=== PATIENT | female | born 1985 | race Caucasian/White ===

== ENCOUNTER 2024-07-12 18:46 | Emergency (ER) | payer SELFPAY ==
[2024-07-12 19:13] VITALS: BP 101/61; PULSE 72; TEMP 36.8; O2SAT 100
--- NOTE | 2024-07-12 19:36 | CT_ITS ---
The [address] [address] Patient Name: STUART LORENZ MRN: [id number] date: 1985 Sex: F Assigned Patient Location: ED.MAIN Current Patient Location: ED.MAIN Accession/Order Number: [id number] Exam Date: 07/12/2024 20:05 Report Date: 07/12/2024 21:52 At the request of: JUANI TORRES Procedure: CT abdomen pelvis wo con EXAMINATION: CT abdomen pelvis wo con, 07/12/2024 8:05 PM EST HISTORY: Abdominal pain. COMPARISON: None. TECHNIQUE: CT scan of the abdomen and pelvis was performed without IV contrast. CT dose reduction technique was used, including Automated Exposure Control. FINDINGS: LOWER CHEST: The visualized lung bases are clear. There is a pectus excavatum deformity. LIVER: 9 mm hypodensity in the right hepatic lobe which is indeterminate. GALLBLADDER AND BILIARY SYSTEM: Status post cholecystectomy. No intra or extrahepatic biliary ductal dilatation. SPLEEN: Unremarkable. PANCREAS: Unremarkable. ADRENAL GLANDS: Unremarkable. KIDNEYS AND URETERS: There is a 6 mm nonobstructing calculus in the upper pole the left kidney. There are 2 adjacent calcifications in the region of the proximal right ureter measuring 9 mm and 5 mm. It is unclear on the study of these calcifications are within the ureter or represent vascular calcifications. No perinephric stranding. No hydronephrosis. Prominence of the renal pelves bilaterally. BLADDER: Unremarkable. GASTROINTESTINAL TRACT: No evidence of bowel obstruction or colitis. Moderate amount of stool in the colon. Fluid-filled loops of small bowel are noted which may represent enteritis. A normal appendix is visualized. Clonic diverticulosis without evidence of diverticulitis. VASCULATURE: The abdominal aorta is normal in caliber. RETROPERITONEUM: No lymphadenopathy. PERITONEUM/MESENTERY: No abdominal ascites. No free air. PELVIS: No pelvic ascites or lymphadenopathy. The ovaries are not well evaluated on this study due to adjacent small bowel loops. BODY WALL: Unremarkable. BONES: Broad-based disc bulging noted at L5-S1. CT/CT abdomen pelvis wo con IMPRESSION: 1. Fluid-filled small bowel loops suggesting enteritis. No evidence of bowel obstruction. Constipation. Colonic diverticulosis without evidence of diverticulitis. 2. Calcifications noted in the region of the proximal right ureter. Ureteral calculus is not excluded on this study. No hydronephrosis. If there is clinical concern for ureteral calculus, further evaluation with CT urogram is suggested. 3. Nonobstructing 6 mm calculus in the upper pole the left kidney. 4. Pectus excavatum deformity. 5. Indeterminate hypodensity in the right hepatic lobe. 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 Electronically authenticated by: COLE WAGNER Date: 07/12/2024 21:52
--- NOTE | 2024-07-12 19:48 | ED.GENADUL1 ---
HPI HPI - General Adult General Chief complaint: Abdominal Pain Stated complaint: Abdominal Pain Time Seen by Provider: 07/12/24 19:35 Source: patient Mode of arrival: walk-in History of Present Illness HPI narrative: Patient is a 39-year-old female with a history of kidney stones who presents to the emergency department for 2-hour history of pain in the left upper quadrant radiating to the left flank. She states she was at work when the pain developed and she had 2 episodes of emesis which made her pain worse. Pain is less severe at this time. She has had no fevers, upper respiratory symptoms. She has had previous surgery on her ureter but has never required surgery to pass kidney stones in the past. She has no concern for . She has had a previous cholecystectomy and . No medications taken prior to arrival. Related Data Allergies Allergy/AdvReac Type Severity Reaction Status Date / Time codeine Allergy Severe Anaphylaxis Verified 07/12/24 19:26 Fish Containing Products Allergy Severe Anaphylaxis Verified 07/12/24 19:26 gluten Allergy Intermediate Abdominal Verified 07/12/24 19:26 Pain Opioid HPI Opioid Management Most Recent Opioid Data: Last Pain Scale 5 07/12/24 20:42 07/12/24 Last ED Pain Assessment 07/12/24 20:42 Review of Systems ROS Constitutional Denies: fever or chills Ears, nose, mouth, and throat Denies: throat pain or nasal congestion Cardiovascular Denies: chest pain Respiratory Denies: shortness of breath Gastrointestinal Reports: abdominal pain, nausea and vomiting; Denies: diarrhea Musculoskeletal Denies: back pain Integumentary/Breast Denies: rash Neurological Denies: numbness in extremities or weakness in extremities Hematologic/Lymphatic Denies: easy bruising or easy bleeding PFSH PFSH Medical History (Updated 07/12/24 @ 21:37 by KIMANI Howell) Kidney stone ?N20.0 - Calculus of kidney (ICD-10) Asthma ?J45.909 - Unspecified asthma, uncomplicated (ICD-10) FH: cholecystectomy ?Z83.79 - Family history of other diseases of the digestive system (ICD-10) Celiac disease ?K90.0 - Celiac disease (ICD-10) Social History Little interest or pleasure in doing things: not at all Feeling down, depressed, or hopeless: not at all Exam Narrative Exam Narrative: Gen.: Awake, alert, in no distress Head: Normocephalic, atraumatic ENT: Moist mucous membranes Respiratory: No respiratory distress, lungs clear bilaterally Cardio: Regular rate and rhythm Gastrointestinal: Abdomen is soft, nondistended and tender to palpation in the left upper quadrant, left flank with voluntary guarding and no rebound. No CVA tenderness Extremities: Moves extremities equally Psych: Normal mood and affect Neuro: No focal neuro deficit Skin: Warm, dry, intact Constitutional Vital Signs, click to edit/add: Last Vital Signs Temp 98.3 F 07/12/24 19:13 Pulse 59 L 07/12/24 21:33 Resp 16 07/12/24 21:33 BP 106/61 07/12/24 21:33 Pulse Ox 100 07/12/24 21:33 O2 Del Method Room Air 07/12/24 21:33 Course Vital Signs Vital signs: Vital Signs Temperature 98.3 F 07/12/24 19:13 Pulse Rate 72 07/12/24 19:13 Respiratory Rate 18 07/12/24 19:13 Blood Pressure 101/61 07/12/24 19:13 Pulse Oximetry 100 07/12/24 19:13 Oxygen Delivery Method Room Air 07/12/24 19:13 Temperature 98.3 F 07/12/24 19:13 Pulse Rate 59 L 07/12/24 21:33 Respiratory Rate 16 07/12/24 21:33 Blood Pressure 106/61 07/12/24 21:33 Pulse Oximetry 100 07/12/24 21:33 Oxygen Delivery Method Room Air 07/12/24 21:33 Medical Decision Making MDM Narrative Medical decision making narrative: 2136: Patient was medicated with IV fluids, Toradol and Zofran. She is hemodynamically stable. Labs are unremarkable and urine specimen is negative. We are awaiting a CT scan result at this time and case is turned over to attending physician for disposition. SHARED APC VISIT, PHYSICIAN ATTESTATION: [id number] I performed a substantive part of the MDM during the patient?s E/M visit. I personally evaluated and examined the patient. I personally made or approved the documented management plan and acknowledge its risk of complications. Medical Records Medical records reviewed: Yes I reviewed the patient's medical records Lab Data Lab results reviewed: Yes I reviewed the patient's lab results Labs: Lab Results 07/12/24 07/12/24 Range/Units 19:25 20:25 WBC 9.0 (4.0-11.0) 10^3/uL RBC 4.37 (4.20-5.40) 10^6/uL Hgb 13.5 (12.0-16.0) g/dL Hct 39.9 (36.0-48.0) % MCV 91.3 (81.0-99.0) fL MCH 30.9 (26.7-34.0) pg MCHC 33.8 (29.9-35.2) g/dL RDW 11.5 (11.0-15.0) % Plt Count 236 (150-450) 10^3/uL MPV 10.2 (9.5-13.5) fL Neut % (Auto) 72.6 (43.0-75.0) % Lymph % (Auto) 19.8 L (20.5-60.0) % [place] % (Auto) 5.9 (1.7-12.0) % Eos % (Auto) 1.1 (0.9-7.0) % Baso % (Auto) 0.4 (0.2-2.0) % Neut # (Auto) 6.5 (1.4-6.5) 10^3/uL Lymph # (Auto) 1.8 (1.2-3.8) 10^3/uL [place] # (Auto) 0.5 (0.3-0.8) 10^3/uL Eos # (Auto) 0.1 (0.0-0.7) 10^3/uL Baso # (Auto) 0.0 (0.0-0.1) 10^3/uL Abs Immat Gran (auto) 0.02 (0.00-0.03) 10^3/uL Imm/Tot Granulo (auto) 0.2 (0.0-0.5) % Sodium 138 (136-145) mmol/L Potassium 3.9 (3.5-5.1) mmol/L Chloride 105 (98-107) mmol/L Carbon Dioxide 28.1 (21.0-32.0) mmol/L Anion Gap 8.8 BUN 12.0 (7.0-18.0) mg/dL Creatinine 0.85 (0.55-1.02) mg/dL Est GFR ( Amer) >60 (>=60 mL/min/1.73m^2) Est GFR (Non-Af Amer) >60 (>=60 mL/min/1.73m^2) BUN/Creatinine Ratio 14.1 Glucose 83 (74-106) mg/dL Calcium 9.6 (8.5-10.1) mg/dL Total Bilirubin 0.4 (0.2-1.0) mg/dL AST 17 (15-37) U/L ALT 19 (14-59) U/L Alkaline Phosphatase 49 (46-116) U/L Total Protein 7.3 (6.4-8.2) g/dL Albumin 4.0 (3.4-5.0) g/dL Globulin 3.3 g/dL Albumin/Globulin Ratio 1.2 Lipase 36.0 (16.0-77.0) U/L Urine Color Lt. yellow (YELLOW) Urine Clarity Clear (CLEAR) Urine pH 5.5 (5.0-9.0) Ur Specific [place] <=1.005 A (1.005-1.025) Urine Protein Negative (NEG/TRACE) mg/dL Urine Glucose (UA) Negative (NEGATIVE) mg/dL Urine Ketones Negative (NEGATIVE) mg/dL Urine Occult Blood Negative (NEGATIVE) Urine Nitrite Negative (NEGATIVE) Urine Bilirubin Negative (NEGATIVE) Urine Urobilinogen 0.2 (0.2-1.0) EU/dL Ur Leukocyte Esterase Negative (NEGATIVE) Urine RBC None seen (0-2) #/HPF Urine WBC 0-2 A (NONE SEEN) #/HPF Ur Squamous Epith Cells Few A (NONE/RARE) #/LPF Urine Crystals None seen (None Seen) #/HPF Urine Bacteria None seen (NONE SEEN) #/HPF Urine Casts None seen (NONE SEEN) #/LPF Urine Mucus None seen (NONE SEEN) Urine HCG, Qual Negative (NEGATIVE) Discharge Plan Discharge Chief Complaint: Abdominal Pain Clinical Impression: Abdominal pain Patient Disposition: Still a Patient Print Language: Arabic Referrals: Physician,Non-Staff, MD [Primary Care Provider] - 1 week
[2024-07-12] MEDS: 0.9 % SODIUM CHLORIDE 1,000 ML 1000 ML IV (20:20)
[2024-07-12] MEDS: KETOROLAC TROMETHAMINE 30 MG/ML VIAL IVP (20:20)
[2024-07-12] MEDS: ONDANSETRON PF 4 MG/2 ML VIAL IV (20:21)
[2024-07-12 20:27] LABS: Bilirubin Urine NEGATIVE (NEGATIVE); Blood Urine NEGATIVE (NEGATIVE); Clarity Urine CLEAR (CLEAR); Color Urine LT. YELLOW (YELLOW); Glucose Urine UA NEGATIVE (NEGATIVE); Ketones Urine NEGATIVE (NEGATIVE); Leukocyte Esterase Urine NEGATIVE (NEGATIVE); Nitrite Urine NEGATIVE (NEGATIVE); Protein Urine NEGATIVE (NEG/TRACE); Specific Gravity Urine <=1.005 (1.005-1.025); Urobilinogen Urine 0.2 EU/dL (0.2-1.0); pH Urine 5.5 (5.0-9.0)
[2024-07-12 20:38] LABS: HCG Qualitative Urine* NEGATIVE (NEGATIVE); Internal Control Within Normal Limits
[2024-07-12 20:45] LABS: Basophils Percent Auto 0.4 % (0.2-2.0); Eosinophils Absolute Auto 0.1 10^3/uL (0.0-0.7); Eosinophils Percent Auto 1.1 % (0.9-7.0); Hematocrit 39.9 % (36.0-48.0); Hemoglobin 13.5 g/dL (12.0-16.0); Immature Granulocytes Abs Auto 0.02 10^3/uL (0.00-0.03); Immature Granulocytes Pct Auto 0.2 % (0.0-0.5); Lymphocytes Absolute Auto 1.8 10^3/uL (1.2-3.8); Lymphocytes Percent Auto 19.8 % (20.5-60.0); Mean Corpuscular HGB Conc 33.8 g/dL (29.9-35.2); Mean Corpuscular Hemoglobin 30.9 pg (26.7-34.0); Mean Corpuscular Volume 91.3 fL (81.0-99.0); Mean Platelet Volume 10.2 fL (9.5-13.5); Monocytes Absolute Auto 0.5 10^3/uL (0.3-0.8); Monocytes Percent Auto 5.9 % (1.7-12.0); Neutrophils Absolute Auto 6.5 10^3/uL (1.4-6.5); Neutrophils Percent Auto 72.6 % (43.0-75.0); Platelet Count 236 10^3/uL (150-450); Red Blood Count 4.37 10^6/uL (4.20-5.40); Red Cell Distribution Width 11.5 % (11.0-15.0)
[2024-07-12 20:47] LABS: Bacteria Urine NONE SEEN #/HPF (NONE SEEN); Mucus Urine NONE SEEN (NONE SEEN); RBC Urine NONE SEEN #/HPF (0-2); WBC Urine 0-2 #/HPF (NONE SEEN)
[2024-07-12 20:48] LABS: Cast Seen? NONE SEEN #/LPF (NONE SEEN); Crystals Seen? None Seen #/HPF (None Seen); Squamous Epithelial Cell Urine FEW #/LPF (NONE/RARE)
[2024-07-12 21:15] LABS: Alanine Aminotransferase 19 U/L (14-59); Albumin Globulin Ratio 1.2; Alkaline Phosphatase 49 U/L (46-116); Anion Gap 8.8; Aspartate Amino Transferase 17 U/L (15-37); BUN Creatinine Ratio 14.1; Bilirubin Total 0.4 mg/dL (0.2-1.0); Calcium 9.6 mg/dL (8.5-10.1); Carbon Dioxide 28.1 mmol/L (21.0-32.0); Chloride 105 mmol/L (98-107); Estimated GFR (African America >60 (>=60 mL/min/1.73m^2); Estimated GFR (Non-African Ame >60 (>=60 mL/min/1.73m^2); Globulin 3.3 g/dL; Glucose 83 mg/dL (74-106); Potassium 3.9 mmol/L (3.5-5.1); Sodium 138 mmol/L (136-145); Total Protein 7.3 g/dL (6.4-8.2)
[2024-07-12 21:33] VITALS: BP 106/61; PULSE 59; O2SAT 100
--- NOTE | 2024-07-12 23:08 | CT_ITS ---
The [address] [address] Patient Name: STUART LORENZ MRN: [id number] date: 1985 Sex: F Assigned Patient Location: ER Current Patient Location: ER Accession/Order Number: [id number] Exam Date: 07/12/2024 23:23 Report Date: 07/13/2024 01:51 At the request of: MINH DELGADO Procedure: CT abdomen pelvis wo/w con EXAM: CT abdomen pelvis wo/w con HISTORY: Possible right ureteral stone, rec by radiologist. Abdominal pain. COMPARISON: Prior unenhanced CT study 07/12/2024 at 8:10 PM TECHNIQUE: Unenhanced helical acquisition through the abdomen and the pelvis. Enhanced helical acquisition obtained through the abdomen and the pelvis. Dose reduction techniques were achieved by using automated exposure control and/or adjustment of mA and/or kV according to patient size and/or use of iterative reconstruction technique. FINDINGS: Pectus excavatum deformity of the anterior chest wall. The visualized lung bases and the pleural spaces are clear. Prior cholecystectomy. 6 mm low-attenuation focus within hepatic segment . The spleen, pancreas and the adrenal glands are unremarkable. Previously noted calcifications are calcifications associated with the right gonadal vein. No right renal or right ureteral calculi. 6 mm nonobstructing calculus within the superior left kidney. No enlarged lymph nodes within the abdomen or the pelvis. A 3.2 cm right adnexal cyst, with faint layering increased attenuation, likely hemorrhagic right ovarian cyst. The appendix is not identified. No secondary signs of appendicitis. CT/CT abdomen pelvis wo/w con IMPRESSION: 1. No ureteral calculi. 2. A 6 mm nonobstructing left renal calculus. 3. A 3.2 cm complex right adnexal cyst, likely a hemorrhagic right ovarian cyst. 4. Indeterminate 6 mm focus within the right hepatic lobe. This may be an underlying hepatic hemangioma. Electronically authenticated by: GIANFRANCO CHAKRABORTY Date: 07/13/2024 01:51
[2024-07-13] MEDS: KETOROLAC TROMETHAMINE 30 MG/ML VIAL IVP (00:24)
--- NOTE | 2024-07-13 02:04 | ED_ITS ---
HPI - Abdominal Pain General Chief Complaint: Abdominal Pain Stated Complaint: Abdominal Pain Time Seen by Provider: 07/12/24 19:35 Source: patient Mode of arrival: walk-in History of Present Illness HPI narrative: Please see previous note for full history and physical exam. Related Data Allergies Allergy/AdvReac Type Severity Reaction Status Date / Time codeine Allergy Severe Anaphylaxis Verified 07/12/24 19:26 Fish Containing Products Allergy Severe Anaphylaxis Verified 07/12/24 19:26 gluten Allergy Intermediate Abdominal Verified 07/12/24 19:26 Pain PFSH PFSH Medical History (Updated 07/13/24 @ 02:04 by Stevie Navarro MD) Kidney stone ?N20.0 - Calculus of kidney (ICD-10) Asthma ?J45.909 - Unspecified asthma, uncomplicated (ICD-10) FH: cholecystectomy ?Z83.79 - Family history of other diseases of the digestive system (ICD-10) Celiac disease ?K90.0 - Celiac disease (ICD-10) Social History Little interest or pleasure in doing things: not at all Feeling down, depressed, or hopeless: not at all Exam Constitutional Vital Signs, click to edit/add: Last Vital Signs Temp 98.3 F 07/12/24 19:13 Pulse 59 L 07/12/24 21:33 Resp 16 07/12/24 21:33 BP 106/61 07/12/24 21:33 Pulse Ox 100 07/12/24 21:33 O2 Del Method Room Air 07/12/24 21:33 Course Vital Signs Vital signs: Vital Signs Temperature 98.3 F 07/12/24 19:13 Pulse Rate 72 07/12/24 19:13 Respiratory Rate 18 07/12/24 19:13 Blood Pressure 101/61 07/12/24 19:13 Pulse Oximetry 100 07/12/24 19:13 Oxygen Delivery Method Room Air 07/12/24 19:13 Temperature 98.3 F 07/12/24 19:13 Pulse Rate 59 L 07/12/24 21:33 Respiratory Rate 16 07/12/24 21:33 Blood Pressure 106/61 07/12/24 21:33 Pulse Oximetry 100 07/12/24 21:33 Oxygen Delivery Method Room Air 07/12/24 21:33 MDM - Abdominal Pain MDM Narrative Medical decision making narrative: Initial noncontrasted CT of the abdomen showed questionable right ureteral stone and a CT urogram was recommended. This was performed and shows no ureteral stones. She appears to have constipation and enteritis and the rest of her workup is negative and she is able to be discharged home. Treatment diagnosis and follow-up were discussed with the patient. Differential Diagnosis Differential diagnosis: Likely abdominal pain, calculus of kidney, constipation, diverticulitis, gastroenteritis and pancreatitis Lab Data Attestation: I reviewed the patient's lab results. Labs: Lab Results 07/12/24 07/12/24 Range/Units 19:25 20:25 WBC 9.0 (4.0-11.0) 10^3/uL RBC 4.37 (4.20-5.40) 10^6/uL Hgb 13.5 (12.0-16.0) g/dL Hct 39.9 (36.0-48.0) % MCV 91.3 (81.0-99.0) fL MCH 30.9 (26.7-34.0) pg MCHC 33.8 (29.9-35.2) g/dL RDW 11.5 (11.0-15.0) % Plt Count 236 (150-450) 10^3/uL MPV 10.2 (9.5-13.5) fL Neut % (Auto) 72.6 (43.0-75.0) % Lymph % (Auto) 19.8 L (20.5-60.0) % [place] % (Auto) 5.9 (1.7-12.0) % Eos % (Auto) 1.1 (0.9-7.0) % Baso % (Auto) 0.4 (0.2-2.0) % Neut # (Auto) 6.5 (1.4-6.5) 10^3/uL Lymph # (Auto) 1.8 (1.2-3.8) 10^3/uL [place] # (Auto) 0.5 (0.3-0.8) 10^3/uL Eos # (Auto) 0.1 (0.0-0.7) 10^3/uL Baso # (Auto) 0.0 (0.0-0.1) 10^3/uL Abs Immat Gran (auto) 0.02 (0.00-0.03) 10^3/uL Imm/Tot Granulo (auto) 0.2 (0.0-0.5) % Sodium 138 (136-145) mmol/L Potassium 3.9 (3.5-5.1) mmol/L Chloride 105 (98-107) mmol/L Carbon Dioxide 28.1 (21.0-32.0) mmol/L Anion Gap 8.8 BUN 12.0 (7.0-18.0) mg/dL Creatinine 0.85 (0.55-1.02) mg/dL Est GFR ( Amer) >60 (>=60 mL/min/1.73m^2) Est GFR (Non-Af Amer) >60 (>=60 mL/min/1.73m^2) BUN/Creatinine Ratio 14.1 Glucose 83 (74-106) mg/dL Calcium 9.6 (8.5-10.1) mg/dL Total Bilirubin 0.4 (0.2-1.0) mg/dL AST 17 (15-37) U/L ALT 19 (14-59) U/L Alkaline Phosphatase 49 (46-116) U/L Total Protein 7.3 (6.4-8.2) g/dL Albumin 4.0 (3.4-5.0) g/dL Globulin 3.3 g/dL Albumin/Globulin Ratio 1.2 Lipase 36.0 (16.0-77.0) U/L Urine Color Lt. yellow (YELLOW) Urine Clarity Clear (CLEAR) Urine pH 5.5 (5.0-9.0) Ur Specific [place] <=1.005 A (1.005-1.025) Urine Protein Negative (NEG/TRACE) mg/dL Urine Glucose (UA) Negative (NEGATIVE) mg/dL Urine Ketones Negative (NEGATIVE) mg/dL Urine Occult Blood Negative (NEGATIVE) Urine Nitrite Negative (NEGATIVE) Urine Bilirubin Negative (NEGATIVE) Urine Urobilinogen 0.2 (0.2-1.0) EU/dL Ur Leukocyte Esterase Negative (NEGATIVE) Urine RBC None seen (0-2) #/HPF Urine WBC 0-2 A (NONE SEEN) #/HPF Ur Squamous Epith Cells Few A (NONE/RARE) #/LPF Urine Crystals None seen (None Seen) #/HPF Urine Bacteria None seen (NONE SEEN) #/HPF Urine Casts None seen (NONE SEEN) #/LPF Urine Mucus None seen (NONE SEEN) Urine HCG, Qual Negative (NEGATIVE) Imaging Data CT scan - abdomen: Radiologist's impression: ITS Impressions Abdomen/Pelvis CT 07/12/24 19:36 IMPRESSION: 1. Fluid-filled small bowel loops suggesting enteritis. No evidence of bowel obstruction. Constipation. Colonic diverticulosis without evidence of diverticulitis. 2. Calcifications noted in the region of the proximal right ureter. Ureteral calculus is not excluded on this study. No hydronephrosis. If there is clinical concern for ureteral calculus, further evaluation with CT urogram is suggested. 3. Nonobstructing 6 mm calculus in the upper pole the left kidney. 4. Pectus excavatum deformity. 5. Indeterminate hypodensity in the right hepatic lobe. 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 Electronically authenticated by: COLE WAGNER Date: 07/12/2024 21:52 Abdomen/Pelvis CT 07/12/24 23:08 IMPRESSION: 1. No ureteral calculi. 2. A 6 mm nonobstructing left renal calculus. 3. A 3.2 cm complex right adnexal cyst, likely a hemorrhagic right ovarian cyst. 4. Indeterminate 6 mm focus within the right hepatic lobe. This may be an underlying hepatic hemangioma. Electronically authenticated by: GIANFRANCO CHAKRABORTY Date: 07/13/2024 01:51 Discharge Plan Discharge Chief Complaint: Abdominal Pain Clinical Impression: Constipation, Enteritis Patient Disposition: Home, Self-Care Time of Disposition Decision: 02:03 Condition: Good Mode of Transportation: Private Vehicle Print Language: Turkmen Instructions: Constipation (ED), Enteritis (ED) Additional Instructions: [id number] MiraLAX for constipation. Referrals: Physician,Non-Staff, MD [Primary Care Provider] - 1 week
[2024-07-13 02:32] VITALS: BP 111/58; PULSE 58; O2SAT 98
== END 2024-07-13 02:33 | disposition home or self-care (01) ==
PROVIDERS: Physician Assistant; Emergency Provider Emergency Medicine
DX: K59.00 Constipation, unspecified (principal); K52.9 Noninfective gastroenteritis and colitis, unspecified; K57.30 Diverticulosis of large intestine without perforation or abscess without bleeding; Q67.6 Pectus excavatum; N83.291 Other ovarian cyst, right side; Z87.442 Personal history of urinary calculi; Z90.49 Acquired absence of other specified parts of digestive tract; R10.9 Unspecified abdominal pain
CPT/HCPCS: 36415; 74176; 74178; 80053; 81001; 83690; 84703; 85025; 96361; 96374; 96375; 96376; 99285; J1885; J2405; Q9967

== ENCOUNTER 2024-07-28 14:40 | Emergency (ER) | payer BC, SELFPAY ==
[2024-07-28 14:53] VITALS: BP 104/70; PULSE 93; TEMP 36.6; O2SAT 99; BMI 16.8
--- OUTSIDE RECORDS SUMMARY | 2024-07-28 14:57 | XMS_ITS | CCD ---
Author Organization [facility] Care Team Providers Care Top Precipitator Operator Helper Name Role Phone JEFF DUGAN Admitting Unavailable JEFF DUGAN Attending Unavailable JEFF DUGAN Consulting Unavailable JEFF DUGAN Primary Care Unavailable Neeraj Nixon Consulting Unavailable JEFF DUGAN Primary Care Unavailable JEFF DUGAN Admitting Unavailable JEFF DUGAN Attending Unavailable JEFF DUGAN Consulting Unavailable Allergies Allergy Classification Reported Allergen(s) Allergy Type Date of Onset Reaction(s) Facility (1 source) Amoxicillin / Clavulanate Drug Allergy [facility] Repository (1 source) Codeine Drug Allergy [facility] Repository (1 source) Gluten Drug allergy (disorder) [facility] Repository (1 source) Triazolam Drug Allergy [facility] Repository Problems Active Problems Problem Classification Problem Date Documented Da te Episodic/Chronic Other upper respiratory disease (1 source) Other specified disorders of nose and nasal sinuses; Translations: [OTH SPEC D/O NOSE NASAL SINUSES] Onset: 06-26-2021 Episodic Unclassified (4 sources) CONTACT W/AND (SUSP) EXPOS COVID-19; Translations: [CONTACT W/AND (SUSP) EXPOS COVID-19] Onset: 08-19-2020 Unclassified (1 source) COUGH, UNSPECIFIED; Translations: [COUGH, UNSPECIFIED] Onset: 06-26-2021 Past or Other Problems Problem Classification Problem Date Documented Da te Episodic/Chronic Fever of unknown origin (1 source) Fever, unspecified; Translations: [FEVER UNSPECIFIED] Onset: 08-19-2020 Episodic Other lower respiratory disease (1 source) Cough; Translations: [COUGH] Onset: 08-19-2020 Episodic Unclassified (1 source) CONTACT W/AND (SUSP) EXPOS COVID-19; Translations: [CONTACT W/AND (SUSP) EXPOS COVID-19] Onset: 06-23-2021 Results Test Name Value Interpretation Reference Range Facil ity Covid-19 PCR (CVDTB)on 06-14 SARS-CoV-2 (COVID-19) RNA INDIRA+probe Ql (Unsp spec) Not detected Normal NOT DETECTED [facility] Comment on above: Result Comment: This test is not yet approved or cleared by the [place] FDA. When there are no FDA-approved or cleared tests available, and other criteria are met, FDA can make tests available under an emergency access mechanism called an Emergency Use Authorization (EUA). The EUA for this test is supported by the [place] of Health and Human Service's (HHS's) declaration that circumstances exist to justify the emergency use of in vitro diagnostics for the detection and/or diagnosis of the virus that causes COVID-19. This EUA will remain in effect (meaning this test can be used) for the duration of the COVID-19 declaration justifying emergency of IVDs, unless it is terminated or revoked by FDA (after which the test may no longer be used). When diagnostic testing is negative, the possibility of a false negative should be considered in the context of a patient's recent exposures and the presence of clinical signs and symptoms consistent with SARS-CoV-2. Performed By: #### C COUNT INCLUDES [facility] #### [facility] [address] [place] [address] Dr. Jami Hernandez SARS-CoV2 ANTIBODIES (IgM, I gG, IgA)on 08-15-2020 SARS-CoV-2 (COVID-19) RNA INDIRA+probe Ql (Unsp spec) Negative Normal Negative [facility] Comment on above: Result Comment: This sample does not contain detectable SARS-CoV-2 antibodies. This negative result does not rule out SARS-CoV-2 infection. Correlation with epidemiologic risk factors and other clinical and laboratory findings is recommended. Serologic results should not be used as the sole basis to diagnose or exclude recent SARS-CoV-2 infection. This assay will not detect antibodies induced by the currently available SARS-CoV-2 vaccines. The current vaccines elicit antibodies specific to the viral spike protein. [employer] offers two test codes that detect viral spike-specific antibodies: 958724 SARS-CoV-2 Semi-Quantitative Total Antibody, Ralph and 987257 SARS-CoV-2 Antibody, IgG, Ralph (Qualitative). Positive results with this SARS-CoV-2 Antibodies, Nucleocapsid assay suggest recent or previous natural infection with SARS-CoV-2. Performed By: #### C VDABS #### [facility] [address], [place] [address] Shama Tenorio [facility]19 [facility]on SARS-CoV-2 (COVID-19) RNA INDIRA+probe Ql (Unsp spec) Not detected Normal NOT DETECTED [facility] Comment on above: Result Comment: This test is not yet approved or cleared by the [place] FDA. When there are no FDA-approved or cleared tests available, and other criteria are met, FDA can make tests available under an emergency access mechanism called an Emergency Use Authorization (EUA). The EUA for this test is supported by the [place] of Health and Human Service's (HHS's) declaration that circumstances exist to justify the emergency use of in vitro diagnostics for the detection and/or diagnosis of the virus that causes COVID-19. This EUA will remain in effect (meaning this test can be used) for the duration of the COVID-19 declaration justifying emergency of IVDs, unless it is terminated or revoked by FDA (after which the test may no longer be used). When diagnostic testing is negative, the possibility of a false negative should be considered in the context of a patient's recent exposures and the presence of clinical signs and symptoms consistent with SARS-CoV-2. Performed By: #### C VDTBH #### [facility] [address], [place] [address] Shama Tenorio XR CHEST 2 Von 08-13-2020 XR CHEST 2 V Two-view CHEST RADIOGRAPH, 08/13/2020, 4:40 PM EST COMPARISON: None. CLINICAL HISTORY: Dyspnea/shortness of breath with cough and COVID symptoms for the last 3 weeks getting worse. Patient was exposed 3 weeks ago. Findings and impression: 1. Allowing for overlying breast shadows on the frontal projection along with obscured right heart border from pectus excavatum, no acute cardiopulmonary disease identified. 2. Normal heart size. 3. No acute osseous abnormality. Electronically authenticated by: Neeraj NXION Date: 2020-08-13 17:40 Normal [facility] Encounters Encounter Date Encounter Type Care Provider Facility Start: 06-23-2021 End: 06-23-2021 ambulatory JEFF DUGAN Facility:[facility] Start: 08-19-2020 Encounter for antibo dy response examination JEFF DUGAN [facility] Start: 08-13-2020 End: 08-14-2020 ambulatory JEFF DUGAN Facility:[facility] Start: 08-13-2020 End: 08-14-2020 Encounter for antibody response examination JEFF DUGAN Facility:[facility] Payers Date Payer Category Payer Unknown [id number] 1985 Unknown [id number] 1960 Unknown [id number] Summary Purpose Family History No Family History Records Found Advance Directives No Advanced Directives Records Found Additional Source Comments INFORMATION SOURCE (unrecogn ized section and content) DATE CREATED AUTHOR 06/27/2021 [facility] FOR RECORDS PERTAINING TO PATIENTS WHO ARE OR HAVE BEEN ENROLLED IN A CHEMICAL DEPENDENCY/SUBSTANCEABUSE PROGRAM, SOME INFORMATION MAY BE OMITTED. This clinical summary was aggregated from multiple sources. Caution should be exercised in using it in the provision of clinical care. This summary normalizes information from multiple sources, and as a consequence, information in this document may materially change the coding, format and clinical context of patient data. In addition, data may be omitted in some cases. CLINICAL DECISIONS SHOULD BE BASED ON THE PRIMARY CLINICAL RECORDS. [facility] [employer] [facility]. provides no warranty or guarantee of the accuracy or completeness of information in this document.
[2024-07-28 16:06] LABS: Basophils Percent Auto 0.5 % (0.2-2.0); Eosinophils Absolute Auto 0.1 10^3/uL (0.0-0.7); Eosinophils Percent Auto 2.4 % (0.9-7.0); Hematocrit 41.2 % (36.0-48.0); Hemoglobin 13.6 g/dL (12.0-16.0); Immature Granulocytes Abs Auto 0.01 10^3/uL (0.00-0.03); Immature Granulocytes Pct Auto 0.2 % (0.0-0.5); Lymphocytes Absolute Auto 1.4 10^3/uL (1.2-3.8); Lymphocytes Percent Auto 24.1 % (20.5-60.0); Mean Corpuscular Hemoglobin 30.4 pg (26.7-34.0); Mean Platelet Volume 9.9 fL (9.5-13.5); Monocytes Absolute Auto 0.6 10^3/uL (0.3-0.8); Monocytes Percent Auto 9.9 % (1.7-12.0); Neutrophils Absolute Auto 3.7 10^3/uL (1.4-6.5); Neutrophils Percent Auto 62.9 % (43.0-75.0); Platelet Count 203 10^3/uL (150-450); Red Blood Count 4.48 10^6/uL (4.20-5.40); Red Cell Distribution Width 11.3 % (11.0-15.0); White Blood Count 5.9 10^3/uL (4.0-11.0)
[2024-07-28 16:08] LABS: Bilirubin Urine NEGATIVE (NEGATIVE); Blood Urine TRACE-L (NEGATIVE); Clarity Urine CLEAR (CLEAR); Color Urine LT. YELLOW (YELLOW); Glucose Urine UA NEGATIVE (NEGATIVE); Ketones Urine NEGATIVE (NEGATIVE); Leukocyte Esterase Urine NEGATIVE (NEGATIVE); Nitrite Urine NEGATIVE (NEGATIVE); Protein Urine NEGATIVE (NEG/TRACE); Specific Gravity Urine <=1.005 (1.005-1.025); Urobilinogen Urine 0.2 EU/dL (0.2-1.0)
[2024-07-28 16:24] LABS: Bacteria Urine TRACE #/HPF (NONE SEEN); RBC Urine 0-2 #/HPF (0-2); WBC Urine 0-2 #/HPF (NONE SEEN)
[2024-07-28 16:25] LABS: Cast Seen? NONE SEEN #/LPF (NONE SEEN); Crystals Seen? None Seen #/HPF (None Seen); Mucus Urine NONE SEEN (NONE SEEN); Squamous Epithelial Cell Urine NONE SEEN #/LPF (NONE/RARE); Urine Culture Indicated NO
--- NOTE | 2024-07-28 16:28 | CT_ITS ---
The [place] [id number] Patient Name: STUART LORENZ MRN: [id number] date: 1985 Sex: F Assigned Patient Location: ER Current Patient Location: ER Accession/Order Number: [id number] Exam Date: 07/28/2024 17:05 Report Date: 07/28/2024 18:31 At the request of: MAXIMILIANO VILLELA Procedure: CT abdomen pelvis wo con EXAM: CT abdomen pelvis wo con HISTORY: abdominal pain COMPARISON: 07/12/2024. TECHNIQUE: Unenhanced helical acquisition obtained through the abdomen and the pelvis. FINDINGS: Pectus excavatum deformity anterior chest wall. Minimal peripheral pulmonary scarring within the left lung base. The pleural spaces are clear. Prior cholecystectomy. A 1 cm low-attenuation focus noted within hepatic segment as well as additional 1 cm low-attenuation focus hepatic segment VII. Allowing for the lack of intravenous contrast, the spleen, pancreas, and the adrenal glands are unremarkable. 6 mm nonobstructing calculus within the superior left kidney. No ureteral calculi are identified. Right retroperitoneal calcified phleboliths, unchanged. Prominent bilateral extrarenal pelvises. No enlarged lymph nodes within the abdomen or the pelvis. A 2.8 cm right adnexal cyst. Normal appendix. Fairly extensive stool burden. No ascites or focal intraperitoneal fluid collections. CT/CT abdomen pelvis wo con IMPRESSION: 1. Subcentimeter nonobstructing left renal calculus. No ureteral calculi. 2. Fairly extensive stool burden. No evidence of bowel obstruction or significant ileus. 3. Normal appendix. No inflammatory changes within the abdomen or the pelvis. 4. A 2.8 cm right adnexal cyst, likely physiologic right ovarian cyst. Electronically authenticated by: GIANFRANCO CHAKRABORTY Date: 07/28/2024 18:31
[2024-07-28 16:39] LABS: HCG Qualitative Urine* NEGATIVE (NEGATIVE); Internal Control Within Normal Limits
[2024-07-28 16:40] LABS: Alanine Aminotransferase 12 U/L (14-59); Albumin Globulin Ratio 1.4; Albumin Level 4.1 g/dL (3.4-5.0); Alkaline Phosphatase 52 U/L (46-116); Anion Gap 12.6; Aspartate Amino Transferase 14 U/L (15-37); BUN Creatinine Ratio 12.9; Bilirubin Total 0.4 mg/dL (0.2-1.0); Carbon Dioxide 28.8 mmol/L (21.0-32.0); Chloride 103 mmol/L (98-107); Estimated GFR (African America >60 (>=60 mL/min/1.73m^2); Estimated GFR (Non-African Ame >60 (>=60 mL/min/1.73m^2); Glucose 83 mg/dL (74-106); Potassium 3.4 mmol/L (3.5-5.1); Sodium 141 mmol/L (136-145); Total Protein 7.1 g/dL (6.4-8.2)
[2024-07-28] MEDS: KETOROLAC TROMETHAMINE 30 MG/ML VIAL IVP (16:52)
[2024-07-28] MEDS: 0.9 % SODIUM CHLORIDE 1,000 ML 1000 ML IV (16:52)
[2024-07-28] MEDS: ONDANSETRON PF 4 MG/2 ML VIAL IV (18:27)
--- NOTE | 2024-07-28 18:34 | ED.BACK1 ---
Documented by User: Keira Bailon 07/28/24 18:53 HPI HPI - Back Pain/Injury General Chief Complaint: Back Pain/Injury Stated Complaint: KIDNEY PAIN Time Seen by Provider: 07/28/24 16:10 Mode of arrival: walk-in History of Present Illness HPI Narrative: 39-year-old female presents here with a chief complaint of continued abdominal and back pain. She states she was at work today and to have shakes and felt nauseated. Patient was seen here on July 12 and had an abdominal workup showing constipation and ovarian cyst. Patient is afebrile nontoxic denies any vomiting or fevers. Denies any difficulty with urination. Related Data Home Medications ?Medication ?Instructions ?Recorded ?Confirmed albuterol sulfate 90 mcg/actuation 1 puff inhalation Q8H PRN 07/28/24 07/28/24 aerosol inhaler shortness of breath or wheezing hyoscyamine sulfate 0.125 mg 0.125 mg PO Q4H PRN dyspepsia 07/28/24 07/28/24 sublingual tablet ibuprofen 800 mg tablet 800 mg PO Q8H PRN fever or pain 07/28/24 07/28/24 tamsulosin 0.4 mg capsule 0.4 mg PO Q24H 07/28/24 07/28/24 Previous Rx's ?Medication ?Instructions ?Recorded ondansetron 4 mg disintegrating 4 mg PO Q6H PRN nausea and 07/13/24 tablet vomiting #20 tabs Allergies Allergy/AdvReac Type Severity Reaction Status Date / Time codeine Allergy Severe Anaphylaxis Verified 07/12/24 19:26 Fish Containing Products Allergy Severe Anaphylaxis Verified 07/12/24 19:26 gluten Allergy Intermediate Abdominal Verified 07/12/24 19:26 Pain Opioid HPI Opioid Management Most Recent Opioid Data: Last Pain Scale 6 07/28/24 18:32 07/28/24 Last MAR Pain Assessment 07/28/24 18:32 Review of Systems ROS Narrative All Systems are negative except as noted/marked.All systems reviewed and otherwise negative [facility] Medical History (Updated 07/28/24 @ 18:33 by Keira Bailon) Kidney stone ?N20.0 - Calculus of kidney (ICD-10) Asthma ?J45.909 - Unspecified asthma, uncomplicated (ICD-10) FH: cholecystectomy ?Z83.79 - Family history of other diseases of the digestive system (ICD-10) Celiac disease ?K90.0 - Celiac disease (ICD-10) Social History Little interest or pleasure in doing things: not at all Feeling down, depressed, or hopeless: not at all Exam Narrative Exam Narrative: Nurses note and vital signs reviewed and patient is not hypoxic. General: The patient appears well and in no apparent distress. Patient is resting comfortably on cart. Skin: Warm, dry, no pallor noted. There is no rash noted. Head: Normocephalic, atraumatic Eye: Normal conjunctiva, no drainage, EOMI. PERRL Ears, Nose, Mouth, and Throat: oral mucosa is moist. Nares patent. Mouth without vesicles. Ear canals patent. Tm's without Erythema Cardiovascular: Regular Rate and Rhythm Respiratory: Patient is in no distress, no accessory muscle use, lungs are clear to auscultation, no wheezing, rales or rhonchi Back: non-tender, no CVA tenderness bilaterally to percussion. GI: Normal bowel sounds, no tenderness to palpation, no masses appreciated. No rebound, guarding, or rigidity noted. Musculoskeletal: The patient has no evidence of calf tenderness, no pitting edema, symmetrical pulses noted bilaterally Neurological: A&O x4, normal speech Psychiatric: Cooperative Constitutional Vital Signs, click to edit/add: Last Vital Signs Temp 97.9 F 07/28/24 14:53 Pulse 93 H 07/28/24 14:53 Resp 18 07/28/24 14:53 BP 104/70 07/28/24 14:53 Pulse Ox 99 07/28/24 14:53 O2 Del Method Room Air 07/28/24 14:53 Course Vital Signs Vital signs: Vital Signs Temperature 97.9 F 07/28/24 14:53 Pulse Rate 93 H 07/28/24 14:53 Respiratory Rate 18 07/28/24 14:53 Blood Pressure 104/70 07/28/24 14:53 Pulse Oximetry 99 07/28/24 14:53 Oxygen Delivery Method Room Air 07/28/24 14:53 Temperature 97.9 F 07/28/24 14:53 Pulse Rate 93 H 07/28/24 14:53 Respiratory Rate 18 07/28/24 14:53 Blood Pressure 104/70 07/28/24 14:53 Pulse Oximetry 99 07/28/24 14:53 Oxygen Delivery Method Room Air 07/28/24 14:53 MDM - Back Pain/Injury MDM Narrative Medical decision making narrative: 39-year-old female presents here with a chief complaint of continued abdominal and back pain. She states she was at work today and to have shakes and felt nauseated. Patient was seen here on July 12 and had an abdominal workup showing constipation and ovarian cyst. Patient is afebrile nontoxic denies any vomiting or fevers. Denies any difficulty with urination. Patient was seen here on July 12 and had an abdominal workup including CT scan which showed small ovarian cyst on the right with constipation. Patient is a known history of kidney stone as well. Patient states did not feel well today and had abdominal cramping. She states she has been using hycosamine sulfate as well as. She states she either has diarrhea or constipation with her chronic abdominal issues. She has not had any follow-up with urology or GI specialist. Denies a history of seeing MEDICAL RECORDS SPECIALIST. Examination benign today bowel sounds are active throughout CBC BMP within normal limits CT scan shows stool burden. Patient medicated here with Toradol she will be discharged home with tramadol. Prescription for outpatient ultrasound to be performed and follow-up with Dr. Beltre's office if she does not have an MEDICAL RECORDS SPECIALIST. Patient agrees with plan of care. Differential Diagnosis Differential diagnosis: Likely other (constipation, ovarian cyst) Medical Records Attestation: I reviewed the patient's medical records. Lab Data Attestation: I reviewed the patient's lab results. Labs: Lab Results 07/28/24 07/28/24 Range/Units 15:31 15:40 WBC 5.9 (4.0-11.0) 10^3/uL RBC 4.48 (4.20-5.40) 10^6/uL Hgb 13.6 (12.0-16.0) g/dL Hct 41.2 (36.0-48.0) % MCV 92.0 (81.0-99.0) fL MCH 30.4 (26.7-34.0) pg MCHC 33.0 (29.9-35.2) g/dL RDW 11.3 (11.0-15.0) % Plt Count 203 (150-450) 10^3/uL MPV 9.9 (9.5-13.5) fL Neut % (Auto) 62.9 (43.0-75.0) % Lymph % (Auto) 24.1 (20.5-60.0) % Clay % (Auto) 9.9 (1.7-12.0) % Eos % (Auto) 2.4 (0.9-7.0) % Baso % (Auto) 0.5 (0.2-2.0) % Neut # (Auto) 3.7 (1.4-6.5) 10^3/uL Lymph # (Auto) 1.4 (1.2-3.8) 10^3/uL Clay # (Auto) 0.6 (0.3-0.8) 10^3/uL Eos # (Auto) 0.1 (0.0-0.7) 10^3/uL Baso # (Auto) 0.0 (0.0-0.1) 10^3/uL Abs Immat Gran (auto) 0.01 (0.00-0.03) 10^3/uL Imm/Tot Granulo (auto) 0.2 (0.0-0.5) % Sodium 141 (136-145) mmol/L Potassium 3.4 L (3.5-5.1) mmol/L Chloride 103 (98-107) mmol/L Carbon Dioxide 28.8 (21.0-32.0) mmol/L Anion Gap 12.6 BUN 11.0 (7.0-18.0) mg/dL Creatinine 0.85 (0.55-1.02) mg/dL Est GFR ( Amer) >60 (>=60 mL/min/1.73m^2) Est GFR (Non-Af Amer) >60 (>=60 mL/min/1.73m^2) BUN/Creatinine Ratio 12.9 Glucose 83 (74-106) mg/dL Calcium 9.0 (8.5-10.1) mg/dL Total Bilirubin 0.4 (0.2-1.0) mg/dL AST 14 L (15-37) U/L ALT 12 L (14-59) U/L Alkaline Phosphatase 52 (46-116) U/L Total Protein 7.1 (6.4-8.2) g/dL Albumin 4.1 (3.4-5.0) g/dL Globulin 3.0 g/dL Albumin/Globulin Ratio 1.4 Urine Color Lt. yellow (YELLOW) Urine Clarity Clear (CLEAR) Urine pH 6.0 (5.0-9.0) Ur Specific [place] <=1.005 A (1.005-1.025) Urine Protein Negative (NEG/TRACE) mg/dL Urine Glucose (UA) Negative (NEGATIVE) mg/dL Urine Ketones Negative (NEGATIVE) mg/dL Urine Occult Blood Trace-l (NEGATIVE) Urine Nitrite Negative (NEGATIVE) Urine Bilirubin Negative (NEGATIVE) Urine Urobilinogen 0.2 (0.2-1.0) EU/dL Ur Leukocyte Esterase Negative (NEGATIVE) Urine RBC 0-2 (0-2) #/HPF Urine WBC 0-2 A (NONE SEEN) #/HPF Ur Squamous Epith Cells None seen (NONE/RARE) #/LPF Urine Crystals None seen (None Seen) #/HPF Urine Bacteria Trace A (NONE SEEN) #/HPF Urine Casts None seen (NONE SEEN) #/LPF Urine Mucus None seen (NONE SEEN) Ur Culture Indicated? No Urine HCG, Qual Negative (NEGATIVE) Imaging Data CT scan - abdomen: Radiologist's impression: ITS Impressions Abdomen/Pelvis CT 07/28/24 16:28 IMPRESSION: 1. Subcentimeter nonobstructing left renal calculus. No ureteral calculi. 2. Fairly extensive stool burden. No evidence of bowel obstruction or significant ileus. 3. Normal appendix. No inflammatory changes within the abdomen or the pelvis. 4. A 2.8 cm right adnexal cyst, likely physiologic right ovarian cyst. Electronically authenticated by: GIANFRANCO CHAKRABORTY Date: 07/28/2024 18:31 Discharge Plan Discharge Chief Complaint: Back Pain/Injury Clinical Impression: Constipation, Ovarian cyst Patient Disposition: Home, Self-Care Time of Disposition Decision: 18:32 Condition: Good Prescriptions / Home Meds: No Action albuterol sulfate 90 mcg/actuation HFA aerosol inhaler 1 puff INHALATION Q8H PRN (Reason: shortness of breath or wheezing) hyoscyamine sulfate 0.125 mg tablet, sublingual 0.125 mg PO Q4H PRN (Reason: dyspepsia) ibuprofen 800 mg tablet 800 mg PO Q8H PRN (Reason: fever or pain) tamsulosin 0.4 mg capsule 0.4 mg PO Q24H ondansetron 4 mg tablet,disintegrating 4 mg PO Q6H PRN (Reason: nausea and vomiting) Qty: 20 0RF Print Language: Bengali Instructions: Ovarian Cyst (ED), Constipation (ED) Referrals: Narinder Beltre DO [Physician] - As needed JEFF VIDES [Primary Care Provider] - 1 week Discharge Date/Time: 07/28/24 18:43 Documented by User: Michael Serrano MD 07/28/24 19:48 HPI HPI - Back Pain/Injury General Chief Complaint: Back Pain/Injury Stated Complaint: KIDNEY PAIN Time Seen by Provider: 07/28/24 16:10 Related Data Home Medications ?Medication ?Instructions ?Recorded ?Confirmed albuterol sulfate 90 mcg/actuation 1 puff inhalation Q8H PRN 07/28/24 07/28/24 aerosol inhaler shortness of breath or wheezing hyoscyamine sulfate 0.125 mg 0.125 mg PO Q4H PRN dyspepsia 07/28/24 07/28/24 sublingual tablet ibuprofen 800 mg tablet 800 mg PO Q8H PRN fever or pain 07/28/24 07/28/24 tamsulosin 0.4 mg capsule 0.4 mg PO Q24H 07/28/24 07/28/24 Previous Rx's ?Medication ?Instructions ?Recorded ondansetron 4 mg disintegrating 4 mg PO Q6H PRN nausea and 07/13/24 tablet vomiting #20 tabs Allergies Allergy/AdvReac Type Severity Reaction Status Date / Time codeine Allergy Severe Anaphylaxis Verified 07/12/24 19:26 Fish Containing Products Allergy Severe Anaphylaxis Verified 07/12/24 19:26 gluten Allergy Intermediate Abdominal Verified 07/12/24 19:26 Pain Opioid HPI Opioid Management Most Recent Opioid Data: Last Pain Scale 6 07/28/24 18:32 07/28/24 Last MAR Pain Assessment 07/28/24 18:32 PFSH [facility] Medical History (Updated 07/28/24 @ 18:33 by Keira Bailon) Kidney stone ?N20.0 - Calculus of kidney (ICD-10) Asthma ?J45.909 - Unspecified asthma, uncomplicated (ICD-10) FH: cholecystectomy ?Z83.79 - Family history of other diseases of the digestive system (ICD-10) Celiac disease ?K90.0 - Celiac disease (ICD-10) Social History Little interest or pleasure in doing things: not at all Feeling down, depressed, or hopeless: not at all Exam Constitutional Vital Signs, click to edit/add: Last Vital Signs Temp 97.9 F 07/28/24 14:53 Pulse 93 H 07/28/24 14:53 Resp 18 07/28/24 14:53 BP 104/70 07/28/24 14:53 Pulse Ox 99 07/28/24 14:53 O2 Del Method Room Air 07/28/24 14:53 Course Vital Signs Vital signs: Vital Signs Temperature 97.9 F 07/28/24 14:53 Pulse Rate 93 H 07/28/24 14:53 Respiratory Rate 18 07/28/24 14:53 Blood Pressure 104/70 07/28/24 14:53 Pulse Oximetry 99 07/28/24 14:53 Oxygen Delivery Method Room Air 07/28/24 14:53 Temperature 97.9 F 07/28/24 14:53 Pulse Rate 93 H 07/28/24 14:53 Respiratory Rate 18 07/28/24 14:53 Blood Pressure 104/70 07/28/24 14:53 Pulse Oximetry 99 07/28/24 14:53 Oxygen Delivery Method Room Air 07/28/24 14:53 MDM - Back Pain/Injury MDM Narrative Medical decision making narrative: 39-year-old female presents here with a chief complaint of continued abdominal and back pain. She states she was at work today and to have shakes and felt nauseated. Patient was seen here on July 12 and had an abdominal workup showing constipation and ovarian cyst. Patient is afebrile nontoxic denies any vomiting or fevers. Denies any difficulty with urination. Patient was seen here on July 12 and had an abdominal workup including CT scan which showed small ovarian cyst on the right with constipation. Patient is a known history of kidney stone as well. Patient states did not feel well today and had abdominal cramping. She states she has been using hycosamine sulfate as well as. She states she either has diarrhea or constipation with her chronic abdominal issues. She has not had any follow-up with urology or GI specialist. Denies a history of seeing MEDICAL RECORDS SPECIALIST. Examination benign today bowel sounds are active throughout CBC BMP within normal limits CT scan shows stool burden. Patient medicated here with Toradol she will be discharged home with tramadol. Prescription for outpatient ultrasound to be performed and follow-up with Dr. Beltre's office if she does not have an MEDICAL RECORDS SPECIALIST. Patient agrees with plan of care. I, Dr Serrano, have reviewed the above progress note and course of action in the ER; agree with the above. I have personally gone over history and physical, and discussed disposition and treatment plan with the PA. Lab Data Labs: Lab Results 07/28/24 07/28/24 Range/Units 15:31 15:40 WBC 5.9 (4.0-11.0) 10^3/uL RBC 4.48 (4.20-5.40) 10^6/uL Hgb 13.6 (12.0-16.0) g/dL Hct 41.2 (36.0-48.0) % MCV 92.0 (81.0-99.0) fL MCH 30.4 (26.7-34.0) pg MCHC 33.0 (29.9-35.2) g/dL RDW 11.3 (11.0-15.0) % Plt Count 203 (150-450) 10^3/uL MPV 9.9 (9.5-13.5) fL Neut % (Auto) 62.9 (43.0-75.0) % Lymph % (Auto) 24.1 (20.5-60.0) % Clay % (Auto) 9.9 (1.7-12.0) % Eos % (Auto) 2.4 (0.9-7.0) % Baso % (Auto) 0.5 (0.2-2.0) % Neut # (Auto) 3.7 (1.4-6.5) 10^3/uL Lymph # (Auto) 1.4 (1.2-3.8) 10^3/uL Clay # (Auto) 0.6 (0.3-0.8) 10^3/uL Eos # (Auto) 0.1 (0.0-0.7) 10^3/uL Baso # (Auto) 0.0 (0.0-0.1) 10^3/uL Abs Immat Gran (auto) 0.01 (0.00-0.03) 10^3/uL Imm/Tot Granulo (auto) 0.2 (0.0-0.5) % Sodium 141 (136-145) mmol/L Potassium 3.4 L (3.5-5.1) mmol/L Chloride 103 (98-107) mmol/L Carbon Dioxide 28.8 (21.0-32.0) mmol/L Anion Gap 12.6 BUN 11.0 (7.0-18.0) mg/dL Creatinine 0.85 (0.55-1.02) mg/dL Est GFR ( Amer) >60 (>=60 mL/min/1.73m^2) Est GFR (Non-Af Amer) >60 (>=60 mL/min/1.73m^2) BUN/Creatinine Ratio 12.9 Glucose 83 (74-106) mg/dL Calcium 9.0 (8.5-10.1) mg/dL Total Bilirubin 0.4 (0.2-1.0) mg/dL AST 14 L (15-37) U/L ALT 12 L (14-59) U/L Alkaline Phosphatase 52 (46-116) U/L Total Protein 7.1 (6.4-8.2) g/dL Albumin 4.1 (3.4-5.0) g/dL Globulin 3.0 g/dL Albumin/Globulin Ratio 1.4 Urine Color Lt. yellow (YELLOW) Urine Clarity Clear (CLEAR) Urine pH 6.0 (5.0-9.0) Ur Specific [place] <=1.005 A (1.005-1.025) Urine Protein Negative (NEG/TRACE) mg/dL Urine Glucose (UA) Negative (NEGATIVE) mg/dL Urine Ketones Negative (NEGATIVE) mg/dL Urine Occult Blood Trace-l (NEGATIVE) Urine Nitrite Negative (NEGATIVE) Urine Bilirubin Negative (NEGATIVE) Urine Urobilinogen 0.2 (0.2-1.0) EU/dL Ur Leukocyte Esterase Negative (NEGATIVE) Urine RBC 0-2 (0-2) #/HPF Urine WBC 0-2 A (NONE SEEN) #/HPF Ur Squamous Epith Cells None seen (NONE/RARE) #/LPF Urine Crystals None seen (None Seen) #/HPF Urine Bacteria Trace A (NONE SEEN) #/HPF Urine Casts None seen (NONE SEEN) #/LPF Urine Mucus None seen (NONE SEEN) Ur Culture Indicated? No Urine HCG, Qual Negative (NEGATIVE) Imaging Data CT scan - abdomen: Radiologist's impression: ITS Impressions Abdomen/Pelvis CT 07/28/24 16:28
== END 2024-07-28 18:43 | disposition home or self-care (01) ==
PROVIDERS: Physician Assistant; Emergency Provider Emergency Medicine; PCP Nurse Practitioner Family
DX: K59.00 Constipation, unspecified (principal); N83.201 Unspecified ovarian cyst, right side; Z87.442 Personal history of urinary calculi
CPT/HCPCS: 36415; 74176; 80053; 81001; 84703; 85025; 96374; 96375; 99285; J1885; J2405

== ENCOUNTER 2024-08-04 10:35 | Outpatient (OUT) | payer BC, SELFPAY ==
--- OUTSIDE RECORDS SUMMARY | 2024-08-04 10:39 | XMS_ITS | CCD ---
Author Organization [facility] Care Team Providers Care Anesthesiology Medical Doctor Name Role Phone MELVINA DUGAN Admitting Unavailable MELVINA DUGAN Attending Unavailable MELVINA DUGAN Consulting Unavailable MELVINA DUGAN Primary Care Unavailable Neeraj Nixon Consulting Unavailable MELVINA DUGAN Primary Care Unavailable MELVINA DUGAN Admitting Unavailable MELVINA DUGAN Attending Unavailable MELVINA DUGAN Consulting Unavailable Melvina Morfin Primary Care Unavailable Chris Diehl Attending Unavailable Chris Diehl Admitting Unavailable [employer], Melvina Gray Primary Care Provider Chris Diehl MD Emergency Provider [phone] Allergies Allergy Classification Reported Allergen(s) Allergy Type Date of Onset Reaction(s) Facility (2 sources) Amoxicillin / Clavulanate; Translations: [Augmentin] Drug Allergy [facility] Repository (3 sources) Codeine; Translations: [codeine] Drug Allergy 5 Unknown Reaction [facility] Repository (2 sources) Gluten Drug allergy (disorder) 5 Unknown Reaction [facility] Repository (1 source) Triazolam Drug Allergy [facility] Repository (1 source) Gluten; Translations: [Glutens] Propensity to adverse reactions (disorder) [facility] Repository (1 source) loracarbef; Translations: [Lorabid] Drug Allergy [facility] Repository (1 source) Shellfish; Translations: [shellfish] Propensity to adverse reactions (disorder) [facility] Repository (2 sources) Amoxicillin Drug Allergy 5 Unknown Reaction [facility] Repository (2 sources) Clavulanate Drug Allergy 5 Unknown Reaction [facility] Repository (1 source) Codeine Drug Allergy 5 [facility] Repository (1 source) Gluten Drug allergy (disorder) 5 [facility] Repository (2 sources) loracarbef Drug Allergy 5 Unknown Reaction [facility] Repository (2 sources) Fish Containing Products Drug allergy (disorder) 5 Unknown Reaction [facility] Repository Medications Current Medications Medication Drug Class(es) Dates Sig (Normalized) Sig (Original) [id number] 200 actuat albuterol 0.09 mg/actuat metered dose inhaler (1 source) beta2-Adrenergic Agonist Start: 04-01-2018 take 1 puff(s) by inhalation every four hours Albuterol Sulfate (Proair Hfa) 90 mcg/actuation HFA aerosol inhaler Active 2 PUFF INHALATION Every 4 hours March 31, 2018 11:00pm 60 actuat mometasone furoate 0.22 mg/actuat dry powder inhaler (1 source) Corticosteroid Start: 04-01-2018 take 1 puff(s) by inhalation twice daily Mometasone (Asmanex Twisthaler) 220 mcg (60 doses) aerosol powdr breath activated Active 1 PUFF INHALATION Twice daily March 31, 2018 11:00pm Completed/Discontinued Medications Medication Drug Class(es) Dates Sig (Normalized) Sig (Original) doxycycline hyclate 100 mg oral capsule (1 source) Tetracycline-clas s Drug Start: 04-01-2018 End: 04-11-2018 take 1 capsule by mouth twice daily Doxycycline Hyclate 100 mg capsule Discontinued 100 MG PO Twice daily 20 March 31, 2018 11:00pm April 09, 2018 11:00pm April 10, 2018 11:01pm lidocaine hydrochloride 0.02 mg/mg topical gel (1 source) Antiarrhythmic, Amide Local Anesthetic Start: 04-01-2018 End: 04-15-2018 Lidocaine Hcl 2 % jelly Discontinued 1 APPLIC TOPICAL Daily 30 March 31, 2018 11:00pm April 13, 2018 11:00pm April 14, 2018 11:01pm apply to burn on left foot as needed for pain with dressing changes Problems Active Problems Problem Classification Problem Date Documented Da te Episodic/Chronic Abdominal pain (1 source) Nonspecific abdominal pain; Translations: [Unspecified abdominal pain] 07-31-2024 Episodic August (1 source) Partial thickness burn; Translations: [Blisters, epidermal loss [second degree], unspecified site] 04-01-2018 Episodic Other gastrointestinal disorders (1 source) Celiac disease; Translations: [Celiac disease] 07-31-2024 Chronic Other upper respiratory disease (1 source) Other specified disorders of nose and nasal sinuses; Translations: [OTH SPEC D/O NOSE NASAL SINUSES] Onset: 06-26-2021 Episodic Residual codes; unclassified (1 source) History of clinical finding in subject; Translations: [Personal history of other specified conditions] 07-31-2024 Episodic Unclassified (4 sources) CONTACT W/AND (SUSP) [...] Results Test Name Value Interpretation Reference Range Facility Alanine aminotransferase [En zymatic activity/volume] in Serum or PlasmaOrdered By: Hilario Boykin on 07-31-2024 ALT [Catalytic activity/Vol] Alanine aminotransferase [Enzymatic activity/volume] in Serum or Plasma 7-52 [facility] Albumin [Mass/volume] in Ser um or Plasma by Bromocresol green (BCG) dye binding methoOrdered By: Hilario Boykin on 07-31-2024 Albumin BCG dye [Mass/Vol] Albumin [Mass/volume] in Serum or Plasma by Bromocresol green (BCG) dye binding metho 3.5-5.7 [facility] Alkaline phosphatase [Enzyma tic activity/volume] in Serum or PlasmaOrdered By: Hilario Boykin on 07-31-2024 ALP [Catalytic activity/Vol] Alkaline phosphatase [Enzymatic activity/volume] in Serum or Plasma 34-104 [facility] Appearance of UrineOrdered B y: PROVIDER TEMP on 07-31-2024 Appearance (U) Urine appearance Clear [facility] Aspartate aminotransferase [ Enzymatic activity/volume] in Serum or PlasmaOrdered By: Hilario Boykin on 07-31-2024 AST [Catalytic activity/Vol] Aspartate aminotransferase [Enzymatic activity/volume] in Serum or Plasma 13-39 [facility] Bacteria [Presence] in Urine by AutomatedOrdered By: PROVIDER TEMP on 07-31-2024 Bacteria Auto Ql (U) Bacteria [Presence] in Urine by Automated None Seen [facility] Basic Metabolic Panelon 07-15 Anion gap [Moles/Vol] 11.4 mmol/L Normal 6.0-15.0 e [facility] Comment on above: Performed By: #### L IPASE, CBC, HEPATIC, BMP #### [facility] [address] [place] [address] [place] Calcium [Mass/Vol] 9.5 mg/dL Normal 8.6-10.3 The [facility] Comment on above: Performed By: #### L IPASE, CBC, HEPATIC, BMP #### [facility] [address] [place] [address] [place] Chloride [Moles/Vol] 106 mmol/L Normal 98-107 [facility] Comment on above: Performed By: #### L IPASE, CBC, HEPATIC, BMP #### [facility] [address] [place] [address] [place] CO2 [Moles/Vol] 24.3 mmol/L Normal 21.0-31.0 The [facility] Comment on above: Performed By: #### L IPASE, CBC, HEPATIC, BMP #### [facility] [address] [place] [address] [place] Creatinine [Mass/Vol] 0.69 mg/dL Normal 0.60-1.20 [facility] Comment on above: Performed By: #### L IPASE, CBC, HEPATIC, BMP #### [facility] [address] [place] [address] [place] Creatinine Clr Calc Pharmacy 73.57 Normal [facility] Comment on above: Performed By: #### L IPASE, CBC, HEPATIC, BMP #### [facility] [address] [place] [address] [place] GFR/1.73 sq M.predicted MDRD (S/P/Bld) [Vol rate/Area] mL/min/{1.73_m2} Normal [facility] Comment on above: Performed By: #### L IPASE, CBC, HEPATIC, BMP #### [facility] [address] [place] [address] [place] Glucose [Mass/Vol] 87 mg/dL Normal 70-100 The [facility] Comment on above: Result Comment: [facility] Glucose Reference Range is dependent on time and content of last meal. Glucose of more than 200 mg/dL in a nonstressed, ambulatory subject supports the diagnosis of Diabetes Mellitus. ADA recommended reference range Performed By: #### L IPASE, CBC, HEPATIC, BMP #### [facility] [address] [place] [address] [place] Potassium [Moles/Vol] 3.7 mmol/L Normal 3.5-5.1 [facility] Comment on above: Performed By: #### L IPASE, CBC, HEPATIC, BMP #### [facility] [address] [place] [address] [place] Sodium [Moles/Vol] 138 mmol/L Normal 136-145 [facility] Comment on above: Performed By: #### L IPASE, CBC, HEPATIC, BMP #### [facility] [address] [place] [address] [place] Urea nitrogen [Mass/Vol] 9 mg/dL Normal 7-25 [facility] Comment on above: Performed By: #### L IPASE, CBC, HEPATIC, BMP #### [facility] [address] [place] [id number] [place] Basophils Auto (Bld) [#/Vol] Ordered By: Hilario Boykin on 07-31-2024 Basophils (Bld) [#/Vol] Automated basoph il count 0.0-0.2 [facility] Basophils/100 WBC Auto (Bld) Ordered By: Hilario Boykin on 07-31-2024 Basophils/100 WBC (Bld) Automated basophil % . [facility] Bilirubin Test strip Ql (U)O rdered By: ALEX MCDONNELL on 07-31-2024 Bilirubin Ql (U) Bilirubin.total [Presence] in Urine by Test strip Negative [facility] Bilirubin.direct [Mass/volum e] in Serum or PlasmaOrdered By: Hilario Boykin on 07-31-2024 Bilirubin.direct [Mass/Vol] Bilirubin.direct [Mass/volume] in Serum or Plasma 0.03-0.18 [facility] Bilirubin.total [Mass/volume ] in Serum or PlasmaOrdered By: Hilario Boykin on 07-31-2024 Bilirubin [Mass/Vol] Bilirubin.total [Mass/volume] in Serum or Plasma 0.3-1.0 [facility] COVID Cepheid NegativeOrdere d By: Hilario Boykin on 07-31-2024 SARS-CoV-2 (COVID-19) Ab IA Ql COVID Cepheid Negative [facility] Comment on above: This is a duplicate Cepheid Xpert Xpress CoV-2/Flu/RSV Plus RNA by RT-PCR result to be used for statistical tracking purpose only. COVID-19 / Flu A/B / RSV PCR on 07-31-2024 SARS-CoV-2 (COVID-19) RNA INDIRA+probe Ql (Unsp spec) COVID-19 Cepheid Result Negative for SARS-CoV-2 RNA by RT-PCR Flu A Cepheid Result Negative for Flu A RNA by RT-PCR Flu B Cepheid Result Negative for Flu B RNA by RT-PCR RSV Cepheid Result Negative for RSV RNA by RT-PCR COVID19 Blank Space Reference: Negative COVID19 Blank Space Cepheid Disclaimer The Cepheid Xpert Xpress CoV-2/Flu/RSV Plus has Cepheid Disclaimer not been FDA cleared or approved; this test has Cepheid Disclaimer been authorized by FDA under an EUA for use by Cepheid Disclaimer authorized laboratories; this test has been Cepheid Disclaimer authorized only for the simultaneous qualitative Cepheid Disclaimer detection and differentiation of nucleic acids from Cepheid Disclaimer SARS-CoV-2, influenza A, influenza B, and Cepheid Disclaimer respiratory syncytial virus (RSV), and not for any Cepheid Disclaimer other viruses or pathogens; and this test is only Cepheid Disclaimer authorized for the duration of the declaration that Cepheid Disclaimer circumstances exist justifying the authorization of Cepheid Disclaimer emergency use of in vitro diagnostic tests for Cepheid Disclaimer detection and/or diagnosis of COVID-19 under Cepheid Disclaimer Section 564(b)(1) of the Act, 21 U.S.C. 360bbb- Cepheid Disclaimer 3(b)(1), unless the authorization is terminated or Cepheid Disclaimer revoked sooner. PERFORMED BY: [place] [address] PATHOLOGIST SPORTS PSYCHOLOGIST PORFIRIO SILVA M.D. Normal The [facility] Comment on above: Performed By: #### C EPHEID NEG, COVID19 FLU RSV #### [address] urogramon 07-31-2024 CT urogram [facility] [place] [address] [place] [address] CT Scan Report Signed Patient: Angelita Sherman MR#: [id number] : 1985 Acct:[id number] Age/Sex: 39 / F ADM Date: 07/31/24 Loc: ER Room: Type: PRE ER Attending Dr: Copies to: Hilario Boykin DO [facility], PROVIDER Ordering Provider: Hilario Boykin DO Date of Service: 07/31/24 CT/CT urogram: evaluate for obstructing R sided stone CT urogram TECHNIQUE: Axial imaging with 2-D reconstruction.90 cc of Isovue-300. The CT exam was performed using one or more the following dose reduction techniques: Automated exposure control, adjustment of the MA and/or Kv according to patient size, or use of the iterative reconstruction technique. COMPARISON: None History: Evaluation of obstructing right sided stone. History of fever LIMITATIONS: None LOWER THORAX pectus excavatum deformity mild atelectasis/scarring LIVER: Unremarkable GALLBLADDER: Cholecystectomy clips identified. BILE DUCTS: No dilatation SPLEEN: Unremarkable PANCREAS: Unremarkable ADRENAL GLANDS: Unremarkable KIDNEYS:5 mm left renal calculus. Prompt symmetric nephrograms. Prompt excretion of contrast. Contrast present within the urinary bladder with delayed imaging. AORTA: No abdominal aortic aneurysm identified. RETROPERITONEUM: No significant retroperitoneal abnormalities identified. MESENTERY:Unremarkab le SMALL BOWEL: The small bowel loops are nondistended. APPENDIX: The appendix is normal. COLON: Unremarkable URINARY BLADDER: Urinary bladder is unremarkable. REPRODUCTIVE SYSTEM: Reproductive structures are unremarkable. PNEUMOPERITONEUM: None PERITONEAL FLUID:None BONY STRUCTURES: Unremarkable ABDOMINAL WALL: Unremarkable CT/CT urogram IMPRESSION: 5 mm left renal calculus. Prompt symmetric nephrograms and prompt contrast excretion without significant obstruction. No obstructing ureteral stone. Unremarkable urinary bladder. Pectus excavatum deformity. Impression dictated by: Michael Gonzalez M.D.07/31/2024 7:48 PM Dictation Location: [place] [address] Transcribed By: [facility] 07/31/241947 Dictated By: Michael Gonzalez DO 07/31/241942 Signed By: 07/31/241947 Normal [facility] Calcium [Mass/volume] in Ser um or PlasmaOrdered By: Hilario Boykin on 07-31-2024 Calcium [Mass/Vol] Calcium [Mass/volume] in Serum or Plasma 8.6-10.3 [facility] Carbon dioxide, total [Moles /volume] in Serum or PlasmaOrdered By: Hilario Boykin on 07-31-2024 CO2 [Moles/Vol] Carbon dioxide, total [Moles/volume] in Serum or Plasma 21.0-31.0 [facility] Cepheid COVID PCR Negativeon 07-31-2024 SARS-CoV-2 (COVID-19) RNA INDIRA+probe Ql (Unsp spec) Negative Normal Negative The [facility] Comment on above: Result Comment: This is a duplicate CepModeWalkid Xpert Xpress CoV-2/Flu/RSV Plus RNA by RT-PCR result to be used for statistical tracking purpose only. PERFORMED BY: [place] [address] PATHOLOGIST SPORTS PSYCHOLOGIST PORFIRIO SILVA M.D. Performed By: #### C EPHEID NEG, COVID19 FLU RSV #### [place] [address] [place] Chloride [Moles/volume] in S nicolette or PlasmaOrdered By: Hilario Boykin on 07-31-2024 Chloride [Moles/Vol] Chloride [Moles/volume] in Serum or Plasma 98-107 [facility] Color Auto (U)Ordered By: YAZ MCDONNELL on 07-31-2024 Color (U) Color of Urine by Auto Yellow [facility] Complete Blood Count Auto Di ffon 07-31-2024 Basophils (Bld) [#/Vol] 0.0 10*3/uL Normal 0.0-0.2 The [facility] Comment on above: Result Comment: PERF ORMED BY: [address] [address] PATHOLOGIST SPORTS PSYCHOLOGIST PORFIRIO SILVA M.D. Performed By: #### L IPASE, CBC, HEPATIC, BMP #### [place] [phone] [place] Basophils/100 WBC (Bld) 0.2 % Normal . T deny [facility] Comment on above: Performed By: #### L IPASE, CBC, HEPATIC, BMP #### [address] [address] [place] Eosinophils (Bld) [#/Vol] 0.1 10*3/uL Normal 0.0-0.45 The [facility] Comment on above: Performed By: #### L IPASE, CBC, HEPATIC, BMP #### [place] [id number] [place] Eosinophils/100 WBC (Bld) 1.3 % Normal . The [facility] Comment on above: Performed By: #### L IPASE, CBC, HEPATIC, BMP #### [address] Erythrocyte distribution width (RBC) [Ratio] 11.9 % Normal 11.9-15.3 The [facility] Comment on above: Performed By: #### L IPASE, CBC, HEPATIC, BMP #### [address] Hematocrit (Bld) [Volume fraction] 41.9 % Normal 34.0-46.4 [facility] Comment on above: Performed By: #### L IPASE, CBC, HEPATIC, BMP #### [address] Hemoglobin (Bld) [Mass/Vol] 14.3 g/dL Normal 11.8-15.4 The [facility] Comment on above: Performed By: #### L IPASE, CBC, HEPATIC, BMP #### [address] Lymphocytes (Bld) [#/Vol] 1.7 10*3/uL Normal 1.00-4.8 The [facility] Comment on above: Performed By: #### L IPASE, CBC, HEPATIC, BMP #### [address] Lymphocytes/100 WBC (Bld) 21.9 % Normal . [facility] Comment on above: Performed By: #### L IPASE, CBC, HEPATIC, BMP #### [address] MCH (RBC) [Entitic mass] 30.5 pg Normal 24.7-34.3 The [facility] Comment on above: Performed By: #### L IPASE, CBC, HEPATIC, BMP #### [address] MCV (RBC) [Entitic vol] 89.4 fL Normal 80-100 T he [facility] Comment on above: Performed By: #### L IPASE, CBC, HEPATIC, BMP #### [address] Mean Corpuscular HGB Conc 34.1 g/dL Normal 32.0-35.0 The [facility] Comment on above: Performed By: #### L IPASE, CBC, HEPATIC, BMP #### [facility] [address] [place] [address] [place] Monocytes (Bld) [#/Vol] 0.7 10*3/uL Normal 0.0-0.8 The [facility] Comment on above: Performed By: #### L IPASE, CBC, HEPATIC, BMP #### [facility] [address] [place] [address] [place] Monocytes/100 WBC (Bld) 16.45 % Normal 0.00-20.00 [facility] Comment on above: Performed By: #### L IPASE, CBC, HEPATIC, BMP #### [facility] [address] [place] [address] [place] Monocytes/100 WBC (Bld) 9.0 % Normal . [facility] Comment on above: Performed By: #### L IPASE, CBC, HEPATIC, BMP #### [address] Neutrophils (Bld) [#/Vol] 5.1 10*3/uL Normal 1.8-7.7 The [facility] Comment on above: Performed By: #### L IPASE, CBC, HEPATIC, BMP #### [place] [address] [place] Neutrophils/100 WBC (Bld) 67.6 % Normal . [facility] Comment on above: Performed By: #### L IPASE, CBC, HEPATIC, BMP #### [facility] [address] [place] [address] [place] NRBC% 0.1 /100{WBC} Normal 0-0.5 The [facility] Comment on above: Performed By: #### L IPASE, CBC, HEPATIC, BMP #### [facility] [address] Platelet mean volume (Bld) [Entitic vol] 8.1 fL Normal 6.3-10.7 [facility] Comment on above: Performed By: #### L IPASE, CBC, HEPATIC, BMP #### [facility] [address] Platelets (Bld) [#/Vol] 213 10*3/uL Normal 150-450 [facility] Comment on above: Performed By: #### L IPASE, CBC, HEPATIC, BMP #### [address] RBC (Bld) [#/Vol] 4.69 10*6/uL Normal 3.60-5.00 [facility] Comment on above: Performed By: #### L IPASE, CBC, HEPATIC, BMP #### [place] [address] [place] WBC (Bld) [#/Vol] 7.6 10*3/uL Normal 3.8-11.6 The [facility] Comment on above: Performed By: #### L IPASE, CBC, HEPATIC, BMP #### [address] Creatinine [Mass/volume] in Serum or PlasmaOrdered By: Hilario Boykin on 07-31-2024 Creatinine [Mass/Vol] Creatinine [Mass/volume] in Serum or Plasma 0.60-1.20 [facility] Dipstick and Microscopicon 0 07-31-2024 Appearance (U) Clear Normal Clear [facility] Comment on above: Order Comment: Name Collection Type:: Clean-Voided Midstream Performed By: #### A DDONUAPLUS #### [address] Bacteria,Urine Rare Normal None Seen [facility] Comment on above: Order Comment: Name Collection Type:: Clean-Voided Midstream Performed By: #### A DDONUAPLUS #### [address] Bilirubin,Urine Negative Normal Negative The [facility] Comment on above: Order Comment: Name Collection Type:: Clean-Voided Midstream Performed By: #### A DDONUAPLUS #### [address] Color (U) Light-Yellow Normal Yellow [facility] Comment on above: Order Comment: Name Collection Type:: Clean-Voided Midstream Performed By: #### A DDONUAPLUS #### [address] Glucose Ql (U) Normal Normal Normal [facility] Comment on above: Order Comment: Name Collection Type:: Clean-Voided Midstream Performed By: #### A DDONUAPLUS #### [place] [address] [place] Hyaline Casts,Urine None Normal 0-8 [facility] Comment on above: Order Comment: Name Collection Type:: Clean-Voided Midstream Performed By: #### A DDONUAPLUS #### [address] Ketones Ql (U) Negative Normal Negative [facility] Comment on above: Order Comment: Name Collection Type:: Clean-Voided Midstream Performed By: #### A DDONUAPLUS #### [place] [address] [place] Leukocyte esterase Test strip Ql (U) Negative Normal Negative [facility] Comment on above: Order Comment: Name Collection Type:: Clean-Voided Midstream Performed By: #### A DDONUAPLUS #### [place] [address] [place] Mucus,Urine Rare Normal [facility] Comment on above: Order Comment: Name Collection Type:: Clean-Voided Midstream Result Comment: PERF ORMED BY: [place] [address] PATHOLOGIST SPORTS PSYCHOLOGIST PORFIRIO SILVA M.D. Performed By: #### A DDONUAPLUS #### [place] [address] [place] Nitrite,Urine Negative Normal Negative The [facility] Comment on above: Order Comment: Name Collection Type:: Clean-Voided Midstream Performed By: #### A DDONUAPLUS #### [address] Occult Blood,Urine 2+ High Negative The [facility] Comment on above: Order Comment: Name Collection Type:: Clean-Voided Midstream Result Comment: PERF ORMED BY: [place] [address] PATHOLOGIST SPORTS PSYCHOLOGIST PORFIRIO SILVA M.D. Performed By: #### A DDONUAPLUS #### [address] pH (U) 6.5 [pH] Normal 5.0-9.0 [facility] Comment on above: Order Comment: Name Collection Type:: Clean-Voided Midstream Performed By: #### A DDONUAPLUS #### [place] [address] [place] Protein,Urine Negative Normal Negative [facility] Comment on above: Order Comment: Name Collection Type:: Clean-Voided Midstream Performed By: #### A DDONUAPLUS #### [address] RBC,Urine 5-9 High 0-4 The [facility] [facility] Comment on above: Order Comment: Name Collection Type:: Clean-Voided Midstream Performed By: #### A DDONUAPLUS #### [address] Specificy [place],Urine 1.014 Normal 1.001-1.030 The [facility] Comment on above: Order Comment: Name Collection Type:: Clean-Voided Midstream Performed By: #### A DDONUAPLUS #### [place] [address] [place] Squamous Epithelial Cell,Urine 3-4 High 0-2 The [facility] Comment on above: Order Comment: Name Collection Type:: Clean-Voided Midstream Performed By: #### A DDONUAPLUS #### [address] Urobilinogen,Urine Normal Normal Normal The [facility] Comment on above: Order Comment: Name Collection Type:: Clean-Voided Midstream Performed By: #### A DDONUAPLUS #### [facility] [address] WBC,Urine 1-2 Normal 0-4 The [facility] Comment on above: Order Comment: Name Collection Type:: Clean-Voided Midstream Performed By: #### A DDONUAPLUS #### [facility] [address] [place] [address] [place] Eosinophils Auto (Bld) [#/Vo l]Ordered By: Hilario Boykin on 07-31-2024 Eosinophils (Bld) [#/Vol] Automated eosinophil count 0.0-0.45 [facility] Eosinophils/100 WBC Auto (Bl d)Ordered By: Hilario Boykin on 07-31-2024 Eosinophils/100 WBC (Bld) Automated eosinophil % . [facility] Epithelial cells.squamous [# /area] in Urine sediment by Automated countOrdered By: PROVIDER TEMP on 07-31-2024 Epithelial cells.squamous Auto (Urine sed) [#/Area] Epithelial cells.squamous [#/area] in Urine sediment by Automated count High 0-2 [facility] Erythrocyte distribution wid th Auto (RBC) [Ratio]Ordered By: Hilario Boykin on 07-31-2024 Erythrocyte distribution width (RBC) [Ratio] Erythrocyte distribution width [Ratio] by Automated count 11.9-15.3 [facility] Erythrocytes [#/area] in Uri ne sediment by Automated countOrdered By: PROVIDER TEMP on 07-31-2024 RBC Auto (Urine sed) [#/Area] Erythrocytes [#/area] in Urine sediment by Automated count High 0-4 [facility] Globulin Calc (S) [Mass/Vol] Ordered By: Hilario Boykin on 07-31-2024 Globulin (S) [Mass/Vol] Serum globulin measurement by calculation (mass/volume) [facility] Glucose [Mass/volume] in Ser um or PlasmaOrdered By: Hilario Boykin on 07-31-2024 Glucose [Mass/Vol] Glucose [Mass/volume] in Serum or Plasma 70-100 [facility] Comment on above: ADA recommended refe rence rangeRandom Glucose Reference Range is dependent on time and content of last meal. Glucose of more than 200 mg/dL in a nonstressed, ambulatory subject supports the diagnosis of Diabetes Mellitus. Glucose [Mass/volume] in Uri ne by Test stripOrdered By: PROVIDER TEMP on 07-31-2024 Glucose Test strip (U) [Mass/Vol] Glucose [Mass/volume] in Urine by Test strip Normal [facility] HCG ( test) IA.rapi d Ql (U)Ordered By: Hilario Boykin on 07-31-2024 HCG ( test) Ql (U) Urine human chorionic gonadotropin (hCG) detection by immunoassay [facility] HCG,Urineon 07-31-2024 Beta HCG ( test) Ql (U) Negative Normal [facility] Comment on above: Result Comment: PERF ORMED BY: [place] [address] PATHOLOGIST SPORTS PSYCHOLOGIST PORFIRIO SILVA M.D. Performed By: #### U HCG #### [address] Hematocrit Auto (Bld) [Volum e fraction]Ordered By: Hilario Boykin on 07-31-2024 Hematocrit (Bld) [Volume fraction] Hematocrit [Volume Fraction] of Blood by Automated count 34.0-46.4 [facility] Hemoglobin Test strip Ql (U) Ordered By: PROVIDER TEMP on 07-31-2024 Hemoglobin Ql (U) Hemoglobin [Presence] in Urine by Test strip High Negative [facility] Hemoglobin [Mass/volume] in BloodOrdered By: Hilario Boykin on 07-31-2024 Hemoglobin (Bld) [Mass/Vol] Hemoglobin [Mass/volume] in Blood 11.8-15.4 [facility] Hepatic Panelon 07-31-2024 Albumin [Mass/Vol] 4.5 g/dL Normal 3.5-5.7 The [facility] Comment on above: Performed By: #### L IPASE, CBC, HEPATIC, BMP #### [facility] [address] [place] [address] Albumin/Globulin [Mass ratio] 1.7 {ratio} Normal [facility] Comment on above: Performed By: #### L IPASE, CBC, HEPATIC, BMP #### [facility] [address] [place] [id number] [place] ALP [Catalytic activity/Vol] 45 U/L Normal 34-104 [facility] Comment on above: Performed By: #### L IPASE, CBC, HEPATIC, BMP #### [facility] [address] [place] [id number] [place] ALT [Catalytic activity/Vol] 7 U/L Normal 7-52 [facility] Comment on above: Performed By: #### L IPASE, CBC, HEPATIC, BMP #### [facility] [address] [place] [phone] [place] AST [Catalytic activity/Vol] 15 U/L Normal 13-39 [facility] Comment on above: Performed By: #### L IPASE, CBC, HEPATIC, BMP #### [facility] [address] [place] [phone] [place] Bilirubin [Mass/Vol] 0.6 mg/dL Normal 0.3-1.0 [facility] Comment on above: Performed By: #### L IPASE, CBC, HEPATIC, BMP #### [facility] [address] [place] [address] [place] Bilirubin,Indirect 0.5 mg/dL Normal The [facility] Comment on above: Performed By: #### L IPASE, CBC, HEPATIC, BMP #### [facility] [address] [place] [phone] [place] Bilirubin.indirect [Mass/Vol] 0.10 mg/dL Normal 0.03-0.18 [facility] Comment on above: Performed By: #### L IPASE, CBC, HEPATIC, BMP #### [facility] [address] [place] [phone] [place] Globulin (S) [Mass/Vol] 2.6 g/dL Normal T he [facility] Comment on above: Performed By: #### L IPASE, CBC, HEPATIC, BMP #### [facility] [address] [place] [address] [place] Protein [Mass/Vol] 7.1 g/dL Normal 6.4-8.9 The [facility] Comment on above: Performed By: #### L IPASE, CBC, HEPATIC, BMP #### [facility] [address] [place] [address] [place] Hyaline casts [#/area] in Ur ine sediment by Automated countOrdered By: PROVIDER TEMP on 07-31-2024 Hyaline casts Auto (Urine sed) [#/Area] Hyaline casts [#/area] in Urine sediment by Automated count 0-8 [facility] Ketones Test strip Ql (U)Ord ered By: PROVIDER TEMP on 07-31-2024 Ketones Ql (U) Ketones [Presence] in Urine by Test strip Negative [facility] Leukocyte esterase [Presence ] in Urine by Test stripOrdered By: PROVIDER TEMP on 07-31-2024 Leukocyte esterase Test strip Ql (U) Leukocyte esterase [Presence] in Urine by Test strip Negative [facility] Leukocytes [#/area] in Urine sediment by Automated countOrdered By: PROVIDER TEMP on 07-31-2024 WBC Auto (Urine sed) [#/Area] Leukocytes [#/area] in Urine sediment by Automated count 0-4 [facility] Leukocytes [#/volume] correc kenia for nucleated erythrocytes in Blood by Automated counOrdered By: Hilario Boykin on 07-31-2024 WBC corrected for nucl RBC Auto (Bld) [#/Vol] Leukocytes [#/volume] corrected for nucleated erythrocytes in Blood by Automated coun 3.8-11.6 [facility] Lipaseon 07-31-2024 Lipase [Catalytic activity/Vol] 14.0 U/L Normal 11.0-82.0 [facility] Comment on above: Result Comment: PERF ORMED BY: [place] [address] PATHOLOGIST SPORTS PSYCHOLOGIST PORFIRIO SILVA M.D. Performed By: #### L IPASE, CBC, HEPATIC, BMP #### [facility] [address] [place] [address] [place] Lipase [Enzymatic activity/v olume] in Serum or PlasmaOrdered By: Hilario Boykin on 07-31-2024 Lipase [Catalytic activity/Vol] Lipase [Enzymatic activity/volume] in Serum or Plasma 11.0-82.0 [facility] Lymphocytes Auto (Bld) [#/Vo l]Ordered By: Hilario Boykin on 07-31-2024 Lymphocytes (Bld) [#/Vol] Lymphocytes [#/volume] in Blood by Automated count 1.00-4.8 [facility] Lymphocytes/100 WBC Auto (Bl d)Ordered By: Hilario Boykin on 07-31-2024 Lymphocytes/100 WBC (Bld) Lymphocytes/100 leukocytes in Blood by Automated count . [facility] MCH Auto (RBC) [Entitic mass ]Ordered By: Hilario Boykin on 07-31-2024 MCH (RBC) [Entitic mass] MCH [Entitic ma ss] by Automated count 24.7-34.3 [facility] MCHC Auto (RBC) [Mass/Vol]Or dered By: Hilario Boykin on 07-31-2024 MCHC (RBC) [Mass/Vol] MCHC [Mass/volume] by Automated count 32.0-35.0 [facility] MCV Auto (RBC) [Entitic vol] Ordered By: Hilario Boykin on 07-31-2024 MCV (RBC) [Entitic vol] MCV [Entitic vol ume] by Automated count 80-100 [facility] Monocyte distribution width [Entitic volume] in Blood by AutomatedOrdered By: Hilario Boykin on 07-31-2024 Monocyte distribution width Auto (Bld) [Entitic vol] Monocyte distribution width [Entitic volume] in Blood by Automated 0.00-20.00 [facility] Monocytes Auto (Bld) [#/Vol] Ordered By: Hilario Boykin on 07-31-2024 Monocytes (Bld) [#/Vol] Automated blood monocyte count 0.0-0.8 [facility] Monocytes/100 WBC Auto (Bld) Ordered By: Hilario Boykin on 07-31-2024 Monocytes/100 WBC (Bld) Automated monocyte % . [facility] Mucus [Presence] in Urine by AutomatedOrdered By: ALEX TEMP on 07-31-2024 Mucus Auto Ql (U) Mucus [Presence] in Urine by Automated [facility] Neutrophils Auto (Bld) [#/Vo l]Ordered By: Hilario Boykin on 07-31-2024 Neutrophils (Bld) [#/Vol] Neutrophils [#/volume] in Blood by Automated count 1.8-7.7 [facility] Neutrophils/100 WBC Auto (Bl d)Ordered By: Hilario Boykin on 07-31-2024 Neutrophils/100 WBC (Bld) Automated neutrophil % . [facility] Nitrite Test strip Ql (U)Ord ered By: PROVIDER TEMP on 07-31-2024 Nitrite Ql (U) Nitrite [Presence] in Urine by Test strip Negative [facility] No Panel InformationOrdered By: Hilario Boykin on 07-31-2024 Estimated GFR (CKD-EPI) > 60.0 mL/Min [facility] Creatinine Clearance (Chem 73.57 [facility] Nucleated erythrocytes [Pres ence] in Blood by Automated countOrdered By: Hilario Boykin on 07-31-2024 Nucleated RBC Auto Ql (Bld) Nucleated erythrocytes [Presence] in Blood by Automated count 0-0.5 [facility] Platelet mean volume Auto (B ld) [Entitic vol]Ordered By: Hilario Boykin on 07-31-2024 Platelet mean volume (Bld) [Entitic vol] Platelet mean volume [Entitic volume] in Blood by Automated count 6.3-10.7 [facility] Platelets Auto (Bld) [#/Vol] Ordered By: Hilario Boykin on 07-31-2024 Platelets (Bld) [#/Vol] Platelets [#/vol ume] in Blood by Automated count 150-450 [facility] Potassium [Moles/volume] in Serum or PlasmaOrdered By: Hilario Boykin on 07-31-2024 Potassium [Moles/Vol] Potassium [Moles/volume] in Serum or Plasma 3.5-5.1 [facility] Protein Test strip (U) [Mass /Vol]Ordered By: PROVIDER TEMP on 07-31-2024 Protein (U) [Mass/Vol] Protein [Mass/volume] in Urine by Test strip Negative [facility] Protein [Mass/volume] in Ser um or PlasmaOrdered By: Hilario Boykin on 07-31-2024 Protein [Mass/Vol] Protein [Mass/volume] in Serum or Plasma 6.4-8.9 [facility] RBC Auto (Bld) [#/Vol]Ordere d By: Hilario Boykin on 07-31-2024 RBC (Bld) [#/Vol] Erythrocytes [#/volume] in Blood by Automated count 3.60-5.00 [facility] Respiratory specimen influen za A virus, influenza B virus, respiratory syncytical virOrdered By: Hilario Boykin on 07-31-2024 SARS-CoV-2 (COVID-19) RNA INDIRA+probe Ql (Unsp spec) Respiratory specimen influenza A virus, influenza B virus, respiratory syncytical vir [facility] Serum or plasma albumin/glob ulin mass ratioOrdered By: Hilario Boykin on 07-31-2024 Albumin/Globulin [Mass ratio] Serum or plasma albumin/globulin mass ratio [facility] Serum or plasma anion gap de terminationOrdered By: Hilario Boykin on 07-31-2024 Anion gap [Moles/Vol] Serum or plasma anion gap determination 6.0-15.0 [facility] Serum or plasma non-glucuron idated bilirubin measurement (mass/volume)Ordered By: Hilario Boykin on 07-31-2024 Bilirubin.indirect [Mass/Vol] Serum or plasma non-glucuronidated bilirubin measurement (mass/volume) [facility] Sodium [Moles/volume] in Ser um or PlasmaOrdered By: Hilario Boykin on 07-31-2024 Sodium [Moles/Vol] Sodium [Moles/volume] in Serum or Plasma 136-145 [facility] Specific gravity Test strip (U) [Rel density]Ordered By: PROVIDER TEMP on 07-31-2024 Specific gravity (U) [Rel density] Specific gravity of Urine by Test strip 1.001-1.030 [facility] Urea nitrogen [Mass/volume] in Serum or PlasmaOrdered By: Hilario Boykin on 07-31-2024 Urea nitrogen [Mass/Vol] Urea nitrogen [Mass/volume] in Serum or Plasma 7-25 [facility] Urobilinogen Test strip (U) [Mass/Vol]Ordered By: PROVIDER TEMP on 07-31-2024 Urobilinogen (U) [Mass/Vol] Urobilinogen [Mass/volume] in Urine by Test strip Normal [facility] WBC Auto (Bld) [#/Vol]Ordere d By: Hilario Boykin on 07-31-2024 WBC (Bld) [#/Vol] Leukocytes [#/volume] in Blood by Automated count 3.8-11.6 [facility] pH Test strip (U)Ordered By: PROVIDER TEMP on 07-31-2024 pH (U) pH of Urine by Test strip 5.0-9.0 [facility] Covid-19 PCR (CVDTBH)on 06-14 SARS-CoV-2 (COVID-19) RNA INDIRA+probe Ql (Unsp spec) Not detected Normal NOT DETECTED [facility] Comment on above: Result Comment: This test is not yet approved or cleared by the [place] FDA. When there are no FDA-approved or cleared tests available, and other criteria are met, FDA can make tests available under an emergency access mechanism called an Emergency Use Authorization (EUA). The EUA for this test is supported by the [place]ak Det[place] of Health and Human Service's (HHS's) declaration [...] consistent with SARS-CoV-2. Performed By: #### C VDTB #### [facility] [address] [place] [address] Dr. Jami Hernandez SARS-CoV2 ANTIBODIES (IgM, I gG, IgA)on 08-15-2020 SARS-CoV-2 (COVID-19) RNA INDIRA+probe Ql (Unsp spec) Negative Normal Negative [facility] Comment on above: Result Comment: This sample [...] antibodies specific to the viral spike protein. [employer] offers two test codes that detect viral spike-specific antibodies: 656408 SARS-CoV-2 Semi-Quantitative Total Antibody, Ralph and 118442 SARS-CoV-2 Antibody, IgG, Ralph (Qualitative). Positive results with this SARS-CoV-2 Antibodies, Nucleocapsid assay suggest recent or previous natural infection with SARS-CoV-2. Performed By: #### C VDABS #### [facility] [address] [place] [address] Shama Coby Covid-19 PCR ([facility])on SARS-CoV-2 (COVID-19) RNA INDIRA+probe Ql (Unsp spec) Not detected Normal NOT DETECTED [facility] Comment on above: Result Comment: This test is not yet approved or cleared by the [place] FDA. When there are no FDA-approved or cleared tests available, and other criteria are met, FDA can make tests available under an emergency access mechanism called an Emergency Use Authorization (EUA). The EUA for this test is supported by the [place] of Health and Human Service's (HHS's) declaration [...] SARS-CoV-2. Performed By: #### C VDTBH #### [facility] [address] [place] [id number] Shama Tenorio XR CHEST 2 Von 08-13-2020 [...] acute osseous abnormality. Electronically authenticated by: Neeraj NIXON Date: 2020-08-13 17:40 Normal [facility] Vital Signs Date Time Vital Sign Value Performing Clinician Faci lity 07-31-2024 20:30-0500 Diastolic blood pressure 59 mm[Hg] Melvina Morfin [employer] Work Phone: [facility] 07-31-2024 20:30-0500 Heart rate 80 /min Melvina Morfin [employer] Work Phone: [facility] 07-31-2024 20:30-0500 Respiratory rate 18 /min Melvina Morifn [employer] Work Phone: [facility] 07-31-2024 20:30-0500 SaO2% (BldA) [Mass fraction] 100 % Melvina Morfin [employer] AR[employer] Work Phone: [facility] 07-31-2024 20:30-0500 Systolic blood pressure 118 mm[Hg] Melvina Morfin [employer] AR[employer] Work Phone: [facility] 07-31-2024 15:06-0500 Body height 160.02 cm Melvina Morfin [employer] AR[employer] Work Phone: [facility] 07-31-2024 15:06-0500 Body temperature 98.2 [degF] Melvina Morfin [employer] Work Phone: [facility] 07-31-2024 15:06-0500 Body weight 43 kg Melvina Morfin [employer] AR[employer] Work Phone: [facility] Encounters Encounter Date Encounter Type Care Provider Facility Start: 07-31-2024 End: 07-31-2024 Emergency department patient visit Melvina Morfin Facility:[facility] Start: 07-28-2024 ambulatory Facility:[facility] Start: 06-23-2021 End: 06-23-2021 ambulatory MELVINA DUGAN Facility:[facility] Start: 08-19-2020 Encounter for antibo dy response examination MELVINA DUGAN [facility] Start: 08-13-2020 End: 08-14-2020 ambulatory EMLVINA DUGAN Facility:[facility] Start: 08-13-2020 End: 08-14-2020 Encounter for antibody response examination MELVINA DUGAN Facility:[facility] Procedures Date Procedure Procedure Detail Performing Clinician Start: 07-31-2024 CT of urinary tract Lelo Morfin [employer] Work Phone: Start: 07-31-2024 Viral nucleic acid assay Melvina Morfin [employer] Work Phone: Plan of Treatment Date Care Activity Detail Author Patient Education Celiac Disease (DC) [facility] Work Phone: Patient referral [facility] Work Phone: Payers Date Payer Category Payer Self-pay 2024 Unknown [id number] 1985 Unknown [id number] [id number] [id number] 1985 Unknown [id number] 1959 Unknown [id number] Unknown [id number] [id number] [id number] Unknown [employer] [id number] Social History Date Type Detail Facility Start: 07-31-2024 [facility] Start: 07-31-2024 Sex Female (finding) [facility] Start: 1985 Sex Assigned At Female F [facility] Radiology Diagnostic study note 07-31-2024 Note Date & Type Note Facility 07-31-2024 Radiology Diagnostic study note [facility] [place] [address] [place], [place] [id number] CT Scan Report Signed Patient: Angelita Sherman MR#: [id number] : 1985 Acct:[id number] Age/Sex: 39 / F ADM Date: 5 Loc: ER Room: Type: PRE ER Attending Dr: Copies to: Hilario Boykin DO TEMP, PROVIDER~ Ordering Provider: Hilario Boykin DO Date of Service: 07/31/24 CT/CT urogram: evaluate for obstructing R sided stone CT urogram TECHNIQUE: Axial imaging with 2-D reconstruction.90 cc of Isovue-300. The CT exam was performed using one or more the following dose reduction techniques: Automated exposure control, adjustment of the MA and/or Kv according to patient size, or use of the iterative reconstruction technique. COMPARISON: None History: Evaluation of obstructing right sided stone. History of fever LIMITATIONS: None LOWER THORAX pectus excavatum deformity mild atelectasis/scarring LIVER: Unremarkable GALLBLADDER: Cholecystectomy clips identified. BILE DUCTS: No dilatation SPLEEN: Unremarkable PANCREAS: Unremarkable ADRENAL GLANDS: Unremarkable KIDNEYS:5 mm left renal calculus. Prompt symmetric nephrograms. Prompt excretion of contrast. Contrast present within the urinary bladder with delayedimaging. AORTA: No abdominal aortic aneurysm identified. RETROPERITONEUM: No significant retroperitoneal abnormalities identified. MESENTERY:Unremarkable SMALL BOWEL: The small bowel loops are nondistended. APPENDIX: The appendix is normal. COLON: Unremarkable URINARY BLADDER: Urinary bladder is unremarkable. REPRODUCTIVE SYSTEM: Reproductive structures are unremarkable. PNEUMOPERITONEUM: None PERITONEAL FLUID:None BONY STRUCTURES: Unremarkable ABDOMINAL WALL: Unremarkable CT/CT urogram IMPRESSION: 5 mm left renal calculus. Prompt symmetric nephrograms and prompt contrast excretion without significant obstruction. No obstructing ureteral stone. Unremarkable urinary bladder. Pectus excavatum deformity. Impression dictated by: Michael Gonzalez M.D.07/31/2024 7:48 PM Dictation Location: [place] [address] Transcribed By: [facility] 07/31/241947 Dictated By: Michael Gonzalez DO 07/31/241942 Signed By: 07/31/241947 [facility] Evaluation note Note Date & Type Note Facility Evaluation note No assessment information availa rosa [facility] Work Phone: Summary Purpose Family History No Family History Records FoundNo Family History Records FoundNo Family History Records Found Advance Directives Advance Directive Response Recorded Date/ Time Advance Directives No March 31, 2018 12:31pm Chief Complaint and Reason for Visit Chief Complaint Admit Date abd/lower back pain July 31, 2024 2:59pm Additional Source Comments INFORMATION SOURCE (unrecogn ized section and content) DATE CREATED AUTHOR 06/27/2021 [facility] DATE CREATED AUTHOR AUTHOR'S ORGANIZ ATION 07/30/2024 [facility] DATE CREATED AUTHOR AUTHOR'S ORGANIZ ATION 08/01/2024 [facility] Care Teams (unrecognized sec tion and content) Team Status: Active Member Role Status Dates Melvina Morfin NP-[facility] Primary Care Provider Active Team Status: Inactive Member Role Status Dates Melvina Morfin NP-[facility] Primary Care Provider Active Start: July 31, 2024 End: July 31, 2024 Chris Diehl MD Emergency Provider Active St art: July 31, 2024 End: July 31, 2024 Goals (unrecognized section and content) Goals may be documented in a n alternate section FOR RECORDS PERTAINING TO PATIENTS WHO ARE [...] BE BASED ON THE PRIMARY CLINICAL RECORDS. [facility]. provides no warranty or guarantee of the accuracy or completeness of information in this document.
--- NOTE | 2024-08-04 10:42 | US_ITS ---
The [address] [address] Patient Name: STUART LORENZ MRN: [id number] date: 1985 Sex: F Assigned Patient Location: US Current Patient Location: LAB Accession/Order Number: [id number] Exam Date: 08/04/2024 13:14 Report Date: 08/04/2024 13:45 At the request of: MAXIMILIANO VILLELA Procedure: US pelvis w/ transvaginal COMPLETE PELVIC ULTRASOUND TRANSVAGINAL IMAGING CLINICAL DATA: Pelvic pain. History of right ovarian cyst COMPARISON: CT 07/28/2024 Real-time ultrasound evaluation the pelvis was performed utilizing both a transabdominal and transvaginal approach. TRANSABDOMINAL: Estimated uterine size is approximately 9.7 x 3.3 x 4.8 cm in size. No focal myometrial abnormalities are identified. The endometrial lining is estimated at 6-7 mm. There is a nabothian cyst. The right ovary is identified however the left is not seen with certainty. TRANSVAGINAL: Transvaginal scans were performed to better evaluate the uterus and adnexa. By this approach, no focal myometrial abnormalities are identified. The endometrial lining measures 8 - 9 mm. A nabothian cyst is again seen measuring approximately 15 mm in greatest dimension. Both ovaries are identified. The left ovary measures 3.3 x 2.1 x 2.8 cm. The right ovary measures 4.8 x 1.7 x 3.1 cm. There are follicles bilaterally. The right ovary also contains a complex nodule measuring 2.8 x 2.0 x 2.6 cm in size. The cystic component contains debris. There is also mural nodularity with the soft tissue component measures approximately 14 mm. There is documentation of bilateral ovarian blood flow. A trace amount of free fluid is seen in the right adnexal region. US/US pelvis w/ transvaginal IMPRESSION: COMPLEX RIGHT OVARIAN CYST. FOLLOW-UP IN 2-3 MENSTRUAL CYCLES IS SUGGESTED. TRACE AMOUNT OF FREE FLUID ON THE RIGHT. Impression dictated by: Coby Justin M.D.08/04/2024 1:45 PM Dictation Location: [place] [address] Electronically authenticated by: [id number] Y Date: 08/04/2024 13:45
== END 2024-08-04 10:36 | disposition home or self-care (01) ==
LOC: US 10:36
PROVIDERS: PCP Nurse Practitioner Family; Visit Provider Physician Assistant
DX: R10.2 Pelvic and perineal pain (principal); R53.82 Chronic fatigue, unspecified; N83.291 Other ovarian cyst, right side
CPT/HCPCS: 76830; 76856

== ENCOUNTER 2024-08-04 11:56 | Outpatient (OUT) | payer BC, SELFPAY ==
--- OUTSIDE RECORDS SUMMARY | 2024-08-04 12:09 | XMS_ITS | CCD ---
Author Organization [facility] Care Team Providers Care Drop Wire Operator Name Role Phone MELVINA DUGAN Admitting Unavailable MELVINA DUGAN Attending Unavailable MELVINA DUGAN Consulting Unavailable MELVINA DUGAN Primary Care Unavailable Neeraj Nixon Consulting Unavailable MELVINA DUGAN Primary Care Unavailable MELVINA DUGAN Admitting Unavailable MELVINA DUGAN Attending Unavailable MELVINA DUGAN Consulting Unavailable Melvina Morfin Primary Care Unavailable Chris Diehl Attending Unavailable Chris Diehl Admitting Unavailable [employer] ABORIGINAL LIAISON OFFICER-C, Melvina Gray Primary Care Provider Chris Diehl MD Emergency Provider [phone] Allergies Allergy Classification Reported Allergen(s) Allergy Type Date of Onset Reaction(s) Facility (2 sources) Amoxicillin / Clavulanate; Translations: [Augmentin] Drug Allergy [facility] Repository (3 sources) Codeine; Translations: [codeine] Drug Allergy 5 Unknown Reaction [facility] Repository (2 sources) Gluten Drug allergy (disorder) 5 Unknown Reaction [facility] Repository (1 source) Triazolam Drug Allergy [facility] Repository (1 source) Gluten; Translations: [Glutens] Propensity to adverse reactions (disorder) [facility] Repository (1 source) loracarbef; Translations: [Lorabid] Drug Allergy [facility] Repository (1 source) Shellfish; Translations: [shellfish] Propensity to adverse reactions (disorder) [facility] Repository (2 sources) Amoxicillin Drug Allergy 5 Unknown Reaction [facility] Repository (2 sources) Clavulanate Drug Allergy 5 Unknown Reaction [facility] Repository (1 source) Codeine Drug Allergy 5 [facility] Repository (1 source) Gluten Drug allergy (disorder) 5 [facility] Repository (2 sources) loracarbef Drug Allergy 5 Unknown Reaction [facility] Repository (2 sources) Fish Containing Products Drug allergy (disorder) 5 Unknown Reaction [facility] Repository Medications Current Medications Medication Drug Class(es) Dates Sig (Normalized) Sig (Original) [id number] 200 actuat albuterol 0.09 mg/actuat metered dose [...] [Enzymatic activity/volume] in Serum or Plasma 7-52 [facility] Albumin [Mass/volume] in Ser um or Plasma by Bromocresol green (BCG) dye binding methoOrdered By: Hilario Boykin on 07-31-2024 Albumin BCG dye [Mass/Vol] Albumin [Mass/volume] in Serum or Plasma by Bromocresol green (BCG) dye binding metho 3.5-5.7 [facility] Alkaline phosphatase [Enzyma tic activity/volume] in Serum or PlasmaOrdered By: Hilario Boykin on 07-31-2024 ALP [Catalytic activity/Vol] Alkaline phosphatase [Enzymatic activity/volume] in Serum or Plasma 34-104 [facility] Appearance of UrineOrdered B y: PROVIDER TEMP on 07-31-2024 Appearance (U) Urine appearance Clear [facility] Aspartate aminotransferase [ Enzymatic activity/volume] in Serum or PlasmaOrdered By: Hilario Boykin on 07-31-2024 AST [Catalytic activity/Vol] Aspartate aminotransferase [Enzymatic activity/volume] in Serum or Plasma 13-39 [facility] Bacteria [Presence] in Urine by AutomatedOrdered By: PROVIDER TEMP on 07-31-2024 Bacteria Auto Ql (U) Bacteria [Presence] in Urine by Automated None Seen [facility] Basic Metabolic Panelon 07-15 Anion gap [Moles/Vol] 11.4 mmol/L Normal 6.0-15.0 e [facility] Comment on above: Performed By: #### L IPASE, CBC, HEPATIC, BMP #### [facility] [address] [place] [address] [place] Calcium [Mass/Vol] 9.5 mg/dL Normal 8.6-10.3 [facility] Comment on above: Performed By: #### L IPASE, CBC, HEPATIC, BMP #### [facility] [address] [place] [address] [place] Chloride [Moles/Vol] 106 mmol/L Normal 98-107 [facility] Comment on above: Performed By: #### L IPASE, CBC, HEPATIC, BMP #### [facility] [address] [place] [address] [place] CO2 [Moles/Vol] 24.3 mmol/L Normal 21.0-31.0 [facility] Comment on above: Performed By: #### L IPASE, CBC, HEPATIC, BMP #### [facility] [address] [place] [address] [place] Creatinine [Mass/Vol] 0.69 mg/dL Normal 0.60-1.20 [facility] Comment on above: Performed By: #### L IPASE, CBC, HEPATIC, BMP #### [facility] [address] [place] [address] [place] Creatinine Clr Calc Pharmacy 73.57 Normal [facility] Comment on above: Performed By: #### L IPASE, CBC, HEPATIC, BMP #### [facility] [address] [place] [address] [place] GFR/1.73 sq M.predicted MDRD (S/P/Bld) [Vol rate/Area] mL/min/{1.73_m2} Normal [facility] Comment on above: Performed By: #### L IPASE, CBC, HEPATIC, BMP #### [facility] [address] [place] [address] [place] Glucose [Mass/Vol] 87 mg/dL Normal 70-100 [facility] Comment on above: Result Comment: [facility] Glucose Reference Range is dependent on time and content of last meal. Glucose of more than 200 mg/dL in a nonstressed, ambulatory subject supports the diagnosis of Diabetes Mellitus. ADA recommended reference range Performed By: #### L IPASE, CBC, HEPATIC, BMP #### [facility] [address] [place] [address] [place] Potassium [Moles/Vol] 3.7 mmol/L Normal 3.5-5.1 [facility] Comment on above: Performed By: #### L IPASE, CBC, HEPATIC, BMP #### [facility] [address] [place] [address] [place] Sodium [Moles/Vol] 138 mmol/L Normal 136-145 [facility] Comment on above: Performed By: #### L IPASE, CBC, HEPATIC, BMP #### [facility] [address] [place] [address] [place] Urea nitrogen [Mass/Vol] 9 mg/dL Normal 7-25 [facility] Comment on above: Performed By: #### L IPASE, CBC, HEPATIC, BMP #### [facility] [address] [place] [id number] [place] Basophils Auto (Bld) [#/Vol] Ordered By: Hilario Boykin on 07-31-2024 Basophils (Bld) [#/Vol] Automated basoph il count 0.0-0.2 [facility] Basophils/100 WBC Auto (Bld) Ordered By: Hilario Boykin on 07-31-2024 Basophils/100 WBC (Bld) Automated basophil % . [facility] Bilirubin Test strip Ql (U)O rdered By: ALEX MCDONNELL on 07-31-2024 Bilirubin Ql (U) Bilirubin.total [Presence] in Urine by Test strip Negative [facility] Bilirubin.direct [Mass/volum e] in Serum or PlasmaOrdered By: Hilario Boykin on 07-31-2024 Bilirubin.direct [Mass/Vol] Bilirubin.direct [Mass/volume] in Serum or Plasma 0.03-0.18 [facility] Bilirubin.total [Mass/volume ] in Serum or PlasmaOrdered By: Hilario Boykni on 07-31-2024 Bilirubin [Mass/Vol] Bilirubin.total [Mass/volume] in Serum or Plasma 0.3-1.0 [facility] COVID Cepheid NegativeOrdere d By: Hilario Boykin on 07-31-2024 SARS-CoV-2 (COVID-19) Ab IA Ql COVID Cepheid Negative [facility] Comment on above: This is a duplicate [...] or Cepheid Disclaimer revoked sooner. PERFORMED BY: [place] [address] PATHOLOGIST PROCESS MACHINE OPERATOR PORFIRIO SILVA M.D. Normal [facility] Comment on above: Performed By: #### C EPHEID NEG, COVID19 FLU RSV #### [address] urogramon 07-31-2024 CT urogram [facility] [place] [address] [place] [address] CT Scan Report Signed Patient: Angelita Sherman MR#: [id number] : 1985 Acct:[id number] Age/Sex: 39 / F ADM Date: 07/31/24 Loc: ER Room: Type: PRE ER Attending Dr: Copies to: Hilario Boykin DO [facility], PROVIDER Ordering Provider: Hilario Boykin DO Date [...] Michael Gonzalez M.D.07/31/2024 7:48 PM Dictation Location: [place] [address] Transcribed By: [facility] 07/31/241947 Dictated By: Michael Gonzalez DO 07/31/241942 Signed By: 07/31/241947 Normal [facility] Calcium [Mass/volume] in Ser um or PlasmaOrdered By: Hilario Boykin on 07-31-2024 Calcium [Mass/Vol] Calcium [Mass/volume] in Serum or Plasma 8.6-10.3 [facility] Carbon dioxide, total [Moles /volume] in Serum or PlasmaOrdered By: Hilario Boykin on 07-31-2024 CO2 [Moles/Vol] Carbon dioxide, total [Moles/volume] in Serum or Plasma 21.0-31.0 [facility] Cepheid COVID PCR Negativeon 07-31-2024 SARS-CoV-2 (COVID-19) RNA INDIRA+probe Ql (Unsp spec) Negative Normal Negative [facility] Comment on above: Result Comment: This is a duplicate [employer] Xpert Xpress CoV-2/Flu/RSV Plus RNA by RT-PCR result to be used for statistical tracking purpose only. PERFORMED BY: [place] [address] PATHOLOGIST PROCESS MACHINE OPERATOR PORFIRIO SILVA M.D. Performed By: #### C EPHEID NEG, COVID19 FLU RSV #### [place] [address] [place] Chloride [Moles/volume] in S nicolette or PlasmaOrdered By: Hilario Boykin on 07-31-2024 Chloride [Moles/Vol] Chloride [Moles/volume] in Serum or Plasma 98-107 [facility] Color Auto (U)Ordered By: YAZ MCDONNELL on 07-31-2024 Color (U) Color of Urine by Auto Yellow [facility] Complete Blood Count Auto Di ffon 07-31-2024 Basophils (Bld) [#/Vol] 0.0 10*3/uL Normal 0.0-0.2 [facility] Comment on above: Result Comment: PERF ORMED BY: [address] [address] PATHOLOGIST PROCESS MACHINE OPERATOR PORFIRIO SILVA M.D. Performed By: #### L IPASE, CBC, HEPATIC, BMP #### [place] [id number] [place] Basophils/100 WBC (Bld) 0.2 % Normal . T deny [facility] Comment on above: Performed By: #### L IPASE, CBC, HEPATIC, BMP #### [address] [address] [place] Eosinophils (Bld) [#/Vol] 0.1 10*3/uL Normal 0.0-0.45 [facility] Comment on above: Performed By: #### L IPASE, CBC, HEPATIC, BMP #### [place] [id number] [place] Eosinophils/100 WBC (Bld) 1.3 % Normal . [facility] Comment on above: Performed By: #### L IPASE, CBC, HEPATIC, BMP #### [address] Erythrocyte distribution width (RBC) [Ratio] 11.9 % Normal 11.9-15.3 The [facility] Comment on above: Performed By: #### L IPASE, CBC, HEPATIC, BMP #### [address] Hematocrit (Bld) [Volume fraction] 41.9 % Normal 34.0-46.4 [facility] Comment on above: Performed By: #### L IPASE, CBC, HEPATIC, BMP #### [address] Hemoglobin (Bld) [Mass/Vol] 14.3 g/dL Normal 11.8-15.4 [facility] Comment on above: Performed By: #### L IPASE, CBC, HEPATIC, BMP #### [address] Lymphocytes (Bld) [#/Vol] 1.7 10*3/uL Normal 1.00-4.8 [facility] Comment on above: Performed By: #### L IPASE, CBC, HEPATIC, BMP #### [address] Lymphocytes/100 WBC (Bld) 21.9 % Normal . [facility] Comment on above: Performed By: #### L IPASE, CBC, HEPATIC, BMP #### [address] MCH (RBC) [Entitic mass] 30.5 pg Normal 24.7-34.3 [facility] Comment on above: Performed By: #### L IPASE, CBC, HEPATIC, BMP #### [address] MCV (RBC) [Entitic vol] 89.4 fL Normal 80-100 T he [facility] Comment on above: Performed By: #### L IPASE, CBC, HEPATIC, BMP #### [address] Mean Corpuscular HGB Conc 34.1 g/dL Normal 32.0-35.0 [facility] Comment on above: Performed By: #### L IPASE, CBC, HEPATIC, BMP #### [facility] [address] [place] [address] [place] Monocytes (Bld) [#/Vol] 0.7 10*3/uL Normal 0.0-0.8 [facility] Comment on above: Performed By: #### L IPASE, CBC, HEPATIC, BMP #### [facility] [address] [place] [address] [place] Monocytes/100 WBC (Bld) 16.45 % Normal 0.00-20.00 [facility] Comment on above: Performed By: #### L IPASE, CBC, HEPATIC, BMP #### [facility] [address] [place] [address] [place] Monocytes/100 WBC (Bld) 9.0 % Normal . [facility] Comment on above: Performed By: #### L IPASE, CBC, HEPATIC, BMP #### [address] Neutrophils (Bld) [#/Vol] 5.1 10*3/uL Normal 1.8-7.7 [facility] Comment on above: Performed By: #### L IPASE, CBC, HEPATIC, BMP #### [place] [address] [place] Neutrophils/100 WBC (Bld) 67.6 % Normal . [facility] Comment on above: Performed By: #### L IPASE, CBC, HEPATIC, BMP #### [facility] [address] [place] [address] [place] NRBC% 0.1 /100{WBC} Normal 0-0.5 [facility] Comment on above: Performed By: #### L IPASE, CBC, HEPATIC, BMP #### [facility] [address] Platelet mean volume (Bld) [Entitic vol] 8.1 fL Normal 6.3-10.7 The [facility] Comment on above: Performed By: #### L IPASE, CBC, HEPATIC, BMP #### [facility] [address] Platelets (Bld) [#/Vol] 213 10*3/uL Normal 150-450 [facility] Comment on above: Performed By: #### L IPASE, CBC, HEPATIC, BMP #### [address] RBC (Bld) [#/Vol] 4.69 10*6/uL Normal 3.60-5.00 [facility] Comment on above: Performed By: #### L IPASE, CBC, HEPATIC, BMP #### [place] [address] [place] WBC (Bld) [#/Vol] 7.6 10*3/uL Normal 3.8-11.6 [facility] Comment on above: Performed By: #### L IPASE, CBC, HEPATIC, BMP #### [address] Creatinine [Mass/volume] in Serum or PlasmaOrdered By: Hilario Boykin on 07-31-2024 Creatinine [Mass/Vol] Creatinine [Mass/volume] in Serum or Plasma 0.60-1.20 [facility] Dipstick and Microscopicon 0 07-31-2024 Appearance (U) Clear Normal Clear [facility] Comment on above: Order Comment: Name Collection Type:: Clean-Voided Midstream Performed By: #### A DDONUAPLUS #### [address] Bacteria,Urine Rare Normal None Seen [facility] Comment on above: Order Comment: Name Collection Type:: Clean-Voided Midstream Performed By: #### A DDONUAPLUS #### [address] Bilirubin,Urine Negative Normal Negative [facility] Comment on above: Order Comment: Name Collection Type:: Clean-Voided Midstream Performed By: #### A DDONUAPLUS #### [address] Color (U) Light-Yellow Normal Yellow The [facility] Comment on above: Order Comment: Name Collection Type:: Clean-Voided Midstream Performed By: #### A DDONUAPLUS #### [address] Glucose Ql (U) Normal Normal Normal [facility] Comment on above: Order Comment: Name Collection Type:: Clean-Voided Midstream Performed By: #### A DDONUAPLUS #### [place] [address] [place] Hyaline Casts,Urine None Normal 0-8 [facility] Comment on above: Order Comment: Name Collection Type:: Clean-Voided Midstream Performed By: #### A DDONUAPLUS #### [address] Ketones Ql (U) Negative Normal Negative [facility] Comment on above: Order Comment: Name Collection Type:: Clean-Voided Midstream Performed By: #### A DDONUAPLUS #### [place] [address] [place] Leukocyte esterase Test strip Ql (U) Negative Normal Negative [facility] Comment on above: Order Comment: Name Collection Type:: Clean-Voided Midstream Performed By: #### A DDONUAPLUS #### [place] [address] [place] Mucus,Urine Rare Normal [facility] Comment on above: Order Comment: Name Collection Type:: Clean-Voided Midstream Result Comment: PERF ORMED BY: [place] [address] PATHOLOGIST PROCESS MACHINE OPERATOR PORFIRIO SILVA M.D. Performed By: #### A DDONUAPLUS #### [place] [address] [place] Nitrite,Urine Negative Normal Negative [facility] Comment on above: Order Comment: Name Collection Type:: Clean-Voided Midstream Performed By: #### A DDONUAPLUS #### [address] Occult Blood,Urine 2+ High Negative [facility] Comment on above: Order Comment: Name Collection Type:: Clean-Voided Midstream Result Comment: PERF ORMED BY: [place] [address] PATHOLOGIST PROCESS MACHINE OPERATOR PORFIRIO SILVA M.D. Performed By: #### A DDONUAPLUS #### [address] pH (U) 6.5 [pH] Normal 5.0-9.0 [facility] Comment on above: Order Comment: Name Collection Type:: Clean-Voided Midstream Performed By: #### A DDONUAPLUS #### [place] [address] [place] Protein,Urine Negative Normal Negative [facility] Comment on above: Order Comment: Name Collection Type:: Clean-Voided Midstream Performed By: #### A DDONUAPLUS #### [address] RBC,Urine 5-9 High 0-4 [facility] Comment on above: Order Comment: Name Collection Type:: Clean-Voided Midstream Performed By: #### A DDONUAPLUS #### [address] Specificy [place],Urine 1.014 Normal 1.001-1.030 [facility] Comment on above: Order Comment: Name Collection Type:: Clean-Voided Midstream Performed By: #### A DDONUAPLUS #### [place] [address] [place] Squamous Epithelial Cell,Urine 3-4 High 0-2 [facility] Comment on above: Order Comment: Name Collection Type:: Clean-Voided Midstream Performed By: #### A DDONUAPLUS #### [address] Urobilinogen,Urine Normal Normal Normal [facility] Comment on above: Order Comment: Name Collection Type:: Clean-Voided Midstream Performed By: #### A DDONUAPLUS #### [facility] [address] WBC,Urine 1-2 Normal 0-4 [facility] Comment on above: Order Comment: Name Collection Type:: Clean-Voided Midstream Performed By: #### A DDONUAPLUS #### [facility] [address] [place] [address] [place] Eosinophils Auto (Bld) [#/Vo l]Ordered By: Hilario Boykin on 07-31-2024 Eosinophils (Bld) [#/Vol] Automated eosinophil count 0.0-0.45 [facility] Eosinophils/100 WBC Auto (Bl d)Ordered By: Hilario Boykin on 07-31-2024 Eosinophils/100 WBC (Bld) Automated eosinophil % . [facility] Epithelial cells.squamous [# /area] in Urine sediment by Automated countOrdered By: PROVIDER TEMP on 07-31-2024 Epithelial cells.squamous Auto (Urine sed) [#/Area] Epithelial cells.squamous [#/area] in Urine sediment by Automated count High 0-2 [facility] Erythrocyte distribution wid th Auto (RBC) [Ratio]Ordered By: Hilario Boykin on 07-31-2024 Erythrocyte distribution width (RBC) [Ratio] Erythrocyte distribution width [Ratio] by Automated count 11.9-15.3 [facility] Erythrocytes [#/area] in Uri ne sediment by Automated countOrdered By: PROVIDER TEMP on 07-31-2024 RBC Auto (Urine sed) [#/Area] Erythrocytes [#/area] in Urine sediment by Automated count High 0-4 [facility] Globulin Calc (S) [Mass/Vol] Ordered By: Hilario Boykin on 07-31-2024 Globulin (S) [Mass/Vol] Serum globulin measurement by calculation (mass/volume) [facility] Glucose [Mass/volume] in Ser um or PlasmaOrdered By: Hilario Boykin on 07-31-2024 Glucose [Mass/Vol] Glucose [Mass/volume] in Serum or Plasma 70-100 [facility] Comment on above: ADA recommended refe rence rangeRandom Glucose Reference Range is dependent on time and content of last meal. Glucose of more than 200 mg/dL in a nonstressed, ambulatory subject supports the diagnosis of Diabetes Mellitus. Glucose [Mass/volume] in Uri ne by Test stripOrdered By: PROVIDER TEMP on 07-31-2024 Glucose Test strip (U) [Mass/Vol] Glucose [Mass/volume] in Urine by Test strip Normal [facility] HCG ( test) IA.rapi d Ql (U)Ordered By: Hilario Boykin on 07-31-2024 HCG ( test) Ql (U) Urine human chorionic gonadotropin (hCG) detection by immunoassay [facility] HCG,Urineon 07-31-2024 Beta HCG ( test) Ql (U) Negative Normal [facility] Comment on above: Result Comment: PERF ORMED BY: [place] [address] PATHOLOGIST PROCESS MACHINE OPERATOR PORFIRIO SILVA M.D. Performed By: #### U HCG #### [address] Hematocrit Auto (Bld) [Volum e fraction]Ordered By: Hilario Boykin on 07-31-2024 Hematocrit (Bld) [Volume fraction] Hematocrit [Volume Fraction] of Blood by Automated count 34.0-46.4 [facility] Hemoglobin Test strip Ql (U) Ordered By: PROVIDER TEMP on 07-31-2024 Hemoglobin Ql (U) Hemoglobin [Presence] in Urine by Test strip High Negative [facility] Hemoglobin [Mass/volume] in BloodOrdered By: Hilario Boykin on 07-31-2024 Hemoglobin (Bld) [Mass/Vol] Hemoglobin [Mass/volume] in Blood 11.8-15.4 [facility] Hepatic Panelon 07-31-2024 Albumin [Mass/Vol] 4.5 g/dL Normal 3.5-5.7 [facility] Comment on above: Performed By: #### L IPASE, CBC, HEPATIC, BMP #### [facility] [address] [place] [address] Albumin/Globulin [Mass ratio] 1.7 {ratio} Normal [facility] Comment on above: Performed By: #### L IPASE, CBC, HEPATIC, BMP #### [facility] [address] [place] [id number] [place] ALP [Catalytic activity/Vol] 45 U/L Normal 34-104 [facility] Comment on above: Performed By: #### L IPASE, CBC, HEPATIC, BMP #### [facility] [address] [place] [id number] [place] ALT [Catalytic activity/Vol] 7 U/L Normal 7-52 [facility] Comment on above: Performed By: #### L IPASE, CBC, HEPATIC, BMP #### [facility] [address] [place] [id number] [place] AST [Catalytic activity/Vol] 15 U/L Normal 13-39 [facility] Comment on above: Performed By: #### L IPASE, CBC, HEPATIC, BMP #### [facility] [address] [place] [id number] [place] Bilirubin [Mass/Vol] 0.6 mg/dL Normal 0.3-1.0 [facility] Comment on above: Performed By: #### L IPASE, CBC, HEPATIC, BMP #### [facility] [address] [place] [address] [place] Bilirubin,Indirect 0.5 mg/dL Normal [facility] Comment on above: Performed By: #### L IPASE, CBC, HEPATIC, BMP #### [facility] [address] [place] [id number] [place] Bilirubin.indirect [Mass/Vol] 0.10 mg/dL Normal 0.03-0.18 [facility] Comment on above: Performed By: #### L IPASE, CBC, HEPATIC, BMP #### [facility] [address] [place] [id number] [place] Globulin (S) [Mass/Vol] 2.6 g/dL Normal T he [facility] Comment on above: Performed By: #### L IPASE, CBC, HEPATIC, BMP #### [facility] [address] [place] [address] [place] Protein [Mass/Vol] 7.1 g/dL Normal 6.4-8.9 [facility] Comment on above: Performed By: #### L IPASE, CBC, HEPATIC, BMP #### [facility] [address] [place] [address] [place] Hyaline casts [#/area] in Ur ine sediment by Automated countOrdered By: PROVIDER TEMP on 07-31-2024 Hyaline casts Auto (Urine sed) [#/Area] Hyaline casts [#/area] in Urine sediment by Automated count 0-8 [facility] Ketones Test strip Ql (U)Ord ered By: PROVIDER TEMP on 07-31-2024 Ketones Ql (U) Ketones [Presence] in Urine by Test strip Negative [facility] Leukocyte esterase [Presence ] in Urine by Test stripOrdered By: PROVIDER TEMP on 07-31-2024 Leukocyte esterase Test strip Ql (U) Leukocyte esterase [Presence] in Urine by Test strip Negative [facility] Leukocytes [#/area] in Urine sediment by Automated countOrdered By: PROVIDER TEMP on 07-31-2024 WBC Auto (Urine sed) [#/Area] Leukocytes [#/area] in Urine sediment by Automated count 0-4 [facility] Leukocytes [#/volume] correc kenia for nucleated erythrocytes in Blood by Automated counOrdered By: Hilario Boykin on 07-31-2024 WBC corrected for nucl RBC Auto (Bld) [#/Vol] Leukocytes [#/volume] corrected for nucleated erythrocytes in Blood by Automated coun 3.8-11.6 [facility] Lipaseon 07-31-2024 Lipase [Catalytic activity/Vol] 14.0 U/L Normal 11.0-82.0 [facility] Comment on above: Result Comment: PERF ORMED BY: [place] [address] PATHOLOGIST PROCESS MACHINE OPERATOR PORFIRIO SILVA M.D. Performed By: #### L IPASE, CBC, HEPATIC, BMP #### [facility] [address] [place] [address] [place] Lipase [Enzymatic activity/v olume] in Serum or PlasmaOrdered By: Hilario Boykin on 07-31-2024 Lipase [Catalytic activity/Vol] Lipase [Enzymatic activity/volume] in Serum or Plasma 11.0-82.0 [facility] Lymphocytes Auto (Bld) [#/Vo l]Ordered By: Hilario Boykin on 07-31-2024 Lymphocytes (Bld) [#/Vol] Lymphocytes [#/volume] in Blood by Automated count 1.00-4.8 [facility] Lymphocytes/100 WBC Auto (Bl d)Ordered By: Hilario Boykin on 07-31-2024 Lymphocytes/100 WBC (Bld) Lymphocytes/100 leukocytes in Blood by Automated count . [facility] MCH Auto (RBC) [Entitic mass ]Ordered By: Hilario Boykin on 07-31-2024 MCH (RBC) [Entitic mass] MCH [Entitic ma ss] by Automated count 24.7-34.3 [facility] MCHC Auto (RBC) [Mass/Vol]Or dered By: Hilario Boykin on 07-31-2024 MCHC (RBC) [Mass/Vol] MCHC [Mass/volume] by Automated count 32.0-35.0 [facility] MCV Auto (RBC) [Entitic vol] Ordered By: Hilario Boykin on 07-31-2024 MCV (RBC) [Entitic vol] MCV [Entitic vol ume] by Automated count 80-100 [facility] Monocyte distribution width [Entitic volume] in Blood by AutomatedOrdered By: Hilario Boykin on 07-31-2024 Monocyte distribution width Auto (Bld) [Entitic vol] Monocyte distribution width [Entitic volume] in Blood by Automated 0.00-20.00 [facility] Monocytes Auto (Bld) [#/Vol] Ordered By: Hilario Boykin on 07-31-2024 Monocytes (Bld) [#/Vol] Automated blood monocyte count 0.0-0.8 [facility] Monocytes/100 WBC Auto (Bld) Ordered By: Hilario Boykin on 07-31-2024 Monocytes/100 WBC (Bld) Automated monocyte % . [facility] Mucus [Presence] in Urine by AutomatedOrdered By: ALEX TEMP on 07-31-2024 Mucus Auto Ql (U) Mucus [Presence] in Urine by Automated [facility] Neutrophils Auto (Bld) [#/Vo l]Ordered By: Hilario Boykin on 07-31-2024 Neutrophils (Bld) [#/Vol] Neutrophils [#/volume] in Blood by Automated count 1.8-7.7 [facility] Neutrophils/100 WBC Auto (Bl d)Ordered By: Hilario Boykin on 07-31-2024 Neutrophils/100 WBC (Bld) Automated neutrophil % . [facility] Nitrite Test strip Ql (U)Ord ered By: PROVIDER TEMP on 07-31-2024 Nitrite Ql (U) Nitrite [Presence] in Urine by Test strip Negative [facility] No Panel InformationOrdered By: Hilario Boykin on 07-31-2024 Estimated GFR (CKD-EPI) > 60.0 mL/Min [facility]acy Creatinine Clearance (Chem 73.57 [facility] Nucleated erythrocytes [Pres ence] in Blood by Automated countOrdered By: Hilario Byokin on 07-31-2024 Nucleated RBC Auto Ql (Bld) Nucleated erythrocytes [Presence] in Blood by Automated count 0-0.5 [facility] Platelet mean volume Auto (B ld) [Entitic vol]Ordered By: Hilario Boykin on 07-31-2024 Platelet mean volume (Bld) [Entitic vol] Platelet mean volume [Entitic volume] in Blood by Automated count 6.3-10.7 [facility] Platelets Auto (Bld) [#/Vol] Ordered By: Hilario Boykin on 07-31-2024 Platelets (Bld) [#/Vol] Platelets [#/vol ume] in Blood by Automated count 150-450 [facility] Potassium [Moles/volume] in Serum or PlasmaOrdered By: Hilario Boykin on 07-31-2024 Potassium [Moles/Vol] Potassium [Moles/volume] in Serum or Plasma 3.5-5.1 [facility] Protein Test strip (U) [Mass /Vol]Ordered By: PROVIDER TEMP on 07-31-2024 Protein (U) [Mass/Vol] Protein [Mass/volume] in Urine by Test strip Negative [facility] Protein [Mass/volume] in Ser um or PlasmaOrdered By: Hilario Boykin on 07-31-2024 Protein [Mass/Vol] Protein [Mass/volume] in Serum or Plasma 6.4-8.9 [facility] RBC Auto (Bld) [#/Vol]Ordere d By: Hilario Boykin on 07-31-2024 RBC (Bld) [#/Vol] Erythrocytes [#/volume] in Blood by Automated count 3.60-5.00 [facility] Respiratory specimen influen za A virus, influenza B virus, respiratory syncytical virOrdered By: Hilario Boykin on 07-31-2024 SARS-CoV-2 (COVID-19) RNA INDIRA+probe Ql (Unsp spec) Respiratory specimen influenza A virus, influenza B virus, respiratory syncytical vir [facility] Serum or plasma albumin/glob ulin mass ratioOrdered By: Hilario Boykin on 07-31-2024 Albumin/Globulin [Mass ratio] Serum or plasma albumin/globulin mass ratio [facility] Serum or plasma anion gap de terminationOrdered By: Hilario Boykin on 07-31-2024 Anion gap [Moles/Vol] Serum or plasma anion gap determination 6.0-15.0 [facility] Serum or plasma non-glucuron idated bilirubin measurement (mass/volume)Ordered By: Hilario Boykin on 07-31-2024 Bilirubin.indirect [Mass/Vol] Serum or plasma non-glucuronidated bilirubin measurement (mass/volume) [facility] Sodium [Moles/volume] in Ser um or PlasmaOrdered By: Hilario Boykin on 07-31-2024 Sodium [Moles/Vol] Sodium [Moles/volume] in Serum or Plasma 136-145 [facility] Specific gravity Test strip (U) [Rel density]Ordered By: PROVIDER TEMP on 07-31-2024 Specific gravity (U) [Rel density] Specific gravity of Urine by Test strip 1.001-1.030 [facility] Urea nitrogen [Mass/volume] in Serum or PlasmaOrdered By: Hilario Boykin on 07-31-2024 Urea nitrogen [Mass/Vol] Urea nitrogen [Mass/volume] in Serum or Plasma 7-25 [facility] Urobilinogen Test strip (U) [Mass/Vol]Ordered By: PROVIDER TEMP on 07-31-2024 Urobilinogen (U) [Mass/Vol] Urobilinogen [Mass/volume] in Urine by Test strip Normal [facility] WBC Auto (Bld) [#/Vol]Ordere d By: Hilario Boykin on 07-31-2024 WBC (Bld) [#/Vol] Leukocytes [#/volume] in Blood by Automated count 3.8-11.6 [facility] pH Test strip (U)Ordered By: PROVIDER TEMP on 07-31-2024 pH (U) pH of Urine by Test strip 5.0-9.0 [facility] Covid-19 PCR (CVDTBH)on 06-14 SARS-CoV-2 (COVID-19) RNA INDIRA+probe Ql (Unsp spec) Not detected Normal NOT DETECTED [facility] Comment on above: Result Comment: This test is not yet approved or cleared by the [place] FDA. When there are no FDA-approved or cleared tests available, and other criteria are met, FDA can make tests available under an emergency access mechanism called an Emergency Use Authorization (EUA). The EUA for this test is supported by the [employer] of Health and Human Service's (HHS's) declaration [...] SARS-CoV-2. Performed By: #### C VDTB #### [facility] [address] [place] [address] Dr. Jami Hernandez SARS-CoV2 ANTIBODIES (IgM, I gG, IgA)on 08-15-2020 SARS-CoV-2 (COVID-19) RNA INDIRA+probe Ql (Unsp spec) Negative Normal Negative [facility] Comment on above: Result Comment: This sample [...] antibodies specific to the viral spike protein. [employer] offers two test codes that detect viral spike-specific antibodies: 625323 SARS-CoV-2 Semi-Quantitative Total Antibody, Ralph and 931350 SARS-CoV-2 Antibody, IgG, Ralph (Qualitative). Positive results with this SARS-CoV-2 Antibodies, Nucleocapsid assay suggest recent or previous natural infection with SARS-CoV-2. Performed By: #### C VDABS #### [facility] [address] [place] [address] Shama Coby Covid-19 PCR ([facility])on SARS-CoV-2 (COVID-19) RNA INDIRA+probe Ql (Unsp spec) Not detected Normal NOT DETECTED [facility] Comment on above: Result Comment: This test is not yet approved or cleared by the [place] FDA. When there are no FDA-approved or cleared tests available, and other criteria are met, FDA can make tests available under an emergency access mechanism called an Emergency Use Authorization (EUA). The EUA for this test is supported by the [facility] of Health and Human Service's (HHS's) declaration [...] SARS-CoV-2. Performed By: #### C VDTBH #### [facility] [address] [place] [id number] Shama Tenorio XR CHEST 2 Von 08-13-2020 [...] by: Neeraj NIXON Date: 2020-08-13 17:40 Normal [facility] Vital Signs Date Time Vital Sign Value Performing Clinician Faci lity 07-31-2024 20:30-0500 Diastolic blood pressure 59 mm[Hg] Melvina Morfin [employer]IGINAL [employer]IAISON OFFICER-C Work Phone: [facility] 07-31-2024 20:30-0500 Heart rate 80 /min Melvina Morfin [employer] OFFICER-C Work Phone: [facility] 07-31-2024 20:30-0500 Respiratory rate 18 /min Melvina Morfin [employer]AL [employer]ISON OFFICER-C Work Phone: [facility] 07-31-2024 20:30-0500 SaO2% (BldA) [Mass fraction] 100 % Melvina Morfin [employer]IGINAL [employer]IAISON OFFICER-C Work Phone: [facility] 07-31-2024 20:30-0500 Systolic blood pressure 118 mm[Hg] Melvina Morfin [employer]IGINAL [employer]IAISON OFFICER-C Work Phone: [facility] 07-31-2024 15:06-0500 Body height 160.02 cm Melvina Morfin [employer]IGINAL [employer]ISON OFFICER-C Work Phone: [facility] 07-31-2024 15:06-0500 Body temperature 98.2 [degF] Melvina Morfin ABORIGINAL LIAISON OFFICER-C Work Phone: [facility] 07-31-2024 15:06-0500 Body weight 43 kg Melvina Morfin ABORIGINAL LIAISON OFFICER-C Work Phone: [facility] Encounters Encounter Date Encounter Type Care Provider Facility Start: 07-31-2024 End: 07-31-2024 Emergency department patient visit Melvina Morfin Facility:[facility] Start: 07-28-2024 ambulatory Facility:[facility] Start: 06-23-2021 End: 06-23-2021 ambulatory MELVINA DUGAN Facility:[facility] Start: 08-19-2020 Encounter for antibo dy response examination MELVINA DUGAN [facility] Start: 08-13-2020 End: 08-14-2020 ambulatory MELVINA DUGAN Facility:[facility] Start: 08-13-2020 End: 08-14-2020 Encounter for antibody response examination MELVINA DUGAN Facility:[facility] Procedures Date Procedure Procedure Detail Performing Clinician Start: 07-31-2024 CT of urinary tract Lelo Morfin [employer]AL [employer]ISON OFFICER-C Work Phone: Start: 07-31-2024 Viral nucleic acid assay Melvina Morfin [employer]AL [employer] OFFICER-C Work Phone: Plan of Treatment Date Care Activity Detail Author Patient Education Celiac Disease (DC) [facility] Work Phone: Patient referral [facility] Work Phone: Payers Date Payer Category Payer Self-pay 2024 Unknown [id number] 1985 Unknown [id number] [id number] [id number] 1985 Unknown [id number] 1959 Unknown [id number] Unknown [id number] [id number] [id number] Unknown [employer] [id number] Social History Date Type Detail Facility Start: 07-31-2024 [facility] Start: 07-31-2024 Sex Female (finding) [facility] Start: 1985 Sex Assigned At Female F [facility] Radiology Diagnostic study note 07-31-2024 Note Date & Type Note Facility 07-31-2024 Radiology Diagnostic study note [facility] [place] [address] [place], [place] [id number] CT Scan Report Signed Patient: Angelita Sherman MR#: [id number] : 1985 Acct:[id number] Age/Sex: 39 / F ADM Date: 5 [...] Michael Gonzalez M.D.07/31/2024 7:48 PM Dictation Location: [place] [address] Transcribed By: [facility] 07/31/241947 Dictated By: Michael Gonzalez DO 07/31/241942 Signed By: 07/31/241947 [facility] Evaluation note Note Date & Type Note Facility Evaluation note No assessment information availa rosa [facility] Work Phone: Summary Purpose Family History [...] and content) DATE CREATED AUTHOR 06/27/2021 [facility] DATE CREATED AUTHOR AUTHOR'S ORGANIZ ATION 07/30/2024 [facility] DATE CREATED AUTHOR AUTHOR'S ORGANIZ ATION 08/01/2024 [facility] Care Teams (unrecognized sec [...] BE BASED ON THE PRIMARY CLINICAL RECORDS. [facility]. provides no warranty or guarantee of the accuracy or completeness of information in this document.
[2024-08-04 13:20] LABS: C Reactive Protein <0.50 mg/dL (<=0.50); Uric Acid 2.6 mg/dL (2.6-6.0)
[2024-08-05 06:08] LABS: Antistreptolysin O Ab 184.9 IU/mL (0.0-200.0); Rheumatoid Factor (RF) <10.0 IU/mL (<14.0)
== END 2024-08-04 11:57 | disposition home or self-care (01) ==
LOC: LAB 11:58
PROVIDERS: PCP Nurse Practitioner Family; Visit Provider Nurse Practitioner Family
DX: R53.82 Chronic fatigue, unspecified (principal)
CPT/HCPCS: 36415; 84550; 86038; 86060; 86140; 86431

== ENCOUNTER 2024-08-08 10:24 | Outpatient (OUT) | payer BC, SELFPAY ==
--- OUTSIDE RECORDS SUMMARY | 2024-08-08 10:35 | XMS_ITS | CCD ---
Author Organization 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, Melvina Gray Primary Care Provider Chris Diehl MD Emergency Provider [phone] Unallocated , [place] Provider Primary Care Provi fatimah MD JESUS BRADSHAW Attending Una ailable Allergies Allergy Classification Reported Allergen(s) Allergy Type Date of Onset Reaction(s) Facility (2 sources) Amoxicillin / Clavulanate; Translations: [Augmentin] Drug Allergy [facility] Repository (3 sources) Codeine; Translations: [codeine] Drug Allergy 5 Unknown Reaction [facility] Repository (2 sources) Gluten Drug allergy (disorder) 5 Unknown Reaction [facility] Repository (1 source) Triazolam Drug Allergy [facility] Repository (2 sources) Amoxicillin Drug Allergy 5 Unknown Reaction [facility] Repository (2 sources) Clavulanate Drug Allergy 5 Unknown Reaction [facility] Repository (1 source) Codeine Drug Allergy 5 [facility] Repository (1 source) Gluten Drug allergy (disorder) 5 [facility] Repository (2 sources) loracarbef Drug Allergy 5 Unknown Reaction [facility] Repository (2 sources) Fish Containing Products Drug allergy (disorder) 5 Unknown Reaction [facility] Repository (1 source) Gluten; Translations: [Glutens] Propensity to adverse reactions (disorder) [facility] Repository (1 source) loracarbef; Translations: [Lorabid] Drug Allergy [facility] Repository (1 source) Shellfish; Translations: [shellfish] Propensity to adverse reactions (disorder) [facility] Repository Medications Current Medications Medication Drug Class(es) Dates Sig (Normalized) Sig (Original) [id number] 200 actuat albuterol 0.09 mg/actuat metered dose [...] capsule Discontinued 100 MG PO Twice daily 02 04March 31, 2018 11:00pm April 09, 2018 11:00pm [...] Test Name Value Interpretation Reference Range Facility US PELVIS W/ TRANSVAGINALon 08-04-2024 [place] [address] Ultrasound Report Signed Patient: STUART LORENZ MR#: [id number] : 1985 Acct:[id number] Age/Sex: 39 / F ADM Date: 08/04/24 Loc: US Attending Dr: Keira Villela Ordering Physician: Keira Villela Date of Service: 08/04/24 Procedure(s): US pelvis w/ transvaginal Accession Number(s): [id number] cc: Keira Villela; MELVINA VIDES [place] [address] Patient Name: STUART LORENZ MRN: TBH:[id number] date: 1985 Sex: F Assigned Patient Location: Current Patient Location: LAB Accession/Order Number: [id number] Exam Date: 08/04/2024 13:14 Report Date: 08/04/2024 13:45 At the request of: KEIRA VILLELA Procedure: US pelvis w/ transvaginal COMPLETE PELVIC ULTRASOUND TRANSVAGINAL IMAGING CLINICAL DATA: Pelvic pain. History of right ovarian cyst COMPARISON: CT 07/28/2024 Real-time ultrasound evaluation the pelvis was performed utilizing both a transabdominal and transvaginal approach. TRANSABDOMINAL: Estimated uterine size is approximately 9.7 x 3.3 x 4.8 cm in size. No focal myometrial abnormalities are identified. The endometrial lining is estimated at 6-7 mm. There is a nabothian cyst. The right ovary is identified however the left is not seen with certainty. TRANSVAGINAL: Transvaginal scans were performed to better evaluate the uterus and adnexa. By this approach, no focal myometrial abnormalities are identified. The endometrial lining measures 8 - 9 mm. A nabothian cyst is again seen measuring approximately 15 mm in greatest dimension. Both ovaries are identified. The left ovary measures 3.3 x 2.1 x 2.8 cm. The right ovary measures 4.8 x 1.7 x 3.1 cm. There are follicles bilaterally. The right ovary also contains a complex nodule measuring 2.8 x 2.0 x 2.6 cm in size. The cystic component contains debris. There is also mural nodularity with the soft tissue component measures approximately 14 mm. There is documentation of bilateral ovarian blood flow. A trace amount of free fluid is seen in the right adnexal region. US/US pelvis w/ transvaginal IMPRESSION: COMPLEX RIGHT OVARIAN CYST. FOLLOW-UP IN 2-3 MENSTRUAL CYCLES IS SUGGESTED. TRACE AMOUNT OF FREE FLUID ON THE RIGHT. Impression dictated by: Coby Justin M.D.08/04/2024 1:45 PM Dictation Location: [place] [address] Electronically authenticated by: [id number] Y Date: 08/04/2024 13:45 Dictated By: Coby Justin M.D. Signed By: 08/04/24 1347 DD/ 134 TD/TT: Cardiovascular Operating Room Nurse: [facility] Radiology, Radiologist, - 08/04/[address] [address] Ultrasound Report Signed Patient: STUART LORENZ MR#: [id number] : 1985 Acct:[id number] Age/Sex: 39 / F ADM Date: 08/04/24 Loc: US Attending Dr: Keira Villela Ordering Physician: Keira Villela Date of Service: 08/04/24 Procedure(s): US pelvis w/ transvaginal Accession Number(s): [id number] cc: Keira Villela; MELVINA VIDES [place] [id number] Patient Name: STUART LORENZ MRN: [facility]:[id number] date: 1985 Sex: F Assigned Patient Location: US Current Patient Location: LAB Accession/Order Number: [id number] Exam Date: 08/04/2024 13:14 Report Date: 08/04/2024 13:45 At the request of: KEIRA VILLELA Procedure: US pelvis w/ transvaginal COMPLETE PELVIC ULTRASOUND TRANSVAGINAL IMAGING CLINICAL DATA: Pelvic pain. History of right ovarian cyst COMPARISON: CT 07/28/2024 Real-time ultrasound evaluation the pelvis was performed utilizing both a transabdominal and transvaginal approach. TRANSABDOMINAL: Estimated uterine size is approximately 9.7 x 3.3 x 4.8 cm in size. No focal myometrial abnormalities are identified. The endometrial lining is estimated at 6-7 mm. There is a nabothian cyst. The right ovary is identified however the left is not seen with certainty. TRANSVAGINAL: Transvaginal scans were performed to better evaluate the uterus and adnexa. By this approach, no focal myometrial abnormalities are identified. The endometrial lining measures 8 - 9 mm. A nabothian cyst is again seen measuring approximately 15 mm in greatest dimension. Both ovaries are identified. The left ovary measures 3.3 x 2.1 x 2.8 cm. The right ovary measures 4.8 x 1.7 x 3.1 cm. There are follicles bilaterally. The right ovary also contains a complex nodule measuring 2.8 x 2.0 x 2.6 cm in size. The cystic component contains debris. There is also mural nodularity with the soft tissue component measures approximately 14 mm. There is documentation of bilateral ovarian blood flow. A trace amount of free fluid is seen in the right adnexal region. US/US pelvis w/ transvaginal IMPRESSION: COMPLEX RIGHT OVARIAN CYST. FOLLOW-UP IN 2-3 MENSTRUAL CYCLES IS SUGGESTED. TRACE AMOUNT OF FREE FLUID ON THE RIGHT. Impression dictated by: Coby Justin M.D.08/04/2024 1:45 PM Dictation Location: [place] [address] Electronically authenticated by: [id number] Y Date: 08/04/2024 13:45 Dictated By: Coby Justin M.D. Signed By: 08/04/24 1347 DD/ 134 TD/TT: Cardiovascular Operating Room Nurse: [facility] Radiology Study observation (narrative) [facility] US PELVIS W/ TRANSVAGINALOrd ered By: Radiologist Radiology on 08-04-2024 [facility] inexio Work Phone: Alanine aminotransferase [En zymatic activity/volume] in Serum or PlasmaOrdered By: Hilario Boykin on 07-31-2024 ALT [Catalytic activity/Vol] Alanine aminotransferase [Enzymatic activity/volume] in Serum or Plasma 7-52 [facility] Albumin [Mass/volume] in Ser um or Plasma by Bromocresol green (BCG) dye binding methoOrdered By: Hilario Boykin on 07-31-2024 Albumin BCG dye [Mass/Vol] Albumin [Mass/volume] in Serum or Plasma by Bromocresol green (BCG) dye binding metho 3.5-5.7 [facility] Alkaline phosphatase [Enzyma tic activity/volume] in Serum or PlasmaOrdered By: Hilario Boykin on 07-31-2024 ALP [Catalytic activity/Vol] Alkaline phosphatase [Enzymatic activity/volume] in Serum or Plasma 34-104 [facility] Appearance of UrineOrdered B y: PROVIDER TEMP on 07-31-2024 Appearance (U) Urine appearance [facility] Aspartate aminotransferase [ Enzymatic activity/volume] in Serum or PlasmaOrdered By: Hilario Boykin on 07-31-2024 AST [Catalytic activity/Vol] Aspartate aminotransferase [Enzymatic activity/volume] in Serum or Plasma 1339 [facility] Bacteria [Presence] in Urine by AutomatedOrdered By: PROVIDER TEMP on 07-31-2024 Bacteria Auto Ql (U) Bacteria [Presence] in Urine by Automated None Seen [facility] Basic Metabolic Panelon 07-15 Anion gap [Moles/Vol] 11.4 mmol/L Normal 6.0-15.0 [facility] Comment on above: Performed By: #### L IPASE, CBC, HEPATIC, BMP #### [facility] [address] Calcium [Mass/Vol] 9.5 mg/dL Normal 8.6-10.3 [facility] Comment on above: Performed By: #### L IPASE, CBC, HEPATIC, BMP #### [facility] [address] [place] [address] [place] Chloride [Moles/Vol] 106 mmol/L Normal 98-107 [facility] Comment on above: Performed By: #### L IPASE, CBC, HEPATIC, BMP #### [address] CO2 [Moles/Vol] 24.3 mmol/L Normal 21.0-31.0 The [facility] Comment on above: Performed By: #### L IPASE, CBC, HEPATIC, BMP #### [facility] [address] [place] [id number] [place] Creatinine [Mass/Vol] 0.69 mg/dL Normal 0.60-1.20 [facility] Comment on above: Performed By: #### L IPASE, CBC, HEPATIC, BMP #### [facility] [address] [place] [id number] [facility] Creatinine Clr Calc Pharmacy 73.57 Normal [facility] Comment on above: Performed By: #### L IPASE, CBC, HEPATIC, BMP #### [facility] [address] [place] [address] [place] GFR/1.73 sq M.predicted MDRD (S/P/Bld) [Vol rate/Area] mL/min/{1.73_m2} Normal [facility] Comment on above: Performed By: #### L IPASE, CBC, HEPATIC, BMP #### [facility] [address] Glucose [Mass/Vol] 87 mg/dL Normal 70-100 [facility] Comment on above: Result Comment: [facility] Glucose Reference Range is dependent on time and content of last meal. Glucose of more than 200 mg/dL in a nonstressed, ambulatory subject supports the diagnosis of Diabetes Mellitus. ADA recommended reference range Performed By: #### L IPASE, CBC, HEPATIC, BMP #### [address] Potassium [Moles/Vol] 3.7 mmol/L Normal 3.5-5.1 [facility] Comment on above: Performed By: #### L IPASE, CBC, HEPATIC, BMP #### [address] Sodium [Moles/Vol] 138 mmol/L Normal 136-145 [facility] Comment on above: Performed By: #### L IPASE, CBC, HEPATIC, BMP #### [address] Urea nitrogen [Mass/Vol] 9 mg/dL Normal 7-25 [facility] Comment on above: Performed By: #### L IPASE, CBC, HEPATIC, BMP #### [place] [address] [place] Basophils Auto (Bld) [#/Vol] Ordered By: Hilario Boykin on 07-31-2024 Basophils (Bld) [#/Vol] Automated basoph il count 0.0-0.2 [facility] Basophils/100 WBC Auto (Bld) Ordered By: Hilario Boykin on 07-31-2024 Basophils/100 WBC (Bld) Automated basophil % . [facility] Bilirubin Test strip Ql (U)O rdered By: PROVIDER TEMP on 07-31-2024 Bilirubin Ql (U) Bilirubin.total [Presence] in Urine by Test strip Negative [facility] Bilirubin.direct [Mass/volum e] in Serum or PlasmaOrdered By: Hilario Boykin on 07-31-2024 Bilirubin.direct [Mass/Vol] Bilirubin.direct [Mass/volume] in Serum or Plasma 0.03-0.18 [facility] Bilirubin.total [Mass/volume ] in Serum or PlasmaOrdered By: Hilario Boykin on 07-31-2024 Bilirubin [Mass/Vol] Bilirubin.total [Mass/volume] in Serum or Plasma 0.3-1.0 [facility] COVID Cepheid NegativeOrdere d By: Hilario Boykin on 07-31-2024 SARS-CoV-2 (COVID-19) Ab IA Ql COVID Cepheid Negative [facility] Comment on above: This is a [...] or Cepheid Disclaimer revoked sooner. PERFORMED BY: [place] [address] PATHOLOGIST CARDIOVASCULAR TECH PORFIRIO SILVA M.D. [place] [facility] Comment on above: Performed By: #### C EPHEID NEG, COVID19 FLU RSV #### [address] urogramon 07-31-2024 CT urogram [facility] [place] [address] CT Scan Report Signed Patient: Stuart Lorenz MR#: [id number] : 1985 Acct:[id number] Age/Sex: 39 / F ADM Date: 07/31/24 Loc: ER Room: Type: PRE ER Attending Dr: Copies to: Hilario Boykin DO [facility], PROVIDER Ordering Provider: Hilario Boykin DO Date [...] Michael Gonzalez M.D.07/31/2024 7:48 PM Dictation Location: [place] [address] Transcribed By: [facility] 07/31/241947 Dictated By: Michael Gonzalez DO 07/31/241942 Signed By: 07/31/241947 Normal [facility] Calcium [Mass/volume] in Ser um or PlasmaOrdered By: Hilario Boykin on 07-31-2024 Calcium [Mass/Vol] Calcium [Mass/volume] in Serum or Plasma 8.6-10.3 [facility] Carbon dioxide, total [Moles /volume] in Serum or PlasmaOrdered By: Hilario Boykin on 07-31-2024 CO2 [Moles/Vol] Carbon dioxide, total [Moles/volume] in Serum or Plasma 21.0-31.0 [facility] Cepheid COVID PCR Negativeon 07-31-2024 SARS-CoV-2 (COVID-19) RNA INDIRA+probe Ql (Unsp spec) Negative Normal Negative [facility] Comment on above: Result Comment: This is a duplicate CepConvertro Xpert Xpress CoV-2/Flu/RSV Plus RNA by RT-PCR result to be used for statistical tracking purpose only. PERFORMED BY: [place] [address] PATHOLOGIST CARDIOVASCULAR TECH PORFIRIO SILVA M.D. Performed By: #### C EPHEID NEG, COVID19 FLU RSV #### [place] [address] [place] Chloride [Moles/volume] in S nicolette or PlasmaOrdered By: Hilario Boykin on 07-31-2024 Chloride [Moles/Vol] Chloride [Moles/volume] in Serum or Plasma 98-107 [facility] Color Auto (U)Ordered By: YAZ NEIL TEMP on 07-31-2024 Color (U) Color of Urine by Auto Yellow [facility] Complete Blood Count Auto Di ffon 07-31-2024 Basophils (Bld) [#/Vol] 0.0 10*3/uL Normal 0.0-0.2 [facility] Comment on above: Result Comment: PERF ORMED BY: [place] [address] PATHOLOGIST CARDIOVASCULAR TECH PORFIRIO SILVA M.D. Performed By: #### L IPASE, CBC, HEPATIC, BMP #### [place] [address] [place] Basophils/100 WBC (Bld) 0.2 % Normal . T deny [facility] Comment on above: Performed By: #### L IPASE, CBC, HEPATIC, BMP #### [place] [address] [place] Eosinophils (Bld) [#/Vol] 0.1 10*3/uL Normal 0.0-0.45 [facility] Comment on above: Performed By: #### L IPASE, CBC, HEPATIC, BMP #### [place] [address] [place] Eosinophils/100 WBC (Bld) 1.3 % Normal . [facility] Comment on above: Performed By: #### L IPASE, CBC, HEPATIC, BMP #### [place] [address] Erythrocyte distribution width (RBC) [Ratio] 11.9 % Normal 11.9-15.3 [facility] Comment on above: Performed By: #### L IPASE, CBC, HEPATIC, BMP #### [address] Hematocrit (Bld) [Volume fraction] 41.9 % Normal 34.0-46.4 [facility] Comment on above: Performed By: #### L IPASE, CBC, HEPATIC, BMP #### [address] Hemoglobin (Bld) [Mass/Vol] 14.3 g/dL Normal 11.8-15.4 [facility] Comment on above: Performed By: #### L IPASE, CBC, HEPATIC, BMP #### [address] Lymphocytes (Bld) [#/Vol] 1.7 10*3/uL Normal 1.00-4.8 [facility] Comment on above: Performed By: #### L IPASE, CBC, HEPATIC, BMP #### [address] Lymphocytes/100 WBC (Bld) 21.9 % Normal . [facility] Comment on above: Performed By: #### L IPASE, CBC, HEPATIC, BMP #### [address] MCH (RBC) [Entitic mass] 30.5 pg Normal 24.7-34.3 [facility] Comment on above: Performed By: #### L IPASE, CBC, HEPATIC, BMP #### [address] MCV (RBC) [Entitic vol] 89.4 fL Normal 80-100 T [facility] Comment on above: Performed By: #### L IPASE, CBC, HEPATIC, BMP #### [address] Mean Corpuscular HGB Conc 34.1 g/dL Normal 32.0-35.0 [facility] Comment on above: Performed By: #### L IPASE, CBC, HEPATIC, BMP #### [address] Monocytes (Bld) [#/Vol] 0.7 10*3/uL Normal 0.0-0.8 [facility] Comment on above: Performed By: #### L IPASE, CBC, HEPATIC, BMP #### [place] [address] [place] Monocytes/100 WBC (Bld) 16.45 % Normal 0.00-20.00 [facility] Comment on above: Performed By: #### L IPASE, CBC, HEPATIC, BMP #### [address] Monocytes/100 WBC (Bld) 9.0 % Normal . [facility] Comment on above: Performed By: #### L IPASE, CBC, HEPATIC, BMP #### [address] Neutrophils (Bld) [#/Vol] 5.1 10*3/uL Normal 1.8-7.7 [facility] Comment on above: Performed By: #### L IPASE, CBC, HEPATIC, BMP #### [address] Neutrophils/100 WBC (Bld) 67.6 % Normal . [facility] Comment on above: Performed By: #### L IPASE, CBC, HEPATIC, BMP #### [address] NRBC% 0.1 /100{WBC} Normal 0-0.5 [facility] Comment on above: Performed By: #### L IPASE, CBC, HEPATIC, BMP #### [address] Platelet mean volume (Bld) [Entitic vol] 8.1 fL Normal 6.3-10.7 [facility] Comment on above: Performed By: #### L IPASE, CBC, HEPATIC, BMP #### [address] [place] [address] [place] Platelets (Bld) [#/Vol] 213 10*3/uL Normal 150-450 [facility] Comment on above: Performed By: #### L IPASE, CBC, HEPATIC, BMP #### [facility] [address] [place] [address] [place] RBC (Bld) [#/Vol] 4.69 10*6/uL Normal 3.60-5.00 [facility] Comment on above: Performed By: #### L IPASE, CBC, HEPATIC, BMP #### [facility] [address] [place] [id number] [place] WBC (Bld) [#/Vol] 7.6 10*3/uL Normal 3.8-11.6 [facility] Comment on above: Performed By: #### L IPASE, CBC, HEPATIC, BMP #### [facility] [address] [place] [address] [place] Creatinine [Mass/volume] in Serum or PlasmaOrdered By: Hilario Boykin on 07-31-2024 Creatinine [Mass/Vol] Creatinine [Mass/volume] in Serum or Plasma 0.60-1.20 [facility] Dipstick and Microscopicon 0 07-31-2024 Appearance (U) Clear Normal Clear [facility] Comment on above: Order Comment: Name Collection Type:: Clean-Voided Midstream Performed By: #### A DDONUAPLUS #### [place] [address] [place] Bacteria,Urine Rare Normal None Seen [facility] Comment on above: Order Comment: Name Collection Type:: Clean-Voided Midstream Performed By: #### A DDONUAPLUS #### [place] [address] [place] Bilirubin,Urine Negative Normal Negative [facility] Comment on above: Order Comment: Name Collection Type:: Clean-Voided Midstream Performed By: #### A DDONUAPLUS #### [place] [address] [place] Color (U) Light-Yellow Normal Yellow [facility] Comment on above: Order Comment: Name Collection Type:: Clean-Voided Midstream Performed By: #### A DDONUAPLUS #### [address] Glucose Ql (U) Normal Normal Normal [facility] Comment on above: Order Comment: Name Collection Type:: Clean-Voided Midstream Performed By: #### A DDONUAPLUS #### [place] [address] [place] Hyaline Casts,Urine None Normal 0-8 [facility] Comment on above: Order Comment: Name Collection Type:: Clean-Voided Midstream Performed By: #### A DDONUAPLUS #### [address] Ketones Ql (U) Negative Normal Negative [facility] Comment on above: Order Comment: Name Collection Type:: Clean-Voided Midstream Performed By: #### A DDONUAPLUS #### [address] Leukocyte esterase Test strip Ql (U) Negative Normal Negative [facility] Comment on above: Order Comment: Name Collection Type:: Clean-Voided Midstream Performed By: #### A DDONUAPLUS #### [place] [address] [place] Mucus,Urine Rare Normal [facility] Comment on above: Order Comment: Name Collection Type:: Clean-Voided Midstream Result Comment: PERF ORMED BY: [place] [address] PATHOLOGIST CARDIOVASCULAR TECH PORFIRIO SILVA M.D. Performed By: #### A DDONUAPLUS #### [place] [address] [place] Nitrite,Urine Negative Normal Negative [facility] Comment on above: Order Comment: Name Collection Type:: Clean-Voided Midstream Performed By: #### A DDONUAPLUS #### [place] [address] [place] Occult Blood,Urine 2+ High Negative [facility] Comment on above: Order Comment: Name Collection Type:: Clean-Voided Midstream Result Comment: PERF ORMED BY: [place] [address] PATHOLOGIST CARDIOVASCULAR TECH PORFIRIO SILVA M.D. Performed By: #### A DDONUAPLUS #### [address] pH (U) 6.5 [pH] Normal 5.0-9.0 [facility] Comment on above: Order Comment: Name Collection Type:: Clean-Voided Midstream Performed By: #### A DDONUAPLUS #### [address] Protein,Urine Negative Normal Negative [facility] Comment on above: Order Comment: Name Collection Type:: Clean-Voided Midstream Performed By: #### A DDONUAPLUS #### [address] RBC,Urine 5-9 High 0-4 [facility] Comment on above: Order Comment: Name Collection Type:: Clean-Voided Midstream Performed By: #### A DDONUAPLUS #### [address] Specificy [place],Urine 1.014 Normal 1.001-1.030 [facility] Comment on above: Order Comment: Name Collection Type:: Clean-Voided Midstream Performed By: #### A DDONUAPLUS #### [address] Squamous Epithelial Cell,Urine 3-4 High 0-2 [facility] Comment on above: Order Comment: Name Collection Type:: Clean-Voided Midstream Performed By: #### A DDONUAPLUS #### [address] Urobilinogen,Urine Normal Normal Normal [facility] Comment on above: Order Comment: Name Collection Type:: Clean-Voided Midstream Performed By: #### A DDONUAPLUS #### [place] [address] WBC,Urine 1-2 Normal 0-4 [facility] Comment on above: Order Comment: Name Collection Type:: Clean-Voided Midstream Performed By: #### A DDONUAPLUS #### [facility] [address] Eosinophils Auto (Bld) [#/Vo l]Ordered By: Hilario Boykin on 07-31-2024 Eosinophils (Bld) [#/Vol] Automated eosinophil count 0.0-0.45 [facility] Eosinophils/100 WBC Auto (Bl d)Ordered By: Hilario Boykin on 07-31-2024 Eosinophils/100 WBC (Bld) Automated eosinophil % . [facility] Epithelial cells.squamous [# /area] in Urine sediment by Automated countOrdered By: PROVIDER TEMP on 07-31-2024 Epithelial cells.squamous Auto (Urine sed) [#/Area] Epithelial cells.squamous [#/area] in Urine sediment by Automated count High 0-2 [facility] Erythrocyte distribution wid th Auto (RBC) [Ratio]Ordered By: Hilario Boykin on 07-31-2024 Erythrocyte distribution width (RBC) [Ratio] Erythrocyte distribution width [Ratio] by Automated count 11.9-15.3 [facility] Erythrocytes [#/area] in Uri ne sediment by Automated countOrdered By: PROVIDER TEMP on 07-31-2024 RBC Auto (Urine sed) [#/Area] Erythrocytes [#/area] in Urine sediment by Automated count High 0-4 [facility] Globulin Calc (S) [Mass/Vol] Ordered By: Hilario Boykin on 07-31-2024 Globulin (S) [Mass/Vol] Serum globulin measurement by calculation (mass/volume) [facility] Glucose [Mass/volume] in Ser um or PlasmaOrdered By: Hilario Boykin on 07-31-2024 Glucose [Mass/Vol] Glucose [Mass/volume] in Serum or Plasma 70-100 [facility] Comment on above: ADA recommended refe [...] [Mass/volume] in Urine by Test strip Normal [facility] HCG ( test) IA.rapi d Ql (U)Ordered By: Hilario Boykin on 07-31-2024 HCG ( test) Ql (U) Urine human chorionic gonadotropin (hCG) detection by immunoassay [facility] HCG,Urineon 07-31-2024 Beta HCG ( test) Ql (U) Negative Normal [facility] Comment on above: Result Comment: PERF ORMED BY: [place] [address] PATHOLOGIST CARDIOVASCULAR TECH PORFIRIO SILVA M.D. Performed By: #### U HCG #### [address] Hematocrit Auto (Bld) [Volum e fraction]Ordered By: Hilario Boykin on 07-31-2024 Hematocrit (Bld) [Volume fraction] Hematocrit [Volume Fraction] of Blood by Automated count 34.0-46.4 [facility] Hemoglobin Test strip Ql (U) Ordered By: PROVIDER TEMP on 07-31-2024 Hemoglobin Ql (U) Hemoglobin [Presence] in Urine by Test strip High Negative [facility] Hemoglobin [Mass/volume] in BloodOrdered By: Hilario Boykin on 07-31-2024 Hemoglobin (Bld) [Mass/Vol] Hemoglobin [Mass/volume] in Blood 11.8-15.4 [facility] Hepatic Panelon 07-31-2024 Albumin [Mass/Vol] 4.5 g/dL Normal 3.5-5.7 [facility] Comment on above: Performed By: #### L IPASE, CBC, HEPATIC, BMP #### [facility] [address] Albumin/Globulin [Mass ratio] 1.7 {ratio} Normal [facility] Comment on above: Performed By: #### L IPASE, CBC, HEPATIC, BMP #### [facility] [address] [place] [address] [place] ALP [Catalytic activity/Vol] 45 U/L Normal 34-104 [facility] Comment on above: Performed By: #### L IPASE, CBC, HEPATIC, BMP #### [facility] [address] [place] [id number] [place] ALT [Catalytic activity/Vol] 7 U/L Normal 7-52 [facility] Comment on above: Performed By: #### L IPASE, CBC, HEPATIC, BMP #### [address] AST [Catalytic activity/Vol] 15 U/L Normal 13-39 [facility] Comment on above: Performed By: #### L IPASE, CBC, HEPATIC, BMP #### [place] [address] [place] Bilirubin [Mass/Vol] 0.6 mg/dL Normal 0.3-1.0 [facility] Comment on above: Performed By: #### L IPASE, CBC, HEPATIC, BMP #### [place] [address] [place] Bilirubin,Indirect 0.5 mg/dL Normal [facility] Comment on above: Performed By: #### L IPASE, CBC, HEPATIC, BMP #### [place] [address] [place] Bilirubin.indirect [Mass/Vol] 0.10 mg/dL Normal 0.03-0.18 [facility] Comment on above: Performed By: #### L IPASE, CBC, HEPATIC, BMP #### [place] [address] [place] Globulin (S) [Mass/Vol] 2.6 g/dL Normal [facility] Comment on above: Performed By: #### L IPASE, CBC, HEPATIC, BMP #### [place] [id number] [place] Protein [Mass/Vol] 7.1 g/dL Normal 6.4-8.9 [facility] Comment on above: Performed By: #### L IPASE, CBC, HEPATIC, BMP #### [facility] [address] [place] [address] [place] Hyaline casts [#/area] in Ur ine sediment by Automated countOrdered By: PROVIDER TEMP on 07-31-2024 Hyaline casts Auto (Urine sed) [#/Area] Hyaline casts [#/area] in Urine sediment by Automated count 0-8 [facility] Ketones Test strip Ql (U)Ord ered By: PROVIDER TEMP on 07-31-2024 Ketones Ql (U) Ketones [Presence] in Urine by Test strip Negative [facility] Leukocyte esterase [Presence ] in Urine by Test stripOrdered By: PROVIDER TEMP on 07-31-2024 Leukocyte esterase Test strip Ql (U) Leukocyte esterase [Presence] in Urine by Test strip Negative [facility] Leukocytes [#/area] in Urine sediment by Automated countOrdered By: PROVIDER TEMP on 07-31-2024 WBC Auto (Urine sed) [#/Area] Leukocytes [#/area] in Urine sediment by Automated count 0-4 [facility] Leukocytes [#/volume] correc kenia for nucleated erythrocytes in Blood by Automated counOrdered By: Hilario Boykin on 07-31-2024 WBC corrected for nucl RBC Auto (Bld) [#/Vol] Leukocytes [#/volume] corrected for nucleated erythrocytes in Blood by Automated coun 3.8-11.6 [facility] Lipaseon 07-31-2024 Lipase [Catalytic activity/Vol] 14.0 U/L Normal 11.0-82.0 [facility] Comment on above: Result Comment: PERF ORMED BY: [address] [place] [address] PATHOLOGIST CARDIOVASCULAR TECH PORFIRIO SILVA M.D. Performed By: #### L IPASE, CBC, HEPATIC, BMP #### [facility] [address] [place] [address] [place] Lipase [Enzymatic activity/v olume] in Serum or PlasmaOrdered By: Hilario Boykin on 07-31-2024 Lipase [Catalytic activity/Vol] Lipase [Enzymatic activity/volume] in Serum or Plasma 11.0-82.0 [facility] Lymphocytes Auto (Bld) [#/Vo l]Ordered By: Hilario Boykin on 07-31-2024 Lymphocytes (Bld) [#/Vol] Lymphocytes [#/volume] in Blood by Automated count 1.00-4.8 [facility] Lymphocytes/100 WBC Auto (Bl d)Ordered By: Hilario Boykin on 07-31-2024 Lymphocytes/100 WBC (Bld) Lymphocytes/100 leukocytes in Blood by Automated count . [facility] MCH Auto (RBC) [Entitic mass ]Ordered By: Hilario Boykin on 07-31-2024 MCH (RBC) [Entitic mass] MCH [Entitic ma ss] by Automated count 24.7-34.3 [facility] MCHC Auto (RBC) [Mass/Vol]Or dered By: Hilario Boykin on 07-31-2024 MCHC (RBC) [Mass/Vol] MCHC [Mass/volume] by Automated count 32.0-35.0 [facility] MCV Auto (RBC) [Entitic vol] Ordered By: Hilario Boykin on 07-31-2024 MCV (RBC) [Entitic vol] MCV [Entitic vol ume] by Automated count 80-100 [facility] Monocyte distribution width [Entitic volume] in Blood by AutomatedOrdered By: Hialrio Boykin on 07-31-2024 Monocyte distribution width Auto (Bld) [Entitic vol] Monocyte distribution width [Entitic volume] in Blood by Automated 0.00-20.00 [facility] Monocytes Auto (Bld) [#/Vol] Ordered By: Hilario Boykin on 07-31-2024 Monocytes (Bld) [#/Vol] Automated blood monocyte count 0.0-0.8 [facility] Monocytes/100 WBC Auto (Bld) Ordered By: Hilario Boykin on 07-31-2024 Monocytes/100 WBC (Bld) Automated monocyte % . [facility] Mucus [Presence] in Urine by AutomatedOrdered By: ALEX MCDONNELL on 07-31-2024 Mucus Auto Ql (U) Mucus [Presence] in Urine by Automated [facility] Neutrophils Auto (Bld) [#/Vo l]Ordered By: Hilario Boykin on 07-31-2024 Neutrophils (Bld) [#/Vol] Neutrophils [#/volume] in Blood by Automated count 1.8-7.7 [facility] Neutrophils/100 WBC Auto (Bl d)Ordered By: Hilario Boykin on 07-31-2024 Neutrophils/100 WBC (Bld) Automated neutrophil % . [facility] Nitrite Test strip Ql (U)Ord ered By: PROVIDER TEMP on 07-31-2024 Nitrite Ql (U) Nitrite [Presence] in Urine by Test strip Negative [facility] No Panel InformationOrdered By: Hilario Boykin on 07-31-2024 Estimated GFR (CKD-EPI) > 60.0 mL/Min [facility] Creatinine Clearance (Chem 73.57 [facility] Nucleated erythrocytes [Pres ence] in Blood by Automated countOrdered By: Hilario Boykin on 07-31-2024 Nucleated RBC Auto Ql (Bld) Nucleated erythrocytes [Presence] in Blood by Automated count 0-0.5 [facility] Platelet mean volume Auto (B ld) [Entitic vol]Ordered By: Hilario Boykin on 07-31-2024 Platelet mean volume (Bld) [Entitic vol] Platelet mean volume [Entitic volume] in Blood by Automated count 6.3-10.7 [facility] Platelets Auto (Bld) [#/Vol] Ordered By: Hilario Boykin on 07-31-2024 Platelets (Bld) [#/Vol] Platelets [#/vol ume] in Blood by Automated count 150-450 [facility] Potassium [Moles/volume] in Serum or PlasmaOrdered By: Hilario Boykin on 07-31-2024 Potassium [Moles/Vol] Potassium [Moles/volume] in Serum or Plasma 3.5-5.1 [facility] Protein Test strip (U) [Mass /Vol]Ordered By: PROVIDER TEMP on 07-31-2024 Protein (U) [Mass/Vol] Protein [Mass/volume] in Urine by Test strip Negative [facility] Protein [Mass/volume] in Ser um or PlasmaOrdered By: Hilario Boykin on 07-31-2024 Protein [Mass/Vol] Protein [Mass/volume] in Serum or Plasma 6.4-8.9 [facility] RBC Auto (Bld) [#/Vol]Ordere d By: Hilario Boykin on 07-31-2024 RBC (Bld) [#/Vol] Erythrocytes [#/volume] in Blood by Automated count 3.60-5.00 [facility] Respiratory specimen influen za A virus, influenza B virus, respiratory syncytical virOrdered By: Hilario Boykin on 07-31-2024 SARS-CoV-2 (COVID-19) RNA INDIRA+probe Ql (Unsp spec) Respiratory specimen influenza A virus, influenza B virus, respiratory syncytical vir [facility] Serum or plasma albumin/glob ulin mass ratioOrdered By: Hilario Boykin on 07-31-2024 Albumin/Globulin [Mass ratio] Serum or plasma albumin/globulin mass ratio [facility] Serum or plasma anion gap de terminationOrdered By: Hilario Boykin on 07-31-2024 Anion gap [Moles/Vol] Serum or plasma anion gap determination 6.0-15.0 [facility] Serum or plasma non-glucuron idated bilirubin measurement (mass/volume)Ordered By: Hilario Boykin on 07-31-2024 Bilirubin.indirect [Mass/Vol] Serum or plasma non-glucuronidated bilirubin measurement (mass/volume) [facility] Sodium [Moles/volume] in Ser um or PlasmaOrdered By: Hilario Boykin on 07-31-2024 Sodium [Moles/Vol] Sodium [Moles/volume] in Serum or Plasma 136-145 [facility] Specific gravity Test strip (U) [Rel density]Ordered By: PROVIDER TEMP on 07-31-2024 Specific gravity (U) [Rel density] Specific gravity of Urine by Test strip 1.001-1.030 [facility] Urea nitrogen [Mass/volume] in Serum or PlasmaOrdered By: Hilario Boykin on 07-31-2024 Urea nitrogen [Mass/Vol] Urea nitrogen [Mass/volume] in Serum or Plasma 7-25 [facility] Urobilinogen Test strip (U) [Mass/Vol]Ordered By: PROVIDER TEMP on 07-31-2024 Urobilinogen (U) [Mass/Vol] Urobilinogen [Mass/volume] in Urine by Test strip Normal [facility] WBC Auto (Bld) [#/Vol]Ordere d By: Hilario Boykin on 07-31-2024 WBC (Bld) [#/Vol] Leukocytes [#/volume] in Blood by Automated count 3.8-11.6 [facility] pH Test strip (U)Ordered By: PROVIDER TEMP on 07-31-2024 pH (U) pH of Urine by Test strip 5.0-9.0 [facility] Covid-19 PCR (CVDTB)on 06-14 SARS-CoV-2 (COVID-19) RNA INDIRA+probe Ql (Unsp spec) Not detected Normal NOT DETECTED [facility] Comment on above: Result Comment: This test is not yet approved or cleared by the [place] FDA. When there are no FDA-approved or cleared tests available, and other criteria are met, FDA can make tests available under an emergency access mechanism called an Emergency Use Authorization (EUA). The EUA for this test is supported by the [place] of Health and Human Service's (HHS's) declaration [...] SARS-CoV-2. Performed By: #### C VDTB #### [facility] [address] [address] [address] Jami Hernandez SARS-CoV2 ANTIBODIES (IgM, I gG, IgA)on 08-15-2020 SARS-CoV-2 (COVID-19) RNA INDIRA+probe Ql (Unsp spec) Negative Normal Negative [facility] Comment on above: Result Comment: This [...] antibodies specific to the viral spike protein. [employer] offers two test codes that detect viral spike-specific antibodies: 203170 SARS-CoV-2 Semi-Quantitative Total Antibody, Ralph and 818716 SARS-CoV-2 Antibody, IgG, Ralph (Qualitative). Positive results with this SARS-CoV-2 Antibodies, Nucleocapsid assay suggest recent or previous natural infection with SARS-CoV-2. Performed By: #### C VDABS #### [facility] [address] [place] [address] Shama Tenorio Covid-19 PCR ([facility])on SARS-CoV-2 (COVID-19) RNA INDIRA+probe Ql (Unsp spec) Not detected Normal NOT DETECTED [facility] Comment on above: Result Comment: This test is not yet approved or cleared by the [place] FDA. When there are no FDA-approved or cleared tests available, and other criteria are met, FDA can make tests available under an emergency access mechanism called an Emergency Use Authorization (EUA). The EUA for this test is supported by the [place] of Health and Human Service's (HHS's) declaration [...] SARS-CoV-2. Performed By: #### C VDTBH #### [facility] [address] [place] [address] Shama Tenorio XR CHEST 2 Von 08-13-2020 [...] acute osseous abnormality. Electronically authenticated by: Neeraj ESTRADA Date: 2020-08-13 17:40 Normal [facility] Vital Signs Date Time Vital Sign Value Performing Clinician Kelvin rod 07-31-2024 20:30-0500 Diastolic blood pressure 59 mm[Hg] Melvina Navjot X RAY 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 Work Phone: [facility] 07-31-2024 20:30-0500 Heart rate 80 /min Melvina Navjot X RAY 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 Work Phone: [facility] 07-31-2024 20:30-0500 Respiratory rate 18 /min Melvina Navjot X RAY 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 Work Phone: [facility] 07-31-2024 20:30-0500 SaO2% (BldA) [Mass fraction] 100 % Melvina Navjot X RAY 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 Work Phone: [facility] 07-31-2024 20:30-0500 Systolic blood pressure 118 mm[Hg] Melvina Navjot X RAY 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 Work Phone: [facility] 07-31-2024 15:06-0500 Body height 160.02 cm Melvina Navjot X RAY 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 Work Phone: [facility] 07-31-2024 15:06-0500 Body temperature 98.2 [degF] Melvina Navjot X RAY 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 Work Phone: [facility] 07-31-2024 15:06-0500 Body weight 43 kg Melvina Navjot X RAY 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 Work Phone: [facility] Encounters Encounter Date Encounter Type Care Provider Facility Start: 08-10-2024 ambulatory MD JESUS BRADSHAW Facility:[facility] Start: 08-04-2024 End: 08-04-2024 Clinisync Result Encounter Keira HARMAN Work Phone: [facility] Unsolicited Start: 08-04-2024 End: 08-04-2024 Clinisync Result Encounter Keira HARMAN Work Phone: [facility] Unsolicited Start: 08-03-2024 ambulatory MD JESUS BRADSHAW Facility:[facility] Start: 07-31-2024 End: 07-31-2024 Emergency department patient visit Melvina Vides Facility:[facility] Start: 07-28-2024 ambulatory MD JESUS BRADSHAW Facility:[facility] Start: 06-23-2021 End: 06-23-2021 ambulatory MELVINA DUGAN Facility:[facility] Start: 08-19-2020 Encounter for antibo dy response examination MELVINA DUGAN [facility] Start: 08-13-2020 End: 08-14-2020 ambulatory MELVINA DUGAN Facility:[facility] Start: 08-13-2020 End: 08-14-2020 Encounter for antibody response examination MELVINABRYSON DUGAN Facility:[facility] Procedures Date Procedure Procedure Detail Performing Clinician Start: 08-04-2024 US PELVIS W/ TRANSVAGINAL Keira HARMAN Work Phone: Start: 07-31-2024 CT of urinary tract Lelo Vides X RAY 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 Work Phone: Start: 07-31-2024 Viral nucleic acid assay Melvina Vides X RAY 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 Work Phone: Plan of Treatment Date Care Activity Detail Author Start: 08-10-2024 End: 08-10-2024 Patient encounter procedure 08/10/2024 10:00 AM EST Office Visit [facility] [address] [place] [address] William Schmidt MD [address] [place] [address] [facility] Start: 2024 Screening for malign ant neoplasm of breast Mammogram [facility] Start: 02-13-2024 Influenza vaccination Influenza Vacc ine (#1) [facility] Start: 02-24-2014 Screening for malign ant neoplasm of cervix [facility] Start: 02-24-2005 Screening for malign ant neoplasm of cervix Pap Smear [facility] Patient Education Celiac Disease (DC) [facility] Work Phone: Patient referral [facility] Work Phone: Immunizations Immunization Date Immunization Notes Care Provider Fa lupety 05-22-2022 influenza virus vacc ine, unspecified formulation Keira HARMAN Work Phone: [facility] Payers Date Payer Category Payer Self-pay 2024 Unknown [id number] 2024 [facility] er Subscriber Plan / Payer (Effective 2024-Present) Name: Stuart Lorenz Member ID: [id number] Relation to Subscriber: Self Name: Stuart Lorenz Subscriber ID: [id number] Payer ID: Not on file Type: Not on file Address: [place] [id number] 1985 Unknown [id number] 1984 Unknown [id number] 1984 Unknown [id number] 1959 Unknown [id number] Unknown [id number] Unknown [employer] [id number] Unknown [id number] Social History Date Type Detail Facility Start: 07-31-2024 Tobacco smoking status NHIS Ex-smoker (finding) [facility] Start: 07-31-2024 Sex Female (finding) [facility] Start: 1985 Sex Assigned At Female [facility] Tobacco smoking status NHIS Tobacco smoking consumption unknown [facility] Start: 1985 Sex assigned at Not on file [facility] Gender identity Not on file [facility] Radiology Diagnostic study note 07-31-2024 Note Date & Type Note Facility 07-31-2024 Radiology Diagnostic study note [facility] [address] [place] [address] CT Scan Report Signed Patient: Stuart Lorenz MR#: [id number] : 1985 Acct:[id number] Age/Sex: 39 / F ADM Date: 5 [...] Michael Gonzalez M.D.07/31/2024 7:48 PM Dictation Location: [place] [address] Transcribed By: [facility] 07/31/241947 Dictated By: Michael Gonzalez DO 07/31/241942 Signed By: 07/31/241947 [facility] Evaluation note Note Date & Type Note Facility Evaluation note No assessment information availa ble [facility] Work Phone: Summary Purpose Family History No Family History Records FoundNo Family History Records FoundNo Family History Records Found Advance Directives No Advanced Directives Records Found Advance Directive Response Recorded Date/ Time Advance Directives No March 31, 2018 12:31pm Chief Complaint and Reason for Visit Chief Complaint Admit Date abd/lower back pain July 31, 2024 2:59pm Additional Source Comments INFORMATION SOURCE (unrecogn ized section and content) DATE CREATED AUTHOR 06/27/2021 [facility] DATE CREATED AUTHOR AUTHOR'S ORGANIZ ATION 08/01/2024 [facility] DATE CREATED AUTHOR AUTHOR'S ORGANIZ ATION 08/08/2024 [facility] Care Teams (unrecognized sec tion and content) Team Status: Active Member Role Status Dates [facility] Primary Care Provider Active Team Status: Inactive Member Role Status Dates [facility] Primary Care Provider Active Start: July 31, 2024 End: July 31, 2024 Chris Diehl MD Emergency Provider Active St art: July 31, 2024 End: July 31, 2024 Hand Worker Relationship Specialty Start Date End Date Unallocated, [facility] [address] [place] [address] PCP - General Family Medicine 08/01/24 Goals (unrecognized section and content) Goals may [...] BE BASED ON THE PRIMARY CLINICAL RECORDS. [email or web address] [facility]. provides no warranty or guarantee of the accuracy or completeness of information in this document.
--- NOTE | 2024-08-08 10:55 | XR_ITS ---
The [address] [address] Patient Name: STUART LORENZ MRN: [id number] date: 1985 Sex: F Assigned Patient Location: [facility] Current Patient Location: [facility] Accession/Order Number: [id number] Exam Date: 08/08/2024 12:43 Report Date: 08/08/2024 12:47 At the request of: NON-STAFF PHYSICIAN MD Procedure: XR abdomen 1V SINGLE VIEW ABDOMEN CLINICAL DATA: Bilateral flank pain, greater on the left over the past month. Difficulty urinating. History kidney stones. COMPARISON: CT 07/28/2024 Supine view of the abdomen and pelvis was obtained. There is air and mild stool within the colon. The kidneys are partially obscured, greater on the right. There is redemonstration of a stone at the upper pole of the left kidney measuring approximately 5 mm in size. No definite radiopaque stones are seen on the right. No suspect ureteral calculi are identified. There are no soft tissue masses. There is subtle levoscoliotic curvature. XR/XR abdomen 1V IMPRESSION: LEFT NEPHROLITHIASIS. Impression dictated by: Coby Justin M.D.08/08/2024 12:47 PM Dictation Location: [place] [address] Electronically authenticated by: [id number] Y Date: 08/08/2024 12:47
== END 2024-08-08 10:25 | disposition home or self-care (01) ==
LOC: RAD 10:27
PROVIDERS: PCP Nurse Practitioner Family
DX: N20.0 Calculus of kidney (principal)
CPT/HCPCS: 74018

== ENCOUNTER 2024-08-08 10:32 | Outpatient (OUT) | payer BC, SELFPAY ==
[2024-08-08 10:58] LABS: Bilirubin Urine NEGATIVE (NEGATIVE); Blood Urine TRACE-I (NEGATIVE); Clarity Urine CLEAR (CLEAR); Color Urine LT. YELLOW (YELLOW); Glucose Urine UA NEGATIVE (NEGATIVE); Ketones Urine NEGATIVE (NEGATIVE); Leukocyte Esterase Urine TRACE (NEGATIVE); Nitrite Urine NEGATIVE (NEGATIVE); Protein Urine NEGATIVE (NEG/TRACE); Urobilinogen Urine 0.2 EU/dL (0.2-1.0); pH Urine 6.5 (5.0-9.0)
[2024-08-08 11:01] LABS: Basophils Percent Auto 0.5 % (0.2-2.0); Eosinophils Absolute Auto 0.2 10^3/uL (0.0-0.7); Eosinophils Percent Auto 4.2 % (0.9-7.0); Hematocrit 42.3 % (36.0-48.0); Hemoglobin 14.2 g/dL (12.0-16.0); Immature Granulocytes Abs Auto 0.01 10^3/uL (0.00-0.03); Immature Granulocytes Pct Auto 0.2 % (0.0-0.5); Lymphocytes Absolute Auto 1.6 10^3/uL (1.2-3.8); Lymphocytes Percent Auto 29.8 % (20.5-60.0); Mean Corpuscular HGB Conc 33.6 g/dL (29.9-35.2); Mean Corpuscular Hemoglobin 30.3 pg (26.7-34.0); Mean Corpuscular Volume 90.2 fL (81.0-99.0); Mean Platelet Volume 9.7 fL (9.5-13.5); Monocytes Absolute Auto 0.6 10^3/uL (0.3-0.8); Monocytes Percent Auto 10.7 % (1.7-12.0); Neutrophils Percent Auto 54.6 % (43.0-75.0); Platelet Count 231 10^3/uL (150-450); Red Blood Count 4.69 10^6/uL (4.20-5.40); Red Cell Distribution Width 11.6 % (11.0-15.0); White Blood Count 5.5 10^3/uL (4.0-11.0)
[2024-08-08 11:11] LABS: Estimated Average Glucose 94 mg/dL; Glycohemoglobin A1C 4.9 % (4.5-6.2)
[2024-08-08 11:31] LABS: Bacteria Urine TRACE #/HPF (NONE SEEN); Cast Seen? NONE SEEN #/LPF (NONE SEEN); Crystals Seen? None Seen #/HPF (None Seen); Mucus Urine NONE SEEN (NONE SEEN); Squamous Epithelial Cell Urine FEW #/LPF (NONE/RARE); WBC Urine 0-2 #/HPF (NONE SEEN)
[2024-08-08 11:32] LABS: Urine Culture Indicated ALREADY ORDERED
[2024-08-08 12:20] LABS: Alanine Aminotransferase 9 U/L (14-59); Albumin Globulin Ratio 1.3; Albumin Level 4.2 g/dL (3.4-5.0); Alkaline Phosphatase 45 U/L (46-116); Aspartate Amino Transferase 12 U/L (15-37); BUN Creatinine Ratio 14.1; Bilirubin Total 0.6 mg/dL (0.2-1.0); Calcium 9.3 mg/dL (8.5-10.1); Carbon Dioxide 27.7 mmol/L (21.0-32.0); Chloride 102 mmol/L (98-107); Cholesterol 138 mg/dL (<=200); Estimated GFR (African America >60 (>=60 mL/min/1.73m^2); Estimated GFR (Non-African Ame >60 (>=60 mL/min/1.73m^2); Globulin 3.2 g/dL; Glucose 86 mg/dL (74-106); HDL Cholesterol 73 mg/dL (40-60); Potassium 3.7 mmol/L (3.5-5.1); Sodium 137 mmol/L (136-145); Total Protein 7.4 g/dL (6.4-8.2); Triglycerides 52 mg/dL (<=150); VLDL CHOLESTEROL 10.4 mg/dL
[2024-08-08 12:21] LABS: Chol HDL Ratio 1.9; Free T3 3.98 pg/mL (2.18-3.98); Thyroid Stimulating Hormone 0.571 uIU/mL (0.358-3.740)
[2024-08-09 05:08] LABS: Insulin 8.8 uIU/mL (2.6-24.9)
== END 2024-08-08 10:33 | disposition home or self-care (01) ==
LOC: LAB 10:33
PROVIDERS: PCP Nurse Practitioner Family; Visit Provider Nurse Practitioner Family
DX: Z00.00 Encounter for general adult medical examination without abnormal findings (principal); N20.0 Calculus of kidney
CPT/HCPCS: 36415; 74018; 80053; 80061; 81001; 82306; 83036; 83525; 83540; 84436; 84443; 84481; 85025; 87086

== ENCOUNTER 2024-08-24 14:18 | Outpatient (OUT) | payer BC, SELFPAY ==
--- OUTSIDE RECORDS SUMMARY | 2024-08-24 14:37 | XMS_ITS | CCD ---
Author Organization [facility] Care Team Providers Care 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 Name Role Phone MELVINA DUGAN Admitting Unavailable MELVINA DUGAN Attending Unavailable MELVINA DUGAN Consulting Unavailable MELVINA DUGAN Primary Care Unavailable Neeraj Estrada Consulting Unavailable MELVINA DUGAN Primary Care Unavailable MELVINA DUGAN Admitting Unavailable MELVINA DUGAN Attending Unavailable MELVINA DUGAN Consulting Unavailable Navjot BIOLOGY SPECIALIST-C, Melvina Gray Primary Care Provider [phone] Chris Diehl MD Emergency Provider [phone] Unallocated , [place] Provider Primary Care Provi fatimah Navjot BETH-C, Melvina Gray Attending Provider MELVINA VIDES Primary Care Physician [phone] Chris Diehl Admitting Unavailable Melvina Vides Primary Care Unavailable Chris Diehl Attending Unavailable Melvina Vides Attending Unavailable Melvina Vides Primary Care Unavailable Melvina Vides Admitting Unavailable MELVINA VIDES Referring Unavailable JESUS BRADSHAW Attending Unavail able Rosamaria Cisse Attending Unavaila ble SarminiRosamaria Talal Admitting Unavaila ble SarminiRosamaria Attending Unavaila ble Allergies Allergy Classification Reported Allergen(s) Allergy Type Date of Onset Reaction(s) Facility (2 sources) Amoxicillin / Clavulanate; Translations: [Augmentin] Drug Allergy [facility] Repository (4 sources) Codeine; Translations: [codeine] Drug Allergy 5 Unknown Reaction [facility] Repository (3 sources) Gluten Drug allergy (disorder) 5 Unknown Reaction [facility] Repository (1 source) Triazolam Drug Allergy [facility] Repository (3 sources) Amoxicillin; Translations: [amoxicillin] Drug Allergy 5 Unknown Reaction [facility] (3 sources) Clavulanate; Translations: [clavulanic acid] Drug Allergy 5 Unknown Reaction [facility] (6 sources) loracarbef; Translations: [loracarbef] Drug Allergy 5 Unknown Reaction, Itching, Hives [facility] (3 sources) Fish Containing Products; Translations: [Fish Containing Products] Allergy to substance 5 Unknown Reaction [facility] (1 source) Amoxicillin / Clavulanate; Translations: [amoxicillin-cl avulanate] Drug Allergy Itching, Hives [facility] (3 sources) Codeine; Translations: [codeine] Drug Allergy Hives, Itching, Swelling [facility] (4 sources) Gluten; Translations: [Glutens] Drug allergy [facility] (4 sources) Shellfish; Translations: [shellfish] Drug allergy Difficulty breathing (finding) [facility] (1 source) Codeine Drug Allergy 5 [facility] Repository (1 source) Gluten Drug allergy (disorder) 5 [facility] Repository (1 source) loracarbef; Translations: [Lorabid] Drug Allergy [facility] Repository Medications Current Medications Medication Drug Class(es) Dates Sig (Normalized) Sig (Original) [id number] actuat albuterol 0.09 mg/actuat metered dose inhaler (5 sources) beta2-Adrenergic Agonist Start: 04-01-2018 take 1 puff(s) by inhalation every four hours Albuterol Sulfate (Proair Hfa) 90 mcg/actuation HFA aerosol inhaler Active 2 PUFF INHALATION Every 4 hours March 31, 2018 11:00pm Start: 01-31-2010 Ventolin 90 mc g/inh Aerosol 2 puff(s), Inhalation, Refill(s) 0, 4 x a day, Asthma Start Date: 01/31/10 Status: Ordered hyoscyamine sulfate 0.125 mg sublingual tablet (3 sources) Start: 08-10-2024 hyoscyamine 0.125 mg sublingual Tab 0.125 mg = 1 tab(s), Refills(s) 0 Start Date: 08/10/24 Status: Ordered ibuprofen 800 mg oral tablet (3 sources) Nonsteroidal Anti-inflammatory Drug Start: 08-10-2024 ibuprofen 800 mg Tab 800 mg = 1 tab(s), Refills(s) 0 Start Date: 08/10/24 Status: Ordered 60 actuat mometasone furoate 0.22 mg/actuat dry powder inhaler (2 sources) Corticosteroid Start: 04-01-2018 take 1 puff(s) by inhalation twice daily Mometasone (Asmanex Twisthaler) 220 mcg (60 doses) aerosol powdr breath activated Active 1 PUFF INHALATION Twice daily March 31, 2018 11:00pm multivitamin, with Folic Acid 1 mg Tab (3 sources) Start: 05-26-2012 multivitamin, with Folic Acid 1 mg Tab 1 cap(s), Oral, Daily, Refill(s) 0, Prophylaxis Start Date: 05/26/12 Status: Ordered omeprazole 20 mg delayed release oral capsule (2 sources) Proton Pump Inhibitor Start: 08-16-2024 take 1 mg by mouth once daily omeprazole 20 mg Cap-DR mg cap(s), Oral, Daily, Refills(s) 0 Start Date: 08/16/24 Status: Ordered ondansetron 4 mg disintegrating oral tablet (3 sources) Serotonin-3 Receptor Antagonist Start: 08-10-2024 ondansetron 4 mg Dis Tab Refills(s) 0 Start Date: 08/10/24 Status: Ordered tamsulosin hydrochloride 0.4 mg oral capsule (3 sources) alpha-Adrenergic Joellen Start: 08-10-2024 take 1 capsule by mouth once daily tamsulosin 0.4 mg Cap 0.4 mg = 1 cap(s), Oral, Daily, # 30 cap(s), Refills(s) 1, Pharmacy: [facility]/pharmacy #[id number], 160, cm, 08/10/24 8:44:00 EST, Height/Length Dosing, 44, kg, 08/10/24 8:44:00 EST, Weight Dosing Start Date: 08/10/24 Status: Ordered traMADol hydrochloride 50 mg oral tablet (3 sources) Opioid Agonist Start: 08-10-2024 traMADOL 50 mg Tab 50 mg = 1 tab(s), Refills(s) 0 Start Date: 08/10/24 Status: Ordered Completed/Discontinued Medications Medication Drug Class(es) Dates Sig (Normalized) Sig (Original) doxycycline hyclate 100 mg oral capsule (2 sources) Tetracycline-clas s Drug Start: 04-01-2018 End: 04-11-2018 take 1 capsule by mouth twice daily Doxycycline Hyclate 100 mg capsule Discontinued 100 MG PO Twice daily 20 March 31, 2018 11:00pm April 09, 2018 11:00pm April 10, 2018 11:01pm lidocaine hydrochloride 0.02 mg/mg topical gel (2 sources) Antiarrhythmic, Amide Local Anesthetic Start: 04-01-2018 End: 04-15-2018 Lidocaine Hcl 2 % jelly Discontinued 1 APPLIC TOPICAL Daily March 31, 2018 11:00pm April 13, 2018 11:00pm April 14, 2018 11:01pm apply to burn on left foot as needed for pain with dressing changes Problems Active Problems Problem Classification Problem Date Documented Da te Episodic/Chronic Abdominal pain (6 sources) Nonspecific abdominal pain; Translations: [Unspecified abdominal pain] Onset: 07-31-2024 07-31-2024 Episodic Anxiety disorders (3 sources) Anxiety 08-25-2013 Chronic Asthma (3 sources) Asthma 08-25-2013 Chronic August (2 sources) Partial thickness burn; Translations: [Blisters, epidermal loss [second degree], unspecified site] 04-01-2018 Episodic Calculus of urinary tract (6 sources) History of calculus of kidney; Translations: [Kidney stone] 05-26-2012 Episodic Comment on above: RIGHT KIDNEY Mood disorders (3 sources) Depression 08-25-2013 Chronic Nonmalignant breast conditions (3 sources) Breast lump 05-26-2012 Episodic Comment on above: LEFT BREAST Other congenital anomalies (3 sources) Pectus excavatum 08-25-2013 Chronic Other gastrointestinal disorders (3 sources) Celiac disease; Translations: [Celiac disease] Onset: 08-16-2024 07-31-2024 Chronic Other gastrointestinal disorders (3 sources) Diarrhea; Translations: [Diarrhea, unspecified] Onset: 08-15-2024 Episodic Other nervous system disorders (3 sources) H/O: migraine 05-26-2012 Episodic Other upper respiratory disease (1 source) Other specified disorders of nose and nasal sinuses; Translations: [OTH SPEC D/O NOSE NASAL SINUSES] Onset: 06-26-2021 Episodic Residual codes; unclassified (2 sources) History of clinical finding in subject; Translations: [...] [CONTACT W/AND (SUSP) EXPOS COVID-19] Onset: 06-23-2021 Unclassified (3 sources) Ureter stricture/obstru ction (disorder) 05-26-2012 Comment on above: URETER WAS KINKED-RI GHT Results Test Name Value Interpretation Reference Range Facility Ambulatory Visit Summaryon 0 08-16-2024 Ambulatory Visit Summary Ambulatory Visi t Summary JASMYN LORENZSEB Cruz :1985 Visit Date:08/16/2024 Ambulatory Visit Instructions Your Diagnosis Abdominal pain Diarrhea Celiac disease Your Care Team Attending Physician - Rosamaria Cisse MD Primary Care Physician - MELVINA VIDES CNP This Is Your Medications List Contact prescribing physician if questions or concerns albuterol (Ventolin 90 mcg/inh Aerosol) hyoscyamine (hyoscyamine 0.125 mg sublingual Tab) ibuprofen (ibuprofen 800 mg Tab) multivitamin, (multivitamin, with Folic Acid 1 mg Tab) omeprazole (omeprazole 20 mg Cap-DR) ondansetron (ondansetron 4 mg Dis Tab) tamsulosin (tamsulosin 0.4 mg Cap) tramadol (traMADOL 50 mg Tab) Procedures Performed Excisional biopsy of breast (05/2012), Insertion of ureteral stent with ureterotomy (2009), section (2005), Laparoscopic cholecystectomy (2002), EGD (esophagogastroduode noscopic) electrohydraulic lithotripsy of bezoar in stomach, Extraction of impacted wisdom tooth, Stone retrieval basket. Discharge Vitals Heart Rate (Peripheral) 75 Blood Pressure 105/67 Height 160 cm Height 63 in Weight 45.3 kg Weight 99.869 lb BMI 17.7 What to do next You Need to Complete the Following Celiac Disease Comprehensive, Blood, Routine collect, 08/16/24, Order for future visit, Lab Collect, Abdominal pain Diarrhea, Print Label By Order Location Medications What How Much When Instructions Unchanged albuterol (Ventolin 90 mcg/ inh Aerosol) 2 Puffs Inhalation 4 x a day Contact prescribing physician if questions or concerns Unchanged hyoscyamine (hyoscyamine 0.125 mg sublingual Tab) 1 Tablets Contact prescribing physician if questions or concerns Unchanged ibuprofen (ibuprofen 800 mg Tab) 1 Tablets Contact prescribing physician if questions or concerns Unchanged multivitamin, (multivitamin, with Folic Acid 1 mg Tab) 1 Capsules By Mouth Every day Contact prescribing physician if questions or concerns Unchanged omeprazole (omeprazole 20 mg Cap-DR) By Mouth Every day Contact prescribing physician if questions or concerns Unchanged ondansetron (ondansetron 4 mg Dis Tab) Contact prescribing physician if questions or concerns Unchanged tamsulosin (tamsulosin 0.4 mg Cap) 1 Capsules By Mouth Every day Contact prescribing physician if questions or concerns Unchanged tramadol (traMADOL 50 mg Tab) 1 Tablets Contact prescribing physician if questions or concerns Allergies Glutens Lorabid (Itching, Hives) codeine (Hives, Itching, Swelling) shellfish (Itching, Swelling, Hives, Difficulty breathing) Problems Ongoing - Any problem that you are currently receiving treatment for. Abdominal pain Anxiety Asthma Depression Diarrhea H/O: migraine Kidney stone Pectus excavatum Historical - Any problem that you are no longer receiving treatment for. History of kidney stone Mass in breast Ureter stricture/obstructio n Patient Survey You may receive a survey via text or e-mail asking about your office visit. Please share your experience with us by completing your survey. We appreciate your feedback and thank you for choosing us for your care. Normal [facility] Gastroenterology Office/Clin ic Noteon 08-16-2024 Gastroenterology Office/Clinic Note Gastroenterology Office/Clinic Note Chief Complaint Abdominal pain HPI Staff New- Patient is a(n) 39 year old female who was referred by Anjali Vides CNP for abdominal pain and IBS-D. Patient mentioned liver lesion? Patient also has seen Urology- kidney stone and has appt next week with Gynecology. Abdominal pain: When did you first have this pain: over a month and ER x 3 Quality (sharp, dull): Varies Constant or comes or go: constant and will wake her up location and radiation: Upper abdomen, radiates to her back Relation to food: no Improving or worsening factors: no -Any relief with Levsin?? -started omeprazole 20 mg last week. -Has nausea with the pain at times -Following a gluten free diet - 2008 diagnosed with Celiac. Diarrhea: How many BM a day (normal <4): 2-3 When did it start: years Constant? Or alternate with normal BM or constipation: Alternates with constipation. Will take Imodium and Miralax Previous EGD at [facility]. EGD Pathology in chart Dr Wright- 01/29/2003 No colonoscopy Denies Fhx of colon cancer Denies blood thinners. Denies GLP-1 agonists. XR abdomen 08/08/24 IMPRESSION: LEFT NEPHROLITHIASIS. US pelvis 08/04/24 IMPRESSION: COMPLEX RIGHT OVARIAN CYST. FOLLOW-UP IN 2-3 MENSTRUAL CYCLES IS SUGGESTED. TRACE AMOUNT OF FREE FLUID ON THE RIGHT. CT abd/pel 07/28/24 IMPRESSION: 1. Subcentimeter nonobstructing left renal calculus. No ureteral calculi. 2. Fairly extensive stool burden. No evidence of bowel obstruction or significant ileus. 3. Normal appendix. No inflammatory changes within the abdomen or the pelvis. 4. A 2.8 cm right adnexal cyst, likely physiologic right ovarian cyst. CT abd/pel 07/12/24 IMPRESSION: 1. Fluid-filled small bowel loops suggesting enteritis. No evidence of bowel obstruction. Constipation. Colonic diverticulosis without evidence of diverticulitis. 2. Calcifications noted in the region of the proximal right ureter. Ureteral calculus is not excluded on this study. No hydronephrosis. If there is clinical concern for ureteral calculus, further evaluation with CT urogram is suggested. 3. Nonobstructing 6 mm calculus in the upper pole the left kidney. 4. Pectus excavatum deformity. 5. Indeterminate hypodensity in the right hepatic lobe. This would be better gravel wheeler on contrast-enhanced MRI. Labs 08/08/24 CBC- All within normal limits CMP: Aspartate Amino Transferase: 12 Low Alanine Aminotransferase: 9 Low Alkaline Phosphatase: 45 Low Free T3: 3.98 T4: 19.70 High TSH: 0.571 Vitamin D: 28.5 Iron: 108.0 C Reactive Protein: <0.50 VERNA: Negative Lipase: 14.0 Celiac Labs 06/13/19 Negative History of Present Illness I have reviewed the HPI obtained by staff and I verified the info taken, my notes are reflected in the assessment and plan Review of Systems PHQ Score Initial Depression Screen Score: 0 SCORE Physical Exam Vitals & Measurements HR: 75(Peripheral) BP: 105/67 HT: 63 in HT: 160 cm WT: 45.3 kg WT: 99.869 lb BMI: 17.7 Assessment/Plan 1. Abdominal pain (R10.9: Unspecified abdominal pain) abd pain started 1 month, severe, constant and LUQ Not related to food also in her back 2-3 bm a day Takes ibuprofen 800 bid in the last month for the back pain--> stop it, not helping anyway started omeprazole 20mg daily since 4 days it can wake her from sleeping levsin and zofran helps partially also had some bile vomiting, no food with it, relate to pain per pt Differential includes none related GI pain, hypersensitivity, PUD.. Will proceed with EGD with gastric and duodenal biopsies Increase omeprazole to 40 Add FD guard, continue Levsin as needed, Zofran as needed Ordered: Celiac Disease Comprehensive E&M of New Patient Moderate 45-59 Min 71961 EGD Endoscopy (Hospital Procedure) 2. Diarrhea (R19.7: Diarrhea, unspecified) Resolved, currently 2-3 bowel movements a day Ordered: Celiac Disease Comprehensive E&M of New Patient Moderate 45-59 Min [id number] EGD Endoscopy (Hospital Procedure) 3. Celiac disease (K90.0: Celiac disease) Diagnosed in [place], will obtain records of EGD and blood work Repeat celiac panel, EGD with duodenal biopsies Also will discuss in the future pneumonia vaccination and DEXA scan Follow-up No qualifying data available Problem List/Past Medical History Ongoing Abdominal pain Anxiety Asthma Depression Diarrhea H/O: migraine Kidney stone Pectus excavatum Historical History of kidney stone Mass in breast Ureter stricture/obstructio n Procedure/Surgical History Excisional biopsy of breast (05/2012), Insertion of ureteral stent with ureterotomy (2009), section (2005), Laparoscopic cholecystectomy (2002), EGD (esophagogastroduode noscopic) electrohydraulic lithotripsy of bezoar in stomach, Extraction of impacted wisdom tooth, Stone retrieval basket. Medications hyoscyamine 0.125 mg sublingual Tab, 0.125 mg= (more content not included)... Normal [facility] Comment on above: Result Comment: Elec tronically Signed By: Betito PALAFOX, Rosamaria Julio\.br\Date and Time Signed: 08/16/24 10:25 EST Ambulatory Visit Summaryon 0 08-10-2024 Ambulatory Visit Summary Ambulatory Visi t Summary ELIAS LORENZA Anthony :1985 Visit Date:08/10/2024 Ambulatory Visit Instructions Your Diagnosis Kidney stone Your Care Team Attending Physician - JESUS BRADSHAW MD Primary Care Physician - MELVINA VIDES CNP Referring Physician - MELVINA VIDES CNP This Is Your Medications List tamsulosin (tamsulosin 0.4 mg Cap) Contact prescribing physician if questions or concerns albuterol (Ventolin 90 mcg/inh Aerosol) hyoscyamine (hyoscyamine 0.125 mg sublingual Tab) ibuprofen (ibuprofen 800 mg Tab) multivitamin, (multivitamin, with Folic Acid 1 mg Tab) ondansetron (ondansetron 4 mg Dis Tab) tramadol (traMADOL 50 mg Tab) Procedures Performed Excisional biopsy of breast (05/2012), Insertion of ureteral stent with ureterotomy (2009), section (2005), Laparoscopic cholecystectomy (2002), Extraction of impacted wisdom tooth, Stone retrieval basket. Discharge Vitals Temperature (Oral) 37 ???C Heart Rate (Peripheral) 66 Respiratory Rate 20 Blood Pressure 102/60 Height 160 cm Height 63 in Weight 44 kg Weight 97.003 lb BMI 17.19 What to do next Scheduled Follow-Up Appointments Wednesday 9:00 AM EST With: Rosamaria Cisse MD Where: [facility] [address] [address]- You Need to Schedule the Following Appointments Follow Up with LEEANN PALAFOX, CONCETTA LEE When: Where: Medications What How Much When Instructions Changed tamsulosin (tamsulosin 0.4 mg Cap) 1 Capsules By Mouth Every day Pickup at [facility]/pharmacy #[id number] Unchanged albuterol (Ventolin 90 mcg/ inh Aerosol) 2 Puffs Inhalation 4 x a day Contact prescribing physician if questions or concerns Unchanged hyoscyamine (hyoscyamine 0.125 mg sublingual Tab) 1 Tablets Contact prescribing physician if questions or concerns Unchanged ibuprofen (ibuprofen 800 mg Tab) 1 Tablets Contact prescribing physician if questions or concerns Unchanged multivitamin, (multivitamin, with Folic Acid 1 mg Tab) 1 Capsules By Mouth Every day Contact prescribing physician if questions or concerns Unchanged ondansetron (ondansetron 4 mg Dis Tab) Contact prescribing physician if questions or concerns Unchanged tramadol (traMADOL 50 mg Tab) 1 Tablets Contact prescribing physician if questions or concerns Pharmacy Information [facility]/pharmacy #[id number]: [address], [place] [id number] [phone] Allergies Augmentin (Itching, Hives) Glutens Lorabid (Itching, Hives) codeine (Hives, Itching, Swelling) shellfish (Itching, Swelling, Hives, Difficulty breathing) Problems Ongoing - Any problem that you are currently receiving treatment for. Anxiety Asthma Depression H/O: migraine Kidney stone Pectus excavatum Historical - Any problem that you are no longer receiving treatment for. History of kidney stone Mass in breast Ureter stricture/obstructio n Patient Survey You may receive a survey via text or e-mail asking about your office visit. Please share your experience with us by completing your survey. We appreciate your feedback and thank you for choosing us for your care. Education Materials ESWL for Kidney Stones Extracorporeal shock wave lithotripsy (ESWL) is a treatment that can help break up kidney stones that are too large to pass on their own. This is a nonsurgical procedure that breaks up a kidney stone with shock waves. These shock waves pass through your body and focus on the kidney stone. They cause the kidney stone to break into smaller pieces (fragments) while it is still in the urinary tract. The fragments of stone can pass more easily out of your body in the urine. Tell a health care provider about: ??? Any allergies you have. ??? All medicines you are taking, including vitamins, herbs, eye drops, creams, and [id number]-[id number] medicines. ??? Any problems you or family members have had with anesthetic medicines. ??? Any bleeding problems you have. ??? Any surgeries you have had. ??? Any medical conditions you have. ??? Whether you are or may be . What are the risks? Your health care provider will talk with you about risks. These may include: ??? Infection. ??? Bleeding from the kidney. ??? Bruising of the kidney or skin. ??? Scarring of the kidney. This can lead to: ? Increased blood pressure. ? Poor kidney function. ? Return (recurrence) of kidney stones. ??? Damage to other structures or organs. This may include the liver, colon, spleen, or pancreas. ??? Blockage (obstruction) of the tube that carries urine from the kidney to the bladder (ureter). ??? Failure of the kidney stone to break into fragments. What happens before the procedure? When to stop eating and drinking Follow instructions from (more content not included)... Normal [facility] Urine Cultureon 08-08-2024 Bacteria identified Cx Nom (U) 25,000 colonies/ml mixed bacterial skin contaminants 2 Days PERFORMED BY: [place] [address] PATHOLOGIST PASTE MIXER PORFIRIO SILVA M.D. Normal [facility] Comment on above: Performed By: #### C UU #### [address] US PELVIS W/ TRANSVAGINALon 08-04-2024 [place] [address] Ultrasound Report Signed Patient: STUART LORENZ MR#: [id number] : 1985 Acct:[id number] Age/Sex: 39 / F ADM Date: 08/04/24 Loc: US Attending Dr: Keira Villela Ordering Physician: Keira Villela Date of Service: 08/04/24 Procedure(s): US pelvis w/ transvaginal Accession Number(s): [id number] cc: Keira Villela; MELVINA VIDES [address] [address] Patient Name: STUART LORENZ MRN: [id number] date: 1985 Sex: F Assigned Patient Location: US Current Patient Location: LAB Accession/Order Number: [id number] Exam Date: 08/04/2024 13:14 Report Date: 08/04/2024 [...] Coby Justin M.D.08/04/2024 1:45 PM Dictation Location: [place] [address] Electronically authenticated by: [id number] Y Date: 08/04/2024 13:45 Dictated By: Coby Justin M.D. Signed By: 08/04/24 1347 DD/ 1345 TD/TT: Machine Brusher: [facility] Radiology, Radiologist, - 08/04/2024 [place] [address] Ultrasound Report Signed Patient: STUART LORENZ MR#: [id number] : 1985 Acct:[id number] Age/Sex: 39 / F ADM Date: 08/04/24 Loc: US Attending Dr: Keira Villela Ordering Physician: Keira Villela Date of Service: 08/04/24 Procedure(s): US pelvis w/ transvaginal Accession Number(s): [id number] cc: Keira Villela; MELVINA VIDES [facility] [place] [id number] Patient Name: STUART LORENZ MRN: [facility]:[id number] date: 1985 Sex: F Assigned Patient Location: US Current Patient Location: LAB Accession/Order Number: [id number] Exam Date: 08/04/2024 13:14 Report Date: 08/04/2024 [...] Coby Justin M.D.08/04/2024 1:45 PM Dictation Location: [place] [address] Electronically authenticated by: [id number] Y Date: 08/04/2024 13:45 Dictated By: Coby Justin M.D. Signed By: 08/04/24 1347 DD/ 1345 TD/TT: Machine Brusher: [facility] Radiology Study observation (narrative) [facility] US PELVIS W/ TRANSVAGINALOrd ered By: Radiologist Radiology on 08-04-2024 [facility] Work Phone: Alanine aminotransferase [En zymatic activity/volume] in Serum or PlasmaOrdered By: Hilario Boykin on 07-31-2024 ALT [Catalytic activity/Vol] Alanine aminotransferase [Enzymatic activity/volume] in Serum or Plasma [facility] Albumin [Mass/volume] in Ser um or Plasma by Bromocresol green (BCG) dye binding methoOrdered By: Hilario Boykin on 07-31-2024 Albumin BCG dye [Mass/Vol] Albumin [Mass/volume] in Serum or Plasma by Bromocresol green (BCG) dye binding metho 3.5-5.7 [facility] Alkaline phosphatase [Enzyma tic activity/volume] in Serum or PlasmaOrdered By: Hilario Boykin on 07-31-2024 ALP [Catalytic activity/Vol] Alkaline phosphatase [Enzymatic activity/volume] in Serum or Plasma 34-104 [facility] Appearance of UrineOrdered B y: PROVIDER TEMP on 07-31-2024 Appearance (U) Urine appearance Clear [facility] Aspartate aminotransferase [ Enzymatic activity/volume] in Serum or PlasmaOrdered By: Hilario Boykin on 07-31-2024 AST [Catalytic activity/Vol] Aspartate aminotransferase [Enzymatic activity/volume] in Serum or Plasma 13-39 [facility] Bacteria [Presence] in Urine by AutomatedOrdered By: PROVIDER TEMP on 07-31-2024 Bacteria Auto Ql (U) Bacteria [Presence] in Urine by Automated None Seen [facility] Basic Metabolic Panelon 07-15 Anion gap [Moles/Vol] 11.4 mmol/L Normal 6.0-15.0 [facility] Comment on above: Performed By: #### L IPASE, CBC, HEPATIC, BMP #### [facility] [address] [place] [address] [place] Calcium [Mass/Vol] 9.5 mg/dL Normal 8.6-10.3 [facility] Comment on above: Performed By: #### L IPASE, CBC, HEPATIC, BMP #### [facility] [address] [place] [id number] [place] Chloride [Moles/Vol] 106 mmol/L Normal 98-107 [facility] Comment on above: Performed By: #### L IPASE, CBC, HEPATIC, BMP #### [facility] [address] [place] [id number] [place] CO2 [Moles/Vol] 24.3 mmol/L Normal 21.0-31.0 [facility] Comment on above: Performed By: #### L IPASE, CBC, HEPATIC, BMP #### [facility] [address] [place] [phone] [place] Creatinine [Mass/Vol] 0.69 mg/dL Normal 0.60-1.20 [facility] Comment on above: Performed By: #### L IPASE, CBC, HEPATIC, BMP #### [facility] [address] [place] [phone] [place] Creatinine Clr Calc Pharmacy 73.57 Normal [facility] Comment on above: Performed By: #### L IPASE, CBC, HEPATIC, BMP #### [facility] [address] [place] [address] [place] GFR/1.73 sq M.predicted MDRD (S/P/Bld) [Vol rate/Area] mL/min/{1.73_m2} Normal [facility] Comment on above: Performed By: #### L IPASE, CBC, HEPATIC, BMP #### [address] Glucose [Mass/Vol] 87 mg/dL Normal 70-100 [facility] Comment on above: Result Comment: [facility] Glucose Reference Range is dependent on time and content of last meal. Glucose of more than 200 mg/dL in a nonstressed, ambulatory subject supports the diagnosis of Diabetes Mellitus. ADA recommended reference range Performed By: #### L IPASE, CBC, HEPATIC, BMP #### [address] Potassium [Moles/Vol] 3.7 mmol/L Normal 3.5-5.1 [facility] Comment on above: Performed By: #### L IPASE, CBC, HEPATIC, BMP #### [address] Sodium [Moles/Vol] 138 mmol/L Normal 136-145 [facility] Comment on above: Performed By: #### L IPASE, CBC, HEPATIC, BMP #### [address] Urea nitrogen [Mass/Vol] 9 mg/dL Normal 7-25 [facility] Comment on above: Performed By: #### L IPASE, CBC, HEPATIC, BMP #### [place] [address] [place] Basophils Auto (Bld) [#/Vol] Ordered By: Hilario Boykin on 07-31-2024 Basophils (Bld) [#/Vol] Automated basoph il count 0.0-0.2 [facility] Basophils/100 WBC Auto (Bld) Ordered By: Hilario Boykin on 07-31-2024 Basophils/100 WBC (Bld) Automated basophil % . [facility] Bilirubin Test strip Ql (U)O rdered By: ALEX MCDONNELL on 07-31-2024 Bilirubin Ql (U) Bilirubin.total [Presence] in Urine by Test strip Negative [facility] Bilirubin.direct [Mass/volum e] in Serum or PlasmaOrdered By: Hilario Boykin on 07-31-2024 Bilirubin.direct [Mass/Vol] Bilirubin.direct [Mass/volume] in Serum or Plasma 0.03-0.18 [facility] Bilirubin.total [Mass/volume ] in Serum or PlasmaOrdered By: Hilario Boykin on 07-31-2024 Bilirubin [Mass/Vol] Bilirubin.total [Mass/volume] in Serum or Plasma 0.3-1.0 [facility] COVID Cepheid NegativeOrdere d By: Hilario Boykin on 07-31-2024 SARS-CoV-2 (COVID-19) Ab IA Ql COVID Cepheid Negative [facility] Comment on above: This is [...] or Cepheid Disclaimer revoked sooner. PERFORMED BY: [place] [address] PATHOLOGIST PASTE MIXER PORFIRIO SILVA M.D. Normal [facility] Comment on above: Performed By: #### C EPHEID NEG, COVID19 FLU RSV #### [address] urogramon 07-31-2024 CT urogram [facility] [place] [address] CT Scan Report Signed Patient: Stuart Lorenz MR#: [id number] : 1985 Acct:[id number] Age/Sex: 39 / F ADM Date: 07/31/24 Loc: ER Room: Type: PRE ER Attending Dr: Copies to: Hilario Boykin DO TEMP, PROVIDER Ordering Provider: Hilario Boykin DO Date [...] Michael Gonzalez M.D.07/31/2024 7:48 PM Dictation Location: [place] [address] Transcribed By: [facility] 07/31/241947 Dictated By: Michael Gonzalez DO 07/31/241942 Signed By: 07/31/241947 Normal [facility] Calcium [Mass/volume] in Ser um or PlasmaOrdered By: Hilario Boykin on 07-31-2024 Calcium [Mass/Vol] Calcium [Mass/volume] in Serum or Plasma 8.6-10.3 [facility] Carbon dioxide, total [Moles /volume] in Serum or PlasmaOrdered By: Hilario Boykin on 07-31-2024 CO2 [Moles/Vol] Carbon dioxide, total [Moles/volume] in Serum or Plasma 21.0-31.0 [facility] Cepheid COVID PCR Negativeon 07-31-2024 SARS-CoV-2 (COVID-19) RNA INDIRA+probe Ql (Unsp spec) Negative Normal Negative [facility] Comment on above: Result Comment: This is a duplicate [employer] Xpert Xpress CoV-2/Flu/RSV Plus RNA by RT-PCR result to be used for statistical tracking purpose only. PERFORMED BY: [place] [address] PATHOLOGIST PASTE MIXER PORFIRIO SILVA M.D. Performed By: #### C EPHEID NEG, COVID19 FLU RSV #### [address] Chloride [Moles/volume] in S nicolette or PlasmaOrdered By: Hilario Boykin on 07-31-2024 Chloride [Moles/Vol] Chloride [Moles/volume] in Serum or Plasma 98-107 [facility] Color Auto (U)Ordered By: YAZ OVIDER TEMP on 07-31-2024 Color (U) Color of Urine by Auto Yellow [facility] Complete Blood Count Auto Di ffon 07-31-2024 Basophils (Bld) [#/Vol] 0.0 10*3/uL Normal 0.0-0.2 [facility] Comment on above: Result Comment: PERF ORMED BY: [place] [address] PATHOLOGIST PASTE MIXER PORFIRIO SILVA M.D. Performed By: #### L IPASE, CBC, HEPATIC, BMP #### [place] [address] [place] Basophils/100 WBC (Bld) 0.2 % Normal . [facility] Comment on above: Performed By: #### L IPASE, CBC, HEPATIC, BMP #### [place] [address] [place] Eosinophils (Bld) [#/Vol] 0.1 10*3/uL Normal 0.0-0.45 [facility] Comment on above: Performed By: #### L IPASE, CBC, HEPATIC, BMP #### [place] [address] [place] Eosinophils/100 WBC (Bld) 1.3 % Normal . [facility] Comment on above: Performed By: #### L IPASE, CBC, HEPATIC, BMP #### [address] Erythrocyte distribution width (RBC) [Ratio] 11.9 % Normal 11.9-15.3 [facility] Comment on above: Performed By: #### L IPASE, CBC, HEPATIC, BMP #### [address] Hematocrit (Bld) [Volume fraction] 41.9 % Normal 34.0-46.4 [facility] Comment on above: Performed By: #### L IPASE, CBC, HEPATIC, BMP #### [address] Hemoglobin (Bld) [Mass/Vol] 14.3 g/dL Normal 11.8-15.4 [facility] Comment on above: Performed By: #### L IPASE, CBC, HEPATIC, BMP #### [address] Lymphocytes (Bld) [#/Vol] 1.7 10*3/uL Normal 1.00-4.8 [facility] Comment on above: Performed By: #### L IPASE, CBC, HEPATIC, BMP #### [address] Lymphocytes/100 WBC (Bld) 21.9 % Normal . [facility] Comment on above: Performed By: #### L IPASE, CBC, HEPATIC, BMP #### [address] MCH (RBC) [Entitic mass] 30.5 pg Normal 24.7-34.3 [facility] Comment on above: Performed By: #### L IPASE, CBC, HEPATIC, BMP #### [address] MCV (RBC) [Entitic vol] 89.4 fL Normal 80-100 [facility] Comment on above: Performed By: #### L IPASE, CBC, HEPATIC, BMP #### [address] Mean Corpuscular HGB Conc 34.1 g/dL Normal 32.0-35.0 [facility] Comment on above: Performed By: #### L IPASE, CBC, HEPATIC, BMP #### [address] Monocytes (Bld) [#/Vol] 0.7 10*3/uL Normal 0.0-0.8 [facility] Comment on above: Performed By: #### L IPASE, CBC, HEPATIC, BMP #### [address] Monocytes/100 WBC (Bld) 16.45 % Normal 0.00-20.00 [facility] Comment on above: Performed By: #### L IPASE, CBC, HEPATIC, BMP #### [place] [address] [place] Monocytes/100 WBC (Bld) 9.0 % Normal . [facility] Comment on above: Performed By: #### L IPASE, CBC, HEPATIC, BMP #### [place] [address] [place] Neutrophils (Bld) [#/Vol] 5.1 10*3/uL Normal 1.8-7.7 [facility] Comment on above: Performed By: #### L IPASE, CBC, HEPATIC, BMP #### [place] [address] [place] Neutrophils/100 WBC (Bld) 67.6 % Normal . [facility] Comment on above: Performed By: #### L IPASE, CBC, HEPATIC, BMP #### [place] [address] [place] NRBC% 0.1 /100{WBC} Normal 0-0.5 [facility] Comment on above: Performed By: #### L IPASE, CBC, HEPATIC, BMP #### [place] [address] [place] Platelet mean volume (Bld) [Entitic vol] 8.1 fL Normal 6.3-10.7 [facility] Comment on above: Performed By: #### L IPASE, CBC, HEPATIC, BMP #### [facility] [address] [place] [address] [place] Platelets (Bld) [#/Vol] 213 10*3/uL Normal 150-450 [facility] Comment on above: Performed By: #### L IPASE, CBC, HEPATIC, BMP #### [facility] [address] [place] [address] [place] RBC (Bld) [#/Vol] 4.69 10*6/uL Normal 3.60-5.00 [facility] Comment on above: Performed By: #### L IPASE, CBC, HEPATIC, BMP #### [facility] [address] [place] [address] [place] WBC (Bld) [#/Vol] 7.6 10*3/uL Normal 3.8-11.6 [facility] Comment on above: Performed By: #### L IPASE, CBC, HEPATIC, BMP #### [place] [address] [place] Creatinine [Mass/volume] in Serum or PlasmaOrdered By: Hilario Boykin on 07-31-2024 Creatinine [Mass/Vol] Creatinine [Mass/volume] in Serum or Plasma 0.60-1.20 [facility] Dipstick and Microscopicon 0 07-31-2024 Appearance (U) Clear Normal Clear [facility] Comment on above: Order Comment: Name Collection Type:: Clean-Voided Midstream Performed By: #### A DDONUAPLUS #### [facility] [address] [place] [address] [place] Bacteria,Urine Rare Normal None Seen [facility] Comment on above: Order Comment: Name Collection Type:: Clean-Voided Midstream Performed By: #### A DDONUAPLUS #### [place] [address] [place] Bilirubin,Urine Negative Normal Negative [facility] Comment on above: Order Comment: Name Collection Type:: Clean-Voided Midstream Performed By: #### A DDONUAPLUS #### [facility] [address] [place] [address] [place] Color (U) Light-Yellow Normal Yellow [facility] Comment on above: Order Comment: Name Collection Type:: Clean-Voided Midstream Performed By: #### A DDONUAPLUS #### [address] Glucose Ql (U) Normal Normal Normal [facility] Comment on above: Order Comment: Name Collection Type:: Clean-Voided Midstream Performed By: #### A DDONUAPLUS #### [place] [address] [place] Hyaline Casts,Urine None Normal 0-8 [facility] Comment on above: Order Comment: Name Collection Type:: Clean-Voided Midstream Performed By: #### A DDONUAPLUS #### [address] Ketones Ql (U) Negative Normal Negative [facility] Comment on above: Order Comment: Name Collection Type:: Clean-Voided Midstream Performed By: #### A DDONUAPLUS #### [place] [address] [place] Leukocyte esterase Test strip Ql (U) Negative Normal Negative [facility] Comment on above: Order Comment: Name Collection Type:: Clean-Voided Midstream Performed By: #### A DDONUAPLUS #### [place] [address] [place] Mucus,Urine Rare Normal [facility] Comment on above: Order Comment: Name Collection Type:: Clean-Voided Midstream Result Comment: PERF ORMED BY: [place] [address] PATHOLOGIST PASTE MIXER PORFIRIO SILVA M.D. Performed By: #### A DDONUAPLUS #### [place] [address] [place] Nitrite,Urine Negative Normal Negative [facility] Comment on above: Order Comment: Name Collection Type:: Clean-Voided Midstream Performed By: #### A DDONUAPLUS #### [address] Occult Blood,Urine 2+ High Negative [facility] Comment on above: Order Comment: Name Collection Type:: Clean-Voided Midstream Result Comment: PERF ORMED BY: [place] [address] PATHOLOGIST PASTE MIXER PORFIRIO SILVA M.D. Performed By: #### A DDONUAPLUS #### [address] pH (U) 6.5 [pH] Normal 5.0-9.0 [facility] Comment on above: Order Comment: Name Collection Type:: Clean-Voided Midstream Performed By: #### A DDONUAPLUS #### [address] Protein,Urine Negative Normal Negative [facility] Comment on above: Order Comment: Name Collection Type:: Clean-Voided Midstream Performed By: #### A DDONUAPLUS #### [address] RBC,Urine 5-9 High 0-4 [facility] Comment on above: Order Comment: Name Collection Type:: Clean-Voided Midstream Performed By: #### A DDONUAPLUS #### [address] Specificy [place],Urine 1.014 Normal 1.001-1.030 [facility] Comment on above: Order Comment: Name Collection Type:: Clean-Voided Midstream Performed By: #### A DDONUAPLUS #### [place] [address] [place] Squamous Epithelial Cell,Urine 3-4 High 0-2 [facility] Comment on above: Order Comment: Name Collection Type:: Clean-Voided Midstream Performed By: #### A DDONUAPLUS #### [address] Urobilinogen,Urine Normal Normal Normal [facility] Comment on above: Order Comment: Name Collection Type:: Clean-Voided Midstream Performed By: #### A DDONUAPLUS #### [facility] [address] WBC,Urine 1-2 Normal 0-4 [facility] Comment on above: Order Comment: Name Collection Type:: Clean-Voided Midstream Performed By: #### A DDONUAPLUS #### [facility] [address] Eosinophils Auto (Bld) [#/Vo l]Ordered By: Hilario Boykin on 07-31-2024 Eosinophils (Bld) [#/Vol] Automated eosinophil count 0.0-0.45 [facility] Eosinophils/100 WBC Auto (Bl d)Ordered By: Hilario Boykin on 07-31-2024 Eosinophils/100 WBC (Bld) Automated eosinophil % . [facility] Epithelial cells.squamous [# /area] in Urine sediment by Automated countOrdered By: PROVIDER TEMP on 07-31-2024 Epithelial cells.squamous Auto (Urine sed) [#/Area] Epithelial cells.squamous [#/area] in Urine sediment by Automated count High 0-2 [facility] Erythrocyte distribution wid th Auto (RBC) [Ratio]Ordered By: Hilario Boykin on 07-31-2024 Erythrocyte distribution width (RBC) [Ratio] Erythrocyte distribution width [Ratio] by Automated count 11.9-15.3 [facility] Erythrocytes [#/area] in Uri ne sediment by Automated countOrdered By: PROVIDER TEMP on 07-31-2024 RBC Auto (Urine sed) [#/Area] Erythrocytes [#/area] in Urine sediment by Automated count High 0-4 [facility] Globulin Calc (S) [Mass/Vol] Ordered By: Hilario Boykin on 07-31-2024 Globulin (S) [Mass/Vol] Serum globulin measurement by calculation (mass/volume) [facility] Glucose [Mass/volume] in Ser um or PlasmaOrdered By: Hilario Boykin on 07-31-2024 Glucose [Mass/Vol] Glucose [Mass/volume] in Serum or Plasma 70-100 [facility] Comment on above: ADA recommended [...] [Mass/volume] in Urine by Test strip Normal [facility] HCG ( test) IA.rapi d Ql (U)Ordered By: Hilario Boykin on 07-31-2024 HCG ( test) Ql (U) Urine human chorionic gonadotropin (hCG) detection by immunoassay [facility] HCG,Urineon 07-31-2024 Beta HCG ( test) Ql (U) Negative Normal [facility] Comment on above: Result Comment: PERF ORMED BY: [address] [place] [address] PATHOLOGIST PASTE MIXER PORFIRIO SILVA M.D. Performed By: #### U HCG #### [facility] [address] [place] [address] Hematocrit Auto (Bld) [Volum e fraction]Ordered By: Hilario Boykin on 07-31-2024 Hematocrit (Bld) [Volume fraction] Hematocrit [Volume Fraction] of Blood by Automated count 34.0-46.4 [facility] Hemoglobin Test strip Ql (U) Ordered By: PROVIDER TEMP on 07-31-2024 Hemoglobin Ql (U) Hemoglobin [Presence] in Urine by Test strip High Negative [facility] Hemoglobin [Mass/volume] in BloodOrdered By: Hilario Boykin on 07-31-2024 Hemoglobin (Bld) [Mass/Vol] Hemoglobin [Mass/volume] in Blood 11.8-15.4 [facility] Hepatic Panelon 07-31-2024 Albumin [Mass/Vol] 4.5 g/dL Normal 3.5-5.7 [facility] Comment on above: Performed By: #### L IPASE, CBC, HEPATIC, BMP #### [facility] [address] [place] [address] Albumin/Globulin [Mass ratio] 1.7 {ratio} Normal [facility] Comment on above: Performed By: #### L IPASE, CBC, HEPATIC, BMP #### [facility] [address] ALP [Catalytic activity/Vol] 45 U/L Normal 34-104 [facility] Comment on above: Performed By: #### L IPASE, CBC, HEPATIC, BMP #### [facility] [address] ALT [Catalytic activity/Vol] 7 U/L Normal 7-52 [facility] Comment on above: Performed By: #### L IPASE, CBC, HEPATIC, BMP #### [address] AST [Catalytic activity/Vol] 15 U/L Normal 13-39 [facility] Comment on above: Performed By: #### L IPASE, CBC, HEPATIC, BMP #### [address] Bilirubin [Mass/Vol] 0.6 mg/dL Normal 0.3-1.0 [facility] Comment on above: Performed By: #### L IPASE, CBC, HEPATIC, BMP #### [address] Bilirubin,Indirect 0.5 mg/dL Normal [facility] Comment on above: Performed By: #### L IPASE, CBC, HEPATIC, BMP #### [address] Bilirubin.indirect [Mass/Vol] 0.10 mg/dL Normal 0.03-0.18 [facility] Comment on above: Performed By: #### L IPASE, CBC, HEPATIC, BMP #### [facility] [address] Globulin (S) [Mass/Vol] 2.6 g/dL Normal [facility] Comment on above: Performed By: #### L IPASE, CBC, HEPATIC, BMP #### [address] Protein [Mass/Vol] 7.1 g/dL Normal 6.4-8.9 [facility] Comment on above: Performed By: #### L IPASE, CBC, HEPATIC, BMP #### [facility] [address] Hyaline casts [#/area] in Ur ine sediment by Automated countOrdered By: PROVIDER TEMP on 07-31-2024 Hyaline casts Auto (Urine sed) [#/Area] Hyaline casts [#/area] in Urine sediment by Automated count 0-8 [facility] Ketones Test strip Ql (U)Ord ered By: PROVIDER TEMP on 07-31-2024 Ketones Ql (U) Ketones [Presence] in Urine by Test strip Negative [facility] Leukocyte esterase [Presence ] in Urine by Test stripOrdered By: PROVIDER TEMP on 07-31-2024 Leukocyte esterase Test strip Ql (U) Leukocyte esterase [Presence] in Urine by Test strip Negative [facility] Leukocytes [#/area] in Urine sediment by Automated countOrdered By: PROVIDER TEMP on 07-31-2024 WBC Auto (Urine sed) [#/Area] Leukocytes [#/area] in Urine sediment by Automated count 0-4 [facility] Leukocytes [#/volume] correc kenia for nucleated erythrocytes in Blood by Automated counOrdered By: Hilario Boykin on 07-31-2024 WBC corrected for nucl RBC Auto (Bld) [#/Vol] Leukocytes [#/volume] corrected for nucleated erythrocytes in Blood by Automated coun 3.8-11.6 [facility] Lipaseon 07-31-2024 Lipase [Catalytic activity/Vol] 14.0 U/L Normal 11.0-82.0 [facility] Comment on above: Result Comment: PERF ORMED BY: [place] [address] PATHOLOGIST PASTE MIXER PORFIRIO SILVA M.D. Performed By: #### L IPASE, CBC, HEPATIC, BMP #### [facility] [address] [place] [address] Lipase [Enzymatic activity/v olume] in Serum or PlasmaOrdered By: Hilario Boykin on 07-31-2024 Lipase [Catalytic activity/Vol] Lipase [Enzymatic activity/volume] in Serum or Plasma 11.0-82.0 [facility] Lymphocytes Auto (Bld) [#/Vo l]Ordered By: Hilario Boykin on 07-31-2024 Lymphocytes (Bld) [#/Vol] Lymphocytes [#/volume] in Blood by Automated count 1.00-4.8 [facility] Lymphocytes/100 WBC Auto (Bl d)Ordered By: iHlario Boykin on 07-31-2024 Lymphocytes/100 WBC (Bld) Lymphocytes/100 leukocytes in Blood by Automated count . [facility] MCH Auto (RBC) [Entitic mass ]Ordered By: Hilario Bokyin on 07-31-2024 MCH (RBC) [Entitic mass] MCH [Entitic ma ss] by Automated count 24.7-34.3 [facility] MCHC Auto (RBC) [Mass/Vol]Or dered By: Hilario Boykin on 07-31-2024 MCHC (RBC) [Mass/Vol] MCHC [Mass/volume] by Automated count 32.0-35.0 [facility] MCV Auto (RBC) [Entitic vol] Ordered By: Hilario Boykin on 07-31-2024 MCV (RBC) [Entitic vol] MCV [Entitic vol ume] by Automated count 80-100 [facility] Monocyte distribution width [Entitic volume] in Blood by AutomatedOrdered By: Hilario Boykin on 07-31-2024 Monocyte distribution width Auto (Bld) [Entitic vol] Monocyte distribution width [Entitic volume] in Blood by Automated 0.00-20.00 [facility] Monocytes Auto (Bld) [#/Vol] Ordered By: Hilario Boykin on 07-31-2024 Monocytes (Bld) [#/Vol] Automated blood monocyte count 0.0-0.8 [facility] Monocytes/100 WBC Auto (Bld) Ordered By: Hilario Boykin on 07-31-2024 Monocytes/100 WBC (Bld) Automated monocyte % . [facility] Mucus [Presence] in Urine by AutomatedOrdered By: ALEX MCDONNELL on 07-31-2024 Mucus Auto Ql (U) Mucus [Presence] in Urine by Automated [facility] Neutrophils Auto (Bld) [#/Vo l]Ordered By: Hilario Boykin on 07-31-2024 Neutrophils (Bld) [#/Vol] Neutrophils [#/volume] in Blood by Automated count 1.8-7.7 [facility] Neutrophils/100 WBC Auto (Bl d)Ordered By: Hilario Boykin on 07-31-2024 Neutrophils/100 WBC (Bld) Automated neutrophil % . [facility] Nitrite Test strip Ql (U)Ord ered By: PROVIDER TEMP on 07-31-2024 Nitrite Ql (U) Nitrite [Presence] in Urine by Test strip Negative [facility] No Panel InformationOrdered By: Hilario Boykin on 07-31-2024 Estimated GFR (CKD-EPI) > 60.0 mL/Min [facility] Creatinine Clearance (Chem 73.57 [facility] Nucleated erythrocytes [Pres ence] in Blood by Automated countOrdered By: Hilario Boykin on 07-31-2024 Nucleated RBC Auto Ql (Bld) Nucleated erythrocytes [Presence] in Blood by Automated count 0-0.5 [facility] Platelet mean volume Auto (B ld) [Entitic vol]Ordered By: Hilario Boykin on 07-31-2024 Platelet mean volume (Bld) [Entitic vol] Platelet mean volume [Entitic volume] in Blood by Automated count 6.3-10.7 [facility] Platelets Auto (Bld) [#/Vol] Ordered By: Hilario Boykin on 07-31-2024 Platelets (Bld) [#/Vol] Platelets [#/vol ume] in Blood by Automated count 150-450 [facility] Potassium [Moles/volume] in Serum or PlasmaOrdered By: Hilario Boykin on 07-31-2024 Potassium [Moles/Vol] Potassium [Moles/volume] in Serum or Plasma 3.5-5.1 [facility] Protein Test strip (U) [Mass /Vol]Ordered By: PROVIDER TEMP on 07-31-2024 Protein (U) [Mass/Vol] Protein [Mass/volume] in Urine by Test strip Negative [facility] Protein [Mass/volume] in Ser um or PlasmaOrdered By: Hilario Boykin on 07-31-2024 Protein [Mass/Vol] Protein [Mass/volume] in Serum or Plasma 6.4-8.9 [facility] RBC Auto (Bld) [#/Vol]Ordere d By: Hilario Boykin on 07-31-2024 RBC (Bld) [#/Vol] Erythrocytes [#/volume] in Blood by Automated count 3.60-5.00 [facility] Respiratory specimen influen za A virus, influenza B virus, respiratory syncytical virOrdered By: Hilario Boykin on 07-31-2024 SARS-CoV-2 (COVID-19) RNA INDIRA+probe Ql (Unsp spec) Respiratory specimen influenza A virus, influenza B virus, respiratory syncytical vir [facility] Serum or plasma albumin/glob ulin mass ratioOrdered By: Hilario Boykin on 07-31-2024 Albumin/Globulin [Mass ratio] Serum or plasma albumin/globulin mass ratio [facility] Serum or plasma anion gap de terminationOrdered By: Hilario Boykin on 07-31-2024 Anion gap [Moles/Vol] Serum or plasma anion gap determination 6.0-15.0 [facility] Serum or plasma non-glucuron idated bilirubin measurement (mass/volume)Ordered By: Hilario Boykin on 07-31-2024 Bilirubin.indirect [Mass/Vol] Serum or plasma non-glucuronidated bilirubin measurement (mass/volume) [facility] Sodium [Moles/volume] in Ser um or PlasmaOrdered By: Hilario Boykin on 07-31-2024 Sodium [Moles/Vol] Sodium [Moles/volume] in Serum or Plasma 136-145 [facility] Specific gravity Test strip (U) [Rel density]Ordered By: ALEX MCDONNELL on 07-31-2024 Specific gravity (U) [Rel density] Specific gravity of Urine by Test strip 1.001-1.030 [facility] Urea nitrogen [Mass/volume] in Serum or PlasmaOrdered By: Hilario Boykin on 07-31-2024 Urea nitrogen [Mass/Vol] Urea nitrogen [Mass/volume] in Serum or Plasma 7-25 [facility] Urobilinogen Test strip (U) [Mass/Vol]Ordered By: PROVIDER TEMP on 07-31-2024 Urobilinogen (U) [Mass/Vol] Urobilinogen [Mass/volume] in Urine by Test strip Normal [facility] WBC Auto (Bld) [#/Vol]Ordere d By: Hilario Boykin on 07-31-2024 WBC (Bld) [#/Vol] Leukocytes [#/volume] in Blood by Automated count 3.8-11.6 [facility] pH Test strip (U)Ordered By: PROVIDER TEMP on 07-31-2024 pH (U) pH of Urine by Test strip 5.0-9.0 [facility] Covid-19 PCR (CVDTBH)on 06-14 SARS-CoV-2 (COVID-19) RNA INDIRA+probe Ql (Unsp spec) Not detected Normal NOT DETECTED [facility] Comment on above: Result Comment: This test is not yet approved or cleared by the [place] FDA. When there are no FDA-approved or cleared tests available, and other criteria are met, FDA can make tests available under an emergency access mechanism called an Emergency Use Authorization (EUA). The EUA for this test is supported by the [employer] of Health and Human Service's (HHS's) declaration [...] SARS-CoV-2. Performed By: #### C VDTB #### [facility] [address] [place] [address] Dr. Jami Hernandez SARS-CoV2 ANTIBODIES (IgM, I gG, IgA)on 08-15-2020 SARS-CoV-2 (COVID-19) RNA INDIRA+probe Ql (Unsp spec) Negative Normal Negative [facility] Comment on above: Result Comment: This sample [...] antibodies specific to the viral spike protein. [employer] offers two test codes that detect viral spike-specific antibodies: 671475 SARS-CoV-2 Semi-Quantitative Total Antibody, Ralph and 061855 SARS-CoV-2 Antibody, IgG, Ralph (Qualitative). Positive results with this SARS-CoV-2 Antibodies, Nucleocapsid assay suggest recent or previous natural infection with SARS-CoV-2. Performed By: #### C VDABS #### [facility] [address] [place] [address] Shama Tenorio Covid-19 PCR (CVDTB)on SARS-CoV-2 (COVID-19) RNA INDIRA+probe Ql (Unsp spec) Not detected Normal NOT DETECTED [facility] Comment on above: Result Comment: This test is not yet approved or cleared by the [place] FDA. When there are no FDA-approved or cleared tests available, and other criteria are met, FDA can make tests available under an emergency access mechanism called an Emergency Use Authorization (EUA). The EUA for this test is supported by the [place] of Health and Human Service's (HHS's) declaration [...] SARS-CoV-2. Performed By: #### C VDTBH #### [facility] [address] [place] [address] Shama Tenorio XR CHEST 2 Von 08-13-2020 [...] by: Neeraj ESTRADA Date: 2020-08-13 17:[address] [facility] Vital Signs Date Time Vital Sign Value Performing Clinician Kelvin rod 08-16-2024 09:38-0500 Blood Pressure Location Blank Sarmini [facility] 08-16-2024 09:38-0500 Diastolic blood pressure 67 mm[Hg] Blank Sarmini [facility] 08-16-2024 09:38-0500 Heart rate 75 /min Blank Sarmini [facility] 08-16-2024 09:38-0500 Systolic blood pressure 105 mm[Hg] Blank Sarmini [facility] 08-10-2024 08:23-0500 Blood Pressure Location JESUS MARIEE-AMANKRA [facility] 08-10-2024 08:23-0500 Body temperature 98.6 [degF] JESUS NKANSAH-AMANKRA [facility] 08-10-2024 08:23-0500 Diastolic blood pressure 60 mm[Hg] JESUS NKANSAH-AMANKRA [facility] 08-10-2024 08:23-0500 Heart rate 66 /min JESUS NKANSAH-AMANKRA [facility] 08-10-2024 08:23-0500 Respiratory rate 20 /min JESUS NKANSAH-AMANKRA [facility] 08-10-2024 08:23-0500 Systolic blood pressure 102 mm[Hg] JESUS NKANSAH-AMANKRA [facility] 07-31-2024 20:30-0500 Diastolic blood pressure 59 mm[Hg] Melvina Vides BIOLOGY SPECIALIST-C Work Phone: [facility] 07-31-2024 20:30-0500 Heart rate 80 /min Melvina Vides BIOLOGY SPECIALIST-C Work Phone: [facility] 07-31-2024 20:30-0500 Respiratory rate 18 /min Melvina Vides BIOLOGY SPECIALIST-C Work Phone: [facility] 07-31-2024 20:30-0500 SaO2% (BldA) [Mass fraction] 100 % Melvina Vides BIOLOGY SPECIALIST-C Work Phone: [facility] 07-31-2024 20:30-0500 Systolic blood pressure 118 mm[Hg] Melvina Vides BIOLOGY SPECIALIST-C Work Phone: [facility] 07-31-2024 15:06-0500 Body height 160.02 cm Melvina Vides BIOLOGY SPECIALIST-C Work Phone: [facility] 07-31-2024 15:06-0500 Body temperature 98.2 [degF] Melvina Vides BIOLOGY SPECIALIST-C Work Phone: [facility] 07-31-2024 15:06-0500 Body weight 43 kg Melvina Vides BIOLOGY SPECIALIST-C Work Phone: [facility] Encounters Encounter Date Encounter Type Care Provider Facility Start: 08-21-2024 End: 08-21-2024 ambulatory Rosamaria Almontemini Facility:[facility] Start: 08-21-2024 End: 08-21-2024 Patient encounter procedure Rosamaria Rutledgei [facility] Start: 08-16-2024 End: 08-16-2024 ambulatory Rosamaria Rutledgei Facility:[facility] Start: 08-16-2024 End: 08-16-2024 Patient encounter procedure Rosamaria Rutledgei [facility] Start: 08-10-2024 End: 08-10-2024 ambulatory MELVINA VIDES Facility:[facility] Start: 08-10-2024 End: 08-10-2024 Patient encounter procedure JESUS LANDRYLIBORIO [facility] Start: 08-08-2024 End: 08-08-2024 ambulatory Melvina Vides BIOLOGY SPECIALIST-C Work Phone: [facility] Work Phone: Start: 08-08-2024 End: 08-08-2024 Departed Referred Melvina Vides BIOLOGY SPECIALIST-C Work Phone: [facility] Start: 08-04-2024 End: 08-04-2024 Clinisync Result Encounter Keira HARMAN Work Phone: [facility] Unsolicited Start: 08-04-2024 End: 08-04-2024 Clinisync Result Encounter Keira HARMAN Work Phone: [facility] Unsolicited Start: 08-03-2024 ambulatory MELVINA VIDES Facility: [facility] Start: 07-31-2024 End: 07-31-2024 Emergency department patient visit Melvina Vides BIOLOGY SPECIALIST-C Work Phone: [facility] Work Phone: Start: 07-28-2024 ambulatory MELVINA VIDES Facility: [facility] Start: 06-23-2021 End: 06-23-2021 ambulatory MELVINA DUGAN Facility:[facility] Start: 08-19-2020 Encounter for antibo dy response examination MELVINA DUGAN [facility] Start: 08-13-2020 End: 08-14-2020 ambulatory MELVINA DUGAN Facility:[facility] Start: 08-13-2020 End: 08-14-2020 Encounter for antibody response examination MELVINA DUGAN Facility:[facility] Procedures Date Procedure Procedure Detail Performing Clinician Start: 08-04-2024 US PELVIS W/ TRANSVAGINAL Keira HARMAN Work Phone: Start: 07-31-2024 CT of urinary tract Melvina Vides BIOLOGY SPECIALIST-C Work Phone: Start: 07-31-2024 Viral nucleic acid assay Melvina Navjot [facility] Work Phone: Start: 05-14-2012 Excisional biopsy of breast JESUS BRADSHAW Comment on above: left Start: 06-14-2009 Insertion of ureteral stent with ureterotomy JESUS BRADSHAW Comment on above: RIGHT URETER WAS KINKED AND HAD KIDNEY S TONE Start: 06-14-2005 section JESUS BRADSHAW Start: 06-14-2002 Laparoscopic cholecystectomy JESUS BRADSHAW Esophagogastroduoden oscopic electrohydraulic lithotripsy of bezoar in stomach Rosamaria Cisse Comment on above: [place] Stone retrieval latia paul device (physical object) JESUS BRADSHAW Comment on above: RETRIEVAL OF KIDNEY STONE Surgical removal of impacted third molar tooth JESUS BRADSHAW Comment on above: X4 IN 2008 OR 2009 Plan of Treatment Date Care Activity Detail Author Start: 08-10-2024 End: 08-10-2024 Patient encounter procedure 08/10/2024 10:00 AM EST Office Visit [facility] [address] [place] [id number] William Schmidt MD [address] [place] [address] [facility] Start: 08-08-2024 Bacteria identified in Urine by Culture Urine Culture [facility] Start: 08-08-2024 Urine culture [facility] Start: 2024 Screening for malign ant neoplasm of breast Mammogram [facility] Start: 02-13-2024 Influenza vaccination Influenza Vacc ine (#1) [facility] Start: 02-24-2014 Screening for malign ant neoplasm of cervix [facility] Start: 02-24-2005 Screening for malign ant neoplasm of cervix Pap Smear [facility] Patient Education Celiac Disease (DC) [facility] Work Phone: Patient referral [facility] Work Phone: Immunizations Immunization Date Immunization Notes Care Provider Landy ruiz 05-22-2022 influenza virus vacc ine, unspecified formulation Keira HARMAN Work Phone: [facility] Payers Date Payer Category Payer Unknown [id number] 2024 Self-pay 2024 Unknown [id number] 2024 [facility] Shield [facility] [id number] 1984 Unknown [id number] [id number] 1984 Unknown [id number] [id number] 1984 Unknown [id number] [id number] 1984 Unknown [id number] [id number] 1984 Unknown [id number] [id number] 1959 Unknown [id number] Unknown [facility] [id number] Unknown [id number] [id number] Unknown [id number] [id number] Social History Date Type Detail Facility Start: 07-31-2024 End: 08-16-2024 Tobacco smoking status MOIS Ex-smoker (finding) [facility] Start: 07-31-2024 End: 08-09-2024 Sex Female (finding) [facility] Start: 1985 Sex Assigned At Female F [facility] Tobacco smoking status MOIS Tobacco smoking consumption unknown [facility] Start: 1985 Sex assigned at Not on file [facility] Gender identity Not on file [facility] Tobacco smoking status Never [facility] Functional Status Date Assessment Result Facility 08-16-2024 Functional Status N/A [facility] 08-10-2024 Functional Status N/A [facility] Hospital Discharge instructions 08-10-2024 Note Date & Type Note Facility 08-10-2024 Hospital Discharg e instructions Patient Education 08/10/2024 08:40:49 ESWL for Kidney Stones ESWL for Kidney Stones Extracorporeal shock wave lithotripsy (ESWL) is a treatment that can help break up kidney stones that are too large to pass on their own. This is a nonsurgical procedure that breaks up a kidney stone with shock waves. These shock waves pass through your body and focus on the kidney stone. They cause the kidney stone to break into smaller pieces (fragments) while it is still in the urinary tract. The fragments of stone can pass more easily out of your body in the urine. Tell a health care provider about: Any allergies you have. All medicines you are taking, including vitamins, herbs, eye drops, creams, and rtja-zfz-dftigzp medicines. Any problems you or family members have had with anesthetic medicines. Any bleeding problems you have. Any surgeries you have had. Any medical conditions you have. Whether you are or may be . What are the risks? Your health care provider will talk with you about risks. These may include: Infection. Bleeding from the kidney. Bruising of the kidney or skin. Scarring of the kidney. This can lead to: ?Increased blood pressure. ?Poor kidney function. ?Return (recurrence) of kidney stones. Damage to other structures or organs. This may include the liver, colon, spleen, or pancreas. Blockage (obstruction) of the tube that carries urine from the kidney to the bladder (ureter). Failure of the kidney stone to break into fragments. What happens before the procedure? When to stop eating and drinking Follow instructions from your health care provider about what you may eat and drink. These may include: 8 hours before your procedure ?Stop eating most foods. Do not eat meat, fried foods, or fatty foods. ?Eat only light foods, such as toast or crackers. ?All liquids are okay except energy drinks and alcohol. 6 hours before your procedure ?Stop eating. ?Drink only clear liquids, such as water, clear fruit juice, black coffee, plain tea, and sports drinks. ?Do not drink energy drinks or alcohol. 2 hours before your procedure ?Stop drinking all liquids. ?You may be allowed to take medicines with small sips of water. If you do not follow your health care provider's instructions, your procedure may be delayed or canceled. Medicines Ask your health care provider about: Changing or stopping your regular medicines. These include any diabetes medicines or blood thinners you take. Taking medicines such as aspirin and ibuprofen. These medicines can thin your blood. Do not take them unless your health care provider tells you to. Taking pmmy-tsa-sgtiori medicines, vitamins, herbs, and supplements. Tests You may have tests, such as: Blood tests. Urine tests. Imaging tests. This may include a CT scan. Surgery safety Ask your health care provider: How your surgery site will be marked. What steps will be taken to help prevent infection. These steps may include: ?Washing skin with a soap that kills germs. ?Receiving antibiotics. General instructions If you will be going home right after the procedure, plan to have a responsible adult: ?Take you home from the hospital or clinic. You will not be allowed to drive. ?Care for you for the time you are told. What happens during the procedure? An IV will be inserted into one of your veins. You may be given: ?A sedative. This helps you relax. ?Anesthesia. This will: ?Numb certain areas of your body. ?Make you fall asleep for surgery. A water-filled cushion may be placed behind your kidney or on your abdomen. In some cases, you may be placed in a tub of lukewarm water. Your body will be positioned in a way that makes it easier to target the kidney stone. An X-ray or ultrasound exam will be done to locate your stone. Shock waves will be aimed at the stone. If you are awake, you may feel a tapping sensation as the shock waves pass through your body. A small mesh tube (stent) may be placed in your ureter. This will help keep urine flowing from the kidney if the fragments of the stone have been blocking the ureter. The stent will be removed at a later time by your health care provider. The procedure may vary among health care providers and hospitals. What happens after the procedure? Your blood pressure, heart rate, breathing rate, and blood oxygen level will be monitored until you leave the hospital or clinic. You may have an X-ray after the procedure to see how many of the kidney stones were broken up. This will also show how much of the stone has passed. If there are still large fragments after treatment, you may need to have a second procedure at a later time. This information is not intended to replace advice given to you by your health care provider. Make sure you discuss any questions you have with your health care provider. Document Revised: 10/01/2022 Document Reviewed: 10/01/2022 [employer] Patient Education 2023 [employer]. Follow Up Care 08/07/2024 09:07:01 With:JESUS BRADSHAW MD, URL Address: When: Unknown [facility] Clinical Note 08-10-2024 Note Date & Type Note Facility 08-10-2024 Note Patient Education Nephrology ESWL for Kidney Stones Extracorporeal shock wave lithotripsy (ESWL) is a treatment that can help break up kidney stones that are too large to pass on their own. This is a nonsurgical procedure that breaks up a kidney stone with shock waves. These shock waves pass through your body and focus on the kidney stone. They cause the kidney stone to break into smaller pieces (fragments) while it is still in the urinary tract. The fragments of stone can pass more easily out of your body in the urine. Tell a health care provider about: ??? Any allergies you have. ??? All medicines you are taking, including vitamins, herbs, eye drops, creams, and xect-cbd-fsmhzyz medicines. ??? Any problems you or family members have had with anesthetic medicines. ??? Any bleeding problems you have. ??? Any surgeries you have had. ??? Any medical conditions you have. ??? Whether you are or may be . What are the risks? Your health care provider will talk with you about risks. These may include: ??? Infection. ??? Bleeding from the kidney. ??? Bruising of the kidney or skin. ??? Scarring of the kidney. This can lead to: ? Increased blood pressure. ? Poor kidney function. ? Return (recurrence) of kidney stones. ??? Damage to other structures or organs. This may include the liver, colon, spleen, or pancreas. ??? Blockage (obstruction) of the tube that carries urine from the kidney to the bladder (ureter). ??? Failure of the kidney stone to break into fragments. What happens before the procedure? When to stop eating and drinking Follow instructions from your health care provider about what you may eat and drink. These may include: ??? 8 hours before your procedure ? Stop eating most foods. Do not eat meat, fried foods, or fatty foods. ? Eat only light foods, such as toast or crackers. ? All liquids are okay except energy drinks and alcohol. ??? 6 hours before your procedure ? Stop eating. ? Drink only clear liquids, such as water, clear fruit juice, black coffee, plain tea, and sports drinks. ? Do not drink energy drinks or alcohol. ??? 2 hours before your procedure ? Stop drinking all liquids. ? You may be allowed to take medicines with small sips of water. If you do not follow your health care provider's instructions, your procedure may be delayed or canceled. Medicines Ask your health care provider about: ??? Changing or stopping your regular medicines. These include any diabetes medicines or blood thinners you take. ??? Taking medicines such as aspirin and ibuprofen. These medicines can thin your blood. Do not take them unless your health care provider tells you to. ??? Taking vcgq-yur-fsdmznq medicines, vitamins, herbs, and supplements. Tests You may have tests, such as: ??? Blood tests. ??? Urine tests. ??? Imaging tests. This may include a CT scan. Surgery safety Ask your health care provider: ??? How your surgery site will be marked. ??? What steps will be taken to help prevent infection. These steps may include: ? Washing skin with a soap that kills germs. ? Receiving antibiotics. General instructions ??? If you will be going home right after the procedure, plan to have a responsible adult: ? Take you home from the hospital or clinic. You will not be allowed to drive. ? Care for you for the time you are told. What happens during the procedure? An IV will be inserted into one of your veins. ??? You may be given: ? A sedative. This helps you relax. ? Anesthesia. This will: ? Numb certain areas of your body. ? Make you fall asleep for surgery. ??? A water-filled cushion may be placed behind your kidney or on your abdomen. In some cases, you may be placed in a tub of lukewarm water. ??? Your body will be positioned in a way that makes it easier to target the kidney stone. ??? An X-ray or ultrasound exam will be done to locate your stone. ??? Shock waves will be aimed at the stone. If you are awake, you may feel a tapping sensation as the shock waves pass through your body. ??? A small mesh tube (stent) may be placed in your ureter. This will help keep urine flowing from the kidney if the fragments of the stone have been blocking the ureter. The stent will be removed at a later time by your health care provider. The procedure may vary among health care providers and hospitals. What happens after the procedure? Your blood pressure, heart rate, breathing rate, and blood oxygen level will be monitored until you leave the hospital or clinic. ??? You may have an X-ray after the procedure to see how many of the kidney stones were broken up. This will also show how much of the stone has passed. If there are still large fragments after treatment, you may need to have a second procedure at a later time. This information is not intended to replace advice given to you b (more content not included)... [facility] Radiology Diagnostic study note 07-31-2024 Note Date & Type Note Facility 07-31-2024 Radiology Diagnostic study note [facility] [place] [address] CT Scan Report Signed Patient: Stuart Lorenz MR#: [id number] : 1985 Acct:[id number] Age/Sex: 39 / F ADM Date: 5 Loc: ER Room: Type: PRE ER Attending Dr: Copies to: Hilario Boykin DO [facility], PROVIDER~ Ordering Provider: Hilario Boykin DO Date [...] Michael Gonzalez M.D.07/31/2024 7:48 PM Dictation Location: [place] [address] Transcribed By: [facility] 07/31/241947 Dictated By: Michael Gonzalez DO 07/31/241942 Signed By: 07/31/241947 [facility] Evaluation + Plan note Note Date & Type Note Facility Evaluation + Plan note Future Appointments Appointment Date:08/16/2024 09:00:00 AM Scheduled Provider:Rosamaria Cises MD Location:[facility] Appointment Type:[employer] [facility] [employer] [facility] Patient [facility] Evaluation + Plan note Laboratory Note Date & Type Note Facility Evaluation + Plan note Future Appointments Appointment Date:08/24/2024 03:00:00 PM Scheduled Provider: Location:[facility] Appointment Type:Surgery FT Future Scheduled TestsCeliac Disease Comprehensive 08/16/24 [facility] Evaluation + Plan note Note Date & Type Note Facility Evaluation + Plan note Future Appointments Appointment Date:08/24/2024 03:00:00 PM Scheduled Provider: Location:[facility] Appointment Type:Surgery FT Diagnostic Tests PendingCeliac Disease Comprehensive 08/21/24 [facility] Evaluation note Note Date & Type Note Facility Evaluation note No assessment information availa rosa [facility] Work Phone: Hospital course Narrative Note Date & Type Note Facility Hospital course Narrative No data available for this section [facility] Hospital Discharge instructions Note Date & Type Note Facility Hospital Discharge instructions No data available for this section [facility] Progress note Note Date & Type Note Facility Progress note No data available for this section [facility] Summary Purpose Family History No Family History Records Found No data available for this section No Family History Records Found No data available for this section No data available for this section No Family History Records Found Advance Directives No Advanced Directives Records Found Advance Directive Response Recorded Date/ Time Advance Directives No March 31, 2018 12:31pm Chief Complaint and Reason for Visit Chief Complaint Admit Date abd/lower back pain July 31, 2024 2:59pm Chief Complaint Admit Date abd/lower back pain July 31, 2024 2:59pm Unknown August 08, 2024 10:39am Additional Source Comments INFORMATION SOURCE (unrecogn ized section and content) DATE CREATED AUTHOR 06/27/2021 [facility] DATE CREATED AUTHOR AUTHOR'S ORGANIZ ATION 08/12/2024 [facility] DATE CREATED AUTHOR AUTHOR'S ORGANIZ ATION 08/22/2024 [facility] Care Teams (unrecognized sec tion and content) Team Status: Active Member Role Status Dates [facility] Primary Care Provider Active Team Status: Inactive Member Role Status Dates [facility] Primary Care Provider Active Start: July 31, 2024 End: July 31, 2024 Chris Diehl MD Emergency Provider Active St art: July 31, 2024 End: July 31, 2024 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 Relationship Specialty Start Date End Date Unallocated, [place], [address], [place] [id number] PCP - General Family Medicine 08/01/24 Team Status: Inactive Member Role Status Dates Melvina Vides NP-C Primary Care Pr satinderer, Attending Provider Active Start: August 08, 2024 End: August 08, 2024 Goals (unrecognized section and content) Goals may be documented in a n alternate sectionGoals may be documented in an alternate section No data available for this section No data available for this section No data available for this section FOR RECORDS PERTAINING TO PATIENTS WHO [...] BE BASED ON THE PRIMARY CLINICAL RECORDS. [facility] [employer] [facility]. provides no warranty or guarantee of the accuracy or completeness of information in this document.
[2024-08-24 15:22] LABS: Free T3 3.34 pg/mL (2.18-3.98); Thyroid Stimulating Hormone 0.678 uIU/mL (0.358-3.740)
== END 2024-08-24 14:19 | disposition home or self-care (01) ==
PROVIDERS: PCP Nurse Practitioner Family; Visit Provider Nurse Practitioner Family
DX: E03.9 Hypothyroidism, unspecified (principal)
CPT/HCPCS: 36415; 84436; 84443; 84481

== ENCOUNTER 2025-01-30 16:50 | Emergency (ER) | payer OTHER, BC, SELFPAY ==
[2025-01-30 16:58] VITALS: BP 96/62; PULSE 88; TEMP 37; O2SAT 100; BMI 15.8
--- NOTE | 2025-01-30 17:05 | ECG_ITS ---
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 Measurements Intervals [place] Rate: 88 P: 90 MT: 142 QRS: 83 QRSD: 86 T: 49 QT: 360 QTc: 406 Interpretive Statements 1100 Sinus rhythm 2420 RSR (QR) in lead V1/V2, consistent with right ventricular conduction delay 4068 Nonspecific Twave abnormality 6220 Possible left atrial enlargement 9130 borderline ECG Compared to ECG 03/30/2019 12:43:11 No significant changes Electronically Signed On 01-30-2025 20:59:00 EDT by TRAVIS CINTRON M.D.
[2025-01-30 17:23] LABS: Hematocrit 37.3 % (36.0-48.0); Hemoglobin 12.3 g/dL (12.0-16.0); Immature Granulocytes Abs Auto 0.01 10^3/uL (0.00-0.03); Immature Granulocytes Pct Auto 0.2 % (0.0-0.5); Lymphocytes Absolute Auto 1.5 10^3/uL (1.2-3.8); Mean Corpuscular HGB Conc 33.0 g/dL (29.9-35.2); Mean Corpuscular Hemoglobin 29.7 pg (26.7-34.0); Mean Corpuscular Volume 90.1 fL (81.0-99.0); Platelet Count 188 10^3/uL (150-450); Red Blood Count 4.14 10^6/uL (4.20-5.40); White Blood Count 5.3 10^3/uL (4.0-11.0)
[2025-01-30] MEDS: KETOROLAC TROMETHAMINE 30 MG/ML VIAL 15 MG IVP (17:34)
[2025-01-30] MEDS: 0.9 % SODIUM CHLORIDE 1,000 ML 1000 ML IV (17:34)
--- NOTE | 2025-01-30 17:41 | ED.SYNCOPE1 ---
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 She have no bleeding and no ecchymosis The patient mentioned that she had similar episode almost few months ago when she was diagnosed with possible POTS , she also mentioned that she had a Holter monitor placed and she supposed to follow-up with cardiology as outpatient Related Data Home Medications ?Medication ?Instructions ?Recorded ?Confirmed albuterol sulfate 90 mcg/actuation 1 puff inhalation Q8H PRN 07/28/24 07/28/24 aerosol inhaler shortness of breath or wheezing hyoscyamine sulfate 0.125 mg 0.125 mg PO Q4H PRN dyspepsia 07/28/24 07/28/24 sublingual tablet ibuprofen 800 mg tablet 800 mg PO Q8H PRN fever or pain 07/28/24 07/28/24 tamsulosin 0.4 mg capsule 0.4 mg PO Q24H 07/28/24 07/28/24 Previous Rx's ?Medication ?Instructions ?Recorded ondansetron 4 mg disintegrating 4 mg PO Q6H PRN nausea and 07/13/24 tablet vomiting #20 tabs Allergies Allergy/AdvReac Type Severity Reaction Status Date / Time codeine Allergy Severe Anaphylaxis Verified 01/30/25 16:57 Fish Containing Products Allergy Severe Anaphylaxis Verified 01/30/25 16:57 gluten Allergy Intermediate Abdominal Verified 01/30/25 16:57 Pain PFSH PFSH Medical History (Updated 01/30/25 @ 17:46 by Kelsy Link MD) Kidney stone ?N20.0 - Calculus of kidney (ICD-10) Asthma ?J45.909 - Unspecified asthma, uncomplicated (ICD-10) FH: cholecystectomy ?Z83.79 - Family history of other diseases of the digestive system (ICD-10) Celiac disease ?K90.0 - Celiac disease (ICD-10) Social History Little interest or pleasure in doing things: not at all Feeling down, depressed, or hopeless: not at all Exam Constitutional Vital Signs, click to edit/add: Last Vital Signs Temp 98.6 F 01/30/25 16:58 Pulse 88 01/30/25 16:58 Resp 18 01/30/25 16:58 BP 96/62 01/30/25 16:58 Pulse Ox 100 01/30/25 16:58 O2 Del Method Room Air 01/30/25 16:58 Course Vital Signs Vital signs: Vital Signs Temperature 98.6 F 01/30/25 16:58 Pulse Rate 88 01/30/25 16:58 Respiratory Rate 18 01/30/25 16:58 Blood Pressure 96/62 01/30/25 16:58 Pulse Oximetry 100 01/30/25 16:58 Oxygen Delivery Method Room Air 01/30/25 16:58 Temperature 98.6 F 01/30/25 16:58 Pulse Rate 88 01/30/25 16:58 Respiratory Rate 18 01/30/25 16:58 Blood Pressure 96/62 01/30/25 16:58 Pulse Oximetry 100 01/30/25 16:58 Oxygen Delivery Method Room Air 01/30/25 16:58 MDM - Syncope MDM Narrative Medical decision making narrative: The patient EKG showing sinus rhythm with a heart rate of [address] elevation or depression The CBC and chemistry showed no acute pathology and the patient was provided with 1 L of fluid after which she was feeling much better She did fall and hit her head apparently the patient does not have an obvious head trauma and with her history of being 3 years old with no anticoagulation there is need for imaging of the head at the moment but the patient provided with Toradol for the pain The patient instructed about wearing compression stocking and she is to rest for the next 24 hours before going back to work The patient is to follow up with primary care physician in next 2-3 days or to return to the emergency department should any of the signs or symptoms worsen or new symptoms develop. The patient agrees with the following Diagnosis and Treatment plan and the patient will be discharged home. Lab Data Labs: Lab Results 01/30/25 Range/Units 17:10 WBC 5.3 (4.0-11.0) 10^3/uL RBC 4.14 L (4.20-5.40) 10^6/uL Hgb 12.3 (12.0-16.0) g/dL Hct 37.3 (36.0-48.0) % MCV 90.1 (81.0-99.0) fL MCH 29.7 (26.7-34.0) pg MCHC 33.0 (29.9-35.2) g/dL RDW 11.8 (11.0-15.0) % Plt Count 188 (150-450) 10^3/uL MPV 9.6 (9.5-13.5) fL Neut % (Auto) 59.6 (43.0-75.0) % Lymph % (Auto) 27.4 (20.5-60.0) % [place] % (Auto) 9.0 (1.7-12.0) % Eos % (Auto) 3.4 (0.9-7.0) % Baso % (Auto) 0.4 (0.2-2.0) % Neut # (Auto) 3.2 (1.4-6.5) 10^3/uL Lymph # (Auto) 1.5 (1.2-3.8) 10^3/uL [place] # (Auto) 0.5 (0.3-0.8) 10^3/uL Eos # (Auto) 0.2 (0.0-0.7) 10^3/uL Baso # (Auto) 0.0 (0.0-0.1) 10^3/uL Abs Immat Gran (auto) 0.01 (0.00-0.03) 10^3/uL Imm/Tot Granulo (auto) 0.2 (0.0-0.5) % Sodium 139 (136-145) mmol/L Potassium 3.9 (3.5-5.1) mmol/L Chloride 108 H (98-107) mmol/L Carbon Dioxide 29.6 (21.0-32.0) mmol/L Anion Gap 5.3 BUN 17.0 (7.0-18.0) mg/dL Creatinine 0.81 (0.55-1.02) mg/dL Est GFR ( Amer) >60 (>=60 mL/min/1.73m^2) Est GFR (Non-Af Amer) >60 (>=60 mL/min/1.73m^2) BUN/Creatinine Ratio 21.0 Glucose 94 (74-106) mg/dL Calcium 8.6 (8.5-10.1) mg/dL Total Bilirubin 0.3 (0.2-1.0) mg/dL AST 17 (15-37) U/L ALT 26 (14-59) U/L Alkaline Phosphatase 57 (46-116) U/L Troponin I High Sens <4.0 L (4.0-51.3) pg/mL Total Protein 6.6 (6.4-8.2) g/dL Albumin 3.7 (3.4-5.0) g/dL Globulin 2.9 g/dL Albumin/Globulin Ratio 1.3 Serum HCG, Qual Negative (NEGATIVE) Discharge Plan Discharge Chief Complaint: Syncope Clinical Impression: Syncope, Postural orthostatic tachycardia syndrome [POTS] Patient Disposition: Home, Self-Care Time of Disposition Decision: 18:19 Condition: Good Prescriptions / Home Meds: No Action albuterol sulfate 90 mcg/actuation HFA aerosol inhaler 1 puff INHALATION Q8H PRN (Reason: shortness of breath or wheezing) hyoscyamine sulfate 0.125 mg tablet, sublingual 0.125 mg PO Q4H PRN (Reason: dyspepsia) ibuprofen 800 mg tablet 800 mg PO Q8H PRN (Reason: fever or pain) tamsulosin 0.4 mg capsule 0.4 mg PO Q24H ondansetron 4 mg tablet,disintegrating 4 mg PO Q6H PRN (Reason: nausea and vomiting) Qty: 20 0RF Print Language: Armenian Instructions: Syncope (DC) Referrals: JEFF VIDES [Primary Care Provider, Family Practice] - 1 week
[2025-01-30 17:42] LABS: Alanine Aminotransferase 26 U/L (14-59); Albumin Globulin Ratio 1.3; Albumin Level 3.7 g/dL (3.4-5.0); Alkaline Phosphatase 57 U/L (46-116); Anion Gap 5.3; Aspartate Amino Transferase 17 U/L (15-37); Blood Urea Nitrogen 17.0 mg/dL (7.0-18.0); Calcium 8.6 mg/dL (8.5-10.1); Carbon Dioxide 29.6 mmol/L (21.0-32.0); Chloride 108 mmol/L (98-107); Estimated GFR (African America >60 (>=60 mL/min/1.73m^2); Estimated GFR (Non-African Ame >60 (>=60 mL/min/1.73m^2); Globulin 2.9 g/dL; Glucose 94 mg/dL (74-106); Potassium 3.9 mmol/L (3.5-5.1); Sodium 139 mmol/L (136-145); Total Protein 6.6 g/dL (6.4-8.2)
--- OUTSIDE RECORDS SUMMARY | 2025-01-30 17:46 | XMS_ITS | CCD ---
Author Organization [facility] CliniSywy Care Team Providers Care Rotary Derrick Operator Name Role Phone MELVINA DUGAN Admitting Unavailable MELVINA DUGAN Attending Unavailable MELVINA DUGAN Consulting Unavailable MELVINA DUGAN Primary Care Unavailable Neeraj Nixon Consulting Unavailable KAILEE, MELVINA Primary Care Unavailable KAILEE, MELVINA Admitting Unavailable MELVINA DUGAN Attending Unavailable MELVINA DUGAN Consulting Unavailable Navjot [employer], Melvina Gray Primary Care Provider [phone] Chris Diehl MD Emergency Provider Unallocated MD, Noms Provider Primary Care Provi fatimah Navjot [employer], Melvina Gray Attending Provider [phone] MELVINA VIDES Primary Care Physician [phone] Navjot [employer] [facility], Melvina Gray Primary Care Provider [phone] Chris Diehl MD Emergency Provider [phone] Navjot [employer], Melvina Gray Attending Provider Lynn Franco DO Attending Provider [phone] JESUS RIVERA Attending Unavail able MELVINA VIDES Referring Unavailable Rosamaria Cisse Attending Unavaila Rosamaria Bernabe Attending Unavaila ble Rosamaria Cisse Admitting Unavaila ble Bria Aguero DO Primary Care Provider Bria Aguero DO Other Provider [phone] Jana Ignacio DO Attending Provider [phone] Radha Bustos MD Attending Provider Jana Ignacio DO Other Provider [phone] BRIA AGUERO Primary Care Physician [phone] NKANSAH-AMANKRA, JESUS Admitting Unavail able NKANSAH-AMANKRA, JESUS Attending Unavail able NKANSAH-AMANKRA, JESUS Referring Unavail able NKANSAH-AMANKRA, JESUS Referring Unavail able NKANSAH-AMANKRA, JESUS Attending Unavail able NKANSAH-AMANKRA, JESUS Admitting Unavail able NKANSAH-AMANKRA, JESUS Attending Unavail able Joyce Núñez DO Emergency Provider [phone] Navjot [facility] [facility] [employer] [facility], Melvina Marina Primary Care Provider Mike Chavez MD Attending Provider NKANSAH-AMANKRA, JESUS Admitting Unavail able NKANSAH-AMANKRA, JESUS Attending Unavail able NKANSAH-AMANKRA, JESUS Referring Unavail able Lynn Farnco DO Attending Provider Navjot [employer] [facility] [facility], Melvina Marina Primary Care Provider Cari DOSS Bria Primary Care Provider Cari DOSS Bria Attending Provider Italia Okeefe Attending Provider Unavailab Mike Tineo MD Attending Provider [phone] Tiera Magdaleno APRN Attending Provider Mike Chavez MD Other Provider Miguel Dunham MD Attending Provider Navjot [employer] [facility] [facility], Melvina Marina Primary Care Provider [phone] Joyce Núñez Admitting Unavailable Joyce Núñez Attending Unavailable Bria Aguero Primary Care Unavailable Navjot, Melvina Marina Primary Care Unavailable Chris Diehl Admitting Unavailable Chris Diehl Attending Unavailable Navjot, Melvina Marina Admitting Unavailable Navjot, Melvina Marina Primary Care Unavailable Navjot Melvina Marina Attending Unavailable Bria Aguero Primary Care Unavailable Mike Chavez Admitting Unavailable Mike Chavez Attending Unavailable DeWilde, Bria Attending Unavailable DeWilde, Bria Admitting Unavailable DeWilde, Bria Primary Care Unavailable Kathy, Mike Consulting Unavailable Itzkowitz, Jana Admitting Unavailable Itzkowitz, Jana Attending Unavailable DeWilde, Bria Primary Care Unavailable DeWilde, Bria Consulting Unavailable Itzkowitz, Jana Consulting Unavailable Navjot, Melvina Marina Primary Care Unavailable Lue Radha M Admitting Unavailable Lue, Radha M Attending Unavailable Itzkowitz, Jana Admitting Unavailable Itzkowitz, Jana Attending Unavailable Ly, Lynn L Admitting Unavailable Ly, Lynn L Attending Unavailable Navjot, Melvina Marina Primary Care Unavailable DeWilde DO, Rbia Primary Care Provider DeWilde DO, Bria Attending Provider Itzkowitz DO, Jana Attending Provider [phone] DeWilde DO, Bria Referring Provider DeWilde DO, Bria Primary Care Provider DeWilde DO, Bria Attending Provider [phone] WILLIAM HERNANDEZ Attending Unavailable WILLIAM HERNANDEZ Referring Unavailable WILLIAM HERNANDEZ Referring Unavailable ITZKOWITZ, JANA H Attending Unavailable WILLIAM HERNANDEZ Referring Unavailable ITZKOWITZ, JANA H Attending Unavailable Allergies Allergy Classification Reported Allergen(s) Allergy Type Date of Onset Reaction(s) Facility (5 sources) Amoxicillin / Clavulanate; Translations: [Augmentin] Drug Allergy [facility] Repository (20 sources) Codeine; Translations: [codeine] Drug Allergy 5 Unknown Reaction, Hives [facility] Repository (17 sources) Gluten Drug allergy (disorder) 5 Unknown Reaction [facility] Repository (1 source) Triazolam Drug Allergy [facility] Repository (3 sources) Amoxicillin; Translations: [amoxicillin] Drug Allergy 5 Unknown Reaction [facility] (3 sources) Clavulanate; Translations: [clavulanic acid] Drug Allergy 5 Unknown Reaction [facility] (20 sources) loracarbef; Translations: [loracarbef] Drug Allergy 5 Unknown Reaction, Itching, Hives [facility] (17 sources) Fish Containing Products; Translations: [Fish Containing Products] Allergy to substance 5 Unknown Reaction [facility] (1 source) Amoxicillin / Clavulanate; Translations: [amoxicillin-cl avulanate] Drug Allergy Itching, Hives [facility] (8 sources) Codeine; Translations: [codeine] Drug Allergy 9 Hives, Itching, Swelling [facility] (10 sources) Gluten; Translations: [Glutens] Drug allergy [facility] (10 sources) Shellfish; Translations: [shellfish] Drug allergy Difficulty breathing (finding) [facility] (4 sources) loracarbef; Translations: [Lorabid] Drug Allergy [facility] Repository (1 source) Codeine Drug Allergy 5 [facility] Repository (1 source) Gluten Drug allergy (disorder) 5 [facility] Repository Medications Current Medications Medication Drug Class(es) Dates Sig (Normalized) Sig (Original) acetaminophen 500 mg oral tablet (2 sources) Start: 10-12-2024 take 1 tablet by mouth every four hours as needed for pain acetaminophen 500 mg Tab 500 mg = 1 tab(s), Oral, q4hr, PRN for pain, # 60 tab(s), Refills(s) 0 Start Date: 10/12/24 Status: Ordered Quantity: 60.0 Unit: tab(s) Repeat number: 1 [id number] 200 actuat albuterol 0.09 mg/actuat metered dose inhaler (15 sources) beta2-Adrenergic Agonist Start: 07-27-2024 albuterol HFA 90 mcg/act inhaler 07/27/2024 Active Start: 07-27-2024 take 1 puff(s) by in halation every four hours as needed albuterol HFA 90 mcg/act inhaler INHALE 1 PUFF INTO THE LUNGS EVERY 4 HOURS NEEDED 07/27/2024 Active Start: 04-01-2018 take 1 puff(s) by in halation every four hours as needed for wheezing Albuterol Sulfate 90 mcg/actuation HFA aerosol inhaler Active 2 PUFF INHALATION Every 4 hours as needed for shortness of breath or wheezing April 01, 2018 12:00am Complies with drug therapy Start: 04-01-2018 take 1 puff(s) by in halation every four hours Albuterol Sulfate (Proair Hfa) 90 mcg/actuation HFA aerosol inhaler Active 2 PUFF INHALATION Every 4 hours March 31, 2018 11:00pm Start: 01-31-2010 Ventolin 90 mc g/inh Aerosol 2 puff(s), Inhalation, Refill(s) 0, 4 x a day, Asthma Start Date: 01/31/10 Status: Ordered Repeat number: 1 Albuterol Sulfate 90 mcg/actuation HFA aerosol inhaler (9 sources) Start: 04-01-2018 take 1 puff(s) by inhalation every four hours as needed for wheezing Albuterol Sulfate 90 mcg/actuation HFA aerosol inhaler Active 2 PUFF INHALATION Every 4 hours as needed for shortness of breath or wheezing April 01, 2018 12:00am cyproheptadine hydrochloride 4 mg oral tablet (3 sources) Start: 12-20-2024 take 1 tablet by mouth every six hours Cyproheptadine 4 mg tablet Active 4 MG PO Every 6 hours December 20, 2024 12:00am Complies with drug therapy DULoxetine 30 mg delayed release oral capsule (20 sources) Serotonin and Norepinephrine Reuptake Inhibitor Start: 10-09-2024 take 1 capsule by mouth once daily Duloxetine 30 mg capsule,delayed release(DR/EC) Active 30 MG PO Daily October 09, 2024 12:00am Complies with drug therapy Start: 10-04-2024 End: 10-09-2024 take 1 capsule by mouth once daily Duloxetine 60 mg capsule,delayed release(DR/EC) Discontinued 60 MG PO Daily October 04, 2024 12:00am October 09, 2024 7:59am duloxetine 30 mg Cap-DR (2 sources) Start: 10-12-2024 take 1 capsule by mouth twice daily duloxetine 30 mg Cap-DR = 1 cap(s), Oral, BID, (do not crush or chew), # 60 cap(s), Refills(s) 0 Start Date: 10/12/24 Status: Ordered Quantity: 60.0 Unit: cap(s) Repeat number: 1 hyoscyamine sulfate 0.125 mg sublingual tablet (20 sources) Start: 08-10-2024 take 1 tablet by mouth every four hours as needed for pain Hyoscyamine Sulfate 0.125 mg tablet, sublingual Active 0.125 MG PO Every 4 hours as needed for abdominal pain August 25, 2024 12:00am Complies with drug therapy 24 hr metoprolol succinate 25 mg extended release oral tablet (6 sources) beta-Adrenergic Joellen Start: 12-27-2024 take 2 tablets by mouth once daily Metoprolol Succinate 25 mg tablet extended release 24 hr Active 12.5 MG PO Daily December 27, 2024 11:26am Complies with drug therapy Start: 12-11-2024 End: 12-27-2024 take 1 tablet by mouth once daily Metoprolol Succinate 25 mg tablet extended release 24 hr Discontinued 25 MG PO Daily December 11, 2024 12:00am December 27, 2024 11:26am mirtazapine 7.5 mg oral tablet (3 sources) Start: 12-20-2024 take 1 tablet by mouth once daily at bedtime Mirtazapine 7.5 mg tablet Active 7.5 MG PO Daily at bedtime December 20, 2024 12:00am Complies with drug therapy Multiple Vitamin (multivitamin) capsule (2 sources) take 1 capsule by mouth once daily Multiple Vitamin (multivitamin) capsule Take 1 capsule by mouth Daily Active Multivitamin tablet (14 sources) Start: 08-25-2024 take 1 tablet by mouth once daily Multivitamin tablet Active 1 TAB PO Daily August 25, 2024 12:00am Complies with drug therapy Start: 08-25-2024 take 1 tablet by otilio th once daily Start: 08-25-2024 take 1 tablet by otilio th once daily Multivitamin tablet Active 1 TAB PO Daily August 25, 2024 12:00am multivitamin, with Folic Acid 1 mg Tab (6 sources) Start: 05-26-2012 multivitamin, with Folic Acid 1 mg Tab 1 cap(s), Oral, Daily, Refill(s) 0, Prophylaxis Start Date: 05/26/12 Status: Ordered Repeat number: 1 Start: 05-26-2012 multivitamin, with Folic Acid 1 mg Tab 1 cap(s), Oral, Daily, Refill(s) 0, Prophylaxis Start Date: 05/26/12 Status: Ordered omeprazole 40 mg delayed release oral capsule (20 sources) Proton Pump Inhibitor Start: 08-29-2024 take 1 capsule by mouth once daily Omeprazole 40 mg capsule,delayed release(DR/EC) Active 40 MG PO Daily August 29, 2024 12:00am Complies with drug therapy Start: 08-16-2024 End: 08-29-2024 take 1 capsule by mouth once daily Omeprazole 20 mg capsule,delayed release(DR/EC) Discontinued 20 MG PO Daily August 25, 2024 12:00am August 29, 2024 12:01pm Start: 08-16-2024 take 2 capsules by m outh once daily omeprazole 20 mg Cap-DR 40 mg, Oral, Daily, Refills(s) 0 Start Date: 08/16/24 Status: Ordered Repeat number: 1 ondansetron 4 mg oral tablet (20 sources) Serotonin-3 Receptor Antagonist Start: 10-17-2024 take 1 tablet by mouth every eight hours Ondansetron Hcl 4 mg tablet Active 4 MG PO Q8H 15 October 17, 2024 12:00am Complies with drug therapy Start: 08-10-2024 End: 11-03-2024 take 1 tablet by mouth four times daily as needed for nausea and vomiting Ondansetron 4 mg tablet,disintegrating Discontinued 4 MG PO Four times daily as needed for nausea and vomiting August 25, 2024 12:00am November 03, 2024 2:28pm oxyCODONE hydrochloride 5 mg oral tablet (1 source) Opioid Agonist Start: 10-12-2024 End: 10-14-2024 take 1 tablet by mouth every six hours as needed for pain Roxicodone 5 mg Tab 5 mg = 1 tab(s), Oral, q6hr, PRN for pain, X 2 day(s), # 5 tab(s), Refills(s) 0, Pharmacy: [facility]/pharmacy #[id number], 184, cm, 10/12/24 8:30:00 EDT, Height/Length Dosing, 44.5, kg, 10/12/24 8:30:00 EDT, Weight Dosing Start Date: 10/12/24 Stop Date: 10/14/24 Status: Ordered Quantity: 5.0 Unit: tab(s) Repeat number: 1 polyethylene glycol 3350 21415 mg powder for oral solution (13 sources) Osmotic Laxative Start: 09-20-2024 Polyethylene Glycol 3350 (Miralax) 17 gram/dose powder Active 17 GM PO Daily September 20, 2024 12:00am Complies with drug therapy sucralfate 1000 mg oral tablet (3 sources) Aluminum Complex Start: 12-20-2024 take 1 tablet by mouth once before mealtime Sucralfate 1 gram tablet Active 1 GM PO 3x/Day before meals & bedtime 08 01December 20, 2024 12:00am Complies with drug therapy Completed/Discontinued Medications Medication Drug Class(es) Dates Sig (Normalized) Sig (Original) cetirizine hydrochloride 10 mg oral capsule (6 sources) Histamine-1 Receptor Antagonist Start: 12-11-2024 End: 12-20-2024 take 1 capsule by mouth once daily as needed Cetirizine (Zyrtec) 10 mg capsule Discontinued 10 MG PO Daily as needed December 11, 2024 12:00am December 20, 2024 9:02am take 2 tablets by mouth once alice ly cetirizine (ZyrTEC) 5 MG tablet Take 10 mg by mouth Daily Active doxycycline hyclate 100 mg oral capsule (20 sources) Tetracycline-class Drug Start: 11-03-2024 End: 12-20-2024 take 1 capsule by mouth twice daily Doxycycline Hyclate 100 mg capsule Discontinued 100 MG PO Twice daily 25 12November 03, 2024 12:00am December 20, 2024 8:44am Start: 04-01-2018 End: 04-11-2018 take 1 capsule by mouth twice daily Doxycycline Hyclate 100 mg capsule Discontinued 100 MG PO Twice daily 02 04April 01, 2018 12:00am April 10, 2018 12:00am April 11, 2018 12:01am ibuprofen 800 mg oral tablet (20 sources) Nonsteroidal Anti-inflammatory Drug Start: 08-10-2024 End: 09-20-2024 take 1 tablet by mouth every eight hours as needed for pain Ibuprofen 800 mg tablet Discontinued 800 MG PO Every 8 hours as needed for pain August 25, 2024 12:00am September 20, 2024 1:17pm lidocaine hydrochloride 0.02 mg/mg topical gel (16 sources) Antiarrhythmic, Amide Local Anesthetic Start: 04-01-2018 End: 04-15-2018 Lidocaine Hcl 2 % jelly Discontinued 1 APPLIC TOPICAL Daily 30 April 01, 2018 12:00am April 14, 2018 12:00am April 15, 2018 12:01am apply to burn on left foot as needed for pain with dressing changes loratadine 10 mg oral tablet (16 sources) Start: 08-25-2024 End: 12-11-2024 take 1 tablet by mouth once daily Loratadine (Claritin) 10 mg tablet Discontinued 10 MG PO Daily August 25, 2024 12:00am December 11, 2024 1:47pm loratadine (Clar itin) 5 MG chewable tablet Chew 5 mg Daily Active 60 actuat mometasone furoate 0.22 mg/actuat dry powder inhaler (7 sources) Corticosteroid Start: 04-01-2018 End: 08-29-2024 take 1 puff(s) by inhalation twice daily Mometasone (Asmanex Twisthaler) 220 mcg (60 doses) aerosol powdr breath activated Discontinued 1 PUFF INHALATION Twice daily April 01, 2018 12:00am August 29, 2024 11:00am Mometasone (Asmanex Twisthaler) 220 mcg (60 doses) aerosol powdr breath activated (9 sources) Start: 04-01-2018 End: 08-29-2024 take 1 puff(s) by inhalation twice daily Mometasone (Asmanex Twisthaler) 220 mcg (60 doses) aerosol powdr breath activated Discontinued 1 PUFF INHALATION Twice daily April 01, 2018 12:00am August 29, 2024 11:00am silver sulfADIAZINE 10 mg/ml topical cream (5 sources) Sulfonamide Antibacterial Start: 11-03-2024 End: 12-20-2024 Silver Sulfadiazine (Silvadene) 1 % cream Discontinued 1 APPLIC TOPICAL Twice daily November 03, 2024 12:00am December 20, 2024 8:45am apply a 1.5 mm thickness sulfamethoxazole 800 mg / trimethoprim 160 mg oral tablet (9 sources) Dihydrofolate Reductase Inhibitor Antibacterial, Sulfonamide Antimicrobial Start: 10-17-2024 End: 10-30-2024 take 1 tablet by mouth twice daily Sulfamethoxazole -Trimethoprim (Bactrim Ds) 800-160 mg tablet Discontinued 1 TAB PO Twice daily 25 12October 17, 2024 12:00am October 30, 2024 2:26pm SUMAtriptan 50 mg oral tablet (16 sources) Serotonin-1b and Serotonin-1d Receptor Agonist Start: 10-20-2024 End: 12-22-2024 Sumatriptan Succinate 50 mg tablet Discontinued 50 MG PO EVERY 2-4 HOURS November 22, 2024 8:04pm December 22, 2024 6:21pm tamsulosin hydrochloride 0.4 mg oral capsule (20 sources) alpha-Adrenergic Joellen Start: 08-10-2024 take 1 capsule by mouth every twenty-four hours tamsulosin (Flomax) 0.4 MG 24 hr capsule Take 0.4 mg by mouth 08/10/2024 Active Start: 08-10-2024 End: 12-11-2024 take 1 capsule by mouth once daily Tamsulosin 0.4 mg capsule Discontinued 0.4 MG PO Daily August 25, 2024 12:00am December 11, 2024 1:47pm traMADol hydrochloride 50 mg oral tablet (20 sources) Opioid Agonist Start: 08-25-2024 End: 08-29-2024 Tramadol 50 mg tablet Discontinued 25 MG PO Daily as needed for pain August 25, 2024 12:00am August 29, 2024 11:00am Start: 08-10-2024 traMADOL 50 mg Tab 50 mg = 1 tab(s), Refills(s) 0 Start Date: 08/10/24 Status: Ordered Problems Active Problems Problem Classification Problem Date Documented Da te Episodic/Chronic Abdominal pain (20 sources) Nonspecific abdominal pain; Translations: [Unspecified abdominal pain] Onset: 5 07-31-2024 Episodic Administrative/social admission (9 sources) Persons encountering health services in other specified circumstances; Translations: [Other reasons for seeking consultation] 10-04-2024 Episodic Anxiety disorders (20 sources) Anxiety; Translations: [Moderate anxiety] Onset: 5 08-25-2013 Chronic Asthma (7 sources) Asthma; Translations: [Unspecified asthma, uncomplicated] Onset: 5 08-25-2013 Chronic August (20 sources) Partial thickness burn; Translations: [Blisters, epidermal loss [second degree], unspecified site] 04-01-2018 Episodic Calculus of urinary tract (13 sources) History of calculus of kidney; Translations: [Kidney stone] Onset: 5 05-26-2012 Episodic Comment on above: RIGHT KIDNEY Cardiac dysrhythmias (10 sources) Nonsustained paroxysmal ventricular tachycardia; Translations: [Nonsustained paroxysmal ventricular tachycardia] 12-20-2024 Chronic Cardiac dysrhythmias (20 sources) Palpitations; Translations: [Palpitations] Onset: 5 10-04-2024 Episodic Esophageal disorders (8 sources) Gastroesophageal reflux disease; Translations: [Gastro-esophageal reflux disease without esophagitis] 12-20-2024 Chronic Malaise and fatigue (1 source) Weakness; Translations: [Weakness] Onset: Episodic Mood disorders (20 sources) Depression; Translations: [Moderate depression] 08-25-2013 Chronic Mood disorders (1 source) Mood disorders Nausea and vomiting (9 sources) Nausea and vomiting; Translations: [Nausea with vomiting, unspecified] 10-17-2024 Episodic Nonmalignant breast conditions (6 sources) Breast lump 05-26-2012 Episodic Comment on above: LEFT BREAST Other congenital anomalies (20 sources) Pectus excavatum; Translations: [Pectus excavatum] Onset: 5 08-25-2013 Chronic Other congenital anomalies (10 sources) Pectus excavatum; Translations: [Pectus excavatum] 10-04-2024 Chronic Other gastrointestinal disorders (20 sources) Celiac disease; Translations: [Celiac disease] Onset: 5 07-31-2024 Chronic Other gastrointestinal disorders (15 sources) Celiac disease; Translations: [Celiac disease] 09-20-2024 Chronic Other gastrointestinal disorders (2 sources) Celiac crisis 09-29-2024 Chronic Other gastrointestinal disorders (7 sources) Diarrhea; Translations: [Diarrhea, unspecified] Onset: Episodic Other nervous system disorders (7 sources) H/O: migraine; Translations: [Personal history of other diseases of the nervous system and sense organs] Onset: 5 05-26-2012 Episodic Other nutritional; endocrine; and metabolic disorders (8 sources) Decrease in appetite; Translations: [Anorexia] 12-20-2024 Episodic Other nutritional; endocrine; and metabolic disorders (6 sources) Unexplained weight loss ; Translations: [Abnormal weight loss] 12-20-2024 Episodic Other screening for suspected conditions (not mental disorders or infectious disease) (3 sources) Abnormal findings on diagnostic imaging of breast; Translations: [Other abnormal and inconclusive findings on diagnostic imaging of breast] Onset: 5 09-21-2024 Episodic Other upper respiratory disease (1 source) Other specified disorders of nose and nasal sinuses; Translations: [OTH SPEC D/O NOSE NASAL SINUSES] Onset: 2 Episodic Kristal-; endo-; and myocarditis; cardiomyopathy (except that caused by tuberculosis or sexually transmitted disease) (6 sources) Arrhythmogenic right ventricular dysplasia; Translations: [Other cardiomyopathies] Chronic Residual codes; unclassified (16 sources) History of clinical finding in subject; Translations: [Personal history of other specified conditions] 07-31-2024 Episodic Syncope (20 sources) Syncope; Translations: [Syncope and collapse] Onset: 5 10-12-2024 Episodic Unclassified (4 sources) CONTACT W/AND (SUSP) EXPOS COVID-19; Translations: [CONTACT W/AND (SUSP) EXPOS COVID-19] Onset: 1 Unclassified (1 source) COUGH, UNSPECIFIED; Translations: [COUGH, UNSPECIFIED] Onset: 2 Unclassified (4 sources) Z83.2 - Family history of diseases of the blood and blood-forming organs and certain disorders involving the immune mechanism,G89.29 - Other chronic pain Unclassified (3 sources) I42.8 - Other cardiomyopathies Urinary tract infections (9 sources) Acute urinary tract infection; Translations: [Urinary tract infection, site not specified] 10-17-2024 Episodic Past or Other Problems Problem Classification Problem Date Documented Date Episodic/Chronic Fever of unknown origin (1 source) Fever, unspecified; Translations: [FEVER UNSPECIFIED] Onset: 08-19-2020 Episodic Other diseases of kidney and ureters (1 source) Obstruction of pelviureteric junction; Translations: [Crossing vessel and stricture of ureter without hydronephrosis] Onset: 06-01-2009 10-09-2024 Episodic Other lower respiratory disease (1 source) Cough; Translations: [COUGH] Onset: 08-19-2020 Episodic Unclassified (1 source) CONTACT W/AND (SUSP) EXPOS COVID-19; Translations: [CONTACT W/AND (SUSP) EXPOS COVID-19] Onset: 06-23-2021 Unclassified (6 sources) Ureter stricture/obstructio n (disorder) 05-26-2012 Comment on above: URETER WAS KINKED-RI GHT Results Test Name Value Interpretation Reference Range Facility [facility] echo transthoracicon [facility] echo transthoracic [facility] [place] [address] Echocardiogram Signed Patient: Angelita Sherman MR#: [id number] : 1985 Acct:[id number] Age/Sex: 39 / F ADM Date: 12/07/24 Loc: Room: Type: [facility] Attending Dr: Bria Aguero DO Ordering Provider: Bria Aguero DO Date of Service: 12/07/24 [facility] echo transthoracic: R55 - Syncope and collapse Copies to: MD Bria Leonardo DO Angelita Cruz AM Patient Location: : 1985 Gender: Female (MM/DD/YYYY) Age: 39 Years Ordering Physician: Bria Aguero Height: 64 in Weight: 95.681 lb Performed By: ENDER Bazan BSA: 1.43 m2 BP: 96 / 52 mmHg Reason For Study: R55 - Syncope and collapse History: Asthma, COVID + + Interpretation Summary Ejection Fraction = 50-55%. The LV ejection fraction is low normal. Severe inferobasal hypokinesis. A variety of Doppler measurements indicate normal left ventricular diastolic function. There is trace tricuspid regurgitation. There is no comparison study available. Procedure/Quality: A two-dimensional transthoracic echocardiogram with color flow and Doppler was performed. The study was technically good in quality. Left Ventricle: The left ventricular size is normal. The left ventricular thickness is normal. Ejection Fraction = 50-55%. The LV ejection fraction is low normal . A variety of Doppler measurements indicate normal left ventricular diastolic function. Severe inferobasal hypokinesis,. Left Atrium: The left atrium appears normal in size. Right Atrium: The right atrium appears normal in size. Right Ventricle: The right ventricle is normal in size and function. Aortic Valve: The aortic valve is normal in structure. No hemodynamically significant valvular aortic stenosis. No aortic regurgitation is present. Mitral Valve: The mitral valve is normal in structure. No significant mitral valve stenosis. There is no mitral regurgitation noted. Tricuspid Valve: The tricuspid valve is normal in structure. There is trace tricuspid regurgitation. Pulmonic Valve: The pulmonic valve is not well visualized. No significant pulmonic regurgitation. Arteries: The aortic root is normal size. Pericardium/Pleura: No pericardial effusion seen. IVC/Hepatic Veins: The inferior vena cava is normal in size, with a normal collapsibility index. MMode/2D Measurements Calculations IVSd (0.7-1.1 cm): 0.83 cm LVIDd (3.7-5.4 cm): 4.0 cm LVPWd (0.7-1.1 cm): 0.81 cm Ao root diam (2.0-3.2 cm): 2.41 cm LA dimension (2.3-4.0 cm): 2.9 Ao root area: 4.6 cm2 cm EDV(Teich): 68.9 ml LAV(MOD-sp2): 24.5 ml LAV(MOD-sp4): 8.4 ml LA A2 area: 10.8 cm2 LA A4 area: 7.0 cm2 LA length (vol): 4.7 cm LA vol: 13.6 ml LA vol index: 9.5 ml/m2 Doppler Measurements Calculations MV E max nigel: 98.2 cm/sec Ao V2 max: 133.0 cm/sec MV A max nigel: 70.1 cm/sec Ao max P.1 mmHg MV V2 VTI: 29.0 cm Ao mean P.0 mmHg MV P1/2t: 82.9 msec Ao V2 mean: 87.3 cm/sec MV dec time: 0.24 sec Ao V2 VTI: 24.9 cm MV dec slope: 397.2 cm/sec?? E/E' lat: 8.5 E/E' med: 8.3 TV max P.0 mmHg LV V1 max: 116.0 cm/sec TR max nigel: 247.2 cm/sec LV V1 max P.4 mmHg TR max P.5 mmHg LV V1 mean: 80.0 cm/sec RAP systole: 5.0 mmHg LV V1 mean P.0 mmHg LV V1 VTI: 21.9 cm + + + + + -------+ + : Electronically : : signed by: Liset : : : : Louis : : : : on: 12/07/2024, : : : : 7:53 PM : + -------+ + Transcribed By: SCV Performed At: 12/07/24 0857 Signed By: Liset Myers MD 12/07/241952 Normal [facility] US Renalon 11-10-2024 US Renal Exam Date/Time: 11/09/2024 08:06 EDT Reason for Exam: post op (left ESWL);Other (please specify) Report IMPRESSION: NEGATIVE ULTRASOUND OF THE KIDNEYS. CLINICAL HISTORY: post op (left ESWL). COMPARISON: NONE. COMMENT: Right kidney measures 10.6 x 3.6 x 5.2 cm. Kidney measures 10.2 x 4.5 x 5.0 cm. Kidneys normal in size, shape, echogenicity, color flow. No cortical thinning, calculi, pelvocaliectasis, cystic/solid lesions bilaterally. Ordering Provider: JESUS RIVERA FINAL REPORT Dictated: 11/10/2024 2:14 pm Rober James MD Signed (Electronic Signature): 11/10/2024 2:14 pm Signed by: Rober James MD Transcribed by: ROJAS Technologist: Tram CHEN [facility] XR Abdomen 1 Viewon 11-11-19 XR Abdomen 1 View Exam Date/Time: 11/09/2024 08:11 EDT Reason for Exam: N20.0 Calculus of kidney;Post Op Report IMPRESSION: NO SIGNIFICANT URINARY TRACT CALCULI IDENTIFIED, BY PLAIN RADIOGRAPHY. EXAM: XR Abdomen 1 View DATE: 11/09/2024 8:01 AM CLINICAL HISTORY: Post Op, N20.0 Calculus of kidney. COMPARISON: Renal ultrasound 11/09/2024 and KUB 10/12/2024. TECHNIQUE: Two supine radiographs of the abdomen and pelvis were obtained. FINDINGS: There are no significant calculi identified overlying the kidneys, expected courses of either ureter or bladder. The bowel gas pattern is unremarkable. The visualized lung bases are clear. Surgical clips again noted. Ordering Provider: JESUS RIVERA FINAL REPORT Dictated: 11/10/2024 2:37 pm Alon Hlils MD Signed (Electronic Signature): 11/10/2024 2:37 pm Signed by: Alon Hills MD Transcribed by: ROJAS Technologist: VITOR [facility] FPG ECG *CARDIOLOGY ONLY*on 10-30-2024 FPG ECG *CARDIOLOGY ONLY* [facility] [place] [address] [place] [id number] Electrocardiograph Report Signed Patient: Angelita Sherman MR#: [id number] 011 : 1985 Acct:[id number] Age/Sex: 39 / F ADM Date: 10/30/24 Loc: EKGCARDIO Room: Type: [facility] Attending Dr: Mike Chavez MD Ordering Provider: Mike Chavez MD Date of Service: 10/30/24 ECG/FPG ECG *CARDIOLOGY ONLY*: R55 - Syncope and collapse Copies to: Test Reason : Blood Pressure : */* mmHG Vent. Rate : 82 BPM Atrial Rate : 82 BPM P-R Int : 134 ms QRS Dur : 82 ms QT Int : 376 ms P-R-T Axes : 85 86 77 degrees QTcB Int : 439 ms Normal sinus rhythm Biatrial enlargement Left ventricular hypertrophy ( Sokolow-Patel , Romhilt-Briceño ) Abnormal ECG When compared with ECG of 17-Oct-2024 11:22, No significant change was found Confirmed by Miguel Dunham ([id number]) on 11/01/2024 2:59:06 PM Referred By: Electronically Signed By: Miguel Dunham Transcribed By: MUS Signed By Miguel Dunham MD 11/01/24 1459 Normal [facility] PATHOLOGY REQUEST FOR LAB CO RPon 10-30-2024 PATHOLOGY REQUEST FOR LAB LY [facility] Comment on above: See report. Scanned copy available in EMR. RT AND LT BREAST LUMPECTOMIES [facility] No Panel InformationOrdered By: Jana Ignacio on 10-25-2024 Miscellaneous Pathology Test See comment [facility] Comment on above: See report. Scanned copy available in EMR. Pathology Request for Lab Co rpon 10-25-2024 Pathology Request for Lab Ly Normal [facility] Comment on above: Order Comment: RT AN D LT BREAST LUMPECTOMIES Result Comment: See report. Scanned copy available in EMR. PERFORMED BY: [address] [address] PATHOLOGIST OILER BANDER PORFIRIO SILVA M.D. Performed By: #### B MP, LIPASE, HEPATIC, CBC #### [facility] [address] [place] [address] [place] Alanine aminotransferase [En zymatic activity/volume] in Serum or PlasmaOrdered By: Joyce Núñez on 10-17-2024 ALT [Catalytic activity/Vol] Alanine aminotransferase [Enzymatic activity/volume] in Serum or Plasma 7 [facility] ALT [Catalytic activity/Vol] 9 U/L Normal [facility] Comment on above: Performed By: #### B MP, LIPASE, HEPATIC, CBC #### [facility] [address] [place] [id number] [place] Albumin [Mass/volume] in Ser um or Plasma by Bromocresol green (BCG) dye binding methoOrdered By: Joyce Núñez on 10-17-2024 Albumin BCG dye [Mass/Vol] Albumin [Mass/volume] in Serum or Plasma by Bromocresol green (BCG) dye binding metho 3.5-5.7 [facility] Albumin BCG dye [Mass/Vol] 4.3 g/dL 3.5-5.7 [facility] Alkaline phosphatase [Enzyma tic activity/volume] in Serum or PlasmaOrdered By: Joyce Núñez on 10-17-2024 ALP [Catalytic activity/Vol] Alkaline phosphatase [Enzymatic activity/volume] in Serum or Plasma 34-104 [facility] ALP [Catalytic activity/Vol] 40 U/L Normal 34-104 [facility] Comment on above: Performed By: #### B MP, LIPASE, HEPATIC, CBC #### [facility] [address] [place] [id number] [facility] Appearance of UrineOrdered B y: Joyce Núñez on 10-17-2024 Appearance (U) Urine appearance Clear [facility] Appearance (U) Clear Normal Clear [facility] Comment on above: Order Comment: Name Collection Type:: Clean-Voided Midstream Performed By: #### C UU, ADDONUAPLUS #### [facility] [address] [place] [id number] [place] Aspartate aminotransferase [ Enzymatic activity/volume] in Serum or PlasmaOrdered By: Joyce Núñez on 10-17-2024 AST [Catalytic activity/Vol] Aspartate aminotransferase [Enzymatic activity/volume] in Serum or Plasma [facility] AST [Catalytic activity/Vol] 13 U/L Normal [facility] Comment on above: Performed By: #### B MP, LIPASE, HEPATIC, CBC #### [facility] [address] Bacteria [Presence] in Urine by AutomatedOrdered By: Joyce Núñez on 10-17-2024 Bacteria Auto Ql (U) Bacteria [Presence] in Urine by Automated None Seen [facility] Bacteria Auto Ql (U) Rare [HPF] None Seen [facility] Basophils Auto (Bld) [#/Vol] Ordered By: Joyce Núñez on 10-17-2024 Basophils (Bld) [#/Vol] Automated basoph il count 0.0-0.2 [facility] Basophils [#/volume] in Bloo d by Automated countOrdered By: Joyce Núñez on 10-17-2024 Basophils (Bld) [#/Vol] 0.0 10*3/uL Normal 0.0-0.2 [facility] Comment on above: Result Comment: PERF ORMED BY: [place] [address] PATHOLOGIST OILER BANDER PORFIRIO SILVA M.D. Performed By: #### B MP, LIPASE, HEPATIC, CBC #### [facility] [address] [place] [address] [place] Basophils/100 WBC Auto (Bld) Ordered By: Joyce Núñez on 10-17-2024 Basophils/100 WBC (Bld) Automated basophil % . [facility] Basophils/100 leukocytes in Blood by Automated countOrdered By: Joyce Núñez on 10-17-2024 Basophils/100 WBC (Bld) 0.3 % Normal . [facility] Comment on above: Performed By: #### B MP, LIPASE, HEPATIC, CBC #### [facility] [address] Bilirubin Test strip Ql (U)O rdered By: Joyce Núñez on 10-17-2024 Bilirubin Ql (U) Bilirubin.total [Presence] in Urine by Test strip Negative [facility] Bilirubin Ql (U) Negative Negative [facility] Bilirubin.total [Mass/volume ] in Serum or PlasmaOrdered By: Joyce Núñez on 10-17-2024 Bilirubin [Mass/Vol] Bilirubin.total [Mass/volume] in Serum or Plasma 0.3-1.0 [facility] Bilirubin [Mass/Vol] 0.4 mg/dL Normal 0.3-1.0 [facility] Comment on above: Performed By: #### B MP, LIPASE, HEPATIC, CBC #### [facility] [address] abdomen pelvis w conon CT abdomen pelvis w con [facility] [place] [address] [place] [address] CT Scan Report Signed Patient: Angelita Sherman MR#: [id number] 011 : 1985 Acct:[id number] Age/Sex: 39 / F ADM Date: 10/17/24 Loc: ER Room: Type: [facility] ER Attending Dr: Copies to: Joyce Núñez DO Ordering Provider: Joyce Núñez DO Date of Service: 10/17/24 CT/CT abdomen pelvis w con: L flank pain, recent lithotripsy, N/V CT ABDOMEN AND PELVIS WITH INTRAVENOUS CONTRAST: CLINICAL HISTORY: Left-sided flank pain, nausea and vomiting COMPARISON: CT angiogram 07/31/2024 TECHNIQUE: Spiral images were obtained through the abdomen and pelvis following the administration of intravenous contrast. This CT exam was performed using one or more following dose reduction techniques: Automated exposure control, adjustment of the mA and/or kV according to patient size, or use of iterative reconstruction technique. FINDINGS: Lung Bases: [Pectus deformity chest. Minimal left basilar atelectasis and or scarring.] Organs:Subcentimeter right posterior liver hypodensity likely a cyst too small to be adequately characterized by CT. Gallbladder absent. Otherwise the liver, spleen, adrenals and pancreas are un remarkable.[Posterio r changes adjacent the right renal collecting system. No definite hydronephrosis. Slight prominence of both renal collecting systems appear similar to the prior examination.. GI: Mild to moderate stool burden throughout the colon.[No small bowel obstruction. The appendix is not identified. No pericecal inflammatory changes. Pelvis:[Uterus and adnexal regions unremarkable. Bladder is grossly unremarkable, left-sided.] Peritoneum/Retroperi toneum:No free air or free fluid. No suspicious adenopathy.[ Abd wall/Bones:Mild disc bulge L5-S1.[ CT/CT abdomen pelvis w con IMPRESSION: Irdw-tb-ymhecqim stool retention throughout the colon. No evidence of acute inflammatory process or bowel obstruction. Impression dictated by: J Carlos Payne M.D. 10/17/2024 1:40 PM Dictation Location: [place] [address] Transcribed By: [facility] 10/17/24 1340 Dictated By: J Carlos Payne MD 10/17/24 1332 Signed By: 10/17/24 1340 Normal [facility] Calcium [Mass/volume] in Ser um or PlasmaOrdered By: Joyce Núñez on 10-17-2024 Calcium [Mass/Vol] Calcium [Mass/volume] in Serum or Plasma 8.6-10.3 [facility] Calcium [Mass/Vol] 9.2 mg/dL Normal 8.6-10.3 [facility] Comment on above: Performed By: #### B MP, LIPASE, HEPATIC, CBC #### [address] Capillary blood glucose [place] urement by glucometer (mass/volume)Ordered By: ALEX MCDONNELL on 10-17-2024 Glucose [Mass/Vol] 129 mg/dL Normal [facility] Comment on above: Random Glucose Refer ence Range is dependent on time and content of last meal. Glucose of more than 200 mg/dL in a nonstressed, ambulatory subject supports the diagnosis of Diabetes Mellitus. Result Comment: [place] Glucose Reference Range is dependent on time and content of last meal. Glucose of more than 200 mg/dL in a nonstressed, ambulatory subject supports the diagnosis of Diabetes Mellitus. PERFORMED BY: [address] [place] [address] PATHOLOGIST OILER BANDER PORFIRIO SILVA M.D. Performed By: #### B MP, LIPASE, HEPATIC, CBC #### [facility] [address] Carbon dioxide, total [Moles /volume] in Serum or PlasmaOrdered By: Joyce Núñez on 10-17-2024 CO2 [Moles/Vol] Carbon dioxide, total [Moles/volume] in Serum or Plasma 21.0-31.0 [facility] CO2 [Moles/Vol] 26.7 mmol/L Normal 21.0-31.0 [facility] Comment on above: Performed By: #### B MP, LIPASE, HEPATIC, CBC #### [facility] [address] Chloride [Moles/volume] in S nicolette or PlasmaOrdered By: Joyce Núñez on 10-17-2024 Chloride [Moles/Vol] Chloride [Moles/volume] in Serum or Plasma 98-107 [facility] Chloride [Moles/Vol] 104 mmol/L Normal 98-107 [facility] Comment on above: Performed By: #### B MP, LIPASE, HEPATIC, CBC #### [facility] [address] Choriogonadotropin.beta subu nit [Units/volume] in Serum or PlasmaOrdered By: Joyce Núñez on 10-17-2024 HCG.beta subunit Qn Choriogonadotropin.b eta subunit [Units/volume] in Serum or Plasma [facility] HCG.beta subunit Qn Negative [facility] Color Auto (U)Ordered By: Drew Núñez on 10-17-2024 Color (U) Color of Urine by Auto Yellow [facility] Color of Urine by AutoOrdere d By: Joyce Núñez on 10-17-2024 Color (U) Light-yellow Normal Yellow [facility] Comment on above: Order Comment: Name Collection Type:: Clean-Voided Midstream Performed By: #### C UU, ADDONUAPLUS #### [facility] [address] Complete Blood Count Auto Di ffon 10-17-2024 Mean Corpuscular HGB Conc 34.3 g/dL Normal 32.0-35.0 [facility] Comment on above: Performed By: #### B MP, LIPASE, HEPATIC, CBC #### [address] Monocytes/100 WBC (Bld) 17.43 % Normal 0.00-20.00 [facility] Comment on above: Performed By: #### B MP, LIPASE, HEPATIC, CBC #### [address] NRBC% 0.0 /100{WBC} Normal 0-0.5 [facility] Comment on above: Performed By: #### B MP, LIPASE, HEPATIC, CBC #### [address] Comprehensive Metabolic Pane kelly 10-17-2024 Albumin [Mass/Vol] 4.3 g/dL Normal 3.5-5.7 [facility] Comment on above: Performed By: #### B MP, LIPASE, HEPATIC, CBC #### [address] Creatinine Clr Calc Pharmacy 64.86 Normal [facility] Comment on above: Performed By: #### B MP, LIPASE, HEPATIC, CBC #### [address] GFR/1.73 sq M.predicted MDRD (S/P/Bld) [Vol rate/Area] mL/min/{1.73_m2} Normal [facility] Comment on above: Performed By: #### B MP, LIPASE, HEPATIC, CBC #### [address] Creatinine [Mass/volume] in Serum or PlasmaOrdered By: Joyce Núñez on 10-17-2024 Creatinine [Mass/Vol] Creatinine [Mass/volume] in Serum or Plasma 0.60-1.20 [facility] Creatinine [Mass/Vol] 0.79 mg/dL Normal 0.60-1.20 [facility] Comment on above: Performed By: #### B MP, LIPASE, HEPATIC, CBC #### [facility] [address] [place] [address] [place] D-Dimer High Sensitivityon 0 10-17-2024 D-Dimer High Sensitivity <200 Normal 0-243 [facility] Comment on above: Result Comment: The reference range for D-dimer is <243 ng/mL D-dimer units. D-dimer results must be used in conjunction with a clinical pretest probability (PTP) assessment model for deep vein thrombosis (DVT) and pulmonary embolism (PE). Results <230 ng/mL d-dimer units can be used as a negative predictor in patients with low or moderate probability for DVT/PE. Results above the exclusion threshold of 230 ng/ml D-dimer units for DVT/PE may indicate the need for further diagnostic testing. D-Dimer can be increased in hospitalized patients due to co-morbid conditions. A hematocrit value greater than 55% may lead to inaccurate results in coagulation testing. Patients having hematocrit values >55% require a special collection tube for coagulation studies. Please contact the laboratory at [phone] for redraw instructions. PERFORMED BY: [place] [address] PATHOLOGIST OILER BANDER PORFIRIO SILVA M.D. Performed By: #### B MP, LIPASE, HEPATIC, CBC #### [address] Dipstick and Microscopicon 0 10-17-2024 Bacteria,Urine Rare Normal None Seen [facility] Comment on above: Order Comment: Name Collection Type:: Clean-Voided Midstream Performed By: #### C UU, ADDONUAPLUS #### [address] Bilirubin,Urine Negative Normal Negative [facility] Comment on above: Order Comment: Name Collection Type:: Clean-Voided Midstream Performed By: #### C UU, ADDONUAPLUS #### [address] Glucose Ql (U) Normal Normal Normal [facility] Comment on above: Order Comment: Name Collection Type:: Clean-Voided Midstream Performed By: #### C UU, ADDONUAPLUS #### [facility] [address] [place] [address] [place] Hyaline Casts,Urine None Normal 0-8 [facility] Comment on above: Order Comment: Name Collection Type:: Clean-Voided Midstream Performed By: #### C UU, ADDONUAPLUS #### [place] [address] [place] Mucus,Urine Rare Normal [facility] Comment on above: Order Comment: Name Collection Type:: Clean-Voided Midstream Result Comment: PERF ORMED BY: [place] [address] PATHOLOGIST OILER BANDER PORFIRIO SILVA M.D. Performed By: #### C UU, ADDONUAPLUS #### [place] [address] [place] Nitrite,Urine Negative Normal Negative [facility] Comment on above: Order Comment: Name Collection Type:: Clean-Voided Midstream Performed By: #### C UU, ADDONUAPLUS #### [address] [address] [place] Non-Squamous Epithelial Cell,U 1-2 High None Seen [facility] Comment on above: Order Comment: Name Collection Type:: Clean-Voided Midstream Performed By: #### C UU, ADDONUAPLUS #### [place] [address] [place] Occult Blood,Urine Trace High Negative [facility] Comment on above: Order Comment: Name Collection Type:: Clean-Voided Midstream Result Comment: PERF ORMED BY: [place] [address] PATHOLOGIST OILER BANDER PORFIRIO SILVA M.D. Performed By: #### C UU, ADDONUAPLUS #### [place] [address] [place] Protein,Urine Negative Normal Negative [facility] Comment on above: Order Comment: Name Collection Type:: Clean-Voided Midstream Performed By: #### C UU, ADDONUAPLUS #### [address] RBC,Urine 1-2 Normal 0-4 [facility] Comment on above: Order Comment: Name Collection Type:: Clean-Voided Midstream Performed By: #### C UU, ADDONUAPLUS #### [address] Specificy [place],Urine 1.014 Normal 1.001-1.030 [facility] Comment on above: Order Comment: Name Collection Type:: Clean-Voided Midstream Performed By: #### C UU, ADDONUAPLUS #### [address] Squamous Epithelial Cell,Urine 1-2 Normal 0-2 [facility] Comment on above: Order Comment: Name Collection Type:: Clean-Voided Midstream Performed By: #### C UU, ADDONUAPLUS #### [address] Urobilinogen,Urine Normal Normal Normal [facility] Comment on above: Order Comment: Name Collection Type:: Clean-Voided Midstream Performed By: #### C UU, ADDONUAPLUS #### [address] WBC,Urine 5-9 High 0-4 [facility] Comment on above: Order Comment: Name Collection Type:: Clean-Voided Midstream Performed By: #### C UU, ADDONUAPLUS #### [place] [address] [place] ECG 12 lead ECGon 10-17-2024 ECG 12 lead ECG [facility] [place] [address] [place] [address] Electrocardiograph Report Signed Patient: Angelita Sherman MR#: [id number] 011 : 1985 Acct:[id number] Age/Sex: 39 / F ADM Date: 10/17/24 Loc: ER Room: Type: [facility] ER Attending Dr: Ordering Provider: Joyce Núñez DO Date of Service: 10/17/2412/06/1108 ECG/ECG 12 lead ECG: Weakness Copies to: Test Reason : Blood Pressure : 127/67 mmHG Vent. Rate : 74 BPM Atrial Rate : 74 BPM P-R Int : 140 ms QRS Dur : 82 ms QT Int : 384 ms P-R-T Axes : 79 86 84 degrees QTcB Int : 426 ms Normal sinus rhythm Possible Left atrial enlargement Borderline ECG When compared with ECG of 04-Oct-2024 15:56, ST no longer depressed in Inferior leads Confirmed [place] Dariel Vizcarra [place] ([id number]) on 10/17/2024 12:49:15 PM Referred By: Electronically Signed By: Dariel Vizcarra DO Transcribed By: MUS Signed By Dariel Vizcarra DO 5 1249 Normal [facility] Eosinophils Auto (Bld) [#/Vo l]Ordered By: Joyce Núñez on 10-17-2024 Eosinophils (Bld) [#/Vol] Automated eosinophil count 0.0-0.45 [facility] Eosinophils [#/volume] in Bl ood by Automated countOrdered By: Joyce Núñez on 10-17-2024 Eosinophils (Bld) [#/Vol] 0.0 10*3/uL Normal 0.0-0.45 [facility] Comment on above: Performed By: #### B MP, LIPASE, HEPATIC, CBC #### [facility] [address] [place] [address] [place] Eosinophils/100 WBC Auto (Bl d)Ordered By: Joyce Núñez on 10-17-2024 Eosinophils/100 WBC (Bld) Automated eosinophil % . [facility] Eosinophils/100 leukocytes i n Blood by Automated countOrdered By: Joyce Núñez on 10-17-2024 Eosinophils/100 WBC (Bld) 1.1 % Normal . [facility] Comment on above: Performed By: #### B MP, LIPASE, HEPATIC, CBC #### [facility] [address] Epithelial cells.non-squamou s [#/area] in Urine sediment by Automated countOrdered By: Joyce Núñez on 10-17-2024 Epithelial cells.non-squamous Auto (Urine sed) [#/Area] Epithelial cells.non-squamous [#/area] in Urine sediment by Automated count High None Seen [facility] Epithelial cells.non-squamous Auto (Urine sed) [#/Area] 1-2 [HPF] High None Seen [facility] Epithelial cells.squamous [# /area] in Urine sediment by Automated countOrdered By: Joyce Núñez on 10-17-2024 Epithelial cells.squamous Auto (Urine sed) [#/Area] Epithelial cells.squamous [#/area] in Urine sediment by Automated count 0-2 [facility] Epithelial cells.squamous Auto (Urine sed) [#/Area] 1-2 [HPF] 0-2 [facility] Erythrocyte distribution wid th Auto (RBC) [Ratio]Ordered By: Joyce Núñez on 10-17-2024 Erythrocyte distribution width (RBC) [Ratio] Erythrocyte distribution width [Ratio] by Automated count 11.9-15.3 [facility] Erythrocyte distribution wid th [Ratio] by Automated countOrdered By: Joyce Núñez on 10-17-2024 Erythrocyte distribution width (RBC) [Ratio] 12.6 % Normal 11.9-15.3 [facility] Comment on above: Performed By: #### B MP, LIPASE, HEPATIC, CBC #### [facility] [address] Erythrocytes [#/area] in Uri ne sediment by Automated countOrdered By: Joyce Núñez on 10-17-2024 RBC Auto (Urine sed) [#/Area] Erythrocytes [#/area] in Urine sediment by Automated count 0-4 [facility] RBC Auto (Urine sed) [#/Area] 1-2 [HPF] 0-4 [facility] Erythrocytes [#/volume] in B lood by Automated countOrdered By: Joyce Núñez on 10-17-2024 RBC (Bld) [#/Vol] 4.55 10*6/uL Normal 3.60-5.00 [facility] Comment on above: Performed By: #### B MP, LIPASE, HEPATIC, CBC #### [facility] [address] [place] [address] [place] Fibrin D-dimer [Presence] in Platelet poor plasma by Latex agglutinationOrdered By: Joyce Núñez on 10-17-2024 Fibrin D-dimer LA Ql (PPP) Fibrin D-dimer [Presence] in Platelet poor plasma by Latex agglutination 0-243 [facility] Comment on above: The reference range for D-dimer is <243 ng/mL D-dimer units.D-dimer results must be used in conjunction with a clinicalpretest probability (PTP) assessment model for deep veinthrombosis (DVT) and pulmonary embolism (PE). Results <230ng/mL d-dimer units can be used as a negative predictor inpatients with low or moderate probability for DVT/PE.Results above the exclusion threshold of 230 ng/ml D-dimerunits for DVT/PE may indicate the need for furtherdiagnostic testing.D-Dimer can be increased in hospitalized patients due toco-morbid conditions.A hematocrit value greater than 55% may lead to inaccurate results in coagulation testing. Patients having hematocrit values >55% require a special collection tube for coagulation studies. Please contact the laboratory at [phone] for redraw instructions. Fibrin D-dimer LA Ql (PPP) < 200 ng/mL 0-243 [facility] Comment on above: The reference range for D-dimer is <243 ng/mL D-dimer units.D-dimer results must be used in conjunction with a clinicalpretest probability (PTP) assessment model for deep veinthrombosis (DVT) and pulmonary embolism (PE). Results <230ng/mL d-dimer units can be used as a negative predictor inpatients with low or moderate probability for DVT/PE.Results above the exclusion threshold of 230 ng/ml D-dimerunits for DVT/PE may indicate the need for furtherdiagnostic testing.D-Dimer can be increased in hospitalized patients due toco-morbid conditions.A hematocrit value greater than 55% may lead to inaccurate results in coagulation testing. Patients having hematocrit values >55% require a special collection tube for coagulation studies. Please contact the laboratory at [phone] for redraw instructions. Globulin Calc (S) [Mass/Vol] Ordered By: Joyce Núñez on 10-17-2024 Globulin (S) [Mass/Vol] Serum globulin measurement by calculation (mass/volume) [facility] Glucose Glucometer (BldC) [M ass/Vol]Ordered By: ALEX MCDONNELL on 10-17-2024 Glucose [Mass/Vol] Capillary blood glucose measurement by glucometer (mass/volume) [facility] Comment on above: Random Glucose Refer ence Range is dependent on time and content of last meal. Glucose of more than 200 mg/dL in a nonstressed, ambulatory subject supports the diagnosis of Diabetes Mellitus. Glucose [Mass/volume] in Ser um or PlasmaOrdered By: Joyce Núñez on 10-17-2024 Glucose [Mass/Vol] Glucose [Mass/volume] in Serum or Plasma High 70-100 [facility] Comment on above: ADA recommended refe rence rangeRandom Glucose Reference Range is dependent on time and content of last meal. Glucose of more than 200 mg/dL in a nonstressed, ambulatory subject supports the diagnosis of Diabetes Mellitus. Glucose [Mass/Vol] 103 mg/dL High 70-100 [facility] Comment on above: ADA recommended refe rence rangeRandom Glucose Reference Range is dependent on time and content of last meal. Glucose of more than 200 mg/dL in a nonstressed, ambulatory subject supports the diagnosis of Diabetes Mellitus. Result Comment: [place] Glucose Reference Range is dependent on time and content of last meal. Glucose of more than 200 mg/dL in a nonstressed, ambulatory subject supports the diagnosis of Diabetes Mellitus. ADA recommended reference range Performed By: #### B MP, LIPASE, HEPATIC, CBC #### [facility] [address] Glucose [Mass/volume] in Uri ne by Test stripOrdered By: Joyce Núñez on 10-17-2024 Glucose Test strip (U) [Mass/Vol] Glucose [Mass/volume] in Urine by Test strip Normal [facility] Glucose Test strip (U) [Mass/Vol] Normal mg/dL Normal [facility] HCG,Qualitative Serumon HCG,Qualitative Serum Negative Normal [facility] Comment on above: Result Comment: PERF ORMED BY: [address] [place] [address] PATHOLOGIST OILER BANDER PORFIRIO SILVA M.D. Performed By: #### B MP, LIPASE, HEPATIC, CBC #### [facility] [address] [place] [address] Hematocrit Auto (Bld) [Volum e fraction]Ordered By: Joyce Núñez on 10-17-2024 Hematocrit (Bld) [Volume fraction] Hematocrit [Volume Fraction] of Blood by Automated count 34.0-46.4 [facility] Hematocrit [Volume Fraction] of Blood by Automated countOrdered By: Joyce Núñez on 10-17-2024 Hematocrit (Bld) [Volume fraction] 40.1 % Normal 34.0-46.4 [facility] Comment on above: Performed By: #### B MP, LIPASE, HEPATIC, CBC #### [address] Hemoglobin Test strip Ql (U) Ordered By: Joyce Núñez on 10-17-2024 Hemoglobin Ql (U) Hemoglobin [Presence] in Urine by Test strip High Negative [facility] Hemoglobin Ql (U) Trace High Negative [facility] Hemoglobin [Mass/volume] in BloodOrdered By: Joyce Núñez on 10-17-2024 Hemoglobin (Bld) [Mass/Vol] Hemoglobin [Mass/volume] in Blood 11.8-15.4 [facility] Hemoglobin (Bld) [Mass/Vol] 13.7 g/dL Normal 11.8-15.4 [facility] Comment on above: Performed By: #### B MP, LIPASE, HEPATIC, CBC #### [address] Hyaline casts [#/area] in Ur ine sediment by Automated countOrdered By: Joyce Núñez on 10-17-2024 Hyaline casts Auto (Urine sed) [#/Area] Hyaline casts [#/area] in Urine sediment by Automated count 0-8 [facility] Hyaline casts Auto (Urine sed) [#/Area] None [LPF] 0-8 [facility] Ketones Test strip Ql (U)Ord ered By: Joyce Núñez on 10-17-2024 Ketones Ql (U) Ketones [Presence] in Urine by Test strip Negative [facility] Ketones [Presence] in Urine by Test stripOrdered By: Joyce Núñez on 10-17-2024 Ketones Ql (U) Negative Normal Negative [facility] Comment on above: Order Comment: Name Collection Type:: Clean-Voided Midstream Performed By: #### C UU, ADDONUAPLUS #### [address] Lactate [Moles/volume] in Se rum or PlasmaOrdered By: Joyce Núñez on 10-17-2024 Lactate [Moles/Vol] Lactate [Moles/volume] in Serum or Plasma 0.5-1.9 [facility] Comment on above: Lactic Acid referenc e range has been updated to 0.5 1.9 mmol/L and the critical range of 2.0 or greater. Lactate [Moles/Vol] 1.1 mmol/L Normal 0.5-1.9 [facility] Comment on above: Lactic Acid referenc e range has been updated to 0.5 1.9 mmol/L and the critical range of 2.0 or greater. Result Comment: Lact ic Acid reference range has been updated to 0.5 ? 1.9 mmol/L and the critical range of 2.0 or greater. PERFORMED BY: [place] [address] PATHOLOGIST OILER BANDER PORFIRIO SILVA M.D. Performed By: #### B MP, LIPASE, HEPATIC, CBC #### [facility] [address] [place] [address] Leukocyte esterase [Presence ] in Urine by Test stripOrdered By: Joyce Núñez on 10-17-2024 Leukocyte esterase Test strip Ql (U) Leukocyte esterase [Presence] in Urine by Test strip High Negative [facility] Leukocyte esterase Test strip Ql (U) 3+ High Negative [facility] Comment on above: Order Comment: Name Collection Type:: Clean-Voided Midstream Performed By: #### C UU, ADDONUAPLUS #### [place] [address] [place] Leukocytes [#/area] in Urine sediment by Automated countOrdered By: Joyce Núñez on 10-17-2024 WBC Auto (Urine sed) [#/Area] Leukocytes [#/area] in Urine sediment by Automated count High 0-4 [facility] WBC Auto (Urine sed) [#/Area] 5-9 [HPF] High 0-4 [facility] Leukocytes [#/volume] correc kenia for nucleated erythrocytes in Blood by Automated counOrdered By: Joyce Núñez on 10-17-2024 WBC corrected for nucl RBC Auto (Bld) [#/Vol] Leukocytes [#/volume] corrected for nucleated erythrocytes in Blood by Automated coun 3.8-11.6 [facility] WBC corrected for nucl RBC Auto (Bld) [#/Vol] 4.4 10*3/uL 3.8-11.6 [facility] Leukocytes [#/volume] in Blo od by Automated countOrdered By: Joyce Núñez on 10-17-2024 WBC (Bld) [#/Vol] 4.4 10*3/uL Normal 3.8-11.6 [facility] Comment on above: Performed By: #### B MP, LIPASE, HEPATIC, CBC #### [facility] [address] Lipase [Enzymatic activity/v olume] in Serum or PlasmaOrdered By: Joyce Núñez on 10-17-2024 Lipase [Catalytic activity/Vol] Lipase [Enzymatic activity/volume] in Serum or Plasma 11.0-82.0 [facility] Lipase [Catalytic activity/Vol] 15.0 U/L Normal 11.0-82.0 [facility] Comment on above: Performed By: #### B MP, LIPASE, HEPATIC, CBC #### [facility] [address] Lymphocytes Auto (Bld) [#/Vo l]Ordered By: Joyce Núñez on 10-17-2024 Lymphocytes (Bld) [#/Vol] Lymphocytes [#/volume] in Blood by Automated count 1.00-4.8 [facility] Lymphocytes [#/volume] in Bl ood by Automated countOrdered By: Joyce Núñze on 10-17-2024 Lymphocytes (Bld) [#/Vol] 1.0 10*3/uL Normal 1.00-4.8 [facility] Comment on above: Performed By: #### B MP, LIPASE, HEPATIC, CBC #### [facility] [address] Lymphocytes/100 WBC Auto (Bl d)Ordered By: Joyce Núñez on 10-17-2024 Lymphocytes/100 WBC (Bld) Lymphocytes/100 leukocytes in Blood by Automated count . [facility] Lymphocytes/100 leukocytes i n Blood by Automated countOrdered By: Joyce Núñez on 10-17-2024 Lymphocytes/100 WBC (Bld) 22.0 % Normal . [facility] Comment on above: Performed By: #### B MP, LIPASE, HEPATIC, CBC #### [facility] [address] [place] [address] MCH Auto (RBC) [Entitic mass ]Ordered By: Joyce Núñez on 10-17-2024 MCH (RBC) [Entitic mass] MCH [Entitic mass] by Automated count 24.7-34.3 [facility] MCH [Entitic mass] by Automa kenia countOrdered By: Joyce Núñez on 10-17-2024 MCH (RBC) [Entitic mass] 30.2 pg Normal 24.7-34.3 [facility] Comment on above: Performed By: #### B MP, LIPASE, HEPATIC, CBC #### [facility] [address] [place] [address] MCHC Auto (RBC) [Mass/Vol]Or dered By: Joyce Núñez on 10-17-2024 MCHC (RBC) [Mass/Vol] MCHC [Mass/volume] by Automated count 32.0-35.0 [facility] MCHC (RBC) [Mass/Vol] 34.3 g/dL 32.0-35.0 [facility] MCV Auto (RBC) [Entitic vol] Ordered By: Joyce Núñez on 10-17-2024 MCV (RBC) [Entitic vol] MCV [Entitic vol ume] by Automated count 80-100 [facility] MCV [Entitic volume] by Auto mated countOrdered By: Joyce Núñez on 10-17-2024 MCV (RBC) [Entitic vol] 88.0 fL Normal 80-100 [facility] Comment on above: Performed By: #### B MP, LIPASE, HEPATIC, CBC #### [facility] [address] [place] [address] [place] Monocyte distribution width [Entitic volume] in Blood by AutomatedOrdered By: Joyce Núñez on 10-17-2024 Monocyte distribution width Auto (Bld) [Entitic vol] Monocyte distribution width [Entitic volume] in Blood by Automated 0.00-20.00 [facility] Monocyte distribution width Auto (Bld) [Entitic vol] 17.43 % 0.00-20.00 [facility] Monocytes Auto (Bld) [#/Vol] Ordered By: Joyce Núñez on 10-17-2024 Monocytes (Bld) [#/Vol] Automated blood monocyte count 0.0-0.8 [facility] Monocytes [#/volume] in Bloo d by Automated countOrdered By: Joyce Núñez on 10-17-2024 Monocytes (Bld) [#/Vol] 0.4 10*3/uL Normal 0.0-0.8 [facility] Comment on above: Performed By: #### B MP, LIPASE, HEPATIC, CBC #### [facility] [address] [place] [address] [place] Monocytes/100 WBC Auto (Bld) Ordered By: Joyce Núñez on 10-17-2024 Monocytes/100 WBC (Bld) Automated monocyte % . [facility] Monocytes/100 leukocytes in Blood by Automated countOrdered By: Joyce Núñez on 10-17-2024 Monocytes/100 WBC (Bld) 8.6 % Normal . [facility] Comment on above: Performed By: #### B MP, LIPASE, HEPATIC, CBC #### [facility] [address] Mucus [Presence] in Urine by AutomatedOrdered By: Joyce Núñez on 10-17-2024 Mucus Auto Ql (U) Mucus [Presence] in Urine by Automated [facility] Mucus Auto Ql (U) Rare [LPF] [facility] Neutrophils Auto (Bld) [#/Vo l]Ordered By: Joyce Núñez on 10-17-2024 Neutrophils (Bld) [#/Vol] Neutrophils [#/volume] in Blood by Automated count 1.8-7.7 [facility] Neutrophils [#/volume] in Bl ood by Automated countOrdered By: Joyce Núñez on 10-17-2024 Neutrophils (Bld) [#/Vol] 3.0 10*3/uL Normal 1.8-7.7 [facility] Comment on above: Performed By: #### B MP, LIPASE, HEPATIC, CBC #### [facility] [address] [place] [address] [place] Neutrophils/100 WBC Auto (Bl d)Ordered By: Joyce Núñez on 10-17-2024 Neutrophils/100 WBC (Bld) Automated neutrophil % . [facility] Neutrophils/100 leukocytes i n Blood by Automated countOrdered By: Joyce Núñez on 10-17-2024 Neutrophils/100 WBC (Bld) 68.0 % Normal . [facility] Comment on above: Performed By: #### B MP, LIPASE, HEPATIC, CBC #### [facility] [address] Nitrite Test strip Ql (U)Ord ered By: Joyce Núñez on 10-17-2024 Nitrite Ql (U) Nitrite [Presence] in Urine by Test strip Negative [facility] Nitrite Ql (U) Negative Negative [facility] No Panel InformationOrdered By: Joyce Núñez on 10-17-2024 Estimated GFR (CKD-EPI) > 60.0 mL/Min [facility] Creatinine Clearance (Chem 64.86 [facility] Nucleated erythrocytes [Pres ence] in Blood by Automated countOrdered By: Joyce Núñez on 10-17-2024 Nucleated RBC Auto Ql (Bld) Nucleated erythrocytes [Presence] in Blood by Automated count 0-0.5 [facility] Nucleated RBC Auto Ql (Bld) 0.0 /100{WBC} 0-0.5 [facility] Platelet mean volume Auto (B ld) [Entitic vol]Ordered By: Joyce Núñez on 10-17-2024 Platelet mean volume (Bld) [Entitic vol] Platelet mean volume [Entitic volume] in Blood by Automated count 6.3-10.7 [facility] Platelet mean volume [Entiti c volume] in Blood by Automated countOrdered By: Joyce Núñez on 10-17-2024 Platelet mean volume (Bld) [Entitic vol] 7.8 fL Normal 6.3-10.7 [facility] Comment on above: Performed By: #### B MP, LIPASE, HEPATIC, CBC #### [facility] [address] [place] [address] Platelets Auto (Bld) [#/Vol] Ordered By: Joyce Núñez on 10-17-2024 Platelets (Bld) [#/Vol] Platelets [#/vol ume] in Blood by Automated count 150-450 [facility] Platelets [#/volume] in Bloo d by Automated countOrdered By: Joyce Núñez on 10-17-2024 Platelets (Bld) [#/Vol] 216 10*3/uL Normal 150-450 [facility] Comment on above: Performed By: #### B MP, LIPASE, HEPATIC, CBC #### [facility] [address] [place] [address] Potassium [Moles/volume] in Serum or PlasmaOrdered By: Joyce Núñez on 10-17-2024 Potassium [Moles/Vol] Potassium [Moles/volume] in Serum or Plasma 3.5-5.1 [facility] Potassium [Moles/Vol] 3.7 mmol/L Normal 3.5-5.1 [facility] Comment on above: Performed By: #### B MP, LIPASE, HEPATIC, CBC #### [facility] [address] [place] [address] Protein Test strip (U) [Mass /Vol]Ordered By: Joyce Núñez on 10-17-2024 Protein (U) [Mass/Vol] Protein [Mass/volume] in Urine by Test strip Negative [facility] Protein (U) [Mass/Vol] Negative Negative [facility] Protein [Mass/volume] in Ser um or PlasmaOrdered By: Joyce Núñez on 10-17-2024 Protein [Mass/Vol] Protein [Mass/volume] in Serum or Plasma 6.4-8.9 [facility] Protein [Mass/Vol] 6.9 g/dL Normal 6.4-8.9 [facility] Comment on above: Performed By: #### B MP, LIPASE, HEPATIC, CBC #### [facility] [address] [place] [address] RBC Auto (Bld) [#/Vol]Ordere d By: Joyce Núñez on 10-17-2024 RBC (Bld) [#/Vol] Erythrocytes [#/volume] in Blood by Automated count 3.60-5.00 [facility] Serum globulin measurement b y calculation (mass/volume)Ordered By: Joyce Núñez on 10-17-2024 Globulin (S) [Mass/Vol] 2.6 g/dL Normal [facility] Comment on above: Performed By: #### B MP, LIPASE, HEPATIC, CBC #### [address] Serum or plasma albumin/glob ulin mass ratioOrdered By: Joyce Núñez on 10-17-2024 Albumin/Globulin [Mass ratio] Serum or plasma albumin/globulin mass ratio [facility] Albumin/Globulin [Mass ratio] 1.7 {ratio} Normal [facility] Comment on above: Performed By: #### B MP, LIPASE, HEPATIC, CBC #### [address] Serum or plasma anion gap de terminationOrdered By: Joyce Núñez on 10-17-2024 Anion gap [Moles/Vol] Serum or plasma anion gap determination 6.0-15.0 [facility] Anion gap [Moles/Vol] 12.0 mmol/L Normal 6.0-15.0 [facility] Comment on above: Performed By: #### B MP, LIPASE, HEPATIC, CBC #### [facility] [address] [place] [address] Sodium [Moles/volume] in Ser um or PlasmaOrdered By: Joyce Núñez on 10-17-2024 Sodium [Moles/Vol] Sodium [Moles/volume] in Serum or Plasma 136-145 [facility] Sodium [Moles/Vol] 139 mmol/L Normal 136-145 [facility] Comment on above: Performed By: #### B MP, LIPASE, HEPATIC, CBC #### [facility] [address] Specific gravity Test strip (U) [Rel density]Ordered By: Joyce Núñez on 10-17-2024 Specific gravity (U) [Rel density] Specific gravity of Urine by Test strip 1.001-1.030 [facility] Specific gravity (U) [Rel density] 1.014 1.001-1.030 [facility] Troponin I High Sensitivityo n 10-17-2024 Troponin I High Sensitivity <3 Normal 0-15 [facility] Comment on above: Result Comment: The Troponin units of report have been changed to meet the Chest Pain Accreditation requirement, element EC5.M1l2. Troponin units are changed from pg/ml to ng/L. Also, the decimal is removed and results are in whole numbers. PERFORMED BY: [facility] [address] [facility] [place] [address] PATHOLOGIST OILER BANDER PORFIRIO SILVA M.D. Performed By: #### B MP, LIPASE, HEPATIC, CBC #### [facility] [address] Troponin I.cardiac [Mass/vol ume] in Serum or Plasma by Detection limit <= 0.01 ng/Ordered By: Joyce Núñez on 10-17-2024 Troponin I.cardiac DL <= 0.01 ng/mL [Mass/Vol] Troponin I.cardiac [Mass/volume] in Serum or Plasma by Detection limit <= 0.01 ng/ 0-15 [facility] Comment on above: The Troponin units o f report have been changed to meet the Chest Pain Accreditation requirement, element EC5.M1l2. Troponin units are changed from pg/ml to ng/L. Also, the decimal is removed and results are in whole numbers. Troponin I.cardiac [Mass/vol ume] in Serum or Plasma by Detection limit <= 0.01 ng/mLOrdered By: Joyce Núñez on 10-17-2024 Troponin I.cardiac DL <= 0.01 ng/mL [Mass/Vol] < 3 ng/L 0-15 [facility] Comment on above: The Troponin units o f report have been changed to meet the Chest Pain Accreditation requirement, element EC5.M1l2. Troponin units are changed from pg/ml to ng/L. Also, the decimal is removed and results are in whole numbers. Urea nitrogen [Mass/volume] in Serum or PlasmaOrdered By: Joyce Núñez on 10-17-2024 Urea nitrogen [Mass/Vol] Urea nitrogen [Mass/volume] in Serum or Plasma 01-05 [facility] Urea nitrogen [Mass/Vol] 13 mg/dL Normal 01-05 [facility] Comment on above: Performed By: #### B MP, LIPASE, HEPATIC, CBC #### [facility] [address] Urine Cultureon 10-17-2024 Bacteria identified Cx Nom (U) >100,000 colonies/ml mixed bacterial skin contaminants 2 Days PERFORMED BY: [place] [address] PATHOLOGIST OILER BANDER PORFIRIO SILVA M.D. Normal [facility] Comment on above: Performed By: #### B MP, LIPASE, HEPATIC, CBC #### [facility] [address] Urine cultureOrdered By: Ginny Núñez on 10-17-2024 Bacteria identified Cx Nom (U) Urine culture [facility] Bacteria identified Cx Nom (U) 2 Days [facility] Urobilinogen Test strip (U) [Mass/Vol]Ordered By: Joyce Núñez on 10-17-2024 Urobilinogen (U) [Mass/Vol] Urobilinogen [Mass/volume] in Urine by Test strip Normal [facility] Urobilinogen (U) [Mass/Vol] Normal mg/dL Normal [facility] WBC Auto (Bld) [#/Vol]Ordere d By: Joyce Núñez on 10-17-2024 WBC (Bld) [#/Vol] Leukocytes [#/volume] in Blood by Automated count 3.8-11.6 [facility] X-ray reportOrdered By: Remy Payne on 10-17-2024 Study report [facility] [address] [place] [address] [place] [address] XRay Report Signed Patient: Angelita Sherman MR#: [id number] : 1985 Acct:[id number] Age/Sex: 39 / F ADM Date: 5 Loc: ER Room: Type: [facility] ER Attending Dr: Copies to: Joyce Núñez DO~ Ordering Provider: Joyce Núñez DO Date of Service: 10/17/24 XR/XR chest 2V*: syncope PA AND LATERAL CHEST: CLINICAL HISTORY: Weakness, shortness breath COMPARISON: None FINDINGS: Pectus deformity. No focal airspace opacity effusion or pneumothorax. Unremarkable cardiomediastinal silhouette. XR/XR chest 2V* IMPRESSION: NO ACUTE CARDIOPULMONARY ABNORMALITY. Impression dictated by: J Carlos Payne M.D. 10/17/2024 1:41 PM Dictation Location: [facility]- Transcribed By: MELANIE 10/17/24 1341 Dictated By: J Carlos Payne MD 10/17/24 1340 Signed By: 10/17/24 1341 [facility] Work Phone: XR chest 2V*on 10-17-2024 XR chest 2V* [facility] [address] [place] [address] [place] [address] XRay Report Signed Patient: Angelita Sherman MR#: [id number] : 1985 Acct:[id number] Age/Sex: 39 / F ADM Date: 10/17/24 Loc: ER Room: Type: [facility] ER Attending Dr: Copies to: Joyce Núñez DO Ordering Provider: Joyce Núñez DO Date of Service: 10/17/24 XR/XR chest 2V*: syncope PA AND LATERAL CHEST: CLINICAL HISTORY: Weakness, shortness breath COMPARISON: None FINDINGS: Pectus deformity. No focal airspace opacity effusion or pneumothorax. Unremarkable cardiomediastinal silhouette. XR/XR chest 2V* IMPRESSION: NO ACUTE CARDIOPULMONARY ABNORMALITY. Impression dictated by: J Carlos Payne M.D. 10/17/2024 1:41 PM Dictation Location: [place] [address] Transcribed By: [facility] 10/17/24 1341 Dictated By: J Carlos Payne MD 10/17/24 1340 Signed By: 10/17/24 1341 Normal [facility] pH Test strip (U)Ordered By: Joyce Núñez on 10-17-2024 pH (U) pH of Urine by Test strip 5.0-9.0 [facility] pH of Urine by Test stripOrd ered By: Joyce Núñez on 10-17-2024 pH (U) 7.0 [pH] Normal 5.0-9.0 [facility] Comment on above: Order Comment: Name Collection Type:: Clean-Voided Midstream Performed By: #### C UU, BEKA #### [address] Urineon 10-14-2024 Bacteria identified Cx Nom (U) Microbiology PROCEDURE: Urine Culture [R1] SOURCE: U CleanCatch BODY SITE: COLLECTED DATE/TIME: 10/12/2024 08:21 EDT RECEIVED DATE/TIME: 10/12/2024 10:39 EDT START DATE/TIME: 10/12/2024 10:39 EDT FREE TEXT SOURCE: LEEANN PALAFOX, LEEANN PALAFOX, JESUS LEE FINAL REPORTS Final Report [] Verified Date/Time: 10/14/2024 06:38 EDT <10,000 cfu/ml Mixed skin contaminants Performing Locations R1: [facility], [address] [place] [address], [phone] , [place], Normal [facility] Comment on above: Performed By: #### 2 [id number] #### [facility] [address] [place] [address] Main OR Intraoperative Recor don 10-13-2024 Main OR Intraoperative Record Main OR Intraoperative Record IntraOp Document Type FT Summary Primary Physician: JESUS RIVERA MD Finalized Date/Time: 10/13/24 11:28:03 Pt. Name: ANGELITA SHERMAN Anthony /Sex: 1985 Female Med Rec #: [id number] Physician: JESUS RIVERA MD Financial #: [id number] Pt. 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 Protocols FT Pre-Care Text: Implements protective measures prior to operative or invasive procedure, confirms identity before the operative or invasive procedure, verifies operative procedure, surgical site, and laterality Entry 1 Procedure(s) EXTRACORPOREAL SHOCK Patient Identity Birthday, ID Band WAVE LITHOTRIPSY(.) Verified (select at Check, Patient least 2): Participation Consents / H and P Anesthesia Consent, Operative Site Present Verified H&P, Surgery/Procedure Marking Verified Consent Surgical Site Yes Laterality Verified Yes Verified Procedure Verified Yes Correct Patient Yes Position Verified Availability Equipment, X-ray Prep Dry n/a Verified (If Applicable) PreOp Antibiotic Yes Time Out Alondra Diaz CRNA, Given Participants JESUS RIVERA MD, Ott RN, Jared Bass CST, Beau Time Out Complete 10/12/24 09:22:00 Outcomes Met? Yes Last Modified By: Zayra Duvall RN 10/12/24 09:23:58 Post-Care Text: The patient is free from signs and symptoms of injury caused by extraneous objects Allergy Information FT Pre-Care Text: Verifies allergies Entry 1 Allergies Reviewed? Yes Allergies Reviewed Self/Patient With Outcomes Met? Yes Last Modified By: Zayra Duvall RN 10/12/24 09:22:57 Post-Care Text: The patient received appropriate medication(s) safely administered during the perioperative period Surgical Procedures FT Entry 1 Procedure Description Procedure EXTRACORPOREAL SHOCK Modifiers . WAVE LITHOTRIPSY Surgeon Description LEFT ESWL Primary Procedure Yes Primary Surgeon JESUS RIVERA MD Start 10/12/24 09:26:00 Stop 10/12/24 09:42:00 Anesthesia Type General Surgical Service Urology Wound Class 1 - Clean Last Modified By: Zayra Duvall RN 10/12/24 09:42:24 General Case Data FT Pre-Care Text: Classifies surgical wound, implements aseptic technique, initiates traffic control Entry 1 Case Information OR OR 5 FT Case Level Level 2 Wound Class 1 - Clean Specialty Transplant Preop Diagnosis LEFT KIDNEY STONE Postop Same As Preop Yes Postop Diagnosis LEFT KIDNEY STONE Outcomes Met? Yes Last Modified By: Zayra Duvall RN 10/12/24 09:23:16 Post-Care Text: The patient is free from signs and symptoms of infection Skin Assessment (Pre Procedure) FT Pre-Care Text: Implements protective measures to prevent skin/ tissue injury due to thermal or mechanical sources Evaluates for signs and symptoms of physical injury to skin and tissue Entry 1 Skin Integrity Intact, [place], Warm, & Skin Abnormality No Dry Outcomes Met? Yes Last Modified By: Zayra Duvall RN 10/12/24 09:23:30 Post-Care Text: The patient is free from signs and symptoms of injury caused by extraneous objects Patient Positioning FT Pre-Care Text: Identifies physical alterations that require additional precautions for procedure-specific positioning, verifies presence of prosthetics or corrective devices, positions the patient, evaluates the patient for signs and symptoms of injury as a result of positioning Entry 1 Procedure EXTRACORPOREAL SHOCK Body Position Supine WAVE LITHOTRIPSY(.) Feet Uncrossed? Yes Left Arm Position Resting at Side Right Arm Position Resting at Side Left Leg Position Extended Right Leg Position Ext (more content not included)... Normal [facility] Discharge Instructionson Discharge Instructions Discharge Instructions SHERMAN ANGELITA Cruz :1985 Visit Date:10/12/2024 Inpatient Discharge Instructions Your Care Team Admitting Physician - JESUS RIVERA MD Referring Physician - JESUS RIVERA MD Reason for Your Visit LEFT KIDNEY STONE Tests Performed Urine Culture -- Results Pending -- XR Abdomen 1 View Please visit your patient portal for your results or contact your primary care physician. This Is Your Medications List acetaminophen (acetaminophen 500 mg Tab) albuterol (Ventolin 90 mcg/inh Aerosol) duloxetine (duloxetine 30 mg Cap-DR) hyoscyamine (hyoscyamine 0.125 mg sublingual Tab) ibuprofen (ibuprofen 800 mg Tab) multivitamin, (multivitamin, with Folic Acid 1 mg Tab) omeprazole (omeprazole 20 mg Cap-DR) ondansetron (ondansetron 4 mg Dis Tab) oxycodone (Roxicodone 5 mg Tab) tamsulosin (Flomax 0.4 mg Cap) tamsulosin (tamsulosin 0.4 mg Cap) Procedure History Excisional biopsy of breast (05/2012), Insertion of ureteral stent with ureterotomy (2009), section (2005), Laparoscopic cholecystectomy (2002), EGD (esophagogastroduode noscopic) electrohydraulic lithotripsy of bezoar in stomach, Extraction of impacted wisdom tooth, Stone retrieval basket. Discharge Vitals Temperature (Temporal Artery) 36.3 ???C Heart Rate (Monitored) 58 Respiratory Rate 16 Blood Pressure 117/74 Height 184.0 cm Weight 44.5 kg What to do next Instructions From Your Doctor Event Name Event Result Discharge Instructions Freetext Hydrate w/ at least 2L/day Pain control w/ tylenol, motrin Roxicodone for breakthrough Flomax to help with stone passageF/u in 6 weeks w/ LD prior Discharge Activity Ambulate as tolerated, Resume normal activities in 24 hours, Arrange for a responsible adult supervision for 24 hours, Expect mild pain, Expect minimal amount of drainage and/or bleeding Discharge Restrictions No driving for 24 hrs Discharge Diet(s) Regular Call Your Doctor For Temperature above 101.5 degrees, Redness, swelling, or pus at operative site, Severe pain at the operative site Discharge Instructions Discharge Instructions New Follow Up Appointments after Discharge Follow Up with JESUS RIVERA When: Comments: 6 weeks Medications What How Much When Instructions Next Dose New oxycodone (Roxicodone 5 mg Tab) 1 Tablets By Mouth Every 6 hours as needed for for pain Duration: 2 Days Pickup at [facility]/pharmacy #[id number] Changed tamsulosin (Flomax 0.4 mg Cap) 1 Capsules By Mouth Every day Pickup at [facility]/pharmacy #[id number] Changed tamsulosin (tamsulosin 0.4 mg Cap) 1 Capsules By Mouth Every day Unchanged acetaminophen (acetaminophen 500 mg Tab) 1 Tablets By Mouth Every 4 hours as needed for for pain Unchanged albuterol (Ventolin 90 mcg/ inh Aerosol) 2 Puffs Inhalation 4 x a day Unchanged duloxetine (duloxetine 30 mg Cap-DR) 1 Capsules By Mouth 2 times a day (do not crush or chew) Unchanged hyoscyamine (hyoscyamine 0.125 mg sublingual Tab) 1 Tablets Unchanged ibuprofen (ibuprofen 800 mg Tab) 1 Tablets Unchanged multivitamin, (multivitamin, with Folic Acid 1 mg Tab) 1 Capsules By Mouth Every day Unchanged omeprazole (omeprazole 20 mg Cap-DR) 40 Milligram By Mouth Every day Unchanged ondansetron (ondansetron 4 mg Dis Tab) Pharmacy Information [facility]/pharmacy #[id number]: [address], [place] [id number] [phone] Allergies Glutens Lorabid (Itching, Hives) codeine (Hives, Itching, Swelling) shellfish (Itching, Swelling, Hives, Difficulty breathing) Education Materials Common Emergency Awareness Tips IS IT A STROKE? Act FAST and Check for these signs: FACE Does the face look uneven? ARM Does one arm drift down? SPEECH Does their speech sound strange? TIME Call at any sign of stroke Heart Attack Signs Chest discomfort: Most heart attacks involve discomfort in the center of the chest and lasts more than a few minutes, or goes away and comes back. It can feel like uncomfortable pressure, squeezing, fullness or pain. Discomfort in upper body: Symptoms can include pain or discomfort in one or both arms, back, neck, jaw or stomach. Shortness of breath: With or without discomfort. Other signs: Breaking out in a cold sweat, nausea, or lightheaded. Remember, MINUTES DO MATTER. If you experience any of these heart attack warning signs, call to get immediate medical attention! Patient Survey You may receive a survey in the mail asking you about your stay with us. We want to hear from you, please share your experience with us by completing your survey. Thank you for choosing [facility]. Brenda Award Nomination The BRENDA (Diseases Attacking the Immune SYstem) Award is an international recognition program that honors and celebrates the skillful, compassionate care nurses provide every day. Anyone who exp (more content not included)... [facility] Comment on above: Result Comment: Elec tronically Signed By: Uma LIM, Lucero Nevarez\.cesar\Date and Time Signed: 10/12/24 11:07 EDT Main OR PACU I Recordon Main OR PACU I Record Main OR PACU I Record PACU Phase I Document Type FT Summary Primary Physician: JESUS RIVERA MD Finalized Date/Time: 10/12/24 10:54:14 Pt. Name: ANGELITA SHERMAN/Sex: 1985 Female Med Rec #: [id number] Physician: JESUS RIVERA MD Financial #: [id number] Pt. Type: A Room/Bed: [facility] Admit/Disch: 10/12/24 07:41:00 - Institution: Case Times PACU I FT Pre-Care Text: Identifies barriers to communication and implements measures to provide psychological support Develops individualized plan of care, and ensures continuity of care Maintains patient's dignity and privacy, and maintains patient confidentiality Identifies and reports philosophical, cultural, and spiritual beliefs and values Identifies individual values and wishes concerning care Implements aseptic technique, and administers prescribed antibiotic therapy and immunizing agents as ordered Evaluates postoperative tissue perfusion Implements thermoregulation measures, and monitors body temperature Evaluates postoperative respiratory status Evaluates postoperative cardiac status Evaluates postoperative neurological status Assesses pain control, collaborated in initiating patient-controlled analgesia and implements alternative methods of pain control Verifies allergies, administers prescribed medications and solutions, evaluates response to medications Entry 1 In PACU I 10/12/24 09:47:00 Discharge from PACU 10/12/24 10:40:00 I Outcomes Met? Yes Last Modified By: Flory Mccoy RN 10/12/24 10:54:02 Post-Care Text: The patient demonstrates knowledge of the expected response to the operative or invasive procedure The patient's care is consistent with the individualized perioperative plan of care The patient's right to privacy is maintained The patient's value system, lifestyle, ethnicity, and culture are considered, respected, and incorporated into the perioperative plan of care The patient participates in decisions affecting his or her perioperative plan of care The patient is free from signs and symptoms of infection The patient has wound/tissue perfusion consistent with or improved from baseline levels established preoperatively The patient is at or returning to normothermia at the conclusion of the immediate postoperative period The patient's respiratory function is consistent with or improved from baseline levels established preoperatively The patient's cardiovascular status is consistent with or improved from baseline levels established preoperatively The patient's cardiovascular status is consistent with or improved from baseline levels established preoperatively The patient demonstrates and/or reports adequate pain control throughout the perioperative period The patient received appropriate medication(s), safely administered during the perioperative period Acuity Level PACU I FT Entry 1 Start Time 10/12/24 09:47:00 Stop Time 10/12/24 10:40:00 Acuity Level Acuity Level I Last Modified By: Flory Mccoy RN 10/12/24 10:54:11 Finalized By: Flory Mccoy RN Document Signatures Signed By: Flory Mccoy RN 10/12/24 10:[address] [facility] Main OR PACU II Recordon Main OR PACU II Record Main OR PACU II Record PACU Phase II Document Type FT Summary Primary Physician: JESUS RIVERA MD Finalized Date/Time: 10/12/24 14:51:36 Pt. Name: ANGELITA SHERMAN Anthony Pisano./Sex: 1985 Female Med Rec #: [id number] Physician: JESUS RIVERA MD Financial #: [id number] Pt. Type: A Room/Bed: [facility] Admit/Disch: 10/12/24 07:41:00 - 10/12/24 12:20:00 Institution: Case Times PACU II FT Pre-Care Text: Identifies barriers to communication and implements measures to provide psychological support and determines knowledge level Develops individualized plan of care, and ensures continuity of care Maintains patient's dignity and privacy, and maintains patient confidentiality Identifies and reports philosophical, cultural, and spiritual beliefs and values Identifies individual values and wishes concerning care administers prescribed antibiotic therapy and immunizing agents as ordered, Evaluates postoperative tissue perfusion Implements thermoregulation measures, and monitors body temperature Evaluates postoperative respiratory status Evaluates postoperative cardiac status Evaluates postoperative neurological status Assesses pain control, collaborated in initiating patient-controlled analgesia and implements alternative methods of pain control Verifies allergies, administers prescribed medications and solutions, evaluates response to medications Entry 1 In PACU II 10/12/24 10:40:00 Discharge from PACU 10/12/24 12:20:00 II Outcomes Met? Yes Last Modified By: Lucero Eaton RN 10/12/24 14:51:34 Post-Care Text: The patient demonstrates knowledge of the expected response to the operative or invasive procedure The patient's care is consistent with the individualized perioperative plan of care The patient's right to privacy is maintained The patient's value system, lifestyle, ethnicity, and culture are considered, respected, and incorporated into the perioperative plan of care The patient participates in decisions affecting his or her perioperative plan of care. The patient is free from signs and symptoms of infection The patient has wound/tissue perfusion consistent with or improved from baseline levels established preoperatively The patient is at or returning to normothermia at the conclusion of the immediate postoperative period The patient's respiratory function is consistent with or improved from baseline levels established preoperatively The patient's cardiovascular status is consistent with or improved from baseline levels established preoperatively The patient's neurological status is consistent with or improved from baseline levels established preoperatively The patient demonstrates and/or reports adequate pain control throughout the perioperative period The patient received appropriate medication(s), safely administered during the perioperative period Finalized By: Lucero Eaton RN Document Signatures Signed By: Lucero Eaton RN 10/12/24 14:[address] [facility] Main OR Preoperative Recordo n 10-12-2024 Main OR Preoperative Record Main OR Preoperative Record PreOp Document Type FT Summary Primary Physician: JESUS RIVERA MD Finalized Date/Time: 10/12/24 09:24:48 Pt. Name: JASMYN SHERMANSEB Casas/Sex: 1985 Female Med Rec #: [id number] Physician: JESUS RIVERA MD Financial #: [id number] Pt. Type: A Room/Bed: [facility] Admit/Disch: 10/12/24 07:41:00 - Institution: Case Times PreOp FT Pre-Care Text: Verifies consent for planned procedure, identifies individual values and wishes concerning care, includes family members in perioperative teaching Entry 1 Patient Times. In Pre Surgery 10/12/24 08:00:00 Out Pre Surgery 10/12/24 09:14:00 Outcomes Met? Yes Last Modified By: Zayra Duvall RN 10/12/24 09:24:47 Post-Care Text: The patient participates in decisions affecting his or her perioperative plan of care Finalized By: Zayra Duvall RN Document Signatures Signed By: Zayra Duvall RN 10/12/24 09:[address] [facility] Operative Reporton Operative Report Operative Report Patient: ANGELITA SHERMAN Age: 39 years Sex: Female : 1985 Associated Diagnoses: None Author: JESUS RIVERA MD Procedure SURGEON: Dr. Jesus Rivera MD PREOPERATIVE DIAGNOSIS: left renal pelvis stone POSTOPERATIVE DIAGNOSIS: Same PROCEDURE: left extracorporeal shockwave lithotripsy FINDINGS: Shadowing of stone seen on initial x-ray with excellent breakage of stone to dust like particles at conclusion of procedure with 2000 shocks ANESTHESIA: General with LMA INTRAVENOUS FLUIDS: IV crystalloid ESTIMATED BLOOD LOSS: None TUBES AND DRAINS: None SPECIMENS: None COMPLICATIONS: None INDICATIONS FOR PROCEDURE: Patient is a 39-year-old female with left-sided flank pain and a left renal pelvis stone seen on CT scan. I discussed with her that it is unlikely that the stone is the cause of her pain but she has been having unrelenting pain and wanted her stone treated. I discussed the treatment options with patient who has agreed to have a left extracorporeal shockwave lithotripsy. Prior to the procedure today, the patient???s history and physical was obtained and reviewed and the contraindications to the procedure were reviewed and confirmed to not be present including presence of , renal or abdominal aortic aneurysm, coagulopathy, urinary tract infection. The risks and benefits of the procedure including pain, damage to organs, bleeding, hematoma, infection and complications from anesthesia and other complications were discussed, patient acknowledged and communicated understanding of these and wished to proceed with the procedure. Informed consent was obtained and all questions were satisfactorily answered. OPERATIVE DETAIL: The patient was transferred to the operating room suite and placed on continuous pulse oximetry and cardiac monitoring by anesthesia. There were no antibiotics given. IV sedation and general anesthetic were administered. The patient was placed in the supine position over the Storz F2 lithotripter and the ultrasound probe. A discussion with anesthesia occurred regarding the risk of cardiac arrythmia and the need for vigilance. The stone was then identified using x-ray imaging and the patient was centered over the area of the stone on the ultrasound probe. At this point, anesthesia was administered. SCDs were on and functioning and a time-out was performed. Starting at a power of 5 and continuing only at the power of 5, the stone was shocked at 90 shocks per minute for a total of 2000 shocks. At the end of the procedure, there was noted to be expansion of the left proximal ureter , which was the only stone that was worked on during this procedure and lightening of the stone, giving some information that indicated there is some fragmentation of the stone. The patient did tolerate the procedure well, there were no arrythmias observed or reported from anesthesia and no skin changes observed over the area of shockwave. The patient was then transferred to PACU in stable condition. Please note that I was present throughout the entire length of the procedure. PLAN: The patient will be discharged home after meeting anesthesia criteria. Prescriptions for roxicodone and flomax were provided. The patient understands if there is any nausea, vomiting, fever, chills or develops gross hematuria, persistent or new pain or symptoms to come back to the Emergency Room for evaluation by urologic surgery. Patient to follow up in the next month for follow up appointment and follow up KUB. [facility] Comment on above: Result Comment: Elec tronically Signed By: LEEANN PALAFOX, JESUS\.br\Date and Time Signed: 10/12/24 11:27 EDT SEROLOGYOrdered By: Sobeida Dixon on 10-12-2024 HCG.beta subunit (U) [Moles/Vol] Negative Normal [facility] Sero U BetaHcg [place] 10-12-2024 HCG.beta subunit (U) [Moles/Vol] Negative Normal [facility] Comment on above: Performed By: #### 2 [id number] #### [facility] [address] [place] [address] UA with Cult Rflxon 10-13-19 25 Bacteria Auto Ql (U) Trace Normal Trace Fish [facility] Comment on above: Performed By: #### 4 [id number] #### [facility] [address] [place] [address] Bilirubin Ql (U) Negative Normal Negative [facility] Comment on above: Performed By: #### 4 [id number] #### [facility] [address] [place] [address] Clarity (U) Clear Normal Clear [facility] Comment on above: Performed By: #### 4 [id number] #### [facility] [address] [place] [address] Color (U) Light-Yellow Normal Yellow [facility] Comment on above: Result Comment: Micr oscopic readings are only performed on those samples that meet specific criteria set forth by [facility]. Performed By: #### 4 [id number] #### [facility] [address] [place] [address] Epithelial cells.squamous Auto (Urine sed) [#/Area] 0-2 Invalid Interpretation Code [facility] Comment on above: Performed By: #### 4 [id number] #### [facility] [address] [place] [address] Glucose Ql (U) Negative Normal Negative [facility] Comment on above: Performed By: #### 4 [id number] #### [facility] [address] [place] [address] Hemoglobin Auto test strip (U) [Mass/Vol] 3+ mg/dL Abnormal Negative [facility] Comment on above: Performed By: #### 4 [id number] #### [facility] [address] [place] [address] Ketones Auto test strip Ql (U) Negative Normal Negative [facility] Comment on above: Performed By: #### 4 [id number] #### [facility] [address] [place] [address] Leukocyte esterase Auto test strip Ql (U) 75 John/uL Abnormal Negative [facility] Comment on above: Performed By: #### 4 [id number] #### [facility] [address] [place] [address] Mucus Auto Ql (U) Trace Normal Negative [facility] Comment on above: Performed By: #### 4 [id number] #### [facility] [address] [place] [address] Nitrite Auto test strip Ql (U) Negative Normal Negative [facility] Comment on above: Performed By: #### 4 [id number] #### [facility] [address] [place] [address] pH (U) 5.5 [pH] Invalid Interpretation Code 5.0-9.[address] [facility] Comment on above: Performed By: #### 4 [id number] #### [facility] [address] [place] [address] Protein Ql (U) Negative Normal Negative [facility] Comment on above: Performed By: #### 4 [id number] #### [facility] [address] [place] [address] RBC Ql (U) >75 Abnormal 0-[address] [facility] Comment on above: Performed By: #### 4 [id number] #### [facility] [address] [place] [address] Specific gravity (U) [Rel density] 1.018 Invalid Interpretation Code 1.005-1.[address] [facility] Comment on above: Performed By: #### 4 [id number] #### [facility] [address] [place] [address] Urobilinogen (U) [Mass/Vol] Negative Normal Negative [facility] Comment on above: Performed By: #### 4 [id number] #### [facility] [address] [place] [id number] WBC Auto (Urine sed) [#/Area] 6-15 Abnormal 0-[address] [facility] Comment on above: Performed By: #### 4 [id number] #### [facility] [address] [place] [address] Type of Urine collection method Clean Catch Normal [facility] Comment on above: Performed By: #### 4 [id number] #### [facility] [address] [place] [address] URINALYSISOrdered By: SYSTEM SYSTEM on 10-12-2024 Bacteria Auto Ql (U) Trace /HPF Normal Trace/HPF [facility] UA Auto SS Bilirubin Ql (U) Negative Normal Negativemg/ d L [facility] UA Auto SS Clarity (U) Clear (10/12/24 8:21 AM) Normal Clear [facility] UA Auto SS Color (U) Light-Yellow 1 (10/12/24 8:21 AM) Normal Yellow [facility] UA Auto SS Comment on above: Interpretive Data: M icroscopic readings are only performed on those samples that meet specific criteria set forth by [facility]. Epithelial cells.squamous Auto (Urine sed) [#/Area] 0-2 graded/HPF Invalid Interpretation Code [facility] UA Auto SS Glucose Ql (U) Negative Normal Negativemg/d L [facility] UA Auto SS Hemoglobin Auto test strip (U) [Mass/Vol] 3+ mg/dL Invalid Interpretation Code Negativemg/d L [facility] UA Auto SS Ketones Auto test strip Ql (U) Negative Normal Negativemg/d L [facility] UA Auto SS Leukocyte esterase Auto test strip Ql (U) 75 John/uL John/uL Invalid Interpretation Code NegativeLeu/ uL [facility] UA Auto SS Mucus Auto Ql (U) Trace graded/LPF Normal Negati vegrad ed/LPF [facility] UA Auto SS Nitrite Auto test strip Ql (U) Negative Normal Negativemg/d L [facility] UA Auto SS pH (U) 5.5 *NA* (10/12/24 8:21 AM) Invalid Interpretation Code 5.0 - 9.0 [facility] UA Auto SS Protein Ql (U) Negative Normal Negativemg/d L [facility] UA Auto SS RBC Ql (U) >75 graded/HPF Invalid Interpretation Code 0-3graded/HP F [facility] UA Auto SS Specific gravity (U) [Rel density] 1.018 *NA* (10/12/24 8:21 AM) Invalid Interpretation Code 1.005 - 1.030 [facility] UA Auto SS Urobilinogen (U) [Mass/Vol] Negative Normal Negativemg/d L [facility] UA Auto SS WBC Auto (Urine sed) [#/Area] 6-15 graded/HPF Invalid Interpretation Code 0-5graded/HP F [facility] UA Auto SS URINALYSISOrdered By: Yamilet Funes on 10-12-2024 UA Spec Desc Clean Catch (10/12/24 8:21 AM) Normal [facility] UA Auto SS XR Abdomen 1 Viewon 10-13-19 XR Abdomen 1 View Exam Date/Time: 10/12/2024 08:01 EDT Reason for Exam: Kidney stone Report IMPRESSION: NO DEFINITIVE URINARY TRACT CALCULI IDENTIFIED BY RADIOGRAPHY. EXAMINATION: XR Abdomen 1 View HISTORY: Kidney stone. Flank pain. TECHNIQUE: Frontal view of the abdomen and pelvis COMPARISON: FINDINGS: No calcifications identified over the bilateral renal shadows or expected course of the ureters. Evaluation for left renal calculi is obscured by bowel contents. Nonobstructive bowel gas pattern. No evidence of free air. No acute osseous abnormality. Ordering Provider: JESUS RIVERA FINAL REPORT Dictated: 10/12/2024 8:55 am Orlin Cary DO Signed (Electronic Signature): 10/12/2024 8:55 am Signed by: Orlin Cary DO Transcribed by: ROJAS Technologist: AJ Lopez [facility] Basophils Auto (Bld) [#/Vol] Ordered By: Radha Bustos on 10-04-2024 Basophils (Bld) [#/Vol] Automated basoph il count 0.0-0.2 [facility] Basophils [#/volume] in Bloo d by Automated countOrdered By: Radha Bustos on 10-04-2024 Basophils (Bld) [#/Vol] 0.0 10*3/uL Normal 0.0-0.2 [facility] Comment on above: Result Comment: PERF ORMED BY: [place] [address] PATHOLOGIST OILER BANDER PORFIRIO SILVA M.D. Performed By: #### B MP, LIPASE, HEPATIC, CBC #### [facility] [address] [place] [address] Basophils/100 WBC Auto (Bld) Ordered By: Radha Bustos on 10-04-2024 Basophils/100 WBC (Bld) Automated basophil % . [facility] Basophils/100 leukocytes in Blood by Automated countOrdered By: Radha Bustos on 10-04-2024 Basophils/100 WBC (Bld) 0.3 % Normal . [facility] Comment on above: Performed By: #### B MP, LIPASE, HEPATIC, CBC #### [facility] [address] [place] [address] Complete Blood Count Auto Di ffon 10-04-2024 Mean Corpuscular HGB Conc 33.8 g/dL Normal 32.0-35.0 [facility] Comment on above: Performed By: #### B MP, LIPASE, HEPATIC, CBC #### [facility] [address] NRBC% 0.1 /100{WBC} Normal 0-0.5 [facility] Comment on above: Performed By: #### B MP, LIPASE, HEPATIC, CBC #### [facility] [address] ECG 12 lead ECGon 10-04-2024 ECG 12 lead ECG [facility] [place] [address] [place] [address] Electrocardiograph Report Signed Patient: Angelita Sherman MR#: [id number] : 1985 Acct:[id number] Age/Sex: 39 / F ADM Date: 10/04/24 Loc: [facility] Room: Type: [facility] Attending Dr: Jana Ignacio DO Ordering Provider: Jana Ignacio DO Date of Service: 10/04/24/ ECG/ECG 12 lead ECG: R00.2, z01.810 Copies to: Test Reason : Blood Pressure : */* mmHG Vent. Rate : 71 BPM Atrial Rate : 71 BPM P-R Int : 136 ms QRS Dur : 80 ms QT Int : 394 ms P-R-T Axes : 73 84 59 degrees QTcB Int : 428 ms Normal sinus rhythm with sinus arrhythmia Possible Left atrial enlargement Borderline ECG No previous ECGs available Confirmed by JOSE ALBERTO PALAFOX [facility], AMADEO ([id number]) on 10/05/2024 1:49:44 PM Referred By: Electronically Signed By: AMADEO ABRAMS MD [facility] Transcribed By: MUS Signed By Amadeo Abrams MD, [facility] 10/05/24 1349 Normal [facility] Eosinophils Auto (Bld) [#/Vo l]Ordered By: Radha Bustos on 10-04-2024 Eosinophils (Bld) [#/Vol] Automated eosinophil count 0.0-0.45 [facility] Eosinophils [#/volume] in Bl ood by Automated countOrdered By: Radha Bustos on 10-04-2024 Eosinophils (Bld) [#/Vol] 0.2 10*3/uL Normal 0.0-0.45 [facility] Comment on above: Performed By: #### B MP, LIPASE, HEPATIC, CBC #### [facility] [address] Eosinophils/100 WBC Auto (Bl d)Ordered By: Radha Bustos on 10-04-2024 Eosinophils/100 WBC (Bld) Automated eosinophil % . [facility] Eosinophils/100 leukocytes i n Blood by Automated countOrdered By: Radha Bustos on 10-04-2024 Eosinophils/100 WBC (Bld) 2.2 % Normal . [facility] Comment on above: Performed By: #### B MP, LIPASE, HEPATIC, CBC #### [facility] [address] Erythrocyte distribution wid th Auto (RBC) [Ratio]Ordered By: Radha Bustos on 10-04-2024 Erythrocyte distribution width (RBC) [Ratio] Erythrocyte distribution width [Ratio] by Automated count 11.9-15.3 [facility] Erythrocyte distribution wid th [Ratio] by Automated countOrdered By: Radha Bustos on 10-04-2024 Erythrocyte distribution width (RBC) [Ratio] 12.4 % Normal 11.9-15.3 [facility] Comment on above: Performed By: #### B MP, LIPASE, HEPATIC, CBC #### [facility] [address] Erythrocytes [#/volume] in B lood by Automated countOrdered By: Radha Bustos on 10-04-2024 RBC (Bld) [#/Vol] 4.33 10*6/uL Normal 3.60-5.00 [facility] Comment on above: Performed By: #### B MP, LIPASE, HEPATIC, CBC #### [facility] [address] Hematocrit Auto (Bld) [Volum e fraction]Ordered By: Radha Bustos on 10-04-2024 Hematocrit (Bld) [Volume fraction] Hematocrit [Volume Fraction] of Blood by Automated count 34.0-46.4 [facility] Hematocrit [Volume Fraction] of Blood by Automated countOrdered By: Radha Bustos on 10-04-2024 Hematocrit (Bld) [Volume fraction] 38.5 % Normal 34.0-46.4 [facility] Comment on above: Performed By: #### B MP, LIPASE, HEPATIC, CBC #### [facility] [address] Hemoglobin [Mass/volume] in BloodOrdered By: Radha Bustos on 10-04-2024 Hemoglobin (Bld) [Mass/Vol] Hemoglobin [Mass/volume] in Blood 11.8-15.4 [facility] Hemoglobin (Bld) [Mass/Vol] 13.0 g/dL Normal 11.8-15.4 [facility] Comment on above: Performed By: #### B MP, LIPASE, HEPATIC, CBC #### [facility] [address] Leukocytes [#/volume] correc kenia for nucleated erythrocytes in Blood by Automated counOrdered By: Radha Bustos on 10-04-2024 WBC corrected for nucl RBC Auto (Bld) [#/Vol] Leukocytes [#/volume] corrected for nucleated erythrocytes in Blood by Automated coun 3.8-11.6 [facility] WBC corrected for nucl RBC Auto (Bld) [#/Vol] 6.9 10*3/uL 3.8-11.6 [facility] Leukocytes [#/volume] in Blo od by Automated countOrdered By: Radha Bustos on 10-04-2024 WBC (Bld) [#/Vol] 6.9 10*3/uL Normal 3.8-11.6 [facility] Comment on above: Performed By: #### B MP, LIPASE, HEPATIC, CBC #### [facility] [address] Lymphocytes Auto (Bld) [#/Vo l]Ordered By: Radha Bustos on 10-04-2024 Lymphocytes (Bld) [#/Vol] Lymphocytes [#/volume] in Blood by Automated count 1.00-4.8 [facility] Lymphocytes [#/volume] in Bl ood by Automated countOrdered By: Radha Bustos on 10-04-2024 Lymphocytes (Bld) [#/Vol] 1.6 10*3/uL Normal 1.00-4.8 [facility] Comment on above: Performed By: #### B MP, LIPASE, HEPATIC, CBC #### [facility] [address] Lymphocytes/100 WBC Auto (Bl d)Ordered By: Radha Bustos on 10-04-2024 Lymphocytes/100 WBC (Bld) Lymphocytes/100 leukocytes in Blood by Automated count . [facility] Lymphocytes/100 leukocytes i n Blood by Automated countOrdered By: Radha Bustos on 10-04-2024 Lymphocytes/100 WBC (Bld) 23.1 % Normal . [facility] Comment on above: Performed By: #### B MP, LIPASE, HEPATIC, CBC #### [facility] [address] MCH Auto (RBC) [Entitic mass ]Ordered By: Radha Bustos on 10-04-2024 MCH (RBC) [Entitic mass] MCH [Entitic mass] by Automated count 24.7-34.3 [facility] MCH [Entitic mass] by Automa kenia countOrdered By: Radha Bustos on 10-04-2024 MCH (RBC) [Entitic mass] 30.0 pg Normal 24.7-34.3 [facility] Comment on above: Performed By: #### B MP, LIPASE, HEPATIC, CBC #### [facility] [address] [place] [address] MCHC Auto (RBC) [Mass/Vol]Or dered By: Radha Bustos on 10-04-2024 MCHC (RBC) [Mass/Vol] MCHC [Mass/volume] by Automated count 32.0-35.0 [facility] MCHC (RBC) [Mass/Vol] 33.8 g/dL 32.0-35.0 [facility] MCV Auto (RBC) [Entitic vol] Ordered By: Radha Bustos on 10-04-2024 MCV (RBC) [Entitic vol] MCV [Entitic vol ume] by Automated count 80-100 [facility] MCV [Entitic volume] by Auto mated countOrdered By: Radha Bustos on 10-04-2024 MCV (RBC) [Entitic vol] 88.9 fL Normal 80-100 [facility] Comment on above: Performed By: #### B MP, LIPASE, HEPATIC, CBC #### [facility] [address] [place] [address] [place] Monocytes Auto (Bld) [#/Vol] Ordered By: Radha Bustos on 10-04-2024 Monocytes (Bld) [#/Vol] Automated blood monocyte count 0.0-0.8 [facility] Monocytes [#/volume] in Bloo d by Automated countOrdered By: Radha Bustos on 10-04-2024 Monocytes (Bld) [#/Vol] 0.7 10*3/uL Normal 0.0-0.8 [facility] Comment on above: Performed By: #### B MP, LIPASE, HEPATIC, CBC #### [place] [address] [place] Monocytes/100 WBC Auto (Bld) Ordered By: Radha Bustos on 10-04-2024 Monocytes/100 WBC (Bld) Automated monocyte % . [facility] Monocytes/100 leukocytes in Blood by Automated countOrdered By: Radha Bustos on 10-04-2024 Monocytes/100 WBC (Bld) 9.6 % Normal . [facility] Comment on above: Performed By: #### B MP, LIPASE, HEPATIC, CBC #### [place] [address] [place] Neutrophils Auto (Bld) [#/Vo l]Ordered By: Radha Bustos on 10-04-2024 Neutrophils (Bld) [#/Vol] Neutrophils [#/volume] in Blood by Automated count 1.8-7.7 [facility] Neutrophils [#/volume] in Bl ood by Automated countOrdered By: Radha Bustos on 10-04-2024 Neutrophils (Bld) [#/Vol] 4.5 10*3/uL Normal 1.8-7.7 [facility] Comment on above: Performed By: #### B MP, LIPASE, HEPATIC, CBC #### [place] [address] [place] Neutrophils/100 WBC Auto (Bl d)Ordered By: Radha Bustos on 10-04-2024 Neutrophils/100 WBC (Bld) Automated neutrophil % . [facility] Neutrophils/100 leukocytes i n Blood by Automated countOrdered By: Radha Bustos on 10-04-2024 Neutrophils/100 WBC (Bld) 64.8 % Normal . [facility] Comment on above: Performed By: #### B MP, LIPASE, HEPATIC, CBC #### [facility] [address] Nucleated erythrocytes [Pres ence] in Blood by Automated countOrdered By: Radha Bustos on 10-04-2024 Nucleated RBC Auto Ql (Bld) Nucleated erythrocytes [Presence] in Blood by Automated count 0-0.5 [facility] Nucleated RBC Auto Ql (Bld) 0.1 /100{WBC} 0-0.5 [facility] Platelet mean volume Auto (B ld) [Entitic vol]Ordered By: Radha Bustos on 10-04-2024 Platelet mean volume (Bld) [Entitic vol] Platelet mean volume [Entitic volume] in Blood by Automated count 6.3-10.7 [facility] Platelet mean volume [Entiti c volume] in Blood by Automated countOrdered By: Radha Bustos on 10-04-2024 Platelet mean volume (Bld) [Entitic vol] 7.9 fL Normal 6.3-10.7 [facility] Comment on above: Performed By: #### B MP, LIPASE, HEPATIC, CBC #### [facility] [address] [place] [address] [place] Platelets Auto (Bld) [#/Vol] Ordered By: Radha Bustos on 10-04-2024 Platelets (Bld) [#/Vol] Platelets [#/vol ume] in Blood by Automated count 150-450 [facility] Platelets [#/volume] in Bloo d by Automated countOrdered By: Radha Bustos on 10-04-2024 Platelets (Bld) [#/Vol] 198 10*3/uL Normal 150-450 [facility] Comment on above: Performed By: #### B MP, LIPASE, HEPATIC, CBC #### [facility] [address] [place] [address] [place] RBC Auto (Bld) [#/Vol]Ordere d By: Radha Bustos on 10-04-2024 RBC (Bld) [#/Vol] Erythrocytes [#/volume] in Blood by Automated count 3.60-5.00 [facility] Thyroid Stim Hormone w/Rflxo n 10-04-2024 Thyroid Stim Hormone w/Rflx 1.06 u[iU]/mL Normal 0.45-5.33 [facility] Comment on above: Result Comment: PERF ORMED BY: [place] [address] PATHOLOGIST OILER BANDER PORFIRIO SILVA M.D. Performed By: #### T SH3 wRFLX #### [address] Thyrotropin [Units/volume] i n Serum or PlasmaOrdered By: Bria Aguero on 10-04-2024 TSH Qn Thyrotropin [Units/volume] in Serum or Plasma 0.45-5.33 [facility] TSH Qn 1.06 m[IU]/L 0.45-5.33 [facility] US renal BIon 10-04-2024 US renal BI [facility] [place] [address] [place] [address] Ultrasound Report Signed Patient: Angelita Sherman MR#: [id number] : 1985 Acct:[id number] Age/Sex: 39 / F ADM Date: 10/04/24 Loc: Room: Type: [facility] Attending Dr: Radha Bustos MD Ordering Provider: Radha Bustos MD Date of Service: 10/04/24 US/US renal BI: N20.0 Copies to: Radha Bustos MD BILATERAL RENAL AND BLADDER ULTRASOUND CLINICAL HISTORY: History of kidney stones. COMPARISON: CT 07/31/2024 Estimation of renal size is approximately 10.1 cm on the right and 10.8 cm on the left. There is an echogenic focus at the lower pole of the right kidney measuring 3 - 4 mm which might be a stone. There is also a suspected stone at the upper pole of the left kidney measuring 6 - 7 mm. There is mild bilateral hydronephrosis and proximal hydroureter. No renal mass lesions were imaged. There is no perinephric fluid. The urinary bladder is moderately distended with a volume of 439 mL. No contour or intraluminal abnormalities are seen. Bilateral ureteral jets are visualized. The post void bladder residual is 28 mL. The bilateral hydronephrosis persists post void US/US renal BI IMPRESSION: POTENTIAL BILATERAL NEPHROLITHIASIS. MILD BILATERAL HYDRONEPHROSIS. Impression dictated by: Coby Justin M.D.10/04/2024 11:12 PM Dictation Location: [place] [address] Tech: Italia Dahl Transcribed By: MELANIE 10/04/242311 Dictated By: Coby Justin MD 10/04/242307 Signed By: 10/04/242311 Normal [facility] WBC Auto (Bld) [#/Vol]Ordere d By: Radha Bustos on 10-04-2024 WBC (Bld) [#/Vol] Leukocytes [#/volume] in Blood by Automated count 3.8-11.6 [facility] X-ray reportOrdered By: Kendy Justin on 10-04-2024 Study report [place] [address] XRay Report Signed Patient: Angelita Sherman MR#: [id number] : 1985 Acct:[id number] Age/Sex: 39 / F ADM Date: 5 Loc: Room: Type: [facility] Attending Dr: Radha Bustos MD Copies to: Radha Bustos MD~ Ordering Provider: Radha Bustos MD Date of Service: 10/04/24 XR/XR KUB: N20.0 KUB: CLINICAL DATA: History of kidney stones. COMPARISON: CT 07/31/2024 Supine view of the abdomen and pelvis was obtained. There is food debris withinthe stomach. There is air and stool within bowel loops at the right abdomen. Both kidneys are partially obscured. There is a calcification overlying the upper pole of the left kidney suggesting a stone. It measures 4 mm in size. There is a corresponding stone at that site on the comparison CT. No obvious stones are present on the right or along the course of the ureters. No soft tissue masses are noted. The bony structures are intact and there is subtle dextroscoliotic curvature. XR/XR KUB IMPRESSION: LEFT NEPHROLITHIASIS. Impression dictated by: Coby Justin M.D.10/04/2024 11:14 PM Dictation Location: [facility] Transcribed By: MELANIE 10/04/242313 Dictated By: Coby Justin MD 10/04/242311 Signed By: 10/04/24 231 [facility] Work Phone: XR KUBon 10-04-2024 XR KUB [facility] [place] [address] [place] [address] XRay Report Signed Patient: Angelita Sherman MR#: [id number] 011 : 1985 Acct:[id number] Age/Sex: 39 / F ADM Date: 10/04/24 Loc: Room: Type: [facility] Attending Dr: Radha Bustos MD Copies to: Radha Bustos MD Ordering Provider: Radha Bustos MD Date of Service: 10/04/24 XR/XR KUB: N20.0 KUB: CLINICAL DATA: History of kidney stones. COMPARISON: CT 07/31/2024 Supine view of the abdomen and pelvis was obtained. There is food debris within the stomach. There is air and stool within bowel loops at the right abdomen. Both kidneys are partially obscured. There is a calcification overlying the upper pole of the left kidney suggesting a stone. It measures 4 mm in size. There is a corresponding stone at that site on the comparison CT. No obvious stones are present on the right or along the course of the ureters. No soft tissue masses are noted. The bony structures are intact and there is subtle dextroscoliotic curvature. XR/XR KUB IMPRESSION: LEFT NEPHROLITHIASIS. Impression dictated by: Coby Justin M.D.10/04/2024 11:14 PM Dictation Location: [facility] Transcribed By: MELANIE 10/04/242313 Dictated By: Coby Justin MD 10/04/242311 Signed By: 10/04/242313 Normal [facility] Urology Office/Clinic Noteon 09-26-2024 Urology Office/Clinic Note Urology Office/Clinic Note HPI Staff 39 yr old female referred by Melvina Vides CNP (ER visit)for kidney stones multiple T scans and US have been done since June 2024 [facility], and [facility] pt states she is having pain all over. pt does have lower back pain, with radiating pain shooting up and out. left side seems worse, pt usually cannot pinpoint where pain is due to the pain all over her body. pt is seeing GI next week, and other doctors for her pain issues. History of Present Illness Tests reviewed: reviewed UA, CTs, external records. I have reviewed the previous health record information and history for this patient from external provider I have reviewed and verified the staff HPI to be accurate for this encounter. There have been no associated fever, chills, flank pain, or blood in the urine. Denies any urinary infections since last encounter. Review of Systems ROS - Provider Constitutional: denies weight loss, denies hot flashes. Eyes: denies eye problems. Gastrointestinal: denies nausea, denies vomiting. Cardiovascular: denies chest pain or angina. Integumentary: no dryness Musculoskeletal: denies musculoskeletal symptoms. ENMT: denies otolaryngeal symptoms. Respiratory: no shortness of breath. Heme/Lymph: denies easy bleeding tendency, denies easy bruising tendency. Psychiatric: no confusion, no anxiety. Genitourinary: See HPI. Physical Exam General Appearance: alert , no acute distress, well nourished, well developed female. Head: normocephalic . Eyes: normal orbit and globe. ENMT: normal examination of external ears. Psychiatric: cooperative, affect appropriate for age, normal judgement, anxious, tearful mood. Shaking due to pain. Assessment/Plan 39 yo female referred by Melvina Vides CNP for kidney stones. Hx of Celiac disease. BBSQ 16 Portions of this record may have been created with voice recognition artificial intelligence software, specifically [employer], [employer] and or [employer]. Substitutions may have occurred due to the inherent limitations of voice recognition and artificial intelligence software. 1. Kidney stone (N20.0: Calculus of kidney) Hx of surgical mgmt for stones, states Dr. Negrete performed lithotripsy over 15 years ago. Pt states she had a kink in her ureter and had surgery at [facility] >15 years ago. Latest stone episode 2011. Pt has presented to [facility] and [facility] ER multiple times due to pain. CT AP wo con 07/12/24 [facility] - 6 mm nonobstructing LUP. 2 adjacent calcifications in the region of the proximal right ureteral measuring 9 mm and 5 mm. It is unclear on the study if these calcifications are within the ureter or represent vascular calcifications. No hydro. CT AP w/wo con 07/12/24 [facility] - 6 mm nonobstructing calculus within the superior left kidney. CT AP wo con 07/28/24 [facility] - 6 mm nonobstructing calculus within the superior left kidney. CT Urogram 07/31/24 [facility] - 5 mm L renal calculus. Pt reports she is having pain all over. Experiencing lower back pain that radiates, describes it as a shooting pain. Pt states left-side is worse. Pt is shaking in exam room due to pain. Mentions she is seeing GI next week and other providers due to pain. Reassured pt that pain is not likely due to stones, other etiologies. Discussed ESWL to treat left-sided calculus. She understands that this procedure will unlikely resolve pain. She wishes to proceed. -Will schedule L ESWL. The procedure risks, benefits, details and treatment alternatives have been discussed with the patient. These include blood in the urine, infection, bleeding around the kidney, kidney bruising, inability to break up the stone, need for blood transfusion, blockage from stone fragments, and need for additional procedures, among others. Full informed consent has been obtained. Will order General anesthesia. Risk of heart and lung problems discussed. Follow-up With When Contact Information LEEANN PALAFOX, CONCETTA LEE Additional Instructions: Schedule L ESWL Patient Education ESWL for Kidney Stones I, Shanell Whitmore, personally scribed for Dr. Pérez on 08/10/2024 08:42:40. . Documentation recorded by the scribeShanell, accurately reflects the services(s) I performed and decisions made by me. Authenticated by Dr. Negrete on 09/26/2024 16:05:10. Problem List/Past Medical History Ongoing Anxiety Asthma Depression H/O: migraine Kidney stone Pectus excavatum Historical History of kidney stone Mass in breast Ureter stricture/obstructio n Procedure/Surgical History Excisional biopsy of breast (05/2012), Insertion of ureteral stent with ureterotomy (2009), section (2005), Laparoscopic cholecystectomy (2002), Extraction of impacted wisdom tooth, Stone retrieval basket. Medications hyoscyamine 0.125 mg sublingual Tab, 0.125 mg= 1 tab(s) ibuprofen 800 mg Tab, 800 (more content not included)... Normal [facility] Comment on above: Result Comment: Elec tronically Signed By: Myles NEGRETE MD\.br\Date and Time Signed: 09/26/24 16:15 EDT\.br\Electronically Co-Signed By: Shanell Whitmore\.br\Date and Time Co-Signed: 08/10/24 08:43 EST BI MAMMOGRAM DIAGNOSTIC MAE SYNTHESIS BILATERALon 09-01-2024 BI MAMMOGRAM DIAGNOSTIC TOMOSYNTHESIS BILATERAL This is a summary report. The complete report is available in the patient's medical record. If you cannot access the medical record, please contact the sending organization for a detailed fax or copy. EXAMINATION: BI MAMMOGRAM DIAGNOSTIC TOMOSYNTHESIS BILATERAL CLINICAL HISTORY: breast lump in left and right breast TECHNIQUE: Diagnostic digital mammogram study of both breasts was performed with 2D and 3D tomosynthesis imaging. Study was compared to the right breast ultrasound exam dated 09/01/2024 and left breast ultrasound exam dated 09/01/2024. FINDINGS: Standard images of the breasts were obtained as well as coned-down compression views and true lateral views bilaterally. A skin marker is placed on each breast in the areas of clinically palpable lump. On the right inferolaterally in the area of skin marker there is a prominent approximately 3.0 x 2.4 cm well-circumscribed density. Ultrasound demonstrates a solid appearing area correlating with this finding. Finding most likely represents fibroadenoma. Other possibly would be less likely. On the left superiorly near the midline there is a somewhat lobulated prominent soft tissue density approximately 2.9 x 2.3 cm. Ultrasound study demonstrates a solid appearing area correlating with this finding. Finding most likely represents fibroadenoma. Other possibly would be less likely. Given the similarity of the findings in each breast, benign possibilities are most likely. Follow-up ultrasound study of the breasts in 3 months is recommended to assess stability. Need for investigation beyond this can be determined at that time. A few other smaller less well-defined asymmetric densities bilaterally likely relate to focal fibrocystic changes. IMPRESSION: Prominent soft tissue density in each breast related to the skin markers in the areas of clinically palpable lump as described. Findings appear solid on ultrasound. Findings most likely resent fibroadenomas. Other possibly would be less likely. Follow-up ultrasound study of the breasts in 3 months is recommended to assess stability. Need for investigation beyond this can be determined at that time. BIRADS 3 - Probably Benign Findings DENSITY: The breasts are extremely dense, which lowers the sensitivity of mammography. FOLLOW-UP: Breast Ultrasound in 3 Months Board Certified Radiologists. Accredited by the ACR and FDA. MAMMOGRAPHY IS VERY IMPORTANT TO YOUR HEALTH. THE [employer] GUIDELINES RECOMMEND THAT WOMEN 40 YEARS OF AGE AND OLDER SHOULD HAVE A MAMMOGRAM EVERY YEAR. A REMINDER LETTER WILL BE SENT AT THE APPROPRIATE TIME. ELECTRONICALLY SIGNED BY: Guerrero Guzman M.D. Normal Not Available BI US BREAST LIMITED LEFTon 09-01-2024 BI US BREAST LIMITED LEFT This is a summary report. The complete report is available in the patient's medical record. If you cannot access the medical record, please contact the sending organization for a detailed fax or copy. Examination: BI US BREAST LIMITED LEFT Reason for Study: breast lump @ 1 o'clock Comparison: Diagnostic mammogram study of the breasts dated 09/01/2024. Technique: Left breast ultrasound study was performed. Images were obtained from the 12:00 to 3 o'clock position to include area of lump. Findings: 1 o'clock position there is a 2.6 x 2.4 x 1.5 cm area of increased echogenicity correlating with the likely palpable lump. Findings compatible with a solid mass and likely represents fibroadenoma or other benign process. Other possibility would be less likely. At the 1 o'clock position area of decreased echogenicity like representing a cyst measuring 0.7 x 0.7 x 0.4 cm. At the 3 o'clock position area of decreased echogenicity likely representing a cyst measuring 1.2 x 1.2 x 0.5 cm. At the 3 o'clock position area of decreased echogenicity likely representing a cyst measuring 0.6 x 0.5 x 0.3 cm. When correlating mammogram and ultrasound studies, no convincing evidence of neoplasm. IMPRESSION: Impression: Left breast ultrasound study demonstrates solid appearing area likely representing fibroadenoma or other benign process which correlates with the lump and soft tissue density on the mammogram study. Other possibly would be less likely. Additional findings likely representing cysts as noted. Follow-up ultrasound study of the left breast in 3 months is recommended to assess stability. BI-RADS 3 ELECTRONICALLY SIGNED BY: Guerrero Guzman M.D. Normal Not Available BI US BREAST LIMITED RIGHTon 09-01-2024 BI US BREAST LIMITED RIGHT This is a summary report. The complete report is available in the patient's medical record. If you cannot access the medical record, please contact the sending organization for a detailed fax or copy. Examination: BI US BREAST LIMITED RIGHT Reason for Study: breast lump @ 7 o'clock Comparison: Diagnostic mammogram study of the breasts dated 09/01/2024. Technique: Right breast ultrasound study was performed with images obtained at the 6:00 through 8:00 positions to include area of lump. Findings: At the 7 o'clock position in the area of the lump there is an area of intermediate and increased echogenicity compatible with solid mass measuring approximately 3.1 x 3.0 x 2.0 cm. There is associated internal vascularity. When correlated with the mammogram study, the finding most likely represents fibroadenoma or other benign process. Other possibly be less likely. At the 6 o'clock position area of decreased echogenicity with a few septations likely representing a complex cyst measuring 0.8 x 0.7 x 0.5 cm. Follow-up ultrasound study of the right breast in 3 months is recommended to assess stability. IMPRESSION: Impression: Right breast ultrasound study demonstrates prominent solid appearing area correlating with the area of clinically palpable lump at the 7 o'clock position as described. Finding most likely represents fibroadenoma or other benign process. Other possibly be less likely. Likely complex cyst at the 6 o'clock position. Follow-up ultrasound study of the right breast in 3 months is recommended to assess stability. BI-RADS 3 ELECTRONICALLY SIGNED BY: Guerrero Guzman M.D. Normal Not Available HCG ( test) Drew ocampo Ql (U)Ordered By: Lynn Franco on 08-29-2024 HCG ( test) Ql (U) Urine human chorionic gonadotropin (hCG) detection by immunoassay [facility] HCG,Urineon 08-29-2024 Beta HCG ( test) Ql (U) Negative Normal [facility] Comment on above: Result Comment: PERF ORMED BY: [place] [address] PATHOLOGIST OILER BANDER PORFIRIO SILVA M.D. Performed By: #### B MP, LIPASE, HEPATIC, CBC #### [address] 08-29-2024 L Specimen: [id number] Received: 08/29/24 Status: FINA Parks Num: [id number] Spec Type: Surgical Subm Dr: Lynn Franco DO Tissues: A Small Intestine - Biopsy/Polyp (SMALL BOWEL BX) B Gastric Biopsy (GASTRIC BX) Procedures: HE/4, Gross/Micro L4/2 Age/ Patient Sex Location Account Attending Physician Angelita Sherman Anthony 39/F [id number] Lynn Franco, DO SPEC NUM: [id number] RECD: 08/29/24 STATUS: FINA PARKS NUM: [id number] ADA: 08/29/24 [facility] DR: Lynn Franco DO ENTERED: 08/29/24 [facility] DR: KIA TYPE: Surgical DEPT: S ORDERED: HE/4, Gross/Micro L4/2 ORDERED: HE/4, Gross/Micro L4/2 Pathological Diagnosis A. Duodenum (mucosal biopsies): Within normal limits No features of celiac disease or dysplasia seen B. Stomach (mucosal biopsies): Reactive gastropathy No Helicobacter pylori, intestinal metaplasia, or dysplasia seen Clinical Information Abdominal pain celiac disease. Part A rule out celiac, Part B rule out H. pylori Gross Description Part A is received in formalin labeled with the patients name, date of , and Sm bowel BX are 2 betancur-starks, focally erythematous, friable, 0.2 and 0.3 cm in greatest dimension tissue bits. The specimen is entirely submitted in a single cassette. (1, ns, [id number] A) JG Part B is received in formalin labeled with the patients name, date of , and gastric BX is a betancur-starks, focally erythematous, friable, 0.2 cm in greatest dimension tissue bit. The specimen is entirely submitted in a single cassette. (1, ns, [id number] B) JEugenia Specimen: [id number] Received: 08/29/24 Status: FINA Parks Num: [id number] Spec Type: Surgical Subm Dr: Lynn Franco DO Tissues: A Small Intestine - Biopsy/Polyp (SMALL BOWEL BX) B Gastric Biopsy (GASTRIC BX) Procedures: HE/Shaila, Gross/Micro L4/2 Patient: Angelita Sherman [id number] (Continued) Specimen: [id number] Received: 08/29/24 (Continued) Signed (signature on file) Jamie Colunga Jr., MD 08/30/24 1141 Specimen: [id number] Received: 08/29/24 Status: FINA Parks Num: [id number] Spec Type: Surgical Subm Dr: Lynn Franco DO Tissues: A Small Intestine - Biopsy/Polyp (SMALL BOWEL BX) B Gastric Biopsy (GASTRIC BX) Procedures: HE/Shaila, Gross/Micro L4/2 Patient: Angelita Sherman [id number] (Continued) Specimen: Received: 08/29/24 (Continued) CPT Codes 45679 x 2 Specimen: [id number] Received: 08/29/24-1210 Status: FINA Parks Num: [id number] Spec Type: Surgical Subm Dr: Lynn Franoc DO Tissues: A Small Intestine - Biopsy/Polyp (SMALL BOWEL BX) B Gastric Biopsy (GASTRIC BX) Procedures: HE/4, Gross/Micro L4/2 Patient: Angelita Sherman [id number] (Continued) Signed (signature on file) Jamie Colunga Jr., MD 08/30/24 1141 Normal [facility] Celiac Disease Comprehensive on 08-23-2024 Endomysium IgA Ql (S) Negative Invalid Interpretation Code Negative [facility] Comment on above: Performed By: #### 1 [id number] #### [facility] [address] [place] [address] Gliadin peptide IgA Qn (S) 5 unit(s) Invalid Interpretation Code 0-[address] [facility] Comment on above: Result Comment: Nega tive 0 - 19 Weak Positive 20 - 30 Moderate to Strong Positive >30 Performed By: #### 1 [id number] #### [facility] [address] [place] [address] Gliadin peptide IgG Qn (S) 3 unit(s) Invalid Interpretation Code 0-[address] [facility] Comment on above: Result Comment: Nega tive 0 - 19 Weak Positive 20 - 30 Moderate to Strong Positive >30 Performed By: #### 1 [id number] #### [facility] [address] [place] [address] IgA [Mass/Vol] 171 mg/dL Invalid Interpretation Code 87-[address] [facility] Comment on above: Result Comment: Perf ormed at: [facility] [address] [id number] PhD Ryanevercarlos enrique Felix Performed By: #### 1 [id number] #### [facility] [address] [place] [address] tTG IgA Qn (S) <2 Invalid Interpretation Code 0-[address] [facility] Comment on above: Result Comment: Nega tive 0 - 3 Weak Positive 4 - 10 Positive >10 Tissue Transglutaminase (tTG) has been identified as the endomysial antigen. Studies have demonstr- ated that endomysial IgA antibodies have over 99% specificity for gluten sensitive enteropathy. Performed By: #### 1 [id number] #### [facility] [address] [place] [address] tTG IgG Qn (S) 4 unit/mL Invalid Interpretation Code 0-[address] [facility] Comment on above: Result Comment: Nega tive 0 - 5 Weak Positive 6 - 9 Positive >9 Performed By: #### 1 [id number] #### [facility] [address] [place] [address] Ambulatory Visit Summaryon 0 08-16-2024 Ambulatory Visit Summary Ambulatory Visit Summary ANGELITA SHERMAN :1985 Visit Date:08/16/2024 Ambulatory Visit Instructions Your Diagnosis Abdominal pain Diarrhea Celiac disease Your Care Team Attending Physician - Betito PALAFOX, Rosamaria Julio Primary Care Physician - MELVINA VIDES CNP [...] for choosing us for your care. Normal [facility] Gastroenterology Office/Clin ic Noteon 08-16-2024 Gastroenterology [...] take Imodium and Miralax Previous EGD at [facility]. EGD Pathology in chart Dr Wright- 01/29/2003 [...] right hepatic lobe. 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 Labs 08/08/24 CBC- All [...] E&M of New Patient Moderate 45-59 Min 21611 EGD Endoscopy (Hospital Procedure) 2. Diarrhea (R19.7: Diarrhea, unspecified) Resolved, currently 2-3 bowel movements a day Ordered: Celiac Disease Comprehensive E&M of New Patient Moderate 45-59 Min 14351 EGD Endoscopy (Hospital Procedure) 3. Celiac disease (K90.0: Celiac disease) Diagnosed in [place], will obtain records of EGD and blood [...] 0.125 mg= (more content not included)... Normal [facility] Comment on above: Result Comment: Elec tronically Signed By: Betito PALAFOX, Rosamaria Julio\.br\Date and Time Signed: 08/16/24 10:25 EST Ambulatory Visit Summaryon 0 08-10-2024 Ambulatory Visit Summary Ambulatory Visit Summary ANGELITA SHERMAN :1985 Visit Date:08/10/2024 Ambulatory Visit Instructions Your Diagnosis Kidney stone Your Care Team Attending Physician - JESUS RIVERA MD Primary Care Physician - MELVINA VIDES [...] Follow-Up Appointments Wednesday 9:00 AM EST With: Betito PALAFOX, Rosamaria Julio Where: [facility] [address] [place], [place] [address]e Suite [facility] Medical [address] [address]- You Need to Schedule the Following Appointments Follow Up with LEEANN PALAFOX, CONCETTA LEE When: Where: Medications What How Much When Instructions Changed tamsulosin (tamsulosin 0.4 mg Cap) 1 Capsules By Mouth Every day Pickup at [facility]/pharmacy #[id number] Unchanged albuterol (Ventolin 90 mcg/ [...] physician if questions or concerns Pharmacy Information [facility]/pharmacy #[id number]: [address], [place] [phone] Allergies Augmentin (Itching, Hives) Glutens Lorabid (Itching, [...] including vitamins, herbs, eye drops, creams, and pcgc-scj-beohysj medicines. ??? Any problems you or family [...] instructions from (more content not included)... Normal [facility] Urine Cultureon 08-08-2024 Bacteria identified Cx Nom (U) 25,000 colonies/ml mixed bacterial skin contaminants 2 Days PERFORMED BY: [place] [address] PATHOLOGIST OILER BANDER PORFIRIO SILVA M.D. Normal [facility] Comment on above: Performed By: #### B MP, LIPASE, HEPATIC, CBC #### [address] Urine cultureOrdered By: Lelo Vides on 08-08-2024 Bacteria identified Cx Nom (U) Urine culture [facility] US PELVIS W/ TRANSVAGINALon 08-04-[address] [address] Ultrasound Report Signed Patient: ANGELITA SHERMAN MR#: [id number] : 1985 Acct:[id number] Age/Sex: 39 / F ADM Date: 08/04/24 Loc: US Attending Dr: Keira Bailon Ordering Physician: Keira Bailon Date of Service: 08/04/24 Procedure(s): US pelvis w/ transvaginal Accession Number(s): [id number] cc: Keira Bailon; MELVINA VIDES [place] [id number] Patient Name: ANGELITA SHERMAN MRN: [id number] date: 1985 Sex: F Assigned Patient Location: US Current Patient Location: LAB Accession/Order Number: [id number] Exam Date: 08/04/2024 13:14 Report Date: 08/04/2024 13:45 At the request of: KEIRA BAILON Procedure: US pelvis w/ transvaginal COMPLETE PELVIC [...] Coby Justin M.D.08/04/2024 1:45 PM Dictation Location: [place] [address] Electronically authenticated by: [id number] Y Date: 08/04/2024 13:45 Dictated By: Coby Justin M.D. Signed By: 08/04/24 1347 DD/ 1345 TD/TT: Public Affairs Officer: [facility] Radiology, Radiologist, MD - 08/04/2024 [place] [id number] Ultrasound Report Signed Patient: ANGELITA SHERMAN MR#: [id number] : 1985 Acct:[id number] Age/Sex: 39 / F ADM Date: 08/04/24 Loc: US Attending Dr: Keira Bailon Ordering Physician: Keira Bailon Date of Service: 08/04/24 Procedure(s): US pelvis w/ transvaginal Accession Number(s): [id number] cc: Keira Bailon; MELVINA VIDES The [address] [address] Patient Name: ANGELITA SHERMAN MRN: [facility]:[id number] date: 1985 Sex: F Assigned Patient Location: US Current Patient Location: LAB Accession/Order Number: [id number] Exam Date: 08/04/2024 13:14 Report Date: 08/04/2024 13:45 At the request of: KEIRA BAILON Procedure: US pelvis w/ transvaginal COMPLETE PELVIC [...] Coby Justin M.D.08/04/2024 1:45 PM Dictation Location: [place] [address] Electronically authenticated by: [id number] Y Date: 08/04/2024 13:45 Dictated By: Coby Justin M.D. Signed By: 08/04/24 1347 DD/ 1345 TD/TT: Public Affairs Officer: [facility] Radiology Study observation (narrative) [facility] US PELVIS W/ TRANSVAGINALOrd ered By: Radiologist Radiology on 08-04-2024 [facility] Work Phone: Alanine aminotransferase [En zymatic activity/volume] in Serum or PlasmaOrdered By: Hilario Boykin on 07-31-2024 ALT [Catalytic activity/Vol] Alanine aminotransferase [Enzymatic activity/volume] in Serum or Plasma 7 [facility] Albumin [Mass/volume] in Ser um or Plasma by Bromocresol green (BCG) dye binding methoOrdered By: Hilario Boykin on 07-31-2024 Albumin BCG dye [Mass/Vol] Albumin [Mass/volume] in Serum or Plasma by Bromocresol green (BCG) dye binding metho 3.5-5.7 [facility] Alkaline phosphatase [Enzyma tic activity/volume] in Serum or PlasmaOrdered By: Hilario Boykin on 07-31-2024 ALP [Catalytic activity/Vol] Alkaline phosphatase [Enzymatic activity/volume] in Serum or Plasma 34-104 [facility] Appearance of UrineOrdered B y: PROVIDER TEMP on 07-31-2024 Appearance (U) Urine appearance Clear [facility] Aspartate aminotransferase [ Enzymatic activity/volume] in Serum or PlasmaOrdered By: Hilario Boykin on 07-31-2024 AST [Catalytic activity/Vol] Aspartate aminotransferase [Enzymatic activity/volume] in Serum or Plasma 13-39 [facility] Bacteria [Presence] in Urine by AutomatedOrdered By: PROVIDER TEMP on 07-31-2024 Bacteria Auto Ql (U) Bacteria [Presence] in Urine by Automated None Seen [facility] Basic Metabolic Panelon 07-15 Anion gap [Moles/Vol] 11.4 mmol/L Normal 6.0-15.0 [facility] Comment on above: Performed By: #### B MP, LIPASE, HEPATIC, CBC #### [facility] [address] [place] [address] [place] Calcium [Mass/Vol] 9.5 mg/dL Normal 8.6-10.3 [facility] Comment on above: Performed By: #### B MP, LIPASE, HEPATIC, CBC #### [facility] [address] [place] [address] [place] Chloride [Moles/Vol] 106 mmol/L Normal 98-107 [facility] Comment on above: Performed By: #### B MP, LIPASE, HEPATIC, CBC #### [facility] [address] [place] [address] [place] CO2 [Moles/Vol] 24.3 mmol/L Normal 21.0-31.0 [facility] Comment on above: Performed By: #### B MP, LIPASE, HEPATIC, CBC #### [facility] [address] Creatinine [Mass/Vol] 0.69 mg/dL Normal 0.60-1.20 [facility] Comment on above: Performed By: #### B MP, LIPASE, HEPATIC, CBC #### [facility] [address] Creatinine Clr Calc Pharmacy 73.57 Normal [facility] Comment on above: Performed By: #### B MP, LIPASE, HEPATIC, CBC #### [facility] [address] [place] [address] [place] GFR/1.73 sq M.predicted MDRD (S/P/Bld) [Vol rate/Area] mL/min/{1.73_m2} Normal [facility] Comment on above: Performed By: #### B MP, LIPASE, HEPATIC, CBC #### [address] Glucose [Mass/Vol] 87 mg/dL Normal 70-100 [facility] Comment on above: Result Comment: [facility] Glucose Reference Range is dependent on time and content of last meal. Glucose of more than 200 mg/dL in a nonstressed, ambulatory subject supports the diagnosis of Diabetes Mellitus. ADA recommended reference range Performed By: #### B MP, LIPASE, HEPATIC, CBC #### [address] Potassium [Moles/Vol] 3.7 mmol/L Normal 3.5-5.1 [facility] Comment on above: Performed By: #### B MP, LIPASE, HEPATIC, CBC #### [facility] [address] Sodium [Moles/Vol] 138 mmol/L Normal 136-145 [facility] Comment on above: Performed By: #### B MP, LIPASE, HEPATIC, CBC #### [address] Urea nitrogen [Mass/Vol] 9 mg/dL Normal 7-25 [facility] Comment on above: Performed By: #### B MP, LIPASE, HEPATIC, CBC #### [facility] [address] Basophils Auto (Bld) [#/Vol] Ordered By: Hilario Boykin on 07-31-2024 Basophils (Bld) [#/Vol] Automated basoph il count 0.0-0.2 [facility] Basophils/100 WBC Auto (Bld) Ordered By: Hilario Boykin on 07-31-2024 Basophils/100 WBC (Bld) Automated basophil % . [facility] Bilirubin Test strip Ql (U)O rdered By: ALEX MCDONNELL on 07-31-2024 Bilirubin Ql (U) Bilirubin.total [Presence] in Urine by Test strip Negative [facility] Bilirubin.direct [Mass/volum e] in Serum or PlasmaOrdered By: Hilario Boykin on 07-31-2024 Bilirubin.direct [Mass/Vol] Bilirubin.direct [Mass/volume] in Serum or Plasma 0.03-0.18 [facility] Bilirubin.total [Mass/volume ] in Serum or PlasmaOrdered By: Hilario Boykin on 07-31-2024 Bilirubin [Mass/Vol] Bilirubin.total [Mass/volume] in Serum or Plasma 0.3-1.0 [facility] COVID Cepheid NegativeOrdere d By: Hilario Boykin on 07-31-2024 SARS-CoV-2 (COVID-19) Ab IA Ql COVID Cepheid Negative [facility] Comment on above: This is a [...] or Cepheid Disclaimer revoked sooner. PERFORMED BY: [facility] [address] [place] [address] PATHOLOGIST OILER BANDER PORFIRIO SILVA M.D. Normal [facility] Comment on above: Performed By: #### C EPHEID NEG, COVID19 FLU RSV #### [facility] [address] urogramon 07-31-2024 CT urogram [facility] [place] [address] [place] [address] CT Scan Report Signed Patient: Angelita Sherman MR#: [id number] : 1985 Acct:[id number] Age/Sex: 39 / F ADM Date: 07/31/24 [...] Michael Gonzalez M.D.07/31/2024 7:48 PM Dictation Location: [place] [address] Transcribed By: [facility] 07/31/241947 Dictated By: Michael Gonzalez DO 07/31/241942 Signed By: 07/31/241947 Normal [facility] Calcium [Mass/volume] in Ser um or PlasmaOrdered By: Hilario Boykin on 07-31-2024 Calcium [Mass/Vol] Calcium [Mass/volume] in Serum or Plasma 8.6-10.3 [facility] Carbon dioxide, total [Moles /volume] in Serum or PlasmaOrdered By: Hilario Boykin on 07-31-2024 CO2 [Moles/Vol] Carbon dioxide, total [Moles/volume] in Serum or Plasma 21.0-31.0 [facility] Cepheid COVID PCR Negativeon 07-31-2024 SARS-CoV-2 (COVID-19) RNA INDIRA+probe Ql (Unsp spec) Negative Normal Negative [facility] Comment on above: Result Comment: This is a duplicate [employer] Coid Xpert Xpress CoV-2/Flu/RSV Plus RNA by RT-PCR result to be used for statistical tracking purpose only. PERFORMED BY: [place] [address] PATHOLOGIST OILER BANDER PORFIRIO SILVA M.D. Performed By: #### C EPHEID NEG, COVID19 FLU RSV #### [facility] [address] [place] [address] [place] Chloride [Moles/volume] in S nicolette or PlasmaOrdered By: Hilario Boykin on 07-31-2024 Chloride [Moles/Vol] Chloride [Moles/volume] in Serum or Plasma 98-107 [facility] Color Auto (U)Ordered By: [place] OVIDER TEMP on 07-31-2024 Color (U) Color of Urine by Auto Yellow [facility] Complete Blood Count Auto Di ffon 07-31-2024 Basophils (Bld) [#/Vol] 0.0 10*3/uL Normal 0.0-0.2 [facility] Comment on above: Result Comment: PERF ORMED BY: [address] [address] PATHOLOGIST OILER BANDER PORFIRIO SILVA M.D. Performed By: #### B MP, LIPASE, HEPATIC, CBC #### [facility] [address] [place] [address] [place] Basophils/100 WBC (Bld) 0.2 % Normal . T deny [facility] Comment on above: Performed By: #### B MP, LIPASE, HEPATIC, CBC #### [address] Eosinophils (Bld) [#/Vol] 0.1 10*3/uL Normal 0.0-0.45 [facility] Comment on above: Performed By: #### B MP, LIPASE, HEPATIC, CBC #### [address] Eosinophils/100 WBC (Bld) 1.3 % Normal . [facility] Comment on above: Performed By: #### B MP, LIPASE, HEPATIC, CBC #### [address] Erythrocyte distribution width (RBC) [Ratio] 11.9 % Normal 11.9-15.3 [facility] Comment on above: Performed By: #### B MP, LIPASE, HEPATIC, CBC #### [address] Hematocrit (Bld) [Volume fraction] 41.9 % Normal 34.0-46.4 [facility] Comment on above: Performed By: #### B MP, LIPASE, HEPATIC, CBC #### [address] Hemoglobin (Bld) [Mass/Vol] 14.3 g/dL Normal 11.8-15.4 [facility] Comment on above: Performed By: #### B MP, LIPASE, HEPATIC, CBC #### [address] Lymphocytes (Bld) [#/Vol] 1.7 10*3/uL Normal 1.00-4.8 [facility] Comment on above: Performed By: #### B MP, LIPASE, HEPATIC, CBC #### [address] Lymphocytes/100 WBC (Bld) 21.9 % Normal . [facility] Comment on above: Performed By: #### B MP, LIPASE, HEPATIC, CBC #### [address] MCH (RBC) [Entitic mass] 30.5 pg Normal 24.7-34.3 [facility] Comment on above: Performed By: #### B MP, LIPASE, HEPATIC, CBC #### [address] MCV (RBC) [Entitic vol] 89.4 fL Normal 80-100 [facility] Comment on above: Performed By: #### B MP, LIPASE, HEPATIC, CBC #### [address] Mean Corpuscular HGB Conc 34.1 g/dL Normal 32.0-35.0 [facility] Comment on above: Performed By: #### B MP, LIPASE, HEPATIC, CBC #### [address] Monocytes (Bld) [#/Vol] 0.7 10*3/uL Normal 0.0-0.8 [facility] Comment on above: Performed By: #### B MP, LIPASE, HEPATIC, CBC #### [address] Monocytes/100 WBC (Bld) 16.45 % Normal 0.00-20.00 [facility] Comment on above: Performed By: #### B MP, LIPASE, HEPATIC, CBC #### [address] Monocytes/100 WBC (Bld) 9.0 % Normal . [facility] Comment on above: Performed By: #### B MP, LIPASE, HEPATIC, CBC #### [address] Neutrophils (Bld) [#/Vol] 5.1 10*3/uL Normal 1.8-7.7 [facility] Comment on above: Performed By: #### B MP, LIPASE, HEPATIC, CBC #### [address] Neutrophils/100 WBC (Bld) 67.6 % Normal . [facility] Comment on above: Performed By: #### B MP, LIPASE, HEPATIC, CBC #### [address] NRBC% 0.1 /100{WBC} Normal 0-0.5 [facility] Comment on above: Performed By: #### B MP, LIPASE, HEPATIC, CBC #### [address] Platelet mean volume (Bld) [Entitic vol] 8.1 fL Normal 6.3-10.7 [facility] Comment on above: Performed By: #### B MP, LIPASE, HEPATIC, CBC #### [address] Platelets (Bld) [#/Vol] 213 10*3/uL Normal 150-450 [facility] Comment on above: Performed By: #### B MP, LIPASE, HEPATIC, CBC #### [address] RBC (Bld) [#/Vol] 4.69 10*6/uL Normal 3.60-5.00 [facility] Comment on above: Performed By: #### B MP, LIPASE, HEPATIC, CBC #### [address] WBC (Bld) [#/Vol] 7.6 10*3/uL Normal 3.8-11.6 [facility] Comment on above: Performed By: #### B MP, LIPASE, HEPATIC, CBC #### [address] Creatinine [Mass/volume] in Serum or PlasmaOrdered By: Hilario Boykin on 07-31-2024 Creatinine [Mass/Vol] Creatinine [Mass/volume] in Serum or Plasma 0.60-1.20 [facility] Dipstick and Microscopicon 0 07-31-2024 Appearance (U) Clear Normal Clear [facility] Comment on above: Order Comment: Name Collection Type:: Clean-Voided Midstream Performed By: #### A DDONUAPLUS #### [address] [place] [address] [place] Bacteria,Urine Rare Normal None Seen [facility] Comment on above: Order Comment: Name Collection Type:: Clean-Voided Midstream Performed By: #### A DDONUAPLUS #### [facility] [address] [place] [address] [place] Bilirubin,Urine Negative Normal Negative [facility] Comment on above: Order Comment: Name Collection Type:: Clean-Voided Midstream Performed By: #### A DDONUAPLUS #### [place] [address] [place] Color (U) Light-Yellow Normal Yellow [facility] Comment on above: Order Comment: Name Collection Type:: Clean-Voided Midstream Performed By: #### A DDONUAPLUS #### [place] [address] [place] Glucose Ql (U) Normal Normal Normal [facility] Comment on above: Order Comment: Name Collection Type:: Clean-Voided Midstream Performed By: #### A DDONUAPLUS #### [place] [address] [place] Hyaline Casts,Urine None Normal 0-8 [facility] Comment on above: Order Comment: Name Collection Type:: Clean-Voided Midstream Performed By: #### A DDONUAPLUS #### [place] [address] [place] Ketones Ql (U) Negative Normal Negative [facility] Comment on above: Order Comment: Name Collection Type:: Clean-Voided Midstream Performed By: #### A DDONUAPLUS #### [place] [address] [place] Leukocyte esterase Test strip Ql (U) Negative Normal Negative [facility] Comment on above: Order Comment: Name Collection Type:: Clean-Voided Midstream Performed By: #### A DDONUAPLUS #### [place] [address] [place] Mucus,Urine Rare Normal [facility] Comment on above: Order Comment: Name Collection Type:: Clean-Voided Midstream Result Comment: PERF ORMED BY: [place] [address] PATHOLOGIST [employer] PORFIRIO SILVA M.D. Performed By: #### A DDONUAPLUS #### [place] [address] [place] Nitrite,Urine Negative Normal Negative [facility] Comment on above: Order Comment: Name Collection Type:: Clean-Voided Midstream Performed By: #### A DDONUAPLUS #### [place] [address] [place] Occult Blood,Urine 2+ High Negative [facility] Comment on above: Order Comment: Name Collection Type:: Clean-Voided Midstream Result Comment: PERF ORMED BY: [place] [address] PATHOLOGIST [employer] PORFIRIO SILVA M.D. Performed By: #### A DDONUAPLUS #### [place] [address] [place] pH (U) 6.5 [pH] Normal 5.0-9.0 [facility] Comment on above: Order Comment: Name Collection Type:: Clean-Voided Midstream Performed By: #### A DDONUAPLUS #### [place] [address] [place] Protein,Urine Negative Normal Negative [facility] Comment on above: Order Comment: Name Collection Type:: Clean-Voided Midstream Performed By: #### A DDONUAPLUS #### [place] [address] [place] RBC,Urine 5-9 High 0-4 [facility] Comment on above: Order Comment: Name Collection Type:: Clean-Voided Midstream Performed By: #### A DDONUAPLUS #### [place] [address] [place] Specificy [place],Urine 1.014 Normal 1.001-1.030 [facility] Comment on above: Order Comment: Name Collection Type:: Clean-Voided Midstream Performed By: #### A DDONUAPLUS #### [facility] [address] Squamous Epithelial Cell,Urine 3-4 High 0-2 [facility] Comment on above: Order Comment: Name Collection Type:: Clean-Voided Midstream Performed By: #### A DDONUAPLUS #### [facility] [address] Urobilinogen,Urine Normal Normal Normal [facility] Comment on above: Order Comment: Name Collection Type:: Clean-Voided Midstream Performed By: #### A DDONUAPLUS #### [facility] [address] WBC,Urine 1-2 Normal 0-4 [facility] Comment on above: Order Comment: Name Collection Type:: Clean-Voided Midstream Performed By: #### A DDONUAPLUS #### [facility] [address] [place] [address] [place] Eosinophils Auto (Bld) [#/Vo l]Ordered By: Hilario Boykin on 07-31-2024 Eosinophils (Bld) [#/Vol] Automated eosinophil count 0.0-0.45 [facility] Eosinophils/100 WBC Auto (Bl d)Ordered By: Hilario Boykin on 07-31-2024 Eosinophils/100 WBC (Bld) Automated eosinophil % . [facility] Epithelial cells.squamous [# /area] in Urine sediment by Automated countOrdered By: PROVIDER SATHYA on 07-31-2024 Epithelial cells.squamous Auto (Urine sed) [#/Area] Epithelial cells.squamous [#/area] in Urine sediment by Automated count High 0-2 [facility] Erythrocyte distribution wid th Auto (RBC) [Ratio]Ordered By: Hilario Boykin on 07-31-2024 Erythrocyte distribution width (RBC) [Ratio] Erythrocyte distribution width [Ratio] by Automated count 11.9-15.3 [facility] Erythrocytes [#/area] in Uri ne sediment by Automated countOrdered By: PROVIDER TEMP on 07-31-2024 RBC Auto (Urine sed) [#/Area] Erythrocytes [#/area] in Urine sediment by Automated count High 0-4 [facility] Globulin Calc (S) [Mass/Vol] Ordered By: Hilario Boykin on 07-31-2024 Globulin (S) [Mass/Vol] Serum globulin measurement by calculation (mass/volume) [facility] Glucose [Mass/volume] in Ser um or PlasmaOrdered By: Hilario Boykin on 07-31-2024 Glucose [Mass/Vol] Glucose [Mass/volume] in Serum or Plasma 70-100 [facility] Comment on above: ADA recommended refe rence rangeRandom Glucose Reference Range is dependent on time and content of last meal. Glucose of more than 200 mg/dL in a nonstressed, ambulatory subject supports the diagnosis of Diabetes Mellitus. Glucose [Mass/volume] in Uri ne by Test stripOrdered By: PROVIDER SATHYA on 07-31-2024 Glucose Test strip (U) [Mass/Vol] Glucose [Mass/volume] in Urine by Test strip Normal [facility] HCG ( test) IA.rapi d Ql (U)Ordered By: Hilario Boykin on 07-31-2024 HCG ( test) Ql (U) Urine human chorionic gonadotropin (hCG) detection by immunoassay [facility] HCG,Urineon 07-31-2024 Beta HCG ( test) Ql (U) Negative Normal [facility] Comment on above: Result Comment: PERF ORMED BY: [place] [address] PATHOLOGIST [employer] PORFIRIO SILVA M.D. Performed By: #### U HCG #### [address] Hematocrit Auto (Bld) [Volum e fraction]Ordered By: Hilario Boykin on 07-31-2024 Hematocrit (Bld) [Volume fraction] Hematocrit [Volume Fraction] of Blood by Automated count 34.0-46.4 [facility] Hemoglobin Test strip Ql (U) Ordered By: PROVIDER SATHYA on 07-31-2024 Hemoglobin Ql (U) Hemoglobin [Presence] in Urine by Test strip High Negative [facility] Hemoglobin [Mass/volume] in BloodOrdered By: Hilario Boykin on 07-31-2024 Hemoglobin (Bld) [Mass/Vol] Hemoglobin [Mass/volume] in Blood 11.8-15.4 [facility] Hepatic Panelon 07-31-2024 Albumin [Mass/Vol] 4.5 g/dL Normal 3.5-5.7 [facility] Comment on above: Performed By: #### B MP, LIPASE, HEPATIC, CBC #### [facility] [address] Albumin/Globulin [Mass ratio] 1.7 {ratio} Normal [facility] Comment on above: Performed By: #### B MP, LIPASE, HEPATIC, CBC #### [facility] [address] ALP [Catalytic activity/Vol] 45 U/L Normal 34-104 [facility] Comment on above: Performed By: #### B MP, LIPASE, HEPATIC, CBC #### [facility] [address] ALT [Catalytic activity/Vol] 7 U/L Normal 7-52 [facility] Comment on above: Performed By: #### B MP, LIPASE, HEPATIC, CBC #### [facility] [address] AST [Catalytic activity/Vol] 15 U/L Normal 13-39 [facility] Comment on above: Performed By: #### B MP, LIPASE, HEPATIC, CBC #### [facility] [address] [place] [address] [place] Bilirubin [Mass/Vol] 0.6 mg/dL Normal 0.3-1.0 [facility] Comment on above: Performed By: #### B MP, LIPASE, HEPATIC, CBC #### [facility] [address] [place] [id number] [place] Bilirubin,Indirect 0.5 mg/dL Normal [facility] Comment on above: Performed By: #### B MP, LIPASE, HEPATIC, CBC #### [facility] [address] Bilirubin.indirect [Mass/Vol] 0.10 mg/dL Normal 0.03-0.18 [facility] Comment on above: Performed By: #### B MP, LIPASE, HEPATIC, CBC #### [facility] [address] [place] [address] [place] Globulin (S) [Mass/Vol] 2.6 g/dL Normal [facility] Comment on above: Performed By: #### B MP, LIPASE, HEPATIC, CBC #### [facility] [address] Protein [Mass/Vol] 7.1 g/dL Normal 6.4-8.9 [facility] Comment on above: Performed By: #### B MP, LIPASE, HEPATIC, CBC #### [facility] [address] [place] [address] [place] Hyaline casts [#/area] in Ur ine sediment by Automated countOrdered By: PROVIDER TEMP on 07-31-2024 Hyaline casts Auto (Urine sed) [#/Area] Hyaline casts [#/area] in Urine sediment by Automated count 0-8 [facility] Ketones Test strip Ql (U)Ord ered By: PROVIDER TEMP on 07-31-2024 Ketones Ql (U) Ketones [Presence] in Urine by Test strip Negative [facility] Leukocyte esterase [Presence ] in Urine by Test stripOrdered By: PROVIDER TEMP on 07-31-2024 Leukocyte esterase Test strip Ql (U) Leukocyte esterase [Presence] in Urine by Test strip Negative [facility] Leukocytes [#/area] in Urine sediment by Automated countOrdered By: PROVIDER TEMP on 07-31-2024 WBC Auto (Urine sed) [#/Area] Leukocytes [#/area] in Urine sediment by Automated count 0-4 [facility] Leukocytes [#/volume] correc kenia for nucleated erythrocytes in Blood by Automated counOrdered By: Hilario Boykin on 07-31-2024 WBC corrected for nucl RBC Auto (Bld) [#/Vol] Leukocytes [#/volume] corrected for nucleated erythrocytes in Blood by Automated coun 3.8-11.6 [facility] Lipaseon 07-31-2024 Lipase [Catalytic activity/Vol] 14.0 U/L Normal 11.0-82.0 [facility] Comment on above: Result Comment: PERF ORMED BY: [facility] [address] [place] [address] PATHOLOGIST [employer] PORFIRIO SILVA M.D. Performed By: #### B MP, LIPASE, HEPATIC, CBC #### [address] Lipase [Enzymatic activity/v olume] in Serum or PlasmaOrdered By: Hilario Boykin on 07-31-2024 Lipase [Catalytic activity/Vol] Lipase [Enzymatic activity/volume] in Serum or Plasma 11.0-82.0 [facility] Lymphocytes Auto (Bld) [#/Vo l]Ordered By: Hilario Boykin on 07-31-2024 Lymphocytes (Bld) [#/Vol] Lymphocytes [#/volume] in Blood by Automated count 1.00-4.8 [facility] Lymphocytes/100 WBC Auto (Bl d)Ordered By: Hilario Boykin on 07-31-2024 Lymphocytes/100 WBC (Bld) Lymphocytes/100 leukocytes in Blood by Automated count . [facility] MCH Auto (RBC) [Entitic mass ]Ordered By: Hilario Boykin on 07-31-2024 MCH (RBC) [Entitic mass] MCH [Entitic mass] by Automated count 24.7-34.3 [facility] MCHC Auto (RBC) [Mass/Vol]Or dered By: Hilario Boykin on 07-31-2024 MCHC (RBC) [Mass/Vol] MCHC [Mass/volume] by Automated count 32.0-35.0 [facility] MCV Auto (RBC) [Entitic vol] Ordered By: Hilario Boykin on 07-31-2024 MCV (RBC) [Entitic vol] MCV [Entitic vol ume] by Automated count 80-100 [facility] Monocyte distribution width [Entitic volume] in Blood by AutomatedOrdered By: Hilario Boykin on 07-31-2024 Monocyte distribution width Auto (Bld) [Entitic vol] Monocyte distribution width [Entitic volume] in Blood by Automated 0.00-20.00 [facility] Monocytes Auto (Bld) [#/Vol] Ordered By: Hilario Boykin on 07-31-2024 Monocytes (Bld) [#/Vol] Automated blood monocyte count 0.0-0.8 [facility] Monocytes/100 WBC Auto (Bld) Ordered By: Hilario Boykin on 07-31-2024 Monocytes/100 WBC (Bld) Automated monocyte % . [facility] Mucus [Presence] in Urine by AutomatedOrdered By: PROVIDER TEMP on 07-31-2024 Mucus Auto Ql (U) Mucus [Presence] in Urine by Automated [facility] Neutrophils Auto (Bld) [#/Vo l]Ordered By: Hilario Boykin on 07-31-2024 Neutrophils (Bld) [#/Vol] Neutrophils [#/volume] in Blood by Automated count 1.8-7.7 [facility] Neutrophils/100 WBC Auto (Bl d)Ordered By: Hilario Boykin on 07-31-2024 Neutrophils/100 WBC (Bld) Automated neutrophil % . [facility] Nitrite Test strip Ql (U)Ord ered By: PROVIDER TEMP on 07-31-2024 Nitrite Ql (U) Nitrite [Presence] in Urine by Test strip Negative [facility] No Panel InformationOrdered By: Hilario Boykin on 07-31-2024 Estimated GFR (CKD-EPI) > 60.0 mL/Min [facility] Creatinine Clearance (Chem 73.57 [facility] Nucleated erythrocytes [Pres ence] in Blood by Automated countOrdered By: Hilario Boykin on 07-31-2024 Nucleated RBC Auto Ql (Bld) Nucleated erythrocytes [Presence] in Blood by Automated count 0-0.5 [facility] Platelet mean volume Auto (B ld) [Entitic vol]Ordered By: Hilario Boykin on 07-31-2024 Platelet mean volume (Bld) [Entitic vol] Platelet mean volume [Entitic volume] in Blood by Automated count 6.3-10.7 [facility] Platelets Auto (Bld) [#/Vol] Ordered By: Hilario Boykin on 07-31-2024 Platelets (Bld) [#/Vol] Platelets [#/vol ume] in Blood by Automated count 150-450 [facility] Potassium [Moles/volume] in Serum or PlasmaOrdered By: Hilario Boykin on 07-31-2024 Potassium [Moles/Vol] Potassium [Moles/volume] in Serum or Plasma 3.5-5.1 [facility] Protein Test strip (U) [Mass /Vol]Ordered By: ALEX MCDONNELL on 07-31-2024 Protein (U) [Mass/Vol] Protein [Mass/volume] in Urine by Test strip Negative [facility] Protein [Mass/volume] in Ser um or PlasmaOrdered By: Hilario Boykin on 07-31-2024 Protein [Mass/Vol] Protein [Mass/volume] in Serum or Plasma 6.4-8.9 [facility] RBC Auto (Bld) [#/Vol]Ordere d By: Hilario Boykin on 07-31-2024 RBC (Bld) [#/Vol] Erythrocytes [#/volume] in Blood by Automated count 3.60-5.00 [facility] Respiratory specimen influen za A virus, influenza B virus, respiratory syncytical virOrdered By: Hilario Boykin on 07-31-2024 SARS-CoV-2 (COVID-19) RNA INDIRA+probe Ql (Unsp spec) Respiratory specimen influenza A virus, influenza B virus, respiratory syncytical vir [facility] SARS-CoV-2 (COVID-19) RNA INDIRA+probe Ql (Unsp spec) Respiratory specimen influenza A virus, influenza B virus, respiratory syncytical vir [facility] Serum or plasma albumin/glob ulin mass ratioOrdered By: Hilario Boykin on 07-31-2024 Albumin/Globulin [Mass ratio] Serum or plasma albumin/globulin mass ratio [facility] Serum or plasma anion gap de terminationOrdered By: Hilario Boykin on 07-31-2024 Anion gap [Moles/Vol] Serum or plasma anion gap determination 6.0-15.0 [facility] Serum or plasma non-glucuron idated bilirubin measurement (mass/volume)Ordered By: Hilario Boykin on 07-31-2024 Bilirubin.indirect [Mass/Vol] Serum or plasma non-glucuronidated bilirubin measurement (mass/volume) [facility] Sodium [Moles/volume] in Ser um or PlasmaOrdered By: Hilario Boykin on 07-31-2024 Sodium [Moles/Vol] Sodium [Moles/volume] in Serum or Plasma 136-145 [facility] Specific gravity Test strip (U) [Rel density]Ordered By: PROVIDER TEMP on 07-31-2024 Specific gravity (U) [Rel density] Specific gravity of Urine by Test strip 1.001-1.030 [facility] Urea nitrogen [Mass/volume] in Serum or PlasmaOrdered By: Hilario Boykin on 07-31-2024 Urea nitrogen [Mass/Vol] Urea nitrogen [Mass/volume] in Serum or Plasma 7-25 [facility] Urobilinogen Test strip (U) [Mass/Vol]Ordered By: PROVIDER TEMP on 07-31-2024 Urobilinogen (U) [Mass/Vol] Urobilinogen [Mass/volume] in Urine by Test strip Normal [facility] WBC Auto (Bld) [#/Vol]Ordere d By: Hilario Boykin on 07-31-2024 WBC (Bld) [#/Vol] Leukocytes [#/volume] in Blood by Automated count 3.8-11.6 [facility] pH Test strip (U)Ordered By: PROVIDER TEMP on 07-31-2024 pH (U) pH of Urine by Test strip 5.0-9.0 [facility]14 SARS-CoV-2 (COVID-19) RNA INDIRA+probe Ql (Unsp [...] for this test is supported by the [employer] of Health and Human Service's (HHS's) declaration [...] #### [facility] [address] [place] [id number] Jami Hernandez SARS-CoV2 ANTIBODIES (IgM, I [...] antibodies specific to the viral spike protein. [employer] offers two test codes that detect viral spike-specific antibodies: 488684 SARS-CoV-2 Semi-Quantitative Total Antibody, Ralph and 597451 SARS-CoV-2 Antibody, IgG, Ralph (Qualitative). Positive results with this SARS-CoV-2 Antibodies, Nucleocapsid assay suggest recent or previous natural infection with SARS-CoV-2. Performed By: #### C VDABS #### [facility] [address] [place] [address] Shama Tenorio Covid-19 PCR ([facility])on SARS-CoV-2 (COVID-19) RNA INDIRA+probe Ql (Unsp spec) [...] for this test is supported by the [employer] of Health and Human Service's (HHS's) declaration [...] consistent with SARS-CoV-2. Performed By: #### C [facility] #### [facility] [address] [id number] Shama Tenorio XR CHEST 2 Von 08-13-2020 [...] by: Neeraj NIXON Date: 2020-08-13 17:40 Normal [facility] Vital Signs Date Time Vital Sign Value Performing Clinician Facility 01-23-2025 09:57-0400 Body height 162.56 cm Bria Aguero [employer] Work Phone: [facility] 01-23-2025 09:57-0400 Body mass index (BMI) [Ratio] 16.1 kg/m2 Bria Aguero DO Work Phone: [facility] 01-23-2025 09:57-0400 Body weight 42.63 kg Bria Aguero DO Work Phone: [facility] 01-23-2025 09:57-0400 Diastolic blood pressure 70 mm[Hg] Bria Aguero DO Work Phone: [facility] 01-23-2025 09:57-0400 Heart rate 85 /min Bria Aguero DO Work Phone: [facility] 01-23-2025 09:57-0400 Respiratory rate 18 /min Bria DeWilde DO Work Phone: [facility] 01-23-2025 09:57-0400 SaO2% (BldA) [Mass fraction] 100 % Bria DeWilde DO Work Phone: [facility] 01-23-2025 09:57-0400 Systolic blood pressure 92 mm[Hg] Bria DeWilde DO Work Phone: [facility] 01-17-2025 09:23-0400 Body height 162.56 cm Rbia DeWilde DO Work Phone: [facility] 01-17-2025 09:23-0400 Body mass index (BMI) [Ratio] 16 kg/m2 Bria DeWilde DO Work Phone: [facility] 01-17-2025 09:23-0400 Body weight 42.35 kg Bria DeWilde DO Work Phone: [facility] 01-17-2025 09:23-0400 Diastolic blood pressure 64 mm[Hg] Bria DeWilde DO Work Phone: [facility] 01-17-2025 09:23-0400 Heart rate 77 /min Bria DeWilde DO Work Phone: [facility] 01-17-2025 09:23-0400 Respiratory rate 18 /min Bria DeWilde DO Work Phone: [facility] 01-17-2025 09:23-0400 SaO2% (BldA) [Mass fraction] 99 % Bria DeWilde DO Work Phone: [facility] 01-17-2025 09:23-0400 Systolic blood pressure 100 mm[Hg] Bria DeWilde DO Work Phone: [facility] 12-20-2024 08:44-0400 Body height 162.56 cm Bria DeWilde DO Work Phone: [facility] 12-20-2024 08:44-0400 Body mass index (BMI) [Ratio] 14.8 kg/m2 Bria DeWilde DO Work Phone: [facility] 12-20-2024 08:44-0400 Body weight 39.26 kg Bria DeWilde DO Work Phone: [facility] 12-20-2024 08:44-0400 Diastolic blood pressure 66 mm[Hg] Bria DeWilde DO Work Phone: [facility] 12-20-2024 08:44-0400 Heart rate 55 /min Bria DeWilde DO Work Phone: [facility] 12-20-2024 08:44-0400 SaO2% (BldA) [Mass fraction] 98 % Bria DeWilde DO Work Phone: [facility] 12-20-2024 08:44-0400 Systolic blood pressure 96 mm[Hg] Bria DeWilde DO Work Phone: [facility] 12-11-2024 13:54-0400 Body height 162.56 cm Melvina Vides [employer] Work Phone: [facility] 12-11-2024 13:54-0400 Body mass index (BMI) [Ratio] 15.4 kg/m2 Melvina Vides [employer] Work Phone: [facility] 12-11-2024 13:54-0400 Body weight 40.82 kg Melvina Vides [employer] Work Phone: [facility] 12-11-2024 13:54-0400 Diastolic blood pressure 68 mm[Hg] Melvina Vides [employer] Work Phone: [facility] 12-11-2024 13:54-0400 Heart rate 49 /min Melvina Navjot [employer] Work Phone: [facility] 12-11-2024 13:54-0400 Respiratory rate 18 /min Melvinamindy Houmer [employer] Work Phone: [facility] 12-11-2024 13:54-0400 SaO2% (BldA) [Mass fraction] 96 % Melvinamindy Houmer [employer] Work Phone: [facility] 12-11-2024 13:54-0400 Systolic blood pressure 94 mm[Hg] Melvina Navjot [employer] Work Phone: [facility] 11-03-2024 14:32-0400 Body height 162.56 cm Melvina Navjot [employer] Work Phone: [facility] 11-03-2024 14:32-0400 Body mass index (BMI) [Ratio] 16.1 kg/m2 Melvina Navjot [employer] Work Phone: [facility] 11-03-2024 14:32-0400 Body temperature 98.6 [degF] Melvina Navjot [employer] Work Phone: [facility] 11-03-2024 14:32-0400 Body weight 42.63 kg Melvina Houmer [employer] Work Phone: [facility] 11-03-2024 14:32-0400 Diastolic blood pressure 77 mm[Hg] Melvina Navjot [employer] Work Phone: [facility] 11-03-2024 14:32-0400 Heart rate 91 /min Melvina Navjot [employer] Work Phone: [facility] 11-03-2024 14:32-0400 Respiratory rate 18 /min Melvina Navjot [employer] Work Phone: [facility] 11-03-2024 14:32-0400 SaO2% (BldA) [Mass fraction] 98 % Melvina Navjot [employer] Work Phone: [facility] 11-03-2024 14:32-0400 Systolic blood pressure 127 mm[Hg] Melvina Navjot [employer] Work Phone: [facility] 10-30-2024 14:40-0400 Body height 162.56 cm Melvina Navjot [employer] Work Phone: [facility] 10-30-2024 14:40-0400 Body mass index (BMI) [Ratio] 16.1 kg/m2 Melvina Navjot [employer] Work Phone: [facility] 10-30-2024 14:40-0400 Body weight 42.63 kg Melvina Navjot [employer] Work Phone: [facility] 10-30-2024 14:40-0400 Diastolic blood pressure 60 mm[Hg] Melvina Navjot [employer] Work Phone: [facility] 10-30-2024 14:40-0400 Systolic blood pressure 108 mm[Hg] Melvina Navjot [employer] Work Phone: [facility] 10-20-2024 08:22-0400 Body height 162.56 cm Melvina Navjot [employer] Work Phone: [facility] 10-20-2024 08:22-0400 Body mass index (BMI) [Ratio] 16 kg/m2 Melvina Navjot [employer] Work Phone: [facility] 10-20-2024 08:22-0400 Body weight 42.41 kg Melvina Navjot [employer] Work Phone: [facility] 10-20-2024 08:22-0400 Diastolic blood pressure 70 mm[Hg] Melvina Navjot [employer] Work Phone: [facility] 10-20-2024 08:22-0400 Heart rate 91 /min Melvina Navjot [employer] Work Phone: [facility] 10-20-2024 08:22-0400 Respiratory rate 18 /min Melvina Navjot [employer] Work Phone: [facility] 10-20-2024 08:22-0400 SaO2% (BldA) [Mass fraction] 99 % Melvina Navjot [employer] Work Phone: [facility] 10-20-2024 08:22-0400 Systolic blood pressure 100 mm[Hg] Melvina Navjot [employer] Work Phone: [facility] 10-17-2024 14:02-0400 Diastolic blood pressure 56 mm[Hg] Melvina Navjot [employer] Work Phone: [facility] 10-17-2024 14:02-0400 Heart rate 66 /min Melvina Navjot [employer] Work Phone: [facility] 10-17-2024 14:02-0400 Respiratory rate 18 /min Melvina Navjot [employer] Work Phone: [facility] 10-17-2024 14:02-0400 SaO2% (BldA) [Mass fraction] 100 % Melvina Navjot [employer] Work Phone: [facility] 10-17-2024 14:02-0400 Systolic blood pressure 100 mm[Hg] Melvina Navjot [employer] Work Phone: [facility] 10-17-2024 10:15-0400 Body height 162.56 cm Melvina Navjot [employer] Work Phone: [facility] 10-17-2024 10:15-0400 Body temperature 98.7 [degF] Melvina Navjot [employer] Work Phone: [facility] 10-17-2024 10:15-0400 Body weight 43.4 kg Melvina Navjot [employer] Work Phone: [facility] 10-12-2024 11:54-0400 Heart rate 68 /min JESUS NKANSAH-AMANKRA [facility] 10-12-2024 11:54-0400 SaO2% (BldA) [Mass fraction] 98 % JESUS NKANSAH-AMANKRA [facility] 10-12-2024 11:53-0400 Respiratory rate 16 /min JESUS NKANSAH-AMANKRA [facility] 10-12-2024 11:53-0400 Body temperature 98.06 [degF] JESUS FRANTZANSAH-AMANKRA [facility] 10-12-2024 11:53-0400 Diastolic blood pressure 67 mm[Hg] JESUS FRANTZANSAH-AMANKRA [facility] 10-12-2024 11:53-0400 Mean blood pressure 84 mm[Hg] JESUS NKANSAH-AMANKRA [facility] 10-12-2024 11:53-0400 Systolic blood pressure 119 mm[Hg] JESUS LANDRYANSAH-AMANKRA [facility] 10-12-2024 11:52-0400 Blood Pressure Location JESUSMARY LANDRYANSAH-AMANKRA [facility] 10-12-2024 10:40-0400 Heart rate 58 /min JESUS LANDRYANSAH-AMANKRA [facility] 10-12-2024 10:40-0400 SaO2% (BldA) [Mass fraction] 95 % JESUS NKANSAH-AMANKRA [facility] 10-12-2024 10:40-0400 Blood Pressure Location JESUS NKANSAH-AMANKRA [facility] 10-12-2024 10:40-0400 Body temperature 97.34 [degF] JESUS NKANSAH-AMANKRA [facility] 10-12-2024 10:40-0400 Diastolic blood pressure 74 mm[Hg] JESUS NKANSAH-AMANKRA [facility] 10-12-2024 10:40-0400 Mean blood pressure 88 mm[Hg] JESUS NKANSAH-AMANKRA [facility] 10-12-2024 10:40-0400 Systolic blood pressure 117 mm[Hg] JESUS NKANSAH-AMANKRA [facility] 10-12-2024 10:35-0400 SaO2% (BldA) [Mass fraction] 96 % JESUS NKANSAH-AMANKRA [facility] 10-12-2024 10:35-0400 Heart rate 54 /min JESUS NKANSAH-AMANKRA [facility] 10-12-2024 10:35-0400 Blood Pressure Location JESUS NKANSAH-AMANKRA [facility] 10-12-2024 10:35-0400 Body temperature 97.34 [degF] JESUS NKANSAH-AMANKRA [facility] 10-12-2024 10:35-0400 Diastolic blood pressure 81 mm[Hg] JESUS NKANSAH-AMANKRA [facility] 10-12-2024 10:35-0400 Mean blood pressure 98 mm[Hg] JESUS NKANSAH-AMANKRA [facility] 10-12-2024 10:35-0400 Respiratory rate 16 /min JESUS NKANSAH-AMANKRA [facility] 10-12-2024 10:35-0400 Systolic blood pressure 131 mm[Hg] JESUS NKANSAH-AMANKRA [facility] 10-12-2024 10:30-0400 Mean blood pressure 94 mm[Hg] JESUS NKANSAH-AMANKRA [facility] 10-12-2024 10:30-0400 Respiratory rate 12 /min JESUS NKANSAH-AMANKRA [facility] 10-12-2024 10:00-0400 Respiratory rate 15 /min JESUS NKANSAH-AMANKRA [facility] 10-12-2024 09:55-0400 Respiratory rate 10 /min JESUS NKANSAH-AMANKRA [facility] 10-12-2024 09:50-0400 Respiratory rate 8 /min JESUS NKANSAH-AMANKRA [facility] 10-12-2024 09:47-0400 Body temperature 97.7 [degF] JESUS NKANSAH-AMANKRA [facility] 10-12-2024 08:13-0400 Heart rate 58 /min JESUS NKANSAH-AMANKRA [facility] 10-12-2024 08:12-0400 Mean blood pressure 72 mm[Hg] JESUS NKANSAH-AMANKRA [facility] 10-12-2024 08:11-0400 Body temperature 97.7 [degF] JESUS NKANSAH-AMANKRA [facility] 10-12-2024 08:10-0400 Mean blood pressure 77 mm[Hg] JESUS NKANSAH-AMANKRA [facility] 10-04-2024 11:28-0400 Body height 160.02 cm Melvina ASHER Work Phone: [facility] 10-04-2024 11:28-0400 Body mass index (BMI) [Ratio] 17.3 kg/m2 Melvina Navjot [employer] Work Phone: [facility] 10-04-2024 11:28-0400 Body weight 44.45 kg Melvina Navjot [employer] Work Phone: [facility] 10-04-2024 11:28-0400 Diastolic blood pressure 60 mm[Hg] Melvina Navjot [employer] Work Phone: [facility] 10-04-2024 11:28-0400 Heart rate 60 /min Melvina Navjot [employer] Work Phone: [facility] 10-04-2024 11:28-0400 Respiratory rate 18 /min Melvina Navjot [employer] Work Phone: [facility] 10-04-2024 11:28-0400 SaO2% (BldA) [Mass fraction] 98 % Melvina Navjot [employer] Work Phone: [facility] 10-04-2024 11:28-0400 Systolic blood pressure 100 mm[Hg] Melvina Navjot [employer] Work Phone: [facility] 09-21-2024 10:11-0400 Body height 160 cm Jana Itzkowitz DO Work Phone: [facility] 09-21-2024 10:11-0400 Body mass index (BMI) [Ratio] 17.01 kg/m2 Jana Itzkowitz DO Work Phone: [facility] 09-21-2024 10:11-0400 Body weight 43.55 kg Jana Itzkowitz DO Work Phone: [facility] 09-20-2024 13:12-0400 Body height 160.02 cm Melvina Navjot [employer] Work Phone: [facility] 09-20-2024 13:12-0400 Body mass index (BMI) [Ratio] 17 kg/m2 Melvina Navjot [employer] Work Phone: [facility] 09-20-2024 13:12-0400 Body weight 43.57 kg Melvina Vides [employer] Work Phone: [facility] 08-29-2024 12:15-0400 Diastolic blood pressure 71 mm[Hg] Melvinaminyd Houmer [employer] Work Phone: [facility] 08-29-2024 12:15-0400 Heart rate 65 /min Melvinamindy Vides [employer] Work Phone: [facility] 08-29-2024 12:15-0400 Respiratory rate 14 /min Melvinamindy Houmer [employer] Work Phone: [facility] 08-29-2024 12:15-0400 SaO2% (BldA) [Mass fraction] 100 % Melvinamindy Vides [employer] Work Phone: [facility] 08-29-2024 12:15-0400 Systolic blood pressure 111 mm[Hg] Melvinamindy Houmer [employer] Work Phone: [facility] 08-29-2024 11:00-0400 Body height 160.02 cm Melvina Navjot [employer] Work Phone: [facility] 08-29-2024 11:00-0400 Body weight 39.91 kg Melvina Navjot [employer] Work Phone: [facility] 08-16-2024 09:38-0500 Blood Pressure Location Blank Sarmini [facility] 08-16-2024 09:38-0500 Diastolic blood pressure 67 mm[Hg] Blank Sarmini [facility] 08-16-2024 09:38-0500 Heart rate 75 /min Blank Sarmini [facility] 08-16-2024 09:38-0500 Systolic blood pressure 105 mm[Hg] Blank Sarmini [facility] 08-10-2024 08:23-0500 Blood Pressure Location JESUS NKANSAH-AMANKRA [facility] 08-10-2024 08:23-0500 Body temperature 98.6 [degF] JESUS NKANSAH-AMANKRA [facility] 08-10-2024 08:23-0500 Diastolic blood pressure 60 mm[Hg] JESUS NKANSAH-AMANKRA [facility] 08-10-2024 08:23-0500 Heart rate 66 /min JESUS NKANSAH-AMANKRA [facility] 08-10-2024 08:23-0500 Respiratory rate 20 /min JESUS NKANSAH-AMANKRA [facility] 08-10-2024 08:23-0500 Systolic blood pressure 102 mm[Hg] JESUS NKANSAH-AMANKRA [facility] 07-31-2024 20:30-0500 Diastolic blood pressure 59 mm[Hg] Melvina Vides [employer] Work Phone: [facility] 07-31-2024 20:30-0500 Heart rate 80 /min Melvina Vides [employer] Work Phone: [facility] 07-31-2024 20:30-0500 Respiratory rate 18 /min Melvina Vides [employer] Work Phone: [facility] 07-31-2024 20:30-0500 SaO2% (BldA) [Mass fraction] 100 % Melvina Vides [employer] Work Phone: [facility] 07-31-2024 20:30-0500 Systolic blood pressure 118 mm[Hg] Melvina Houmer [employer] Work Phone: [facility] 07-31-2024 15:06-0500 Body height 160.02 cm Melvina Vides [employer] Work Phone: [facility] 07-31-2024 15:06-0500 Body temperature 98.2 [degF] Melvina Houmer [employer] Work Phone: [facility] 07-31-2024 15:06-0500 Body weight 43 kg Melvina Houmer [employer] Work Phone: [facility] Encounters Encounter Date Encounter Type Care Provider Facility Start: 01-23-2025 End: 01-23-2025 ambulatory Bria DeWilde DO Work Phone: [facility] Work Phone: Start: 01-23-2025 End: 01-23-2025 Patient encounter procedure Mike Encinas MD -[facility] Work Phone: Start: 01-17-2025 End: 01-17-2025 ambulatory Bria DeWilde DO Work Phone: [facility] Work Phone: Start: 01-17-2025 End: 01-17-2025 Patient encounter procedure Bria DeWilde DO -[facility] [place] Work Phone: Start: 12-28-2024 End: 12-28-2024 ambulatory Bria DeWilde DO Work Phone: [facility] Work Phone: Start: 12-28-2024 End: 12-28-2024 Patient encounter procedure Mike Encinas MD -[facility] Work Phone: Start: 12-20-2024 End: 12-20-2024 Patient encounter procedure Bria DeWilde DO -[facility] [place] Work Phone: Start: 12-11-2024 End: 12-11-2024 ambulatory Melvina Vides [employer] Work Phone: [facility] Work Phone: Start: 12-11-2024 End: 12-11-2024 Patient encounter procedure Mike Encinas MD -[facility] Work Phone: Start: 12-07-2024 End: 12-07-2024 ambulatory Bria DeWilde Facility:[facility] Start: 12-07-2024 Non-patient / Non-visit Miguel Dunham MD -[facility] Work Phone: Start: 11-27-2024 ambulatory JESUS NKANSAH-AMANKRA Facility:[facility] Start: 11-09-2024 End: 11-09-2024 ambulatory JESUS NKANSAH-AMANKRA Facility[facility] Start: 11-09-2024 End: 11-09-2024 Patient encounter procedure JESUS NKANSAH-AMANKRA [facility] Start: 11-03-2024 End: 11-03-2024 ambulatory Melvina Vides [employer] Work Phone: [facility] Work Phone: Start: 11-03-2024 End: 11-03-2024 Patient encounter procedure Melvina Vides [employer] [facility] [place] Work Phone: Start: 11-02-2024 End: 11-02-2024 ambulatory JANA IGNACIO Not Available Start: 10-30-2024 End: 10-30-2024 ambulatory Bria DeWilde Facility:[facility] Start: 10-30-2024 End: 10-30-2024 Patient encounter procedure Melvina Vides [employer] [facility] Phone[facility] Work Phone: Start: 10-25-2024 End: 10-30-2024 External Result Encounter Jana Una Ignacio DO Work Phone: [facility] Unsolicited Start: 10-25-2024 End: 10-30-2024 External Result Encounter Janasuzette Ignacio DO Work Phone: [facility] Unsolicited Start: 10-25-2024 End: 10-25-2024 ambulatory Melvina Vides [employer] Work Phone: [facility] Work Phone: Start: 10-25-2024 End: 10-25-2024 Departed Referred Melvina Vides [employer] Work Phone: [facility] [place] Work Phone: Start: 10-20-2024 Non-patient / Non-visit Melvina Vides [employer] [facility] Work [facility] Start: 10-20-2024 End: 10-20-2024 ambulatory Melvina Vides [employer] Work Phone: [facility] Work Phone: Start: 10-20-2024 End: 10-20-2024 Patient encounter procedure Melvina Vides [employer] [facility] [place] Work Phone: Start: 10-17-2024 End: 10-17-2024 Emergency department patient visit Melvina Vides [employer] Work Phone: [facility]-Emergency Room Work Phone: Start: 10-12-2024 End: 10-12-2024 [facility] Start: 10-12-2024 End: 10-12-2024 ambulatory JESUS PÉREZ-VALERI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
== END 2025-01-30 18:55 | disposition home or self-care (01) ==
PROVIDERS: Emergency Provider Emergency Medicine; PCP Nurse Practitioner Family
DX: R55 Syncope and collapse (principal); G90.A Postural orthostatic tachycardia syndrome [POTS]
CPT/HCPCS: 36415; 80053; 84484; 84703; 85025; 93005; 96361; 96374; 99285; J1885